=== PATIENT | male | born 1930 | race Caucasian/White ===

== ENCOUNTER 2016-06-03 22:00 | Inpatient (IN) | payer OTHER, MEDICARE ==
[~2016-06-03] VITALS: Ht 167.6 cm; Wt 69.9 kg
[~2016-06-03 22:00] MED LIST: ADVAIR 500-501 EACH INH; AMITIZA8 MCG PO; ASPIR 8181 MG PO; AUGMENTIN 500M500 MG PO; AUGMENTIN 875875 MG PO; AVELOX400 MG PO; AZITHROMYCIN D250 MG PO; AZITHROMYCIN250 MG PO; BILBERRY; CARBIDOPA AND L1 TA1 PO; CARDIZEM CD180 MG PO; CARDIZEM30 MG PO; COLACE100 M1 PO; COUMADIN 5 MG TA5 MG PO; COUMADIN 7.5 M7.5 MG PO; DEXILANT60 M1 PO; DIGOXIN0.125 MG PO; ESCITALOPRAM10 MG PO; FERROUS SULFAT325 M1 PO; FISH OIL1000 MG PO; FLOMAX(MONOGRA0.4 MG PO; FLOMAX0.4 M1 PO; LASIX40 MG PO; MIRALAX17 GM PO; MULTAQ 400MG400 MG PO; MULTIVITAMIN1 TA1 PO; OCUVITE1 TA1 PO; PREDNISONE 10MG10 MG PO; PREDNISONE 20MG20 MG PO; PREDNISONE10 MG PO; PREDNISONE5 MG PO; PRESERVISION1 SGL PO; PROPECIA 1MG1 MG PO; RHINOCORT0.032 MG/2 NASB; ROZEREM8 MG PO; SINGULAIR10 MG PO; SUCRALFATE1 GM PO; SYNTHROID50 MCG PO; VESICARE5 M1 PO; VITAMIN D1000 IU PO; VITAMIN D31000 IU PO; VYTORIN 10 MG-11 TAB PO; WARFARIN SODIUM5 MG PO; XOPENEX HFA45 MCG INH; ZYRTEC10 M1 PO
--- NOTE | 2016-06-03 22:07 | ED DYSPNEA/ASTHMA COMPLAINT ---
History of Present Illness General Chief Complaint: Chest Pain Stated Complaint: SOB, IN AFIB? Source: patient Exam Limitations: no limitations Vital Signs & Intake/Output Vital Signs & Intake/Output Vital Signs Date Time Temp Pulse Resp B/P Pulse O2 O2 Flow FiO2 Ox Delivery Rate 06/03 2350 100.0 06/03 2331 96 Part 60% ReBreather 06/03 2305 90 150/66 06/03 230 101.9 20 96 Venti Mask 45% 06/03 2250 102.4 06/035 24 98 Part 60% ReBreather 06/03 2221 102.4 98 28 160/78 78 Room Air 06/03 2210 99 Non 100% ReBreather ED Intake and Output 06/04 0000 06/03 1200 Intake Total 500 Output Total Balance 500 Intake, IV 500 Patient 154 lb Weight Allergies Coded Allergies: pollen extracts (UNKNOWN 09/08/15) atorvastatin (Severe, MUSCLE WEAKNESS 09/08/15) Uncoded Allergies: DUST (UNKNOWN 12/26/14) Reconcile Medications Carbidopa/Levodopa (Carbidopa and Levodopa) 25 MG/100 MG TAB 1 TAB PO BID PARKINSON'S (Reported) Cholecalciferol (Vitamin D3) 1,000 IU TAB 1 TAB PO DAILY SUPPLEMENT (Reported ) Dexlansoprazole (Dexilant) 60 MG CAP.BP 1 CAP PO DAILY GERD (Reported) Digoxin 0.125 MG TAB 1 TAB PO DAILY HEART RATE DILTIAZEM HCL (Cardizem Cd) 180 MG C24 1 CAP PO BID heart rate (Reported) Docusate Sodium (Colace) 100 MG CAPSULE 2 CAP PO BID CONSTIPATION (Reported) Ezetimibe/Simvastatin (Vytorin 10-10 MG Tablet) 10 MG-10 MG TABLET 1 TAB PO DAILY CHOLESTEROL (Reported) Ferrous Sulfate 325 MG TAB 325 MG PO DAILY anemia Finasteride (Propecia) 1 MG TABLET 5 mg PO DAILY BPH (Reported) HOLD FOR SBP <110 Fluticasone-Salmeterol (Advair 500-50 Diskus) 500 MCG-50 MCG/DOSE BLST.W.DEV 1 PUF INH BID ASTHMA (Reported) Furosemide (Lasix) 40 MG TAB 1 TAB PO Saturday CONGESTIVE HEART FAILURE Levothyroxine (Synthroid) 0.025 MG TAB 2 TAB PO DAILY HYPOTHYROIDISM ( Reported) Lubiprostone (Amitiza) 8 MCG CAPSULE 1 CAP PO BID CONSTIPATION (Reported) Metformin HCl 500 MG TABLET 1 TAB PO BID DIABETES (Reported) Montelukast Sodium (Singulair) 10 MG TABLET 1 TAB PO DAILY COPD (Reported) Moxifloxacin Hydrochloride (Avelox) 400 MG TAB 400 MG PO DAILY LUNG INFECTION Prednisone 20 MG TAB 20 MG PO DAILY BREATHING PROBLEMS Solifenacin Succinate (Vesicare) 5 MG TAB 1 TAB PO DAILY BLADDER (Reported) Tamsulosin Hydrochloride (Flomax) 0.4 MG CAP.ER.24H 1 CAP PO AT BEDTIME BPH ( Reported) Triage Nurses Notes Reviewed? yes Onset: Gradual Duration: day(s):, getting worse Timing: recent history Severity: moderate Activities at Onset: none Prior Episodes/Possible Cause: occasional episodes Modifying Factors: Improves With: rest. Associated Symptoms: cough, wheezing HPI: 86-year-old gentleman history of CHF and COPD and A. fib, presents with wheezing and shortness of breath for the past 1-2 days. He notes that this evening he started feeling worse. He became breathless. He notes phlegm in his chest. He has no chest pain lower extremity swelling or dizziness. Upon arrival to the emergency department his O2 sat was in the low 80s. He was brought immediately to an exam room and placed on 100% nonrebreather. His O2 sat with oxygen is 90- 95%. Past History Travel History Traveled to [place] past 21 day No Medical History Any Pertinent Medical History? see below for history Neurological: Parkinson's disease, [place] VISION LOSS EENT: blindness, hearing loss, macular degeneration Cardiovascular: AFIB, CHF, hypertension, hyperlipidemia Respiratory: bronchitis, COPD, emphysema, pneumonia, Lung ca s/p lobectomy Gastrointestinal: lower GI bleed, AVM Hepatic: NONE Renal: NONE Musculoskeletal: NONE Psychiatric: NONE Endocrine: NONE Blood Disorders: anemia Cancer(s): lung cancer, RLL LOBECTOMY RN SHIFT MGR/Reproductive: NONE Other Medical Hx: IGG DEFICIENCY History of MRSA: No History of VRE: No History of CDIFF: No Pneumonia Vaccine: 02/03/10 Influenza Vaccine: 03/10/15 Surgical History Surgical History: N partial lobectomy Psychosocial History Who do you live with Spouse Services at Home None What is your primary language [place] Citizen Family History Family History, If Any: SISTER (some platelet problem). Hx Contributory? No Review of Systems Review of Systems Constitutional: Reports: no symptoms. EENTM: Reports: no symptoms. Respiratory: Reports: no symptoms. Cardiovascular: Reports: no symptoms. GI: Reports: no symptoms. Genitourinary: Reports: no symptoms. Musculoskeletal: Reports: no symptoms. Skin: Reports: no symptoms. Neurological/Psychological: Reports: no symptoms. Hematologic/Endocrine: Reports: no symptoms. Immunologic/Allergic: Reports: no symptoms. All Other Systems: Reviewed and Negative Physical Exam Physical Exam General Appearance: well developed/nourished, moderate distress Head: atraumatic, normal appearance Eyes: Bilateral: normal appearance. Ears, Nose, Throat: normal pharynx, normal ENT inspection Neck: normal inspection, supple Respiratory: crackles, rhonchi, respiratory distress Cardiovascular: TACHYCARDIC Gastrointestinal: normal bowel sounds Extremities: normal inspection Neurologic/Psych: no motor/sensory deficits, awake, alert, oriented x 3 Skin: intact, normal color Core Measures ACS in differential dx? No Severe Sepsis Present: No Septic Shock Present: No Progress Differential Diagnosis: asthma, AMI, CHF, COPD, pneumonia Plan of Care: Orders Procedure Date/time Status Nothing by Mouth 06/04 B Active Add-on Test (ER Only) 06/04 0015 Active Patient Data 06/04 0013 Active Saline Lock 06/03 2233 Active Misc Message 06/03 2233 Active ED Holding Orders 06/03 2233 Active Code Status 06/03 2233 Active Admit to inpatient 06/03 2232 Active Saline Lock 06/03 2230 Active Misc Message 06/03 2230 Active ED Holding Orders 06/03 2230 Active Admit to inpatient 06/03 2230 Active Vital Signs 06/03 2230 Active Code Status 06/03 2230 Complete DIGOXIN 06/03 2229 Active B-TYPE NATRIURETIC PEP (BNP) 06/03 2229 Active BLOOD CULTURE 06/03 2209 Active ARTERIAL BLOOD GAS (GEN) 06/03 2208 Complete BLOOD CULTURE 06/03 2206 Active TROPONIN LEVEL 06/03 2205 Active PARTIAL THROMBOPLASTIN TIME 06/03 2205 Complete PROTHROMBIN TIME 06/03 2205 Complete LIPASE 06/03 2205 Active HEPATIC FUNCTION PANEL 06/03 2205 Active CBC WITHOUT DIFFERENTIAL 06/03 2205 Complete BASIC METABOLIC PANEL 06/03 2205 Active AMYLASE 06/03 2205 Active EKG 06/03 2201 Active Laboratory Tests 06/03/16 2230: Anion Gap 12, Estimated GFR > 60, BUN/Creatinine Ratio 26.3 H, Glucose 129 H, Calcium 9.3, Total Bilirubin 0.6, Direct Bilirubin 0.4, AST 22, ALT 22, Alkaline Phosphatase 93, Troponin I < 0.01, [id number] Pept 536 H, Total Protein 7.2, Albumin 4.3, Amylase 58, Lipase 73, PT 12.6 H, INR 1.20 H, APTT 32, CBC w Diff MAN DIFF ORDERED, RBC 4.40 L, MCV 81.0, MCH 26.1 L, RDW 16.9 H, MPV 8.9, Gran % 88.5 H, Lymphocytes % 5.6 L, Monocytes % 4.0, Eosinophils % 1.6, Basophils % 0.3, Absolute Granulocytes 13.8 H, Segmented Neutrophils 84 H, Band Neutrophils 3, Absolute Lymphocytes 0.9 L, Lymphocytes 6 L, Monocytes 5, Absolute Monocytes 0.6, Eosinophils 2, Absolute Eosinophils 0.2, Absolute Basophils 0, Platelet Estimate ADEQUATE, Hypochromic-Microcytic 2+, Anisocytosis 1+, PUBS MCHC 32.2 L, Digoxin Pending 06/03/16 2210: pH 7.37, pCO2 41, pO2 84, HCO3 23, ABG O2 Sat (Measured) 93.0 L, P-50 (Temp Corrected) Y, Carboxyhemoglobin 0.9 L, O2 Concentration % 7L, Temperature 102.4 H, O2 Delivery Method NEB RX, Phlebotomy Draw Site RIGHT BRACHIAL 06/03/16 2209: Hia-Z-Zgjithxqcdh Pept Cancelled Microbiology 06/03 2246 BLOOD: Blood Culture - RECD 06/03 2229 BLOOD: Blood Culture - RECD Diagnostic Imaging: Viewed by Me: Radiology Read. Discussed w/RAD: Radiology Read. Initial ED EKG: a. FIB WITH VENTRICULAR RATE IN THE 90S Departure Departure Disposition: STILL A PATIENT Condition: Stable Clinical Impression Primary Impression: Shortness of breath Secondary Impressions: Atrial fibrillation, Pneumonia, Sepsis Referrals: ANABELLE VALDEZ MD (PCP/Family) Departure Forms: Customer Survey General Discharge Information Comments 06/04/2016, 010 7 AM: Patient feeling better after IV steroids nebs antibiotics and oxygen support. Patient stable for [facility] Admission Note Spoke With: ADENIKE SORIANO MD Documentation of Exam: Documentation of any treatments & extenuating circumstances including Concerns Regarding Discharge (functional status, medication knowledge or non-compliance, living conditions, etc.) that warrant an admission rather than observation: Patient with pneumonia hypoxia sepsis merits O2 support and IV antibiotics Critical Care Note Critical Care Note Critical Care Time: non-applicable
--- NOTE | 2016-06-03 22:18 | NUR ---
RECEIVED 86 YO MALE BOUGHT DIRECTLY TO ROOM # 7 FOR DIFFICULTY BREATHING X 4 DAYS, GETTING PROGRESSIVELY WORSE. PT'S O2 SATS 78% ON ROOM AIR UPON ARRIVAL. PT WITH HX OF AFIB. PT PLACED ON 100 % NRB AND EVALUATED BY DR UNDERWOOD.
--- NOTE | 2016-06-03 22:26 | NUR ---
STAT EKG DONE. PT CONNECTED TO CM RESP THERAPIST TO EVALUATE PT, ADMINISTER COMBI MED NEB TX AND PERFORM ABG.
--- NOTE | 2016-06-03 22:30 | NUR ---
RT AT BEDSIDE WITH NEB TX AND ABG DRAWN, SATS 98 ON NEB, TRASITIONED TO PARTIAL REBREATHER AFTER NEB AND THEN QUICKLY TO 45% VENTI WITH RESTING SATS 94-97.
[2016-06-03 22:47] LABS: ABSOLUTE BASOPHIL COUNT 0 /CUMM (0.0-0.2); ABSOLUTE EOSINOPHIL COUNT 0.2 /CUMM (0.0-0.7); ABSOLUTE GRANULOCYTE CT 13.8 /CUMM (1.4-6.5); ABSOLUTE LYMPH COUNT 0.9 /CUMM (1.2-3.4); ABSOLUTE MONOCYTE COUNT 0.6 /CUMM (0.10-0.60); BASOPHIL % 0.3 % (0.0-2.0); EOSINOPHIL % 1.6 % (0-5); GRANULOCYTE % 88.5 % (42.2-75.2); HEMATOCRIT 35.6 % (42-52); MEAN CORPUSCULAR HGB 26.1 PG (27.0-31.0); MEAN CORPUSCULAR HGB CONC 32.2 G/DL (33.0-37.0); MEAN PLATELET VOLUME 8.9 FL (7.4-10.4); PLATELET COUNT 211 /CUMM (130-400); RBC DISTRIBUTION WIDTH 16.9 % (11.5-14.5); WHITE BLOOD CELL COUNT 15.6 /CUMM (4.8-10.8)
--- NOTE | 2016-06-03 22:50 | NUR ---
2 SETS BLOOD CX, SST/LAV/BLUE/PINK/DELCID TUBES SENT.
--- NOTE | 2016-06-03 22:55 | RADIOLOGY REPORT ---
EXAMINATION: XR PORTABLE CHEST CLINICAL INFORMATION: Hypoxia. COMPARISON: Multiple priors, most recent chest radiograph dated 04/26/[address] dated 05/23/2016. TECHNIQUE: Portable AP semiupright view of the chest was obtained. FINDINGS: There are bilateral increased interstitial markings. There are new bilateral lower lobe patchy airspace opacities which could represent atelectasis versus infiltrates. There is no pleural effusion or pneumothorax. The cardiomediastinal silhouette is mildly prominent. IMPRESSION: 1. New bilateral lower lobe patchy airspace opacities which could represent atelectasis versus infiltrates. 2. Chronic bilateral increased interstitial markings.
[2016-06-03 23:08] LABS: PT 12.6 SEC (9.4-12.5); PTT 32 SEC (25-37)
--- NOTE | 2016-06-03 23:10 | NUR ---
MEDICATED PER EMAR, PT APPEARS MUCH BETTER, STATING HE FEELS MORE COMFORTABLE. NO LONGER SHIVERING, SATS IMPROVED AND WOB MUCH IMPROVED, MAINTING SATS ON 45% VM. AWAITING ADMISSION.
--- NOTE | 2016-06-03 23:31 | NUR ---
PT AWARE HE IS NPO EXCEPT SIPS/CHIPS, ICE CHIPS GIVEN, PT HAS NO COMPLAINTS AT THIS TIME.
[2016-06-03] MEDS ORDERED: METFORMIN HCL500 M3 PO (23:45)
--- NOTE | 2016-06-03 23:54 | NUR ---
RECIEVED REPORT FROM TAMMI FERGUSON. PT TEMP REASSESSED AT 100.0. PT STATES HE FEELS "MUCH BETTER." SATTING 96% ON 45% VENTI MASK.
--- NOTE | 2016-06-04 00:18 | NUR ---
HOUSE STAFF AT BEDSIDE FOR EVAL
--- NOTE | 2016-06-04 00:28 | NUR ---
PT GIVEN SIPS OF WATER PER OKAY BY FOLLOWING PT.
--- NOTE | 2016-06-04 01:13 | History & Physical ---
KAREN RIVAS,JAD 06/04/16 0113: General Information and HPI MD Statement: I have seen and personally examined KENIA SHEARER and documented this H&P. The patient is a 86 year old M who presented with a patient stated chief complaint of [shortness of breath]. Source of Information: patient, EMS Exam Limitations: no limitations History of Present Illness: Patient is a 26-year-old male with past medical history significant for COPD, CHF, A. fib (on Eliquis), Parkinson's disease, vision loss (macular degeneration , legal blindness), hearing loss, lung carcinoma status post lobectomy, to which she appeared, type 2 diabetes came to the ER with progressively shortness of breath wheezing for the past 2 days. His symptoms started last with SOB , Marlys colored phlegm wtih chills. Symptoms got better with prednisone in terms of breathing with prednisone. However his SOB got worse even with resting and exertion, 2pillow orthopnea came to the ER for further evaluation. Last saturday he had an episode of vomiting with nausea, abdominal pain. Last BM on saturday and had dark stools for the past 1.5 week. No sick contacts, traveling in the past. No chest pain. 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 Mc Allergies/Medications Allergies: Coded Allergies: pollen extracts (UNKNOWN 09/08/15) atorvastatin (Severe, MUSCLE WEAKNESS 09/08/15) Uncoded Allergies: DUST (UNKNOWN 12/26/14) Home Med list Albuterol Sulfate (Proair Hfa) 90 MCG HFA.AER.AD 2 PUF INH Q4-6 PRN PRN COPD (Reported) Apixaban (Eliquis) 2.5 MG TABLET 1 TAB PO BID AFIB (Reported) Carbidopa/Levodopa (Sinemet 25-100 MG Tablet) 25 MG-100 MG TABLET 1 TAB PO TID PARKINSON (Reported) Cholecalciferol (Vitamin D3) 1,000 IU TAB 1 TAB PO DAILY SUPPLEMENT (Reported ) Dexlansoprazole (Dexilant) 60 MG KILLIAN.BP 1 CAP PO DAILY GERD (Reported) Digoxin 0.125 MG TAB 1 TAB PO DAILY HEART RATE Diltiazem HCl (Diltiazem ER) 180 MG CAPSULE.ER 1 TAB PO BID AFIB (Reported) Docusate Sodium (Colace) 100 MG CAPSULE 2 CAP PO BID CONSTIPATION (Reported) Ezetimibe/Simvastatin (Vytorin 10-10 MG Tablet) 10 MG-10 MG TABLET 1 TAB PO AT BEDTIME CHOLESTEROL (Reported) Ferrous Sulfate 325 MG (65 MG IRON) TABLET 1 TAB PO DAILY IRON DEF ANEMIA ( Reported) Finasteride 5 MG TABLET 1 TAB PO AT BEDTIME BPH (Reported) Fluticasone-Salmeterol (Advair 500-50 Diskus) 500 MCG-50 MCG/DOSE BLST.W.DEV 1 PUF INH BID ASTHMA (Reported) Furosemide (Lasix) 20 MG TABLET 1 TAB PO EOD CHF (Reported) Ipratropium/Albuterol Sulfate (Combivent Respimat Inhal Lorane) 20 MCG-100 MCG/ ACTUATION MIST.INHAL 2 SPRAY NS DAILY COPD (Reported) Levothyroxine (Synthroid) 0.025 MG TAB 2 TAB PO DAILY HYPOTHYROIDISM ( Reported) Lubiprostone (Amitiza) 8 MCG CAPSULE 1 CAP PO BID CONSTIPATION (Reported) Metformin HCl 500 MG TABLET 1 TAB PO AT BEDTIME DM (Reported) Montelukast Sodium 10 MG TABLET 1 TAB PO AT BEDTIME COPD (Reported) Polyethylene Glycol 3350 (Miralax) 17 GRAM POWD.PACK 1 PAC PO DAILY CONSTIPATION (Reported) dissolve in water Solifenacin Succinate (Vesicare) 5 MG TAB 1 TAB PO DAILY BLADDER (Reported) Tamsulosin Hydrochloride (Flomax) 0.4 MG CAP.ER.24H 1 CAP PO AT BEDTIME BPH ( Reported) Compliance With Home Meds: GOOD Past History Travel History Traveled to [place] past 21 day No Medical History Neurological: Parkinson's disease, NIKOLAI VISION LOSS EENT: blindness, hearing loss, macular degeneration Cardiovascular: AFIB, CHF, hypertension, hyperlipidemia Respiratory: bronchitis, COPD, emphysema, pneumonia, Lung ca s/p lobectomy Gastrointestinal: lower GI bleed, AVM Hepatic: NONE Renal: NONE Musculoskeletal: NONE Psychiatric: NONE Endocrine: NONE Blood Disorders: anemia Cancer(s): lung cancer, RLL 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 Psychosocial History Services at Home: None Functional Ability ADLs Independent: dressing, eating, toileting, bathing. Ambulation: independent IADLs Needs Assist: shopping, housework, finances, food prep, telephone, transportation, medication admin. Employment History Employment Retired Review of Systems Review of Systems Constitutional: Reports: see HPI, fever, malaise, weakness. EENTM: Reports: see HPI, visual changes, hearing changes. Cardiovascular: Reports: see HPI. Respiratory: Reports: see HPI, cough, short of breath, sputum production, wheezing. GI: Reports: see HPI, abdominal pain, nausea, vomiting. Genitourinary: Reports: no symptoms, see HPI. Musculoskeletal: Reports: no symptoms, see HPI. Skin: Reports: no symptoms, see HPI. Neurological/Psychological: Reports: no symptoms, see HPI. Hematologic/Endocrine: Reports: no symptoms, see HPI. Comments ROS negative except the above Exam & Diagnostic Data Last 24 Hrs of Vital Signs/I&O Vital Signs Date Time Temp Pulse Resp B/P Pulse O2 O2 Flow FiO2 Ox Delivery Rate 06/04 0307 95 Venti Mask 45% 06/04 0253 98.5 91 22 141/59 95 Venti Mask 45% 06/04 0136 99.6 80 22 154/67 97 Venti Mask 45% 06/03 2350 100.0 06/03 2331 96 Part 60% ReBreather 06/03 2305 90 150/66 06/03 2305 101.9 20 96 Venti Mask 45% 06/03 2250 102.4 06/03 2225 24 98 Part 60% ReBreather 06/03 2222 102.4 98 28 160/78 78 Room Air 06/03 2210 99 Non 100% ReBreather Intake & Output 06/04 0800 06/04 0000 06/03 1600 Intake Total 500 Output Total Balance 500 Intake, IV 500 Patient 69.853 kg Weight Physical Exam General Appearance Alert, Oriented X3, Cooperative, Mild Distress Skin No Rashes, No Breakdown HEENT Atraumatic, PERRLA, EOMI Neck Supple Cardiovascular Regular Rate, Normal S2, systolic murmur present, irregualarly irregular rhythm Lungs decrased breath sounds present on both the lung bases along with rhonchi Abdomen Normal Bowel Sounds, Soft, No Tenderness Neurological Normal Speech, Normal Tone, Sensation Intact Extremities No Clubbing, No Cyanosis, No Edema Assessment/Plan Assessment: Patient is a 26-year-old male with past medical history significant for COPD, CHF, A. fib (on Eliquis), Parkinson's disease, vision loss (macular degeneration , legal blindness), hearing loss, lung carcinoma status post lobectomy, to which she appeared, type 2 diabetes came to the ER with progressively shortness of breath wheezing for the past 2 days. ER Vital signs T max 102.4, HR 98, RR 28, BP 160/78, O2 sat 78% on room air improved to 96% on 60% Ventimask Significant labs include leukocytosis of 15,600 with left shift, H&H 11.5/35.6 (baseline 11.9/36.7), normal electrolytes, BUN 21, creatinine 0.8, glucose 129, normal LFT, troponin negative, INR 1.2, Pro BNP 536. Digoxin level 0.6 EKG revealed A. fib with no acute ST-T changes, QTC 506 Last Echo done in March 2015 revealed EF of 60-65% with pulmonary hypertension with RVSP of 40. Chest x-ray revealed new bilateral lower lobe patchy airspace opacity and also chronic bilateral increase interstitial markings Plan Acute hypoxic respiratory failure secondary to pneumonia * Started on Ceftriaxone and azithromycin IV * solumedrol 40mg Q8 * continue his home medications advair, singulair * F/U cultures * TRC/Nebs * Pulm consult in am A.Fib on eliquis * Continue Eliquis - 2.5mg BID still in A.Fib * Rate control with Digoxin and diltiazem 180mg BID Dark stools with lower abdominal pain in the setting of Iron intake * Most probably due to iron intake * Constipation with lower abdominal pain - ?? Diverticulosis * Tried to do guiac - no evident stool in the rectal vault * Guiac stool to make sure no ongoing GI bleed * monitor H&H History of parkinsons disease * Continue his home medication sinamet History of Diabetes mellitius Accuchecks and insulin sliding scale On metfromin at home History of hyperlipidemia * On ezetimibe 10mg at bedtime History of BPH * Continue his home medications Finasteride, Tamsulosin History of hypothyroidism * Continue his home medication levothyroxine 5mcg daily. Legally blind with hearing loss DVT prophylaxis * On eliquis Code status * full Code (patient had a grandson awaiting graduation so he changed his wishes and want to be full code) As Ranked By This Provider Problem List: 1. ATRIAL FIBRILATION 2. BPH 3. Dyslipidemia 4. Full code status 5. Hypertension 6. COPD (chronic obstructive pulmonary disease) 7. Lung cancer, lower lobe 8. Pneumonia 9. Parkinson disease 10. Acute and chronic respiratory failure with hypoxia Core Measures/Miscellaneous Acute Coronary Syndrome ACS Diagnosis: No Cerebrovascular Accident CVA/TIA Diagnosis: No Congestive Heart Failure CHF Diagnosis: No Venous Thromboembolism VTE Risk Factors: Cancer/chemo/oth therapy VTE Prophylaxis Ordered Inpt: Pharm- Heparin No Mech VTE prophylaxis d/t: No contraindications No VTE Pharm Prophylaxis d/t: No contraindications VTE Diagnosis: No VTE Type: NONE VTE Confirmed by (Test): NONE Severe Sepsis Severe Sepsis Present: No Septic Shock Septic Shock Present: No Miscellaneous Documentation Attending Case Discussed With: ADENIKE SORIANO MD Primary Care Physician: ANABELLE VALDEZ MD Patient sees these Specialists , Dr. Murphy, Dr. mc Level of Patient Care: General Medicine TOM GOMEZ MD 06/04/16 0202: Resident Review Statement Resident Statement: examined this patient, discussed with qa internship, agreed with qa internship, reviewed EMR data (avail), reviewed images, amended to note Other Findings: This is 86-year-old gentleman with past medical history of CHF, COPD, A. fib, hypertension, hyperlipidemia, lung cancer status post lobectomy, lower GI bleed, Parkinson disease and bilateral hearing loss presented from home with chief complaint of progressively worsening shortness of breath associated with productive number colored sputum production and fever/chills since last . Patient was evaluated by his forex trader Dr. Crane morning and that time patient was fine. afternoon patient developed episode of chills with with increased shortness of breath. Saturday he got very nauseous due to persistent shortness of breath and had one episode of nonbloody vomiting. For past couple days his shortness of breath got really worse at the point he was short of breath at rest. In ER he had fever of 102.4 and noted hypoxic with O2 sat of 78% on room air. He also reports left lower quadrant abdominal pain mostly associated with bowel movement and also reports being constipated. Last bowel movement on Saturday. His vitals on admission were T max 102.4, HR 98, RR 28, BP 160/78, O2 sat 78% on room air improved to 96% on 60% Ventimask On physical exam patient is alert oriented 3 in moderate respiratory distress, HEENT PERRLA EOMI, neck supple, heart S1-S2 without murmur, lungs noted left lower lobe ronchi, abdomen soft nontender nondistended with preserved fall sounds, no peripheral edema, no gross focal neuro deficit. Labs revealed leukocytosis of 15,600 with left shift, H&H 11.5/35.6 (baseline 11.9/36.7), normal electrolytes, BUN 21, creatinine 0.8, glucose 129, normal LFT , troponin negative, INR 1.2, Pro BNP 536. Digoxin level 0.6 EKG revealed A. fib with no acute ST-T changes, QTC 506 Last Echo done in March 2015 revealed EF of 60-65% with pulmonary hypertension with RVSP of 40. Chest x-ray revealed new bilateral lower lobe patchy airspace opacity and also chronic bilateral increase interstitial markings Assessment: This is 86-year-old male with past medical history of COPD not on home O2, A. fib, CHF, hypertension, lung cancer status post right lower lobe lobectomy, Rayshawn repeat, Parkinson disease, diabetes presented from home with chief complaint of progressively worsening shortness of breath associated with productive sputum and fevers chills found to have high-grade fever with leukocytosis of 15,600 with left shift and x-ray suggestive bilateral lower lobe opacity suspicious for pneumonia. 1. Acute hypoxic respiratory failure secondary to community-acquired pneumonia with COPD exacerbation - Admit to general medicine floor - Follow-up blood culture - SEND urine strep and Legionella antigen - Obtain sputum for culture - Continue IV ceftriaxone and azithromycin empirically for pneumonia - Continue Solu-Medrol 40 every 8 hrly - TRC - Continue Advair and Singulair - Pulmonary consult in a.m. 2. A. fib - Continue anticoagulation with Eliquis - Continue rate control with diltiazem and digoxin 3. Anemia - Check stool guaiac - H&H stable - Monitor for active bleeding - Continue iron supplement 4. Hyperlipidemia - Continue Vytorin 5. BPH -Continue Flomax and finasteride 6. Hypothyroidism Continue Synthroid 7. Type 2 diabetes - Accu-Cheks -Hold oral hypoglycemic agent - Start NovoLog sliding scale 8. DVT prophylaxis On Eliquis 9. Full code BO RIVAS, [facility] 06/04/16 0518: Attending MD Review Statement Attending Statement Attending MD Statement: examined this patient, discuss w/resident/PA/GARMENT SEWING MACHINE OPERATOR, agreed w/resident/PA/GARMENT SEWING MACHINE OPERATOR Attending Assessment/Plan: [id number] yo M with h/o COPD, Afib on eliquis, HTN, T2DM, Parkinson's disease, adenocarcinoma of lung s/p RLL lobectomy, GI bleed, CAD, CHF, is here with progressively worsening dyspnea and productive cough. He was last treated for bronchitis/COPD about 2 weeks back with steroid taper. He then followed up with Dr. Crane and Dr. Liu on May 24. Soon after he developed the above symptoms and fever/chills. He has profound constipation, reports LLQ pain, nausea and vomiting. Of note, he has dark stools for past 2 weeks. Vitals: Tmax 102.4, HR 98, BP 141/59, sats 78% on RA on ER arrival --> 95% on 45 % VM. Exam: AAO, moderate resp distress, difficulty with completing sentences, Chest b/l rhonchi at bases, Heart S1S2 regular. Labs: WBC 15.6, bands 3, H/H 11.5/35.6, Na 146, BUN 21, trop neg, ABG 7.37/41/84/23. Digoxin level 0.6, CXR: new b/l lower lobe patchy airspace opacities, chronic b/l increased interstitial markings. EKG: Afib. Echo (2015): EF 60-65% with pulmonary hypertension, aortic stenosis. 1. Acute hypoxic respiratory failure, with sepsis 2/2 community acquired pneumonia and COPD exacerbation. TRC nebs, sputum culture, urine legionella and strep pneumo Ag, IV ceftriaxone and azithro, IV steroids, Pulm consult (Dr. Crane). Check lactic acid. Serial EKG and troponin to rule out ACS. Consider Cardio consult (Dr. Guadarrama). Check TSH, free T4. 2. Chronic JENNIFER. Guaiac all stools. Continue iron supplements. 3. Afib. Ct. Eliquis, digoxin and cardizem. DVT ppx eliquis. Full code.
--- NOTE | 2016-06-04 01:20 | NUR ---
PT ASSIGNED TO ROOM 214-1
--- NOTE | 2016-06-04 01:28 | NUR ---
REPORT GIVEN TO 2NB, AWAITING TRANSPORT.
[2016-06-04] MEDS ORDERED: SINEMET 25-1001 EACH PO (02:50)
[2016-06-04 02:53] VITALS: BP 141/59
[2016-06-04] MEDS ORDERED: DILTIAZEM ER240 MG PO (02:53)
[2016-06-04] MEDS ORDERED: FERROUS SULFAT325 M3 PO (02:55)
[2016-06-04] MEDS ORDERED: FINASTERIDE5 M1 PO (02:57)
[2016-06-04] MEDS ORDERED: LASIX20 M1 PO (02:58)
[2016-06-04] MEDS ORDERED: MONTELUKAST SOD10 M1 PO (03:00)
[2016-06-04] MEDS ORDERED: ELIQUIS2.5 M1 PO (03:01)
[2016-06-04] MEDS ORDERED: MIRALAX17 G1 PO (03:04)
[2016-06-04] MEDS ORDERED: PROAIR HFA8.5 GM INH (03:05)
[2016-06-04] MEDS ORDERED: COMBIVENT RESPIM4 GM NS (03:07)
[2016-06-04] MEDS ORDERED: VYTORIN 10-101 EACH PO (03:11)
--- NOTE | 2016-06-04 05:23 | Admission Certification ---
Admission Certification Certification Statement - As attending physician, I certify that at the time of - admission, based on clinical presentation, severity of - symptoms, need for further diagnostic testing and - therapeutic interventions, and risk of adverse outcomes - without in-hospital treatment, in my clinical assessment, - this patient requires an acute hospital stay for a minimum - of two nights or longer. I have also considered psychsocial - factors such as support system, advanced age, financial - issues, cognitive issues, and failed out-patient treatments, - past re-admission history, safety of patient, and lack of - compliance as applicable. Specific rationale supporting this admission is: Acute hypoxic respiratory failure, community acquired pneumonia with COPD exacerbation.
[2016-06-04 08:49] VITALS: BP 130/66
[2016-06-04 09:18] LABS: ABSOLUTE BASOPHIL COUNT 0 /CUMM (0.0-0.2); ABSOLUTE EOSINOPHIL COUNT 0 /CUMM (0.0-0.7); ABSOLUTE GRANULOCYTE CT 14.5 /CUMM (1.4-6.5); ABSOLUTE LYMPH COUNT 0.5 /CUMM (1.2-3.4); ABSOLUTE MONOCYTE COUNT 0.3 /CUMM (0.10-0.60); BASOPHIL % 0 % (0.0-2.0); EOSINOPHIL % 0 % (0-5); GRANULOCYTE % 94.9 % (42.2-75.2); HEMATOCRIT 31.5 % (42-52); MEAN CORPUSCULAR HGB 26.3 PG (27.0-31.0); MEAN CORPUSCULAR HGB CONC 32.9 G/DL (33.0-37.0); MEAN PLATELET VOLUME 9.5 FL (7.4-10.4); PLATELET COUNT 163 /CUMM (130-400); RBC DISTRIBUTION WIDTH 16.3 % (11.5-14.5); RED BLOOD CELL CT 3.94 /CUMM (4.70-6.10); WHITE BLOOD CELL COUNT 15.2 /CUMM (4.8-10.8)
--- NOTE | 2016-06-04 09:30 | Cons- Pulmonary ---
ANNABEL SIN 06/04/16 0927: General Information and HPI Consulting Request Date of Consult: 06/04/16 History of Present Illness: 85-year-old man with was admitted progressive shortness of breath. Of note, his PMH is significant for mild h/o COPD not on home oxygen, Afib on eliquis, HTN, T2DM, adenocarcinoma of lung s/p RLL lobectomy, GI bleed, CAD, CHF Parkinson's disease and bilateral hearing loss. Patient states he was in his usual state of health up untuil weeks ago when he was treated for bronchitis/COPD exacerbation with steroid taper. Afterward patient follow with Dr. Rivas/Dr. Liu in May 24. Afterward, patient developed symptoms of severe, worsening shortness of breath most prominently on exertion and also at rest. His shortness of breath was associated with productive cough and greenish yellow sputum production with no blood and episodes of fever/chills. He complains of left lower abdominal pain and constipation randomly felt nauseous and vomited. Upon arrival at the emergency room, Vitals: Tmax 102.4, HR 98, BP 141/59, sats 78% on RA on ER arrival --> 95% on 45% VM. Exam: AAO, moderate resp distress, difficulty with completing sentences. Allergies/Medications Allergies: Coded Allergies: pollen extracts (UNKNOWN 09/08/15) atorvastatin (Severe, MUSCLE WEAKNESS 09/08/15) Uncoded Allergies: DUST (UNKNOWN 12/26/14) Home Med List: Albuterol Sulfate (Proair Hfa) 90 MCG HFA.AER.AD 2 PUF INH Q4-6 PRN PRN COPD (Reported) Apixaban (Eliquis) 2.5 MG TABLET 1 TAB PO BID AFIB (Reported) Carbidopa/Levodopa (Sinemet 25-100 MG Tablet) 25 MG-100 MG TABLET 1 TAB PO TID [place] (Reported) Cholecalciferol (Vitamin D3) 1,000 IU TAB 1 TAB PO DAILY SUPPLEMENT (Reported ) Dexlansoprazole (Dexilant) 60 MG KILLIAN.BP 1 CAP PO DAILY GERD (Reported) Digoxin 0.125 MG TAB 1 TAB PO DAILY HEART RATE Diltiazem HCl (Diltiazem ER) 180 MG CAPSULE.ER 1 TAB PO BID AFIB (Reported) Docusate Sodium (Colace) 100 MG CAPSULE 2 CAP PO BID CONSTIPATION (Reported) Ezetimibe/Simvastatin (Vytorin 10-10 MG Tablet) 10 MG-10 MG TABLET 1 TAB PO AT BEDTIME CHOLESTEROL (Reported) Ferrous Sulfate 325 MG (65 MG IRON) TABLET 1 TAB PO DAILY IRON DEF ANEMIA ( Reported) Finasteride 5 MG TABLET 1 TAB PO AT BEDTIME BPH (Reported) Fluticasone-Salmeterol (Advair 500-50 Diskus) 500 MCG-50 MCG/DOSE BLST.W.DEV 1 PUF INH BID ASTHMA (Reported) Furosemide (Lasix) 20 MG TABLET 1 TAB PO EOD CHF (Reported) Ipratropium/Albuterol Sulfate (Combivent Respimat Inhal [place]) 20 MCG-100 MCG/ ACTUATION MIST.INHAL 2 SPRAY NS DAILY COPD (Reported) Levothyroxine (Synthroid) 0.025 MG TAB 2 TAB PO DAILY HYPOTHYROIDISM ( Reported) Lubiprostone (Amitiza) 8 MCG CAPSULE 1 CAP PO BID CONSTIPATION (Reported) Metformin HCl 500 MG TABLET 1 TAB PO AT BEDTIME DM (Reported) Montelukast Sodium 10 MG TABLET 1 TAB PO AT BEDTIME COPD (Reported) Polyethylene Glycol 3350 (Miralax) 17 GRAM POWD.PACK 1 PAC PO DAILY CONSTIPATION (Reported) dissolve in water Solifenacin Succinate (Vesicare) 5 MG TAB 1 TAB PO DAILY BLADDER (Reported) Tamsulosin Hydrochloride (Flomax) 0.4 MG CAP.ER.24H 1 CAP PO AT BEDTIME BPH ( Reported) Review of Systems Review of Systems Constitutional: Reports: see HPI, chills, fever, malaise. Denies: diaphoresis, weakness, unexplained weight loss. EENTM: Reports: see HPI. Cardiovascular: Reports: no symptoms. Respiratory: Reports: see HPI, cough, sputum production. GI: Reports: see HPI. Genitourinary: Reports: see HPI. Musculoskeletal: Reports: see HPI. Neurological/Psychological: Reports: see HPI. All Other Systems: Reviewed and Negative Past History Travel History Traveled to [place] past 21 day No Medical History Neurological: Parkinson's disease, HUSLIA VISION LOSS EENT: blindness, hearing loss, macular degeneration Cardiovascular: AFIB, CHF, hypertension, hyperlipidemia Respiratory: bronchitis, COPD, emphysema, pneumonia, Lung ca s/p lobectomy Gastrointestinal: lower GI bleed, AVM Hepatic: NONE Renal: NONE Musculoskeletal: NONE Psychiatric: NONE Endocrine: diabetes Blood Disorders: anemia Cancer(s): lung cancer, RLL LOBECTOMY PICKING TECH/Reproductive: NONE Other Medical Hx: IGG DEFICIENCY Surgical History Surgical History: Lobectomy Family History Relations & Conditions If Any: SISTER (some platelet problem). Psychosocial History Where Do You Live? Home Services at Home: None Smoking Status: Former Smoker Functional Ability ADLs Independent: dressing, eating, toileting, bathing. Ambulation: independent IADLs Needs Assist: shopping, housework, finances, food prep, telephone, transportation, medication admin. Employment History Employment: Retired Exam & Diagnostic Data Last 24 Hrs of Vital Signs/I&O Vital Signs Date Time Temp Pulse Resp B/P Pulse O2 O2 Flow FiO2 Ox Delivery Rate 06/04 0908 Nasal 3.0L Cannula 06/04 0849 98.1 72 18 130/66 97 06/04 0800 Venti Mask 45% 06/04 0307 95 Venti Mask 45% 06/04 0253 98.5 91 22 141/59 95 Venti Mask 45% 06/04 0136 99.6 80 22 154/67 97 Venti Mask 45% 06/03 2350 100.0 06/03 2331 96 Part 60% ReBreather 06/03 2305 90 150/66 06/03 2305 101.9 20 96 Venti Mask 45% 06/03 2250 102.4 06/03 2225 24 98 Part 60% ReBreather 06/03 2222 102.4 98 28 160/78 78 Room Air 06/03 2210 99 Non 100% ReBreather Intake & Output 06/04 1600 06/04 0800 06/04 0000 Intake Total 500 Output Total Balance 500 Intake, IV 500 Patient 154 lb Weight Physical Exam General Appearance: no apparent distress, alert, awake, thin Head: atraumatic Eyes: Bilateral: normal appearance, PERRL, EOMI. Ears, Nose, Throat: Bilateral hearing aid use Neck: supple, right sided thyroid cyst Respiratory: rhonchi, decreased air movement Cardiovascular: regular rate/rhythm Gastrointestinal: normal bowel sounds, soft, non-tender Back: normal inspection Extremities: no edema Neurologic/Psych: awake, alert, oriented x 3 Last 48 Hrs of Labs/Les: Laboratory Tests 06/04/16 0720: Anion Gap 10, Estimated GFR > 60, BUN/Creatinine Ratio 27.1 H, TSH 1.500, Free T4 0.87, CBC w Diff Pending, WBC Pending, RBC Pending, Hgb Pending, Hct Pending, MCV Pending, MCH Pending, RDW Pending, Plt Count Pending, MPV Pending, Gran % Pending, Lymphocytes % Pending, Monocytes % Pending, Eosinophils % Pending, Basophils % Pending, Absolute Granulocytes Pending, Absolute Lymphocytes Pending , Absolute Monocytes Pending, Absolute Eosinophils Pending, Absolute Basophils Pending, PUBS MCHC Pending 06/03/160: Anion Gap 12, Estimated GFR > 60, BUN/Creatinine Ratio 26.3 H, Glucose 129 H, Calcium 9.3, Total Bilirubin 0.6, Direct Bilirubin 0.4, AST 22, ALT 22, Alkaline Phosphatase 93, Troponin I < 0.01, Jmr-V-Vwnvvvmjfve Pept 536 H, Total Protein 7.2, Albumin 4.3, Amylase 58, Lipase 73, PT 12.6 H, INR 1.20 H, APTT 32, CBC w Diff MAN DIFF ORDERED, RBC 4.40 L, MCV 81.0, MCH 26.1 L, RDW 16.9 H, MPV 8.9, Gran % 88.5 H, Lymphocytes % 5.6 L, Monocytes % 4.0, Eosinophils % 1.6, Basophils % 0.3, Absolute Granulocytes 13.8 H, Segmented Neutrophils 84 H, Band Neutrophils 3, Absolute Lymphocytes 0.9 L, Lymphocytes 6 L, Monocytes 5, Absolute Monocytes 0.6, Eosinophils 2, Absolute Eosinophils 0.2, Absolute Basophils 0, Platelet Estimate ADEQUATE, Hypochromic-Microcytic 2+, Anisocytosis 1+, PUBS MCHC 32.2 L, Digoxin 0.6 L 06/03/162209: pH 7.37, pCO2 41, pO2 84, HCO3 23, ABG O2 Sat (Measured) 93.0 L, P-50 (Temp Corrected) Y, Carboxyhemoglobin 0.9 L, O2 Concentration % 7L, Temperature 102.4 H, O2 Delivery Method NEB RX, Phlebotomy Draw Site RIGHT BRACHIAL 06/03/162208: [id number]-Q-Bdtqhmxhcyt Pept Cancelled Assessment/Plan Impression/Plan: Pertinent data Labs: WBC 15.6, bands 3, H/H 11.5/35.6, Na 146, BUN 21, trop neg, ABG 7.37/41/84 /23. Digoxin level 0.6 CXR: new b/l lower lobe patchy airspace opacities, chronic b/l increased interstitial markings. EKG: Afib. Echo (2015): EF 60-65% with pulmonary hypertension, aortic stenosis. Pulmonary function tests from 2014 Normal TLC, RV and FVC. Increased FRC. FEV1, FEF 2575 and FEV1/FVC ratio are reduced. No improvement after bronchodilator. DLCO is decreased. There is desaturation with ambulation. Impression: Mild obstructive lung disease. consult for 86-year-old gentleman with past medical history of lung cancer status post lobectomy on my COPD was admitted for hypoxic respiratory failure due to pneumonia. List of problems and recommendations 1. Acute hypoxic respiratory failure: CHF vs Pneumonia Vs COPD exacerbation. There is no imaging or clinical evidence of overt CHF decompensation or COPD execarbation. In the setting of high grade fevere and leukocytosis and radiologic change and new onset respiratory symptom, the diagnosis is mostly CAP. Recommendation * Continue TRC * Atrovent 2.5 mL 3 times a day as needed * Singulair 10 mg by mouth at bedtime * DC Uyrm-[id number]-jmgqj to be confirmed with supervisor accounting clerks Dr. Rivas * Continue current antibiotic treatments * Albuterol inhaler as needed * Symbicort 2 puffs twice a day * Follow microbiology results * Possible discharge tomorrow from pulmonology, remained stable/prove 2. History of lung cancer status post lobectomy * Scheduled follow-up CT scan follow with Dr. Rivas as an outpatient 3. Afib * continue digoxin, Cardizem, and eliquis * Please inform Dr. Guadarrama per patient's request 4. CHF * Continue Lasix 40 mg by mouth every 48 hours * Healthy diet 5.Chronic JENNIFER. * per medical team 6. Hypothyroidism and vitamin D deficiency * Managed her medical team Problem List: 1. Atrial fibrillation 2. Hypoxemia 3. Acute and chronic respiratory failure with hypoxia Consult Acknowledgment - Thank you for your consult request. FELIBERTO RIVAS MD 06/04/16 4460: General Information and HPI Consulting Request Requested By: Dr. Liu Assessment/Plan Other Findings/Comments: Feliberto Holloway M.D. have examined this patient, reviewed available EMR data, personally reviewed images, discussed with resident/PA/COLD MILL INSPECTOR, discussed management plan with housestaff and nursing staff, discussed managment plan all of healthcare providers, discussed management plan with patient and/or family, agreed with resident/PA/COLD MILL INSPECTOR. The past history and parts of the chart have been autopopulated. Impression 86-year-old man with COPD/asthma overlap and history of lung cancer here with what seems to be a community-acquired pneumonia. History of A. fib. Plan -Reduce Solu-Medrol to 40 mg IV every 12 -Continue antibiotics -Feeling better overall, TRC nebs -On eloquent/DVT prophylaxis at all times Consult Acknowledgment - Thank you for your consult request.
[2016-06-04 14:36] VITALS: BP 106/54
--- NOTE | 2016-06-04 16:06 | PN- Att Addend ---
Attending Addendum Attending Brief Note 86 yr old male with past medical history significant for COPD, CHF, A. fib (on Eliquis), Parkinson's disease, vision loss (macular degeneration, legal blindness), hearing loss, lung carcinoma status post lobectomy, type 2 diabetes admitted with progressively shortness of breath wheezing since past . Patient was evaluated by his pediatric oncologist Dr. Crane and that time patient was doing fine. afternoon patient developed episode of chills with with increased shortness of breath. For past couple days his shortness of breath got really worse at the point he was short of breath even at rest. In ER he had fever of 102.4 and noted hypoxic with O2 sat of 78% on room air. Pt is not on home oxygen . A/P- Pneumonia- will be treated as CAP for now, responding to treatment so far. Pt was on venti mask initially and is currently on NC at 3 L. pulmonary consult pending- will f/u on their recommendations. d/w pt the care plan.
[2016-06-05 00:20] VITALS: BP 110/60
--- NOTE | 2016-06-05 07:26 | PN- Housestaff ---
See Addendum Subjective Follow-up For: Acute exacerbation of COPD secondary to community-acquired pneumonia Complaints: no complaints Subjective: I followed up and examined the patient today. He is sitting comfortably in a chair, having his breakfast, and was not in any acute distress. He did not have any complaints. On questioning, he still had some cough, and brownish sputum, which was decreasing since his admission. Vitals are stable, oxygen saturation 100% at 2 L/m oxygen being delivered via nasal cannula, no overnight issues. Review of Systems Constitutional: Reports: no symptoms. EENTM: Reports: no symptoms. Cardiovascular: Reports: no symptoms. Respiratory: Reports: cough, sputum production. Gastrointestinal: Reports: no symptoms. Objective Last 24 Hrs of Vital Signs/I&O Vital Signs Date Time Temp Pulse Resp B/P Pulse O2 O2 Flow FiO2 Ox Delivery Rate 06/05 0930 94 Room Air Room Air 06/05 0905 20 95 Room Air 06/05 0834 70 110/60 06/05 0833 70 110/60 06/05 0830 20 95 Room Air 06/05 0805 20 96 Nasal 2.0L Cannula 06/05 0800 96 Nasal 2.0L Cannula 06/05 0800 98.1 77 18 136/51 95 Room Air 06/05 0020 98.7 70 18 110/60 100 Nasal 2.0L Cannula 06/05 0000 Room Air 06/04 2144 68 114/60 06/04 2141 68 114/60 06/04 1857 95 Nasal 2.0L Cannula 06/04 1436 98.3 70 18 106/54 99 Intake & Output 06/05 1600 06/05 0800 06/05 0000 Intake Total 490 660 Output Total 200 500 Balance 290 160 Intake, IV 250 300 Intake, Oral 240 360 Output, Urine 200 500 Physical Exam General Appearance: Alert, Oriented X3, Cooperative, No Acute Distress Other Physical Findings: Physical examnination: General: well nourished patient not in distress, O2 via NC at 2L/min Head: Normocephalic, atraumatic Eyes: Pupils normal in size, regular, reacting to light and accommodation, EOM normal Ears: B/l normal on inspection Nose: Normal on inspection Throat/mouth: Moist mucosa Neck: Supple, full range of motion, no thyromegaly Heart: Regular rate, regular rhythm Lung: Normal breath sound bilaterally Added sound not heard Abd: Soft, non-tender, no distention appreciated Back: Normal range of motion Extremities: Normal knee exam bilaterally, no pedal edema, Distal neurovascular intact Neurologic: Alert, oriented x3, Cranial exam grossly intact, Speech is clear and coherent Skin: Warm and dry Psychiatric: Calm, cooperative, coherant Current Medications: Current Medications Sig/Chuck Start time Last Medication Dose Route Stop Time Status Admin Albuterol Sulfate 3 ML TID 06/04 1000 AC 06/05 INH 0927 Apixaban 2.5 MG BID 06/04 1000 AC 06/05 PO 0834 Azithromycin 500 MG 2300 06/04 2300 DC 06/04 Sodium Chloride 250 ML IV 2143 Budesonide/ 2 PUF BID 06/04 1000 AC 06/05 Formoterol Fumarate INH 0836 Carbidopa/Levodopa 1 TAB TID 06/04 1000 AC 06/05 PO 0835 Ceftriaxone Sodium 1,000 MG 2300 06/04 2300 DC 06/04 IV 2143 Cholecalciferol 1,000 IU DAILY 06/04 1000 AC 06/05 PO 0836 Digoxin 0.125 MG DAILY 06/04 1000 AC 06/05 PO 0834 Diltiazem HCl 180 MG BID 06/04 1000 AC 06/05 PO 0833 Docusate Sodium 200 MG BID 06/04 1000 AC 06/05 PO 0833 Ezetimibe 10 MG AT BEDTIME 06/04 2200 AC 06/04 PO 2142 Ferrous Sulfate 325 MG DAILY 06/04 1000 AC PO Finasteride 5 MG AT BEDTIME 06/04 2200 AC 06/04 PO 2145 Furosemide 20 MG Q48 06/04 1000 AC 06/04 PO 1008 Insulin Aspart 0 TIDAC 06/04 0800 AC 06/05 SC 1222 Ipratropium [place] 2.5 ML TID 06/04 1000 AC 06/05 INH 0927 Levothyroxine Sodium 0.05 MG DAILY AC 06/04 0700 AC 06/05 PO 0613 Melatonin 5 MG AT BEDTIME 06/04 2200 AC 06/04 PO 2144 Methylprednisolone 40 MG Q12 06/04 2200 DC 06/05 IV 0835 Methylprednisolone 40 MG Q8 06/04 0600 DC 06/04 IV 1417 Montelukast Sodium 10 MG AT BEDTIME 06/04 2200 AC 06/04 PO 2145 Oxybutynin Chloride 5 MG DAILY 06/04 1000 AC 06/05 PO 0832 Patient Medication 1 ED .STK-MED ONE 06/04 1355 [facility] ED 06/04 1356 Polyethylene Glycol 17 GM DAILY 06/04 1000 AC 06/05 PO 0835 Psyllium Hydrophilic 1 PAC DAILY 06/04 1000 AC 06/05 Mucilloid PO 0835 Tamsulosin HCl 0.4 MG AT BEDTIME 06/04 2200 AC 06/04 PO 2144 Last 24 Hrs of Lab/Les Results Last 24 Hrs of Labs/Mics: Laboratory Tests 06/05/16 0617: CBC w Diff NO MAN DIFF REQ, RBC 3.59 L, MCV 80.2, MCH 26.5 L, RDW 17.2 H, MPV 9.6, Gran % 89.9 H, Lymphocytes % 5.9 L, Monocytes % 4.1, Eosinophils % 0.1, Basophils % 0 L, Absolute Granulocytes 9.1 H, Absolute Lymphocytes 0.6 L, Absolute Monocytes 0.4, Absolute Eosinophils 0, Absolute Basophils 0, PUBS MCHC 33.0 Assessment/Plan Assessment: 86-year-old with past medical history of COPD not on home oxygen, CHF, atrial fibrillation on Eliquis, Parkinson's disease, macular degeneration, hearing difficulty, lung carcinoma status post lobectomy, diabetes mellitus type 2, is being treated in the general medical floor for the following issues: #Acute exacerbation of COPD, secondary to sepsis due to community acquired pneumonia He met the criteria for sepsis during admission with tachycardia, high blood pressure, hypoxia, tachypnea. Today is his D2 of IV antibiotics, and he seems to be improving significantly compared to yesterday. -Plan to continue antibiotics, switching to oral form according to pulmonary consult -Start IV steroid and converted to oral prednisone -Continue Symbicort, TRC nebs -Following Dr. Crane for pulmonology consult, according to her home, patient is ready for discharge given that his oxygen saturation is well maintained above 88 % without additional oxygen, even on ambulation #Hypothyroidism -Continue levothyroxin 50 g daily #Diabetes mellitus -On consistent carbohydrate diet -Continue insulin NovoLog sliding scale #Parkinson's disease -Continue home medication of Sinemet #Congestive heart failure Patient currently does not have an acute congestive heart failure, so continue home medication of digoxin 125 g, and Lasix 20mg PO daily #Hypertension -Continue home dose of Cardizem sustained release 180 milligrams daily #Anemia, iron deficiency -Continue home dose of ferrous sulfate 325 g #BPH -Continue home dose of finasteride 5 milligrams daily, tamsulosin 0.4 mg daily, and oxybutynin 5 mg daily #DVT prophylaxis: Eliquis #Diet: Diabetic diet #CODE STATUS: Full code Problem List: 1. Acute and chronic respiratory failure with hypoxia Pain Ratin Pain Location: - Pain Goal: Remain pain free Pain Plan: prn Tomorrow's Labs & Rationales: none, DC today
[2016-06-05 08:00] VITALS: BP 136/51
[2016-06-05 08:18] LABS: ABSOLUTE BASOPHIL COUNT 0 /CUMM (0.0-0.2); ABSOLUTE EOSINOPHIL COUNT 0 /CUMM (0.0-0.7); ABSOLUTE GRANULOCYTE CT 9.1 /CUMM (1.4-6.5); ABSOLUTE LYMPH COUNT 0.6 /CUMM (1.2-3.4); ABSOLUTE MONOCYTE COUNT 0.4 /CUMM (0.10-0.60); BASOPHIL % 0 % (0.0-2.0); EOSINOPHIL % 0.1 % (0-5); HEMATOCRIT 28.8 % (42-52); MEAN CORPUSCULAR HGB 26.5 PG (27.0-31.0); MEAN CORPUSCULAR VOLUME 80.2 FL (80.0-94.0); MEAN PLATELET VOLUME 9.6 FL (7.4-10.4); PLATELET COUNT 158 /CUMM (130-400); RBC DISTRIBUTION WIDTH 17.2 % (11.5-14.5); RED BLOOD CELL CT 3.59 /CUMM (4.70-6.10); WHITE BLOOD CELL COUNT 10.1 /CUMM (4.8-10.8)
--- NOTE | 2016-06-05 08:30 | PN- Pulmonary ---
ANNABEL SIN 06/05/16 0829: Subjective HPI/Critical Care Issues: Patient was visted and interviewed this morning. He does not offer any complaints. Vs satbel. >92% O2 sat in RA. Patient feels safe and happy to be d/c home. Objective Current Medications: Current Medications Sig/Chuck Start time Last Medication Dose Route Stop Time Status Admin Albuterol Sulfate 3 ML TID 06/04 1000 AC 06/04 INH 1856 Apixaban 2.5 MG BID 06/04 1000 AC 06/05 PO 0834 Azithromycin 500 MG 23006/04 2300 AC 06/04 Sodium Chloride 250 ML IV 2143 Budesonide/ 2 PUF BID 06/04 1000 AC 06/05 Formoterol Fumarate INH 0836 Carbidopa/Levodopa 1 TAB TID 06/04 1000 AC 06/05 PO 0835 Ceftriaxone Sodium 1,000 MG 23006/04 2300 AC 06/04 IV 2143 Cholecalciferol 1,000 IU DAILY 06/04 1000 AC 06/05 PO 0836 Digoxin 0.125 MG DAILY 06/04 1000 AC 06/05 PO 0834 Diltiazem HCl 180 MG BID 06/04 1000 AC 06/05 PO 0833 Docusate Sodium 200 MG BID 06/04 1000 AC 06/05 PO 0833 Ezetimibe 10 MG AT BEDTIME 06/04 2200 AC 06/04 PO 2142 Ferrous Sulfate 325 MG DAILY 06/04 1000 AC PO Finasteride 5 MG AT BEDTIME 06/04 2200 AC 06/04 PO 2145 Furosemide 20 MG Q48 06/04 1000 AC 06/04 PO 1008 Insulin Aspart 0 TIDAC 06/04 0800 AC 06/05 SC 0831 Ipratropium [place] 2.5 ML TID 06/04 1000 AC 06/04 INH 1856 Levothyroxine Sodium 0.05 MG DAILY AC 06/04 0700 AC 06/05 PO 0613 Melatonin 5 MG AT BEDTIME 06/04 2200 AC 06/04 PO 2144 Methylprednisolone 40 MG Q12 06/040 AC 06/05 IV 0835 Methylprednisolone 40 MG Q8 06/04 0600 DC 06/04 IV 1417 Montelukast Sodium 10 MG AT BEDTIME 06/04 2200 AC 06/04 PO 2145 Oxybutynin Chloride 5 MG DAILY 06/04 1000 AC 06/05 PO 0832 Patient Medication 1 ED .STK-MED ONE 06/04 1355 [place] [facility] 06/04 1356 Polyethylene Glycol 17 GM DAILY 06/04 1000 AC 06/05 PO 0835 Psyllium Hydrophilic 1 PAC DAILY 06/04 1000 AC 06/05 Mucilloid PO 0835 Tamsulosin HCl 0.4 MG AT BEDTIME 06/04 2200 AC 06/04 PO 2144 Vital Signs & I&O Last 24 Hrs of Vitals and I&O: Vital Signs Date Time Temp Pulse Resp B/P Pulse O2 O2 Flow FiO2 Ox Delivery Rate 06/05 0834 70 110/60 06/05 0833 70 110/60 06/05 0800 96 Nasal 2.0L Cannula 06/05 0800 98.1 77 18 136/51 95 Room Air 06/05 0020 98.7 70 18 110/60 100 Nasal 2.0L Cannula 06/05 0000 Room Air 06/04 2144 68 114/60 06/04 2141 68 114/60 06/04 1857 95 Nasal 2.0L Cannula 06/04 1436 98.3 70 18 106/54 99 Intake & Output 06/05 1600 06/05 0800 06/05 0000 Intake Total 490 660 Output Total 200 500 Balance 290 160 Intake, IV 250 300 Intake, Oral 240 360 Output, Urine 200 500 Exam General Appearance: well developed/nourished, no apparent distress, alert, awake , comfortable Head: atraumatic, normal appearance Ears, Nose, Throat: normal pharynx Neck: normal inspection Respiratory: normal breath sounds, chest non-tender, no respiratory distress, lungs clear Cardiovascular: regular rate/rhythm Abdomen: normal bowel sounds, soft Back: normal inspection Extremities: no edema Neurologic/Psychiatric: awake, alert, oriented x 3 Results Last 24 Hrs of Lab Results: Laboratory Tests 06/05/16 0617: CBC w Diff NO MAN DIFF REQ, RBC 3.59 L, MCV 80.2, MCH 26.5 L, RDW 17.2 H, MPV 9.6, Gran % 89.9 H, Lymphocytes % 5.9 L, Monocytes % 4.1, Eosinophils % 0.1, Basophils % 0 L, Absolute Granulocytes 9.1 H, Absolute Lymphocytes 0.6 L, Absolute Monocytes 0.4, Absolute Eosinophils 0, Absolute Basophils 0, PUBS MCHC 33.0 06/04/16 1030: Urine Color YEL, Urine Clarity CLEAR, Urine pH 6.0, Ur Specific [place] >= 1.030 , Urine Protein TRACE H, Urine Ketones NEG, Urine Nitrite NEG, Urine Bilirubin NEG, Urine Urobilinogen 0.2, Ur Leukocyte Esterase NEG, Ur Microscopic SEDIMENT EXAMINED, Urine RBC RARE, Urine WBC RARE, Ur Epithelial Cells FEW, Urine Hemoglobin NEG, Urine Glucose NEG Impression/Plan Impression/Plan Impression/Plan: consult for 86-year-old gentleman with past medical history of lung cancer status post lobectomy on my COPD was admitted for hypoxic respiratory failure due to pneumonia. List of problems and recommendations 1. Acute hypoxic respiratory failure- resolved Recommendation * From pulmonary active patient is a stable to be discharged * Continue his Singulair continue his home inhalers * Rapid steroid taper by mouth prednisone 40 mg for 2 days; 30 mg for 2 days; 20 mg for 2 days and 10 mg for 2 days and then stop * By mouth Augmentin 875 twice a day for total of 7 days 2. History of lung cancer status post lobectomy * Scheduled follow-up CT scan follow with Dr. Rivas as an outpatient 3. Afib * continue digoxin, Cardizem, and eliquis * Please inform Dr. Guadarrama per patient's request 4. CHF * Continue Lasix 40 mg by mouth every 48 hours * Healthy diet 5.Chronic JENNIFER. * per medical team 6. Hypothyroidism and vitamin D deficiency * Managed her medical team FELIBERTO RIVAS MD 06/05/16 0910: Impression/Plan Impression/Plan Recommendations: Feliberto Holloway M.D. have examined this patient, reviewed available EMR data, personally reviewed images, discussed with resident/PA/RANGE MASTER, discussed management plan with housestaff and nursing staff, discussed managment plan all of healthcare providers, discussed management plan with patient and/or family, agreed with resident/PA/RANGE MASTER. The past history and parts of the chart have been autopopulated. Impression 86M copd exacerbation secondary to likely comm. acq pna Plan -d/c iv abx -augmentin to complete 7 days total of abx -dc solumedrol -prednisone taper 40mgx2 days, 30mgx2 days, 20mgx2 days, 10mgx2 days -recommend to discharge home from pulmonary perspective -dvt prophylaxis at all times
[2016-06-05 08:34] VITALS: BP 110/60
[2016-06-05 08:57] LABS: GRANULOCYTE % 89.9 % (42.2-75.2)
[2016-06-05] MEDS ORDERED: PREDNISONE10 M2 PO ×2 (10:32→14:25)
[2016-06-05] MEDS ORDERED: AUGMENTIN 875-1 EACH PO ×2 (10:34→14:25)
--- NOTE | 2016-06-05 10:37 | Patient Discharge Instructions ---
Discharge Instructions General Discharge Information You were seen/treated for: Acute exacerbation of COPD Community-acquired pneumonia Special Instructions: Please visit your geospatial scientist within 7 days of discharge. Please visit your primary care physician within 7-10 days of discharge. Please return to emergency if symptoms worsen. Diet Continue normal diet: Yes Recommended Diet: Heart Healthy Activity Full Activity/No Limits: No Activity Self Limited: Yes Acute Coronary Syndrome Inclusion Criteria At DC or during hospital stay patient has or had the following: ACS DIAGNOSIS No Discharge Core Measures Meds if any: Prescribed or Continued at Discharge Meds if any: NOT Prescribed or Continued at Discharge Congestive Heart Failure Inclusion Criteria At DC or during hospital stay patient has or had the following: CHF DIAGNOSIS No Discharge Core Measures Meds if any: Prescribed or Continued at Discharge Meds if any: NOT Prescribed or Continued at Discharge Cerebrovascular accident Inclusion Criteria At DC or during hospital stay patient has or had the following: CVA/TIA Diagnosis No Discharge Core Measures Meds if any: Prescribed or Continued at Discharge Meds if any: NOT Prescribed or Continued at Discharge Venous thromboembolism Inclusion Criteria VTE Diagnosis No VTE Type NONE VTE Confirmed by (Test) NONE Discharge Core Measures - Per Current guidelines, there needs to be overlap - treatment for the first 5 days of Warfarin therapy. - If discharged on Warfarin prior to 5 days of - overlap therapy, the patient will need to be - assessed for post discharge needs including - *Post discharge parental anticoagulation - *Warfarin and/or parental anticoagulation education - *Follow up date to check INR post discharge At least 5 days overlap therapy as Inpatient No Meds if any: Prescribed or Continued at Discharge Note: Overlap Therapy is Warfarin and Anticoagulant Meds if any: NOT Prescribed or Continued at Discharge
--- NOTE | 2016-06-05 11:38 | NUR ---
PT MAINTAINS 95% O2 AFTER AMBULATING ROOM AIR TO BATHROOM. NO SOB NOTED.
--- NOTE | 2016-06-08 20:20 | Discharge Summary ---
Visit Information Visit Dates Admission Date: 06/03/16 Discharge Date: 06/05/16 Hospital Course Course Attending Physician: CORRINE WILSON MD Primary Care Physician: COURTNEY RIVAS,ANABELLE Hospital Course: 86-year-old gentleman with a past medical history of CHF, COPD, A. fib, hypertension, hyperlipidemia, lung cancer status post lobectomy, lower GI bleed, Parkinson disease and bilateral hearing loss presented from home with chief complaint of progressively worsening shortness of breath associated with productive cough and fever/chills for 3-4 days, most likely secondary to COPD exacerbation. The following problems were managed and addressed on general medicine service: 1. Acute hypoxic respiratory failure 2/2 CAP and COPD exacerbation Patient's saturation was 78% on RA on ER arrival, with an improvement to 95% on 45% VM. This was attributed to community-acquired pneumonia with a component of COPD exacerbation. Patient received IV ceftriaxone and azithromycin. He was started on IV Solumedrol, transitioned to prednisone upon improvement in his symptoms. Patient received TRC breathing treatment with improvement. He was kept on Advair and Singulair. Oil Pipeline Operator Dr. Crane was consulted and provided recommendations. By his last day of hospitalization, patient was satting above 92% on room air. Patient was discharged on Augmentin to complete total antibiotic course of 7 days and prednisone taper (40mgx2 days, 30mgx2 days, 20mgx2 days, 10mgx2 days). 2. A. fib Patient was kept on home meds Eliquis, diltiazem and digoxin. 3. CHF Patient was kept on home meds Lasix 40 mg by mouth every [address] aide [address] Guadarrama was informed about the admisison as a courtesy. 4.. BPH Patient was kept on home meds Flomax and finasteride. 5. Hypothyroidism Paitnet was kept on home med Synthroid. 6. Type 2 diabetes Paitnet was kept on NovoLog sliding scale with accuchecks. Allergies: Coded Allergies: pollen extracts (UNKNOWN 09/08/15) atorvastatin (Severe, MUSCLE WEAKNESS 09/08/15) Uncoded Allergies: DUST (UNKNOWN 12/26/14) Disposition Summary Disposition Principal Diagnosis: Communicty acquired pneumonia Additional Diagnosis: COPD exacerbation Discharge Disposition: home or self care Discharge Instructions General Discharge Information Code Status: Full Code Patient's Diet: Heart healthy/Diabeitic Patient's Activity: As tolerated Follow-Up Instructions/Appts: Please visit your feeder associate within 7 days of discharge. Please visit your primary care physician within 7-10 days of discharge. Please return to emergency if symptoms worsen. Medications at Discharge Discharge Medications: Continue taking these medications: Fluticasone-Salmeterol (Advair 500-50 Diskus) 500 MCG-50 MCG/DOSE BLST.W.DEV 1 Puff Inhale through mouth TWICE DAILY Comments: SYMBICORT GIVEN 04/27/15 1000AM Levothyroxine (Synthroid) 0.025 MG TAB 2 Tablet ORAL DAILY Qty = 30 Comments: Last Taken: 04/27/15 Time: 0545AM Docusate Sodium (Colace) 100 MG CAPSULE Comments: LAST GIVEN 06/05/16 @ 0930 Lubiprostone (Amitiza) 8 MCG CAPSULE 1 Capsule ORAL TWICE DAILY Comments: NOT GIVEN IN HOSPITAL Dexlansoprazole (Dexilant) 60 MG CAP.DR.BP 1 Capsule ORAL DAILY Comments: NOT GIVEN INPATIENT Tamsulosin Hydrochloride (Flomax) 0.4 MG CAP.ER.24H 1 Capsule ORAL AT BEDTIME Comments: NOT GIVEN IN HOSPITAL Cholecalciferol (Vitamin D3) 1,000 IU TAB 1 Tablet ORAL DAILY Comments: Last Taken: 04/27/15 Time: 1000am Solifenacin Succinate (Vesicare) 5 MG TAB 1 Tablet ORAL DAILY Comments: OXYBUTIN GIVEN 04/27/15 1000AM Digoxin (Digoxin) 0.125 MG TAB 1 Tablet ORAL DAILY Days = 14 Comments: Last Taken: 04/27/15 Time: 1000AM Metformin HCl (Metformin HCl) 500 MG TABLET 1 Tablet ORAL AT BEDTIME Qty = 180 Carbidopa/Levodopa (Sinemet 25-100 MG Tablet) 25 MG-100 MG TABLET 1 Tablet ORAL THREE TIMES DAILY Comments: LAST GIVEN 06/05/16 @ 0930 Diltiazem HCl (Diltiazem ER) 180 MG CAPSULE.ER 1 Tablet ORAL TWICE DAILY Comments: LAST GIVEN 06/05/16 @ 0930 Ferrous Sulfate (Ferrous Sulfate) 325 MG (65 MG IRON) TABLET 1 Tablet ORAL DAILY Comments: NOT GIVEN Finasteride (Finasteride) 5 MG TABLET 1 Tablet ORAL AT BEDTIME Comments: LAST GIVEN 06/05/16 @ 0930 Furosemide (Lasix) 20 MG TABLET 1 Tablet ORAL Every other day Comments: LAST GIVEN 1/31/17 @ 0930 Montelukast Sodium (Montelukast Sodium) 10 MG TABLET 1 Tablet ORAL AT BEDTIME Apixaban (Eliquis) 2.5 MG TABLET 1 Tablet ORAL TWICE DAILY Comments: LAST GIVEN 06/05/16 @ 0930 Polyethylene Glycol 3350 (Miralax) 17 GRAM POWD.PACK 1 Packet ORAL DAILY Instructions: dissolve in water Comments: LAST GIVEN 06/05/16 @ 0930 Albuterol Sulfate (Proair Hfa) 90 MCG HFA.AER.AD 2 Puff Inhale through mouth EVERY 4-6 HOURS NEEDED as needed for COPD Ipratropium/Albuterol Sulfate (Combivent Respimat Inhal Ashley) 20 MCG-100 MCG/ ACTUATION MIST.INHAL 2 Ashley NASAL DAILY Comments: LAST GIVEN 06/05/16 @0930 Ezetimibe/Simvastatin (Vytorin 10-10 MG Tablet) 10 MG-10 MG TABLET 1 Tablet ORAL AT BEDTIME Comments: LAST GIVEN 06/04/16 @ 1700 Start taking the following new medications: Amoxicillin/Potassium Clav (Augmentin 875-125 Tablet) 875 MG-125 MG TABLET 1 Tablet ORAL TWICE DAILY Qty = 10 No Refills Comments: NOT GIVEN IN HOSPITAL Prednisone (Prednisone) 10 MG TABLET 1 Tablet ORAL See Instructions Qty = 20 No Refills Instructions: TAKE 4 TABS FOR 1 DAYS (2/1), THEN TAKE 3 TABS FOR TWO DAYS (2/2-2/3), THEN TAKE 2 TABS FOR TWO DAYS (2/4-2/5), THEN TAKE ONE TAB FOR TWO DAYS (2/6-2), THEN STOP. Comments: NOT GIVEN IN HOSPITAL Copies To: JONNY RIVAS,Everett ESPINOZA; COURTNEY RIVAS,ANABELLE; EVELYN RIVAS,KAYLYNN Attending MD Review Statement Documenting Attending: STEVE RIVAS,CORRINE Santillan Other Findings: Admitted for CAP and COPD exacerbation. Pt being dced home on oral abx and prednisone taper. Agree with above dc plan.
== END 2016-06-05 15:30 | DRG 871 ==
LOC: ENRESERVDT → ENRESERVTM → ERH 22:00 → ERHI 22:33 → 2NB 22:33
PROVIDERS: Internal Medicine; Pediatrics; ADMIT Student in an Organized Health Care Education/Training Program
DX: A41.9 Sepsis, unspecified organism (principal); J18.9 Pneumonia, unspecified organism; J96.01 Acute respiratory failure with hypoxia; J44.1 Chronic obstructive pulmonary disease with (acute) exacerbation; G20 Parkinson's disease; I48.91 Unspecified atrial fibrillation; E11.9 Type 2 diabetes mellitus without complications; Z85.118 Personal history of other malignant neoplasm of bronchus and lung; Z79.01 Long term (current) use of anticoagulants; I10 Essential (primary) hypertension; Z79.84 Long term (current) use of oral hypoglycemic drugs
CPT/HCPCS: 2NBP; 87184; ERO; 81001; 82436; 87040; 87070; 87071; 87086; 87147; 87449; 87450; 93005; 93010; J0131; J0456; J0696; J2920; J2930; J3490; J7040; J7060

== ENCOUNTER 2016-07-01 11:02 | Inpatient (IN) | payer OTHER, MEDICARE ==
[~2016-07-01] VITALS: Ht 167.6 cm; Wt 76.3 kg
[~2016-07-01 11:02] MED LIST changes: +AUGMENTIN 875-1 EACH PO; +COMBIVENT RESPIM4 GM NS; +DILTIAZEM ER240 MG PO; +ELIQUIS2.5 M1 PO; +FERROUS SULFAT325 M3 PO; +FINASTERIDE5 M1 PO; +LASIX20 M1 PO; +METFORMIN HCL500 M3 PO; +MIRALAX17 G1 PO; +MONTELUKAST SOD10 M1 PO; +PREDNISONE10 M2 PO; +PROAIR HFA8.5 GM INH; +SINEMET 25-1001 EACH PO; +VYTORIN 10-101 EACH PO
--- NOTE | 2016-07-01 11:06 | ED DYSPNEA/ASTHMA COMPLAINT ---
History of Present Illness General Chief Complaint: Dyspnea (COPD, CHF, Other) Stated Complaint: SOB Source: patient, family, old records Exam Limitations: clinical condition Vital Signs & Intake/Output Vital Signs & Intake/Output Vital Signs Date Time Temp Pulse Resp B/P Pulse O2 O2 Flow FiO2 Ox Delivery Rate 07/01 1409 99.9 80 22 109/55 94 Nasal 4.0L Cannula 07/01 1351 99.0 83 20 107/53 95 Nasal 2.0L Cannula 07/01 1240 103.7 07/01 1240 103.7 07/01 1237 103.7 91 20 103/57 95 Nasal 4.0L Cannula 07/01 1145 102.0 07/01 1126 96 Nasal 6.0L Cannula 07/01 1112 102.0 107 20 130/65 95 Nasal 6.0L Cannula 07/01 1110 94 Nasal 5.0L Cannula Triage Nurses Notes Reviewed? yes HPI: Patient is an 86 year old male presents complaining of severe dyspnea. Cough with sputum production, fevers, weakness onset last night. Patient felt too weak to use his nebulizer treatment, took his advair with no improvement. Patient admitted less than 30 days ago for pneumonia. Patient reports symptoms are currently severe, worsens with talking and exertion. No history of intubation per son, but frequent admissions for COPD and pneumonia. Quit smoking 30 years ago, was 3 packs per day for 30 years prior to that. Denies chest pain or sick contacts at home. (AILEEN SHEFFIELD) Allergies Coded Allergies: pollen extracts (UNKNOWN 07/01/16) atorvastatin (Severe, MUSCLE WEAKNESS 07/01/16) Uncoded Allergies: DUST (UNKNOWN 12/26/14) Reconcile Medications Albuterol Sulfate (Proair Hfa) 90 MCG HFA.AER.AD 2 PUF INH Q4-6 PRN PRN COPD (Reported) Apixaban (Eliquis) 2.5 MG TABLET 1 TAB PO BID AFIB (Reported) Carbidopa/Levodopa (Sinemet 25-100 MG Tablet) 25 MG-100 MG TABLET 1 TAB PO TID PARKINSON (Reported) Cholecalciferol (Vitamin D3) 1,000 IU TAB 1 TAB PO DAILY SUPPLEMENT (Reported ) Dexlansoprazole (Dexilant) 60 MG CAP.DR.BP 1 CAP PO DAILY GERD (Reported) Digoxin 0.125 MG TAB 1 TAB PO DAILY HEART RATE Diltiazem HCl (Diltiazem ER) 240 MG CAP.ER.DEG 1 TAB PO DAILY HEART (Reported ) Docusate Sodium (Colace) 100 MG CAPSULE STOOL SOFTENER (Reported) Ezetimibe/Simvastatin (Vytorin 10-10 MG Tablet) 10 MG-10 MG TABLET 1 TAB PO AT BEDTIME CHOLESTEROL (Reported) Ferrous Sulfate 325 MG (65 MG IRON) TABLET 1 TAB PO DAILY IRON DEF ANEMIA ( Reported) Finasteride 5 MG TABLET 1 TAB PO AT BEDTIME BPH (Reported) Fluticasone-Salmeterol (Advair 500-50 Diskus) 500 MCG-50 MCG/DOSE BLST.W.DEV 1 PUF INH BID ASTHMA (Reported) Furosemide (Lasix) 20 MG TABLET 1 TAB PO EOD CHF (Reported) Ipratropium/Albuterol Sulfate (Combivent Respimat Inhal [place]) 20 MCG-100 MCG/ ACTUATION MIST.INHAL 2 SPRAY NS DAILY COPD (Reported) Levothyroxine Sodium (Synthroid) 50 MCG TABLET 1 TAB PO DAILY hypothyroidism (Reported) Lubiprostone (Amitiza) 8 MCG CAPSULE 1 CAP PO BID CONSTIPATION (Reported) Metformin HCl 500 MG TABLET 1 TAB PO AT BEDTIME DM (Reported) Montelukast Sodium 10 MG TABLET 1 TAB PO AT BEDTIME COPD (Reported) Polyethylene Glycol 3350 (Miralax) 17 GRAM POWD.PACK 1 PAC PO DAILY CONSTIPATION (Reported) dissolve in water Solifenacin Succinate (Vesicare) 5 MG TAB 1 TAB PO DAILY BLADDER (Reported) Tamsulosin Hydrochloride (Flomax) 0.4 MG CAP.ER.24H 1 CAP PO AT BEDTIME BPH ( Reported) (CHELSIE RIVAS,JOSE Reyes) Past History Medical History Any Pertinent Medical History? see below for history Neurological: Parkinson's disease, [place] EENT: blindness, hearing loss, macular degeneration Cardiovascular: AFIB, CHF, hypertension, hyperlipidemia Respiratory: bronchitis, COPD, emphysema, pneumonia, Lung ca s/p lobectomy Gastrointestinal: lower GI bleed, AVM Hepatic: NONE Renal: NONE Musculoskeletal: NONE Psychiatric: NONE Endocrine: diabetes Blood Disorders: anemia Cancer(s): lung cancer, RLL LOBECTOMY LOG SCALER/Reproductive: NONE Other Medical Hx: IGG DEFICIENCY History of MRSA: No History of VRE: No History of CDIFF: No Influenza Vaccine: 03/10/16 Surgical History Surgical History: Lobectomy Psychosocial History Who do you live with Spouse Services at Home None What is your primary language Serbian Family History Family History, If Any: SISTER (some platelet problem). Hx Contributory? No (AILEEN SHEFFIELD) Review of Systems Review of Systems Constitutional: Reports: chills, fever, malaise, weakness. EENTM: Reports: no symptoms. Respiratory: Reports: see HPI. Cardiovascular: Denies: chest pain, peripheral edema, syncope. GI: Denies: abdominal pain, nausea, vomiting. Genitourinary: Denies: dysuria (+ urinary incontinence today). Musculoskeletal: Reports: no symptoms. Skin: Reports: no symptoms. Neurological/Psychological: Reports: headache, weakness. Denies: numbness, unable to move lower ext, unable to move upper ext. Hematologic/Endocrine: Denies: bleeding. Immunologic/Allergic: Denies: splenectomy. (AILEEN SHEFFIELD) Physical Exam Physical Exam General Appearance: alert, awake Head: atraumatic, normal appearance Eyes: Bilateral: normal appearance, PERRL, EOMI. Ears, Nose, Throat: normal pharynx, normal ENT inspection, hard of hearing, hearing aids present in bilateral ears Neck: normal inspection, supple, full range of motion Respiratory: respiratory distress, increased respiratory effort. Able to speak in full sentences with but difficulty. Diffuse inspiratory and expiratory wheezing Cardiovascular: tachycardia, systolic murmur, irregularly irregular Peripheral Pulses: 2+ radial (R) Gastrointestinal: soft, non-tender Extremities: normal inspection, normal capillary refill, normal range of motion, no edema Neurologic/Psych: no motor/sensory deficits, awake, alert, oriented x 3, normal mood/affect Skin: intact, normal color, hot Lymphatic: no anterior cervical ana Core Measures ACS in differential dx? Yes ASA ordered for poss ACS? No-ACS ruled out Severe Sepsis Present: No Septic Shock Present: No (AILEEN SHEFFIELD) Progress Differential Diagnosis: asthma, AMI, bronchitis, CHF, COPD, pulmonary embolism, pneumonia, unstable angina, sepsis, respiratory failure, ICH Plan of Care: Orders Procedure Date/time Status XRY-PORTABLE CHEST XRAY 07/02 599 Active CBC WITHOUT DIFFERENTIAL 07/02 599 Active BASIC ELECTROLYTES PLUS BUN&CR 07/02 599 Active Consistent Carbohydrate 2 07/01 D Active Vital Signs 07/01 1443 Active Teach/Educate 07/01 1443 Active Nutritional Intake, Monitor 07/01 1443 Active Isolation 07/01 1443 Active Intake & Output 07/01 1443 Active Patient Care Conference 07/01 1443 Active Activity/Ambulation 07/01 1443 Active LACTIC ACID 07/01 1421 Active LOWER RESPIRATORY CULTURE 07/01 1409 Active Pathway - chart 07/01 1407 Active House Staff 07/01 1407 Active Patient Data 07/01 1407 Active Code Status 07/01 1407 Active Patient Data 07/01 1253 Active OXYGEN SETUP (GEN) 07/01 1249 Active Saline Lock 07/01 1249 Active Misc Message 07/01 1249 Active ED Holding Orders 07/01 1249 Active Vital Signs 07/01 1249 Active Activity/Ambulation 07/01 1249 Active Code Status 07/01 1249 Complete Add-on Test (ER Only) 07/01 1237 Active Admit to inpatient 07/01 1226 Active Weight 07/01 1205 Active Intake & Output 07/01 1200 Active Add-on Test (ER Only) 07/01 1146 Active URINALYSIS 07/01 1141 Active Telemetry/Foreign Correspondent 07/01 1126 Complete LACTIC ACID 07/01 1124 Complete DIGOXIN 07/01 1124 Complete ARTERIAL BLOOD GAS (GEN) 07/01 1115 Complete RAPID VIRAL INFLUENZA A 07/01 1115 Complete BLOOD CULTURE 07/01 1115 Active TROPONIN LEVEL 07/01 1115 Complete PARTIAL THROMBOPLASTIN TIME 07/01 1115 Complete PROTHROMBIN TIME 07/01 1115 Complete COMPREHENSIVE METABOLIC PANEL 07/01 1115 Complete CBC WITHOUT DIFFERENTIAL 07/01 1115 Complete EKG 07/01 1105 Active TRC EVALUATION (GEN) 07/01 UNK Active VTE Mechanical Prophylaxis 07/01 UNK Active Current Medications Sig/Chuck Start time Last Medication Dose Stop Time Status Admin Azithromycin 500 MG DAILY@1200 07/02 1200 AC (Zithromax) Dextrose/Water 250 ML (D5W) Ceftriaxone Sodium 1,000 MG DAILY 07/02 1000 CAN (Rocephin) Docusate Sodium 100 MG DAILY 07/02 1000 AC (Colace) Polyethylene Glycol 17 GM DAILY 07/02 1000 AC (Miralax) Vancomycin HCl 1,000 MG DAILY 07/02 1000 AC Dextrose/Water 250 ML (D5W) Ceftazidime 1,000 MG Q12 07/01 2200 AC (Fortaz) Finasteride 5 MG AT BEDTIME 07/01 2200 AC (Proscar) Montelukast Sodium 10 MG AT BEDTIME 07/01 2200 AC (Singulair) Tamsulosin HCl 0.4 MG AT BEDTIME 07/01 2200 AC (Flomax) Digoxin 0.125 MG 1700 07/01 1700 AC (Lanoxin) Carbidopa/Levodopa 1 TAB TID 07/01 1600 AC (Sinemet 25/100MG) Furosemide 20 MG Q48H 07/01 1500 AC (Lasix) Sodium Chloride 1,000 ML Q10H 07/01 1445 AC (Normal Saline 0.9%) Oxybutynin Chloride 5 MG DAILY 07/01 1435 UNVr (Ditropan) Ezetimibe 10 MG DAILY 07/01 1431 AC (Zetia) Diltiazem HCl 24 MG DAILY 07/01 1430 AC (Cardizem CD) Non-Formulary 0 SEE ADMIN CRITERIA 07/01 1430 UNVr Medication (NON FORMULARY) Apixaban 2.5 MG BID 07/01 1428 UNVr (Eliquis) Cholecalciferol 1,000 IU DAILY 07/01 1428 AC (Vitamin D) Laboratory Tests 07/01/16 1421: Lactic Acid Pending 07/01/16 1125: pH 7.46 H, pCO2 31 L, pO2 114 H, HCO3 21, ABG O2 Sat (Measured) 98.0, P-50 ( Temp Corrected) YES, Carboxyhemoglobin 1.0 L, O2 Concentration % 6L, Temperature 102.0 H, O2 Delivery Method NEB TX, Phlebotomy Draw Site LEFT RADIAL 07/01/16 1124: Anion Gap 12, Estimated GFR > 60, BUN/Creatinine Ratio 20.0, Glucose 121 H, Lactic Acid 1.4, Calcium 9.4, Total Bilirubin 1.0, AST 20, ALT 26, Alkaline Phosphatase 89, Troponin I 0.05, Total Protein 6.6, Albumin 3.7, Globulin 2.9, Albumin/Globulin Ratio 1.3, PT 19.9 H, INR 1.91 H, APTT 37, CBC w Diff NO MAN DIFF REQ, RBC 4.02 L, MCV 79.2 L, MCH 25.5 L, RDW 18.5 H, MPV 8.5, Gran % 82.4 H, Lymphocytes % 7.3 L, Monocytes % 10.1 H, Eosinophils % 0.2, Basophils % 0 L, Absolute Granulocytes 9.8 H, Absolute Lymphocytes 0.9 L, Absolute Monocytes 1.2 H, Absolute Eosinophils 0, Absolute Basophils 0, PUBS MCHC 32.2 L, Digoxin 0.6 L 07/01/16 1121: Lactic Acid Cancelled Microbiology 07/01 1409 LOWER RESP: Respiratory Culture - ORD 07/01 1409 LOWER RESP: Gram Stain - ORD 07/01 1126 BLOOD: Blood Culture - RECD 07/01 1124 BLOOD: Blood Culture - RECD 07/01 1115 NASOPHARYN: Influenza Virus A & B Rapid Smear - COMP Patient's oxygen saturation mid to high 70's on room air on my initial evaluation. Immediately placed on 6 L/min by NC with improvement to low 90's Respiratory paged, ABG, nebs, antibiotics, solumedrol ordered. 1115: Discussed with and seen by Dr. Etienne. 1120: Discussed with Dr. Crane. 1140: Patient reports improvement after nebulizer treatment. 95-96% on 6L NC oxygen. Decreawsed to 5L/min by NC. Wheezing moderately improved. 1220: Results discussed with patient. Patient feeling improved from initial presentation, breathing more comfortably after nebulizer treatment and on supplemental oxygen. Dr. Camacho paged to discuss disposition 1225: Discussed with Dr. Camacho: will admit patient. (MANSI MONTALVO,AILEEN) Diagnostic Imaging: Viewed by Me: Radiology Read, CT Scan. Discussed w/RAD: Radiology Read, CT Scan. Radiology Impression: PATIENT: KENIA SHEARER PRESENT AGE: 86 PATIENT ACCOUNT NO: [id number] : 31 LOCATION: [facility] ORDERING PHYSICIAN: AILEEN MONTALVO SERVICE DATE: 07/01/16 EXAM TYPE: CAT - CT HEAD WO IV CONTRAST EXAMINATION: CT HEAD WITHOUT CONTRAST CLINICAL INFORMATION: Severe headache on anticoagulants. Evaluate for bleed. COMPARISON: MRI scan of the head dated 02/03/2015. TECHNIQUE: Contiguous axial imaging was performed from the skull base to vertex without intravenous administration of contrast. DLP: 886.89 mGy-cm FINDINGS: Evaluation is limited due to extensive patient motion, which persists despite repeating several slices. There are several peripheral cortical hyperdensities seen throughout the brain, most consistent with motion and beam hardening artifact rather than petechial hemorrhage. There is no definite evidence of acute intracranial hemorrhage or territorial infarction. No abnormal mass effect or midline shift is seen. [place] to white matter differentiation is well preserved. No extra-axial fluid collections are identified. The ventricles and sulci are mildly enlarged. Prominent calcifications in the basal ganglia are seen. Mild periventricular deep white matter low-attenuation is noted, consistent with ischemic small vessel disease. The osseous structures and soft tissues are normal. The mastoid air cells and visualized portions of the paranasal sinuses are well aerated. IMPRESSION: 1. Limited exam due to motion. 2. No definite acute intracranial pathology. 3. Changes of mild periventricular deep white matter ischemic small vessel disease. DICTATED BY: SIMON BROWN MD DATE/TIME DICTATED:07/01/161441 MANUFACTURING STOREPERSON:CHAI DATE/TIME TRANSCRIBED:07/01/161441 CONFIDENTIAL, DO NOT COPY WITHOUT APPROPRIATE AUTHORIZATION. <Electronically signed in Other Vendor System> SIGNED BY: SIMON BROWN MD 07/01/16 1453 CXR Impression: PATIENT: KENIA SHEARER PRESENT AGE: 86 PATIENT ACCOUNT NO: [id number] : 31 LOCATION: [facility] ORDERING PHYSICIAN: AILEEN MONTALVO SERVICE DATE: 07/01/16 EXAM TYPE: RAD - XRY- PORTABLE CHEST XRAY EXAMINATION: XR PORTABLE CHEST CLINICAL INFORMATION: Cough and dyspnea. Fever. COMPARISON: 06/03/2016 chest. TECHNIQUE: Portable AP view of the chest was obtained. FINDINGS: Both lungs are well-expanded. There is a large right middle lobe lateral segment consolidation suspected. Otherwise rest of lungs are expanded and clear. The heart size is enlarged. Vascularity is normal. No gross bony abnormality seen. IMPRESSION: New large right midlung consolidation most likely in the lateral segment of middle lobe. Cardiomegaly. DICTATED BY: ANGÉLICA MURRY MD DATE/TIME DICTATED:07/01/161211 MANUFACTURING STOREPERSON :CHAI DATE/TIME TRANSCRIBED:07/01/161211 CONFIDENTIAL, DO NOT COPY WITHOUT APPROPRIATE AUTHORIZATION. <Electronically signed in Other Vendor System> SIGNED BY: ANGÉLICA MURRY MD 07/01/16 1216 Initial ED EKG: atrial fibrillation with mild rapid ventricular rate. ST depression in the lateral leads. T wave flattening diffusely. some changes from previous ekg. Prior EKG: changed Rhythm Strip: atrial fibrillation (AILEEN SHEFFIELD) Departure Departure Time of Disposition: 1227 Disposition: STILL A PATIENT Condition: Fair Clinical Impression Primary Impression: Healthcare associated bacterial pneumonia Secondary Impressions: Acute hypoxemic respiratory failure Referrals: ANABELLE VALDEZ MD (PCP/Family) Departure Forms: Customer Survey General Discharge Information Admission Note Spoke With: ADAM CAMACHO M.D Documentation of Exam: Documentation of any treatments & extenuating circumstances including Concerns Regarding Discharge (functional status, medication knowledge or non-compliance, living conditions, etc.) that warrant an admission rather than observation: IV antibiotics, total respiratory care, IV steroids, pulmonary consultation. Patient received 30cc/kg for possibility of severe sepsis. Given patient's age and history monitor for any signs of fluid overload. Given patient's significant hypoxia/hypoxemia, his clinical presentation and co-morbid conditions, patient at high risk for deterioration if discharged. (AILEEN SHEFFIELD) PA/LENS SILVERER Co-Sign Statement Statement: ED Attending supervision documentation- []X I saw and evaluated the patient. I have also reviewed all the pertinent lab results and diagnostic results. I agree with the findings and the plan of care as documented in the PA's/LENS SILVERER's documentation. [X] I have reviewed the ED Record and agree with the PA's/LENS SILVERER's documentation. [] Additions or exceptions (if any) to the PAs/LENS SILVERER's note and plan are summarized below: [Patient recently just discharged from here after treatment for pneumonia. Patient having worsening symptoms with a nonproductive cough, fevers and chills and shortness of breath. On exam he has very rhonchorous in the right base. Patient is afebrile. Patient given broad-spectrum antibiotics and will be admitted to the hospital.] (CHELSIE RIVAS,JOSE Reyes) Critical Care Note Critical Care Note Critical Care Time: 30-74 min (AILEEN SHEFFIELD)
--- NOTE | 2016-07-01 11:09 | NUR ---
RT PAGED FOR MAXIMINO SOLORZANO AND YASIR
--- NOTE | 2016-07-01 11:24 | NUR ---
FLU SWAB SENT
--- NOTE | 2016-07-01 11:28 | NUR ---
PT TO [facility] RM 2 FROM TRIAGE EVALUATED BY SELVIN NAZARIO EKG DONE BY PABLO HILL IV ACCESS ESTABLISHED, #20 L[facility] LABS WITH 1ST SET B/C DRAWN/SENT BY THIS RN 2ND SET CULTURES DRAWN BY PABLO WICK RESPIRATORY THERAPIST AT BEDSIDE FOR NEB TREATMENT AND ABG PORTABLE XRAY BEING DONE AT PRESENT
[2016-07-01 11:50] LABS: ABSOLUTE BASOPHIL COUNT 0 /CUMM (0.0-0.2); ABSOLUTE EOSINOPHIL COUNT 0 /CUMM (0.0-0.7); ABSOLUTE GRANULOCYTE CT 9.8 /CUMM (1.4-6.5); ABSOLUTE LYMPH COUNT 0.9 /CUMM (1.2-3.4); ABSOLUTE MONOCYTE COUNT 1.2 /CUMM (0.10-0.60); BASOPHIL % 0 % (0.0-2.0); EOSINOPHIL % 0.2 % (0-5); GRANULOCYTE % 82.4 % (42.2-75.2); HEMATOCRIT 31.8 % (42-52); MEAN CORPUSCULAR HGB 25.5 PG (27.0-31.0); MEAN CORPUSCULAR HGB CONC 32.2 G/DL (33.0-37.0); MEAN CORPUSCULAR VOLUME 79.2 FL (80.0-94.0); MEAN PLATELET VOLUME 8.5 FL (7.4-10.4); PLATELET COUNT 234 /CUMM (130-400); RBC DISTRIBUTION WIDTH 18.5 % (11.5-14.5); RED BLOOD CELL CT 4.02 /CUMM (4.70-6.10); WHITE BLOOD CELL COUNT 11.9 /CUMM (4.8-10.8)
--- NOTE | 2016-07-01 11:57 | NUR ---
PT MEDICATED WITH SOLUMEDROL, TYLENOL, FORTAZ AND ZITHROMAX PER ORDERS. IVF N/S INFUSION INITIATED WELL.
[2016-07-01 12:00] LABS: PT 19.9 SEC (9.4-12.5); PTT 37 SEC (25-37)
--- NOTE | 2016-07-01 12:16 | RADIOLOGY REPORT ---
EXAMINATION: XR PORTABLE CHEST CLINICAL INFORMATION: Cough and dyspnea. Fever. COMPARISON: 06/03/2016 chest. TECHNIQUE: Portable AP view of the chest was obtained. FINDINGS: Both lungs are well-expanded. There is a large right middle lobe lateral segment consolidation suspected. Otherwise rest of lungs are expanded and clear. The heart size is enlarged. Vascularity is normal. No gross bony abnormality seen. IMPRESSION: New large right midlung consolidation most likely in the lateral segment of middle lobe. Cardiomegaly.
--- NOTE | 2016-07-01 12:40 | NUR ---
MEDICATED WITH MOTRIN FOR ELEVATED TEMP AND HEAD PAIN
--- NOTE | 2016-07-01 12:57 | History & Physical ---
ANNABEL SIN 07/01/16 1257: General Information and HPI MD Statement: I have seen and personally examined KENIA SHEARER and documented this H&P. The patient is a 86 year old M who presented with a patient stated chief complaint of [worsening shortness of breath]. Source of Information: patient, family, old records Exam Limitations: no limitations History of Present Illness: 86 yo M with h/o COPD, Afib on eliquis, HTN, T2DM, Parkinson's disease, adenocarcinoma of lung s/p RLL lobectomy, GI bleed, CAD, HFpEF, is here for progressively worsening dyspnea and productive cough. He was last treated for bronchitis/COPD, and recent discharge from (06-03-06/04/2016) for acute Hypoxic respiratory failure 2/2 to COPD exacerbation/pneumonia. Cording to patient's he started feeling not well with a past few days. He mentions on and off body ache, nasal and chest congestion and infrequent cough and progressive worsening sputum production for the past few days(no blood). Yesterday evening patient's O2 saturation started declining from baseline of 90% to 88% and patient became more symptomatic and is started complaining of primarily exertional shortness of breath. Patient's son also reports that his father has had fever and episode of shaking chills by that time. Patient did not complain of chest pain, palpitation and he was not confused or altered at any time. He went to bed yesterday earlier than usual due to profound weakness and not feeling very well however due to his cough and shortness of breath he was not able to sleep the whole night. This morning his a status turns for worse and his O2 saturation continued declining to concerning level of 70% and he was brought into emergency room by his son. Patient has not had any sick contacts or recent travel. Please follow-up visit with his dock pumper Dr. Crane and post lobectomy CT scan was a stable. He is on Advair and pro-air and has been compliant with his medication except for yesterday that he was not able to take his medication due to his general condition. On the side, patient hasn't noticed some slight increase in his daily weights however he has not had any worsening peripheral edema. On Saturday last week patient was a slightly lightheaded and unsteady and he had a pulse rate of low 50s which lasted for a day or 2. Allergies/Medications Allergies: Coded Allergies: pollen extracts (UNKNOWN 07/01/16) atorvastatin (Severe, MUSCLE WEAKNESS 07/01/16) Uncoded Allergies: DUST (UNKNOWN 12/26/14) Home Med list Albuterol Sulfate (Proair Hfa) 90 MCG HFA.AER.AD 2 PUF INH Q4-6 PRN PRN COPD (Reported) Apixaban (Eliquis) 2.5 MG TABLET 1 TAB PO BID AFIB (Reported) Carbidopa/Levodopa (Sinemet 25-100 MG Tablet) 25 MG-100 MG TABLET 1 TAB PO TID PARKINSON (Reported) Cholecalciferol (Vitamin D3) 1,000 IU TAB 1 TAB PO DAILY SUPPLEMENT (Reported ) Dexlansoprazole (Dexilant) 60 MG CAP.DR.BP 1 CAP PO DAILY GERD (Reported) Digoxin 0.125 MG TAB 1 TAB PO DAILY HEART RATE Diltiazem HCl (Diltiazem ER) 240 MG CAP.ER.DEG 1 TAB PO DAILY HEART (Reported ) Docusate Sodium (Colace) 100 MG CAPSULE STOOL SOFTENER (Reported) Ezetimibe/Simvastatin (Vytorin 10-10 MG Tablet) 10 MG-10 MG TABLET 1 TAB PO AT BEDTIME CHOLESTEROL (Reported) Ferrous Sulfate 325 MG (65 MG IRON) TABLET 1 TAB PO DAILY IRON DEF ANEMIA ( Reported) Finasteride 5 MG TABLET 1 TAB PO AT BEDTIME BPH (Reported) Fluticasone-Salmeterol (Advair 500-50 Diskus) 500 MCG-50 MCG/DOSE BLST.W.DEV 1 PUF INH BID ASTHMA (Reported) Furosemide (Lasix) 20 MG TABLET 1 TAB PO EOD CHF (Reported) Ipratropium/Albuterol Sulfate (Combivent Respimat Inhal Tiffin) 20 MCG-100 MCG/ ACTUATION MIST.INHAL 2 SPRAY NS DAILY COPD (Reported) Levothyroxine Sodium (Synthroid) 50 MCG TABLET 1 TAB PO DAILY hypothyroidism (Reported) Lubiprostone (Amitiza) 8 MCG CAPSULE 1 CAP PO BID CONSTIPATION (Reported) Metformin HCl 500 MG TABLET 1 TAB PO AT BEDTIME DM (Reported) Montelukast Sodium 10 MG TABLET 1 TAB PO AT BEDTIME COPD (Reported) Polyethylene Glycol 3350 (Miralax) 17 GRAM POWD.PACK 1 PAC PO DAILY CONSTIPATION (Reported) dissolve in water Solifenacin Succinate (Vesicare) 5 MG TAB 1 TAB PO DAILY BLADDER (Reported) Tamsulosin Hydrochloride (Flomax) 0.4 MG CAP.ER.24H 1 CAP PO AT BEDTIME BPH ( Reported) Compliance With Home Meds: GOOD Past History Travel History Traveled to [place] past 21 day No Medical History Neurological: Parkinson's disease EENT: blindness, hearing loss, macular degeneration Cardiovascular: AFIB, CHF, hypertension, hyperlipidemia Respiratory: bronchitis, COPD, emphysema, pneumonia, Lung ca s/p lobectomy Gastrointestinal: lower GI bleed, AVM Hepatic: NONE Renal: NONE Musculoskeletal: NONE Psychiatric: NONE Endocrine: diabetes Blood Disorders: anemia Cancer(s): lung cancer, 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 Psychosocial History Services at Home: None ETOH Use: occasional use Illicit Drug Use: denies illicit drug use Functional Ability ADLs Independent: dressing, eating, toileting, bathing. Ambulation: independent IADLs Needs Assist: shopping, housework, finances, food prep, telephone, transportation, medication admin. Review of Systems Review of Systems Constitutional: Reports: see HPI, chills, fever, weakness. Denies: diaphoresis, malaise, unexplained weight loss. EENTM: Reports: see HPI, nasal congestion. Cardiovascular: Reports: see HPI. Respiratory: Reports: see HPI, short of breath, sputum production. Denies: cough, stridor, wheezing. GI: Reports: see HPI, constipation. Genitourinary: Reports: no symptoms. Musculoskeletal: Reports: see HPI. Skin: Reports: see HPI. All Other Systems: Reviewed and Negative Exam & Diagnostic Data Last 24 Hrs of Vital Signs/I&O Vital Signs Date Time Temp Pulse Resp B/P Pulse O2 O2 Flow FiO2 Ox Delivery Rate 07/01 1409 99.9 80 22 109/55 94 Nasal 4.0L Cannula 07/01 1351 99.0 83 20 107/53 95 Nasal 2.0L Cannula 07/01 1240 103.7 07/01 1240 103.7 07/01 1237 103.7 91 20 103/57 95 Nasal 4.0L Cannula 07/01 1145 102.0 07/01 1126 96 Nasal 6.0L Cannula 07/01 1112 102.0 107 20 130/65 95 Nasal 6.0L Cannula 07/01 1110 94 Nasal 5.0L Cannula Intake & Output 07/01 1600 07/01 0800 07/01 0000 Intake Total 2350 Output Total Balance 2350 Intake, IV 2350 Patient 157 lb Weight Physical Exam General Appearance Alert, Oriented X3, Cooperative, Mild Distress Skin No Rashes, No Breakdown, No Significant Lesion HEENT mucous membranes are dry, no JVD Neck Supple, No JVD, No thryomegaly, +2 Carotid Pulse wo Bruit, No LAD Lymphatic Axillary nl, Cervical nl Cardiovascular Normal S1, Normal S2, irregularly irregular, no murmur Lungs diminished air movements at the base of the right long, no wheezing;++ prolonged expiratory phase., dullness to percussion increased on the right lung compared to left, chest expansion normal no tenderness Abdomen Soft Neurological Normal Speech Extremities No Cyanosis, No Edema Last 24 Hrs of Labs/Les: Laboratory Tests 07/01/16 1421: Lactic Acid 1.0 07/01/16 1125: pH 7.46 H, pCO2 31 L, pO2 114 H, HCO3 21, ABG O2 Sat (Measured) 98.0, P-50 ( Temp Corrected) YES, Carboxyhemoglobin 1.0 L, O2 Concentration % 6L, Temperature 102.0 H, O2 Delivery Method NEB TX, Phlebotomy Draw Site LEFT RADIAL 07/01/16 1124: Anion Gap 12, Estimated GFR > 60, BUN/Creatinine Ratio 20.0, Glucose 121 H, Lactic Acid 1.4, Calcium 9.4, Total Bilirubin 1.0, AST 20, ALT 26, Alkaline Phosphatase 89, Troponin I 0.05, Total Protein 6.6, Albumin 3.7, Globulin 2.9, Albumin/Globulin Ratio 1.3, PT 19.9 H, INR 1.91 H, APTT 37, CBC w Diff NO MAN DIFF REQ, RBC 4.02 L, MCV 79.2 L, MCH 25.5 L, RDW 18.5 H, MPV 8.5, Gran % 82.4 H, Lymphocytes % 7.3 L, Monocytes % 10.1 H, Eosinophils % 0.2, Basophils % 0 L, Absolute Granulocytes 9.8 H, Absolute Lymphocytes 0.9 L, Absolute Monocytes 1.2 H, Absolute Eosinophils 0, Absolute Basophils 0, PUBS MCHC 32.2 L, Digoxin 0.6 L 07/01/16 1121: Lactic Acid Cancelled Microbiology 07/01 1458 URINE ROUT: Legionella Antigen - ORD 07/01 1458 URINE ROUT: Streptococcus pneumoniae Antigen (M - ORD 07/01 1409 LOWER RESP: Respiratory Culture - ORD 07/01 1409 LOWER RESP: Gram Stain - ORD 07/01 1126 BLOOD: Blood Culture - RECD 07/01 112 BLOOD: Blood Culture - RECD 07/01 1115 NASOPHARYN: Influenza Virus A & B Rapid Smear - COMP Diagnostic Data EKG Results Atrial fibrillation Rate 90s No axis deviation Irregularly irregular no acute ST-T segment change CXR Results New large right midlung consolidation most likely in the lateral segment of middle lobe. Cardiomegaly. Assessment/Plan Assessment: Pertinent Data Vital signs: Initial temperature 102>> 103.7>> latest 99.9/low 80s/22/130/65>>> 109/55, 94% on 6 L Pertinent data: AB.46/PCO2 31/PaO2 114/HCO3 21/on 6 L of oxygen PT 19.9 INR 1.91, sodium 141, potassium 3.6, initial troponin 0.05, lactic acid 1.4, LFTs normal total bilirubin normal, underlying gap 12 Pneumonia severity index category 3 associated with 27% mortality Digoxin level 0.6 WBC 11.9 w/ left shift but no bandemia, platelet count 234, hemoglobin 10.2 hematocrit 31.8 MCV 79.2 Chest x-ray July 01: New large right midlung consolidation most likely in the lateral segment of middle lobe. Last echo from 2014: Normal size left ventricle. No obvious regional wall motion abnormalities. Left ventricular wall thickness mildly increased. Normal left ventricular ejection fraction estimated at 60-65%. Mild-to- moderate tricuspid regurgitation. Right ventricular systolic pressure estimated at 40 mmHg. Assessments 86-year-old gentleman with extensive past medical history was admitted for severe healthcare associated pneumonia. List of active problems #1 severe healthcare associated pneumonia: Patient was discharged from the hospital within 90 days that increases the risk of healthcare associated pneumonia. His pneumonia severity index is associated with high mortality rate. He presented with symptoms of increasing sputum production and radiology findings of consolidation in the right middle lobe. Patient needs to be treated with broad-spectrum antibiotics for HCAP till Cx come back and azithromycin for atypical causes of pneumonia. #2 history of COPD-not actively in COPD exacerbation despite having prolonged expiration phase #3 chronic atrial fibrillation #4 history of coronary artery disease #5 history of congestive heart failure-stable #6 BPH: Patient was kept on home meds Flomax and finasteride. #7 Hypothyroidism. #8 Type 2 diabetes Plan #1 Healthcare associated pneumonia and history of COPD -Admit to general medical floor -Follow microbiology results for sputum culture Legionella and strep urine Ag and blood cultures, a nasal flu swab -Start vancomycin 1000 mg daily -Ceftaz again 1000 mg every 12 -Azithromycin 500 mg IV daily -Continue gentle hydration normal saline 100 mL per hour -Repeat chest x-ray in the a.m. -[facility] [id number] as needed for shortness of breath-recent exclusively needs to be off -ipratropium and other most current agents due to his bladder issues. -Oxygen nasal cannula targets O2 saturation of about 92% -Not in active COPD exacerbation, we do not start IV Solu-Medrol ordered a steroid therapy for now #2 chronic atrial fibrillation: Continue rate control with diltiazem extended release 240 mg daily and continue anticoagulation with Eliquis 2.5 mg by mouth twice a day #3 history of coronary artery disease: Stable. Continue ezetimibe and atorvastatin. #4 history of congestive heart failure-stable: Daily weights, restrict I/Os,low- salt diet, continue Lasix 20 mg every other day, continue digoxin 0.125mg daily #5 BPH: Patient was kept on home meds Flomax and finasteride. #6 Hypothyroidism; continue home dose of Synthroid #7 Type 2 diabetes: Hold metformin Insulin aspart sliding scale premeal and at bedtime #8 severe constipation- bowel regimen Eliquis for A/C Pain mild pathway Full code As Ranked By This Provider Problem List: 1. Dyslipidemia 2. ATRIAL FIBRILATION 3. Benign essent. htn complicating &/or reason for care during preg. 4. Full code status 5. Hypertension 6. COPD (chronic obstructive pulmonary disease) 7. Hypothyroidism 8. Constipation 9. Lung cancer, lower lobe 10. Pneumonia 11. Healthcare-associated pneumonia Core Measures/Miscellaneous Acute Coronary Syndrome ACS Diagnosis: No Cerebrovascular Accident CVA/TIA Diagnosis: No Congestive Heart Failure CHF Diagnosis: Yes Last Known EF %: 65 GRISELDA/ARB for EF <40%: No Venous Thromboembolism VTE Risk Factors: Acute medical illness, Age > 40, Cancer/chemo/oth therapy, CHF or Resp failure VTE Prophylaxis Ordered Inpt: Pharm- Eliquis No Mech VTE prophylaxis d/t: No contraindications No VTE Pharm Prophylaxis d/t: No contraindications VTE Diagnosis: No VTE Type: NONE VTE Confirmed by (Test): NONE Severe Sepsis Severe Sepsis Present: No Septic Shock Septic Shock Present: No Miscellaneous Documentation Attending Case Discussed With: ADAM GOMEZ M.D Primary Care Physician: ANABELLE VALDEZ MD 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 Level of Patient Care: General Medicine Resident Review Statement Resident Statement: examined this patient, discussed with network intern, agreed with network intern, discussed with family, reviewed EMR data (avail), discussed with nursing , discussed with case mgmt, reviewed images, amended to note ADAM GOMEZ MD 07/01/16 1701: Attending MD Review Statement Attending Statement Attending MD Statement: examined this patient, discuss w/resident/PA/BORING MACHINE SET UP OPERATOR JIG, agreed w/resident/PA/BORING MACHINE SET UP OPERATOR JIG, discussed with family, reviewed EMR data (avail), discussed with nursing, amended to note Attending Assessment/Plan: Patient is an 85-year-old male with history significant for non-oxygen dependent COPD, lung cancer status post lobectomy, Parkinson's disease. Was recently admitted to [facility]. Prior to that admission surveillance chest CT showed severe emphysema and stable pulmonary nodules with mildly enlarged mediastinal lymph nodes and no new lesions. Chest x-ray on admission on 2016 showed new bilateral lower lobe patchy air space opacities which could represent atelectasis versus infiltrates. He received antibiotic therapy for community-acquired pneumonia and was discharged in stable condition. Patient reports doing well until earlier on in the week when he complained of feeling dizzy. He reports that his heart rate was in the 50s. It is noted that patient is on Cardizem therapy for atrial fibrillation. As the week progresses he became more lethargic and yesterday he noticed hypoxemia which further worsened today with saturation of 70%. He admits to body aches fever and chills. In the emergency room he was noted to be hypoxic with saturations in the 70s on room air. Imaging reveals new large right midlung consolidation most likely in the lateral segment of the middle. When I questioned patient regarding aspiration, he denies any choking episodes but however states that he coughs up phlegm regularly after eating meals. He denies any difficulty swallowing but admits to increased cough after his meals. In the ER patient was found to be febrile with a MAXIMUM TEMPERATURE of 103.7. Hemodynamically stable saturating 94-96% on 4 L of oxygen. He was started on IV antibiotic therapy and admitted to the general medical service for further evaluation and management. Labs showed leukocytosis with left shift. Blood gas shows adequate oxygenation mild respiratory alkalosis. EKG shows atrial fibrillation with controlled ventricular response. No ischemic changes noted. On examination she is resting comfortably. Not in acute distress. He has diminished breath sounds in the right lung base. He has no jugular venous distention. He has no peripheral edema. Problems: 1. Acute hypoxic respiratory failure 2. Pneumonia with concern for gram-negative pathogen; in light of his recent hospitalization and antibiotic exposure. 3. Atrial fibrillation 4. COPD Plan: -Antibiotic therapy with IV ceftazidime to cover gram-negative pathogens. Patient has a history of MRSA. We will hold off for the administration of vancomycin pending results of blood and sputum cultures. -Continue O2 supplementation and wean down as tolerated to maintain saturation greater than 90%. -Obtain modified barium swallow in the morning to rule out aspiration. -Continue Cardizem for rate control. Continue anticoagulation with Eliquis -Patient reports no further episodes of dizziness since earlier in the week. He reports the dizziness came on with changes of head position. Check orthostatic blood pressure. - Continue diuresis with Lasix every other day. - Continue diuresis with Lasix every other day.
--- NOTE | 2016-07-01 13:10 | NUR ---
BED ASSIGNMENT 230-02
--- NOTE | 2016-07-01 13:14 | NUR ---
PT MEDICATED WITH MORPHINE 2 MG FOR HEAD PAIN 02/12 PER ORDERS SELVIN NAZARIO. 2ND LITER N/S INFUSION INITIATED AND PT MEDICATED WITH IV VANCOMYCIN PER ORDERS.
--- NOTE | 2016-07-01 13:52 | NUR ---
TO CT ON STRETCHER
--- NOTE | 2016-07-01 14:12 | NUR ---
PT RETURNS FROM CT SCAN 500 ML N/S INFUSION INITIATED PER ORDERS
--- NOTE | 2016-07-01 14:20 | NUR ---
REPORT TO TAMMI SHAFFER ON 2NA
--- NOTE | 2016-07-01 14:53 | CT SCAN REPORT ---
EXAMINATION: CT HEAD WITHOUT CONTRAST CLINICAL INFORMATION: Severe headache on anticoagulants. Evaluate for bleed. COMPARISON: MRI scan of the head dated 02/03/2015. TECHNIQUE: Contiguous axial imaging was performed from the skull base to vertex without intravenous administration of contrast. DLP: 886.89 mGy-cm FINDINGS: Evaluation is limited due to extensive patient motion, which persists despite repeating several slices. There are several peripheral cortical hyperdensities seen throughout the brain, most consistent with motion and beam hardening artifact rather than petechial hemorrhage. There is no definite evidence of acute intracranial hemorrhage or territorial infarction. No abnormal mass effect or midline shift is seen. [place]ofana to white matter differentiation is well preserved. No extra-axial fluid collections are identified. The ventricles and sulci are mildly enlarged. Prominent calcifications in the basal ganglia are seen. Mild periventricular deep white matter low-attenuation is noted, consistent with ischemic small vessel disease. The osseous structures and soft tissues are normal. The mastoid air cells and visualized portions of the paranasal sinuses are well aerated. IMPRESSION: 1. Limited exam due to motion. 2. No definite acute intracranial pathology. 3. Changes of mild periventricular deep white matter ischemic small vessel disease.
--- NOTE | 2016-07-01 14:57 | Cons- Pulmonary ---
General Information and HPI Consulting Request Date of Consult: 07/01/16 Requested By: Dr. Camacho Reason for Consult: Pneumonia Source of Information: patient Exam Limitations: no limitations History of Present Illness: Consultation for right mid lung pneumonia. 86 year old man with a history of RLL lobectomy for adenocarcinoma, A.fib on Eliquis (follows with Dr. Guadarrama), CAD, CHF, Parkinson's, allergies/chronic sinusitis and hearing loss (follows with Dr. Fuentes), HTN, DM, COPD, thyroid nodules. For COPD on Advair 250/50 BID with rinsing of the mouth. Not using anti- cholinergics secondary to prostate issues and eye problems. Dr. Fuentes wanted to consider allergy shots given IgE 763 (normal <114). CT chest surveillance post lobectomy was stable, follows with myself and Dr. Liu. Overnight patient had body aches, fatigue and fever/chills. No sick contacts. Hospitalized for bibasilar pneumonia within 30 days. In ED Tmax 103.7, wbc 11.9. Per ER records patient has had high 70's oximetery on room air. Received antibiotics and flu swab was negative. CXR reviewed with evidence of a dense right midlung consolidation. Significant fatigue, no diarrhea. Allergies/Medications Allergies: Coded Allergies: pollen extracts (UNKNOWN 07/01/16) atorvastatin (Severe, MUSCLE WEAKNESS 07/01/16) Uncoded Allergies: DUST (UNKNOWN 12/26/14) Home Med List: Albuterol Sulfate (Proair Hfa) 90 MCG HFA.AER.AD 2 PUF INH Q4-6 PRN PRN COPD (Reported) Apixaban (Eliquis) 2.5 MG TABLET 1 TAB PO BID AFIB (Reported) Carbidopa/Levodopa (Sinemet 25-100 MG Tablet) 25 MG-100 MG TABLET 1 TAB PO TID [place] (Reported) Cholecalciferol (Vitamin D3) 1,000 IU TAB 1 TAB PO DAILY SUPPLEMENT (Reported ) Dexlansoprazole (Dexilant) 60 MG CAP.DR.BP 1 CAP PO DAILY GERD (Reported) Digoxin 0.125 MG TAB 1 TAB PO DAILY HEART RATE Diltiazem HCl (Diltiazem ER) 240 MG CAP.ER.DEG 1 TAB PO DAILY HEART (Reported ) Docusate Sodium (Colace) 100 MG CAPSULE STOOL SOFTENER (Reported) Ezetimibe/Simvastatin (Vytorin 10-10 MG Tablet) 10 MG-10 MG TABLET 1 TAB PO AT BEDTIME CHOLESTEROL (Reported) Ferrous Sulfate 325 MG (65 MG IRON) TABLET 1 TAB PO DAILY IRON DEF ANEMIA ( Reported) Finasteride 5 MG TABLET 1 TAB PO AT BEDTIME BPH (Reported) Fluticasone-Salmeterol (Advair 500-50 Diskus) 500 MCG-50 MCG/DOSE BLST.W.DEV 1 PUF INH BID ASTHMA (Reported) Furosemide (Lasix) 20 MG TABLET 1 TAB PO EOD CHF (Reported) Ipratropium/Albuterol Sulfate (Combivent Respimat Inhal [place]) 20 MCG-100 MCG/ ACTUATION MIST.INHAL 2 SPRAY NS DAILY COPD (Reported) Levothyroxine Sodium (Synthroid) 50 MCG TABLET 1 TAB PO DAILY hypothyroidism (Reported) Lubiprostone (Amitiza) 8 MCG CAPSULE 1 CAP PO BID CONSTIPATION (Reported) Metformin HCl 500 MG TABLET 1 TAB PO AT BEDTIME DM (Reported) Montelukast Sodium 10 MG TABLET 1 TAB PO AT BEDTIME COPD (Reported) Polyethylene Glycol 3350 (Miralax) 17 GRAM POWD.PACK 1 PAC PO DAILY CONSTIPATION (Reported) dissolve in water Solifenacin Succinate (Vesicare) 5 MG TAB 1 TAB PO DAILY BLADDER (Reported) Tamsulosin Hydrochloride (Flomax) 0.4 MG CAP.ER.24H 1 CAP PO AT BEDTIME BPH ( Reported) Current Medications: Current Medications Sig/Chuck Start time Last Medication Dose Route Stop Time Status Admin Acetaminophen 0 .STK-MED ONE 07/01 1138 DC PO Acetaminophen 650 MG ONCE ONE 07/01 1130 DC 07/01 PO 07/01 1131 1145 Albuterol Sulfate 3 ML ONCE ONE 07/01 1130 DC 07/01 INH 07/01 1131 1128 Apixaban 2.5 MG BID 07/01 1428 UNVr PO Azithromycin 500 MG DAILY 07/02 1000 UNVr Dextrose/Water 250 ML IV Azithromycin 500 MG ONCE ONE 07/01 1115 DC 07/01 Dextrose/Water 250 ML IV 07/01 1214 1151 Budesonide/ 2 PUF BID 07/01 1432 DC Formoterol Fumarate INH Carbidopa/Levodopa 1 TAB TID 07/01 1600 UNVr PO Ceftazidime 1,000 MG Q12 07/01 2200 UNVr IV Ceftazidime 0 .STK-MED ONE 07/01 1139 DC .ROUTE Ceftazidime 1,000 MG ONCE ONE 07/01 1115 DC 07/01 IV 07/01 1116 1145 Ceftriaxone Sodium 1,000 MG DAILY 07/02 1000 CAN IV Cholecalciferol 1,000 IU DAILY 07/01 1428 AC PO Digoxin 0.125 MG 1700 07/01 1700 AC PO Diltiazem HCl 24 MG DAILY 07/01 1430 UNVr PO Docusate Sodium 100 MG DAILY 07/02 1000 AC PO Ezetimibe 10 MG DAILY 07/01 1431 AC PO Finasteride 5 MG AT BEDTIME 07/01 2200 AC PO Furosemide 20 MG Q48H 07/01 1500 AC PO Ibuprofen 400 MG ONCE ONE 07/01 1245 DC 07/01 PO 07/01 1246 1240 Ibuprofen 0 .STK-MED ONE 07/01 1241 DC PO Ipratropium [place] 2.5 ML ONCE ONE 07/01 1130 DC 07/01 INH 07/01 1131 1128 Methylprednisolone 0 .STK-MED ONE 07/01 1138 DC .ROUTE Methylprednisolone 125 MG ONCE ONE 07/01 1115 DC 07/01 IV 07/01 1116 1144 Montelukast Sodium 10 MG AT BEDTIME 07/01 2200 AC PO Morphine Sulfate 0 .STK-MED ONE 07/01 1307 DC .ROUTE Morphine Sulfate 2 MG ONCE ONE 07/01 1300 DC 07/01 IV 07/01 1301 1312 Non-Formulary 0 SEE ADMIN CRITERIA 07/01 1430 UNVr Medication ANY Oxybutynin Chloride 5 MG DAILY 07/01 1435 UNVr PO Polyethylene Glycol 17 GM DAILY 07/02 1000 AC PO Sodium Chloride 1,000 ML Q10H 07/01 1445 AC IV Sodium Chloride 1,000 ML BOLUS ONE 07/01 1300 DC 07/01 IV 07/01 1359 1312 Sodium Chloride 500 ML BOLUS ONE 07/01 1300 DC 07/01 IV 07/01 1359 1409 Sodium Chloride 1,000 ML BOLUS ONE 07/01 1130 DC 07/01 IV 07/01 1229 1151 Tamsulosin HCl 0.4 MG AT BEDTIME 07/01 2200 AC PO Vancomycin HCl 1,000 MG DAILY 07/02 1000 AC Dextrose/Water 250 ML IV Vancomycin HCl 0 .STK-MED ONE 07/01 1149 DC .ROUTE Vancomycin HCl 1,000 MG ONCE ONE 07/01 1115 DC 07/01 Dextrose/Water 250 ML IV 07/01 1214 1312 Review of Systems Comments 18 point Review of Systems performed. Positive and negative pertinent findings are deliniated in the HPI. Otherwise the ROS is negative. Past History Travel History Traveled to [place] past 21 day No Medical History Neurological: Parkinson's disease EENT: blindness, hearing loss, macular degeneration Cardiovascular: AFIB, CHF, hypertension, hyperlipidemia Respiratory: bronchitis, COPD, emphysema, pneumonia, Lung ca s/p lobectomy Gastrointestinal: lower GI bleed, AVM Hepatic: NONE Renal: NONE Musculoskeletal: NONE Psychiatric: NONE Endocrine: diabetes Blood Disorders: anemia Cancer(s): lung cancer, RLL LOBECTOMY [employer]/Reproductive: NONE Other Medical Hx: IGG DEFICIENCY Surgical History Surgical History: Lobectomy Family History Relations & Conditions If Any: SISTER (some platelet problem). Psychosocial History Services at Home: None ETOH Use: occasional use Illicit Drug Use: denies illicit drug use Functional Ability ADLs Independent: dressing, eating, toileting, bathing. Ambulation: independent IADLs Needs Assist: shopping, housework, finances, food prep, telephone, transportation, medication admin. Exam & Diagnostic Data Last 24 Hrs of Vital Signs/I&O Vital Signs Date Time Temp Pulse Resp B/P Pulse O2 O2 Flow FiO2 Ox Delivery Rate 07/01 1409 99.9 80 22 109/55 94 Nasal 4.0L Cannula 07/01 1351 99.0 83 20 107/53 95 Nasal 2.0L Cannula 07/01 1240 103.7 07/01 1240 103.7 07/01 1237 103.7 91 20 103/57 95 Nasal 4.0L Cannula 07/01 1145 102.0 07/01 1126 96 Nasal 6.0L Cannula 07/01 1112 102.0 107 20 130/65 95 Nasal 6.0L Cannula 07/01 1110 94 Nasal 5.0L Cannula Intake & Output 07/01 1600 07/01 0800 07/01 0000 Intake Total 2350 Output Total Balance 2350 Intake, IV 2350 Patient 157 lb Weight Physical Exam Other Physical Findings: General - Alert, awake and oriented HEENT - normocephalic, atraumatic Cardiovascular - S1, S2, +systolic murmur Lungs - rhonchi and egophony right mid lung Abdomen - soft, bowel sounds positive, no tenderness Extremities - without edema or cyanosis Last 48 Hrs of Labs/Les: Laboratory Tests 07/01/16 1421: Lactic Acid Pending 07/01/16 1125: pH 7.46 H, pCO2 31 L, pO2 114 H, HCO3 21, ABG O2 Sat (Measured) 98.0, P-50 ( Temp Corrected) YES, Carboxyhemoglobin 1.0 L, O2 Concentration % 6L, Temperature 102.0 H, O2 Delivery Method NEB TX, Phlebotomy Draw Site LEFT RADIAL 07/01/16 1124: Anion Gap 12, Estimated GFR > 60, BUN/Creatinine Ratio 20.0, Glucose 121 H, Lactic Acid 1.4, Calcium 9.4, Total Bilirubin 1.0, AST 20, ALT 26, Alkaline Phosphatase 89, Troponin I 0.05, Total Protein 6.6, Albumin 3.7, Globulin 2.9, Albumin/Globulin Ratio 1.3, PT 19.9 H, INR 1.91 H, APTT 37, CBC w Diff NO MAN DIFF REQ, RBC 4.02 L, MCV 79.2 L, MCH 25.5 L, RDW 18.5 H, MPV 8.5, Gran % 82.4 H, Lymphocytes % 7.3 L, Monocytes % 10.1 H, Eosinophils % 0.2, Basophils % 0 L, Absolute Granulocytes 9.8 H, Absolute Lymphocytes 0.9 L, Absolute Monocytes 1.2 H, Absolute Eosinophils 0, Absolute Basophils 0, PUBS MCHC 32.2 L, Digoxin 0.6 L 07/01/16 1121: Lactic Acid Cancelled Microbiology 07/01 1115 NASOPHARYN: Influenza Virus A & B Rapid Smear - COMP Assessment/Plan Impression/Plan: Consultation for right mid lung pneumonia. 86 year old man with a history of RLL lobectomy for adenocarcinoma, A.fib on Eliquis (follows with Dr. Guadarrama), CAD, CHF, Parkinson's, allergies/chronic sinusitis and hearing loss (follows with Dr. Fuentes), HTN, DM, COPD, thyroid nodules. For COPD on Advair 250/50 BID with rinsing of the mouth. Not using anti- cholinergics secondary to prostate issues and eye problems. Dr. Fuentes wanted to consider allergy shots given IgE 763 (normal <114). CT chest surveillance post lobectomy was stable, follows with myself and Dr. Liu. Overnight patient had body aches, fatigue and fever/chills. No sick contacts. Hospitalized for bibasilar pneumonia within 30 days. In ED Tmax 103.7, wbc 11.9. Per ER records patient has had high 70's oximetery on room air. Received antibiotics and flu swab was negative. CXR reviewed with evidence of a dense right midlung consolidation. Significant fatigue, no diarrhea. Impression 86 year old man - acute hypoxemic respiratory failure - o2 in ED high 70's responsive to o2 supplementation, this is the result of an acute right mid-lung pneumonia which maybe secondary to a healthcare associated pathogen given recent admission or an atypical infection - history of lung ca - s/p RLL lobectomy Plan - agree with broad spectrum antibiotics - sputum culture to tailor antibiotics, legionella and strep ag, f/u all cultures - o2 supplementation - goal o2 >92% - TRC/Nebs - do not use anticholingergics (i.e. ipratropium/duonebs) secondary to prostate and eye issues - d/c symbicort, patient on Advair at home, he will bring own meds - would not use steroids at this time, can consider if has evidence of bronchospasm - DVT prophylaxis at all times (on Eliquis) Consult Acknowledgment - Thank you for your consult request.
[2016-07-01 15:41] VITALS: BP 110/60
--- NOTE | 2016-07-01 17:00 | Admission Certification ---
Admission Certification Certification Statement - As attending physician, I certify that at the time of - admission, based on clinical presentation, severity of - symptoms, need for further diagnostic testing and - therapeutic interventions, and risk of adverse outcomes - without in-hospital treatment, in my clinical assessment, - this patient requires an acute hospital stay for a minimum - of two nights or longer. I have also considered psychsocial - factors such as support system, advanced age, financial - issues, cognitive issues, and failed out-patient treatments, - past re-admission history, safety of patient, and lack of - compliance as applicable. Specific rationale supporting this admission is: Patient requires IV antibiotic therapy for his pneumonia.
[2016-07-02 07:04] VITALS: BP 118/60; BP 134/80
[2016-07-02 07:58] LABS: ABSOLUTE BASOPHIL COUNT 0 /CUMM (0.0-0.2); ABSOLUTE EOSINOPHIL COUNT 0 /CUMM (0.0-0.7); ABSOLUTE LYMPH COUNT 0.5 /CUMM (1.2-3.4); ABSOLUTE MONOCYTE COUNT 0.9 /CUMM (0.10-0.60); BASOPHIL % 0.1 % (0.0-2.0); EOSINOPHIL % 0 % (0-5); GRANULOCYTE % 82.9 % (42.2-75.2); MEAN CORPUSCULAR HGB 25.8 PG (27.0-31.0); MEAN CORPUSCULAR HGB CONC 32.4 G/DL (33.0-37.0); MEAN CORPUSCULAR VOLUME 79.5 FL (80.0-94.0); MEAN PLATELET VOLUME 9.2 FL (7.4-10.4); PLATELET COUNT 163 /CUMM (130-400); RBC DISTRIBUTION WIDTH 18.7 % (11.5-14.5); RED BLOOD CELL CT 3.32 /CUMM (4.70-6.10); WHITE BLOOD CELL COUNT 8.5 /CUMM (4.8-10.8)
[2016-07-02 09:03] LABS: HEMATOCRIT 26.4 % (42-52)
--- NOTE | 2016-07-02 10:35 | PN- Housestaff ---
Subjective Follow-up For: Pneumonia Subjective: Patient comfortable this morning. Did not have an complaints. Oxygen saturation above 92% on 3 L oxygen. Remain afebrile overnight. Vitals stable. Review of Systems Constitutional: Reports: see HPI. Objective Last 24 Hrs of Vital Signs/I&O Vital Signs Date Time Temp Pulse Resp B/P Pulse O2 O2 Flow FiO2 Ox Delivery Rate 07/02 161 98.2 73 20 120/60 99 07/02 1616 60 07/02 1600 Nasal 3.0L Cannula 07/02 0920 98 Nasal 3.0L Cannula 07/02 0800 Nasal 3.5L Cannula 07/02 0704 98.2 56 18 118/60 96 Nasal 3.5L Cannula 07/02 0007 Nasal 3.0L Cannula 07/01 2354 100 Nasal 3.5L Cannula 07/01 2342 97.6 63 20 100 Nasal 3.5L Cannula 07/01 2214 107/60 Intake & Output 07/02 1600 07/02 0800 07/02 0000 Intake Total 1250 460 750 Output Total Balance 1250 460 750 Intake, IV 650 400 300 Intake, Oral 600 60 450 Number 1 Bowel Movements Patient 164 lb Weight Physical Exam General Appearance: No Acute Distress Other Physical Findings: General Exam: AAOx3, No acute distress, Skin: No rashes, no breakdown HEENT: PERRLA, EOMI Neck: Supple, No JVD No cervical lymphadenopathy CVS: Reg Rate, Normal S1,S2, No MGR Resp: Decreased air entry bilaterally right more than left, bilateral wheezes. Abdomen: Soft, No tenderness, Normal Bowel Sounds Neuro: Normal Speech, Strength 5/5 b/l x 4 extremities, Sensation intact, CN III -XII NL, Reflexes 2+ Extremities: No cyanosis, pedal edema Current Medications: Current Medications Sig/Chuck Start time Last Medication Dose Route Stop Time Status Admin Acetaminophen 500 MG Q6P PRN 07/01 1730 AC PO Acetaminophen 1,000 MG Q6P PRN 07/01 1730 AC N/A 1 UNIT IV Albuterol Sulfate 3 ML TID 07/02 1000 AC 07/02 INH 1407 Apixaban 2.5 MG BID 07/01 1428 AC 07/02 PO 1200 Azithromycin 500 MG DAILY@1200 07/02 1200 CAN Dextrose/Water 250 ML IV Carbidopa/Levodopa 1 TAB TID 07/01 1600 AC 07/02 PO 1616 Ceftazidime 1,000 MG Q12 07/01 2200 AC 07/02 IV 0942 Cholecalciferol 1,000 IU DAILY 07/01 1428 AC 07/02 PO 1200 Digoxin 0.125 MG 1700 07/01 1700 AC 07/02 PO 1616 Diltiazem HCl 240 MG DAILY 07/01 1430 AC 07/02 PO 1200 Docusate Sodium 100 MG DAILY 07/02 1000 AC 07/02 PO 1200 Ezetimibe 10 MG DAILY 07/01 1431 AC 07/02 PO 1200 Finasteride 5 MG AT BEDTIME 07/01 2200 AC 07/01 PO 2213 Furosemide 20 MG Q48H 07/01 1500 AC 07/01 PO 1719 Insulin Aspart 0 TIDAC 07/01 1700 AC 07/02 SC 1649 Montelukast Sodium 10 MG AT BEDTIME 07/01 2200 AC 07/01 PO 2214 Omeprazole 40 MG DAILY 07/01 1430 AC 07/02 PO 1200 Oxybutynin Chloride 5 MG BID 07/01 2200 AC 07/02 PO 1159 Polyethylene Glycol 17 GM DAILY 07/02 1000 AC PO Potassium Chloride 40 MEQ ONCE ONE 07/01 2130 DC 07/01 PO 07/01 2131 2214 Sodium Chloride 2 SPRAY Q4P PRN 07/01 2300 AC MAGDALENO Sodium Chloride 1,000 ML .Q20H 07/01 1730 DC 07/01 IV 07/02 1329 1746 Sodium Chloride 1,000 ML Q10H 07/01 1445 DC IV Tamsulosin HCl 0.4 MG AT BEDTIME 07/01 2200 AC 07/01 PO 2214 Vancomycin HCl 1,000 MG ONCE ONE 07/02 1300 DC 07/02 Dextrose/Water 250 ML IV 07/02 1359 1308 Vancomycin HCl 1,000 MG DAILY 07/02 1000 CAN Dextrose/Water 250 ML IV Last 24 Hrs of Lab/Les Results Last 24 Hrs of Labs/Mics: Laboratory Tests 07/02/16 0650: Anion Gap 10, Estimated GFR > 60, BUN/Creatinine Ratio 25.0, CBC w Diff NO MAN DIFF REQ, RBC 3.32 L, MCV 79.5 L, MCH 25.8 L, RDW 18.7 H, MPV 9.2, Gran % 82.9 H, Lymphocytes % 6.2 L, Monocytes % 10.8 H, Eosinophils % 0, Basophils % 0.1, Absolute Granulocytes 7.0 H, Absolute Lymphocytes 0.5 L, Absolute Monocytes 0.9 H, Absolute Eosinophils 0, Absolute Basophils 0, PUBS MCHC 32.4 L 07/01/161729: Urinalysis MANY H, Urine Color YEL, Urine Clarity HAZY H, Urine pH 6.0, Ur Specific [place] >= 1.030, Urine Protein 30 H, Urine Ketones 15 H, Urine Nitrite NEG, Urine Bilirubin NEG, Urine Urobilinogen 0.2, Ur Leukocyte Esterase NEG, Ur Microscopic SEDIMENT EXAMINED, Urine RBC RARE, Ur Epithelial Cells FEW, Urine Hemoglobin NEG, Urine Glucose NEG Microbiology 07/01 1729 URINE ROUT: Legionella Antigen - COMP 07/01 1729 URINE ROUT: Streptococcus pneumoniae Antigen (M - COMP Assessment/Plan Assessment: He is an older man with a past history of COPD (not on any home oxygen), atrial fibrillation (NOAC), hypertension, Parkinson's disease, adenocarcinoma of the right lung status post lobectomy, with recent admission to [facility] for acute exacerbation of COPD is being evaluated for worsening shortness of breath (exertional) cough, hypoxemia (70s) 1 week. At the time of admission, temperature 102, pulse rate 107, blood pressure 1:30/ 65, pulse ox 94% (4-6 L), lab findings indicated WBC 11.9, hemoglobin 10.2, platelets 234, normal electrolytes sodium 141, potassium 3.6, bicarbonate 24, normal renal function-BUN 16, serum creatinine 0.8. Lower respiratory cultures- show growth of gram-negative rods and gram-positive rods. Radiological findings-chest x-ray revealed consolidation of right mid lung consistent with pneumonia, is slightly improved. LRC-mixed ratna-07/02/2016. Blood cultures negative so far. Differential diagnosis: #1 pneumonia (consider healthcare associated pneumonia) #2 acute exacerbation of COPD [place] problem list and plan: #1 acute hypoxic respiratory failure-secondary to pneumonia (likely healthcare associated pneumonia). URN-[id number] rods and gram-positive cocci. Continue vancomycin and ceftazidime pending final culture results. #2 Atrial fibrillation-currently NOAC- Eliquis. Has a history of GI bleed in the past. Guaiac positive stool-noticed this morning. Contacted gastroenterology for advised. History of polyps and angiodysplasia on previous colonoscopy. Requested Dr. Guadarrama to see the patient to evaluate risks versus benefits for continuation of Eliquis. Digoxin level-0.6. Currently rate controlled. Continue Cardizem 240, digoxin 125 g . #3 lightheadedness-currently asymptomatic. Check orthostatic hypotension. #4 anemia-likely acute blood loss anemia. H&H 10.2--> 8.6. Continue to monitor closely. Transfuse to keep INR about 8.0 #5 DVT prophylaxis-pharmacological. Problem List: 1. Healthcare-associated pneumonia 2. Healthcare associated bacterial pneumonia 3. Acute hypoxemic respiratory failure Pain Ratin Pain Location: Back Pain Goal: Pain 4 or less Pain Plan: Tylenol Tomorrow's Labs & Rationales: No labs necessary-patient stable
--- NOTE | 2016-07-02 10:36 | PN- Pulmonary ---
Subjective HPI/Critical Care Issues: pt seen and examined doing much better down to 2LNC afebrile Objective Current Medications: Current Medications Sig/Chuck Start time Last Medication Dose Route Stop Time Status Admin Acetaminophen 500 MG Q6P PRN 07/01 1730 AC PO Acetaminophen 1,000 MG Q6P PRN 07/01 1730 AC N/A 1 UNIT IV Acetaminophen 0 .STK-MED ONE 07/01 1138 DC PO Acetaminophen 650 MG ONCE ONE 07/01 1130 DC 07/01 PO 07/01 1131 1145 Albuterol Sulfate 3 ML TID 07/02 1000 AC 07/02 INH 0920 Albuterol Sulfate 3 ML ONCE ONE 07/01 1130 DC 07/01 INH 07/01 1131 1128 Apixaban 2.5 MG BID 07/01 1428 AC 07/01 PO 1718 Azithromycin 500 MG DAILY@1200 07/02 1200 CAN Dextrose/Water 250 ML IV Azithromycin 500 MG ONCE ONE 07/01 1115 DC 07/01 Dextrose/Water 250 ML IV 07/01 1214 1151 Budesonide/ 2 PUF BID 07/01 1432 DC Formoterol Fumarate INH Carbidopa/Levodopa 1 TAB TID 07/01 1600 AC 07/01 PO 2214 Ceftazidime 1,000 MG Q12 07/01 2200 AC 07/02 IV 0942 Ceftazidime 0 .STK-MED ONE 07/01 1139 DC .ROUTE Ceftazidime 1,000 MG ONCE ONE 07/01 1115 DC 07/01 IV 07/01 1116 1145 Ceftriaxone Sodium 1,000 MG DAILY 07/02 1000 CAN IV Cholecalciferol 1,000 IU DAILY 07/01 1428 AC 07/01 PO 1719 Digoxin 0.125 MG 1700 07/01 1700 AC 07/01 PO 1719 Diltiazem HCl 24 MG DAILY 07/01 1430 DC PO Diltiazem HCl 240 MG DAILY 07/01 1430 AC 07/01 PO 1719 Docusate Sodium 100 MG DAILY 07/02 1000 AC PO Ezetimibe 10 MG DAILY 07/01 1431 AC 07/01 PO 1721 Finasteride 5 MG AT BEDTIME 07/01 2200 AC 07/01 PO 2213 Furosemide 20 MG Q48H 07/01 1500 AC 07/01 PO 1719 Ibuprofen 400 MG ONCE ONE 07/01 1245 DC 07/01 PO 07/01 1246 1240 Ibuprofen 0 .STK-MED ONE 07/01 1241 DC PO Insulin Aspart 0 TIDAC 07/01 1700 AC 07/01 SC 1745 Ipratropium [place] 2.5 ML ONCE ONE 07/01 1130 DC 07/01 INH 07/01 1131 1128 Methylprednisolone 0 .STK-MED ONE 07/01 1138 DC .ROUTE Methylprednisolone 125 MG ONCE ONE 07/01 1115 DC 07/01 IV 07/01 1116 1144 Montelukast Sodium 10 MG AT BEDTIME 07/01 2200 AC 07/01 PO 2214 Morphine Sulfate 0 .STK-MED ONE 07/01 1307 DC .ROUTE Morphine Sulfate 2 MG ONCE ONE 07/01 1300 DC 07/01 IV 07/01 1301 1312 Omeprazole 40 MG DAILY 07/01 1430 AC 07/01 PO 1719 Oxybutynin Chloride 5 MG BID 07/01 2200 AC 07/01 PO 2214 Polyethylene Glycol 17 GM DAILY 07/02 1000 AC PO Potassium Chloride 40 MEQ ONCE ONE 07/01 2130 DC 07/01 PO 07/01 2131 2214 Sodium Chloride 2 SPRAY Q4P PRN 07/01 2300 AC MAGDALENO Sodium Chloride 1,000 ML .Q20H 07/01 1730 AC 07/01 IV 07/02 1329 1746 Sodium Chloride 1,000 ML Q10H 07/01 1445 DC IV Sodium Chloride 1,000 ML BOLUS ONE 07/01 1300 DC 07/01 IV 07/01 1359 1312 Sodium Chloride 500 ML BOLUS ONE 07/01 1300 DC 07/01 IV 07/01 1359 1409 Sodium Chloride 1,000 ML BOLUS ONE 07/01 1130 DC 07/01 IV 07/01 1229 1151 Tamsulosin HCl 0.4 MG AT BEDTIME 07/01 2200 AC 07/01 PO 2214 Vancomycin HCl 1,000 MG ONCE ONE 07/02 1300 AC Dextrose/Water 250 ML IV 07/02 1359 Vancomycin HCl 1,000 MG DAILY 07/02 1000 CAN Dextrose/Water 250 ML IV Vancomycin HCl 0 .STK-MED ONE 07/01 1149 DC .ROUTE Vancomycin HCl 1,000 MG ONCE ONE 07/01 1115 DC 07/01 Dextrose/Water 250 ML IV 07/01 1214 1312 Vital Signs & I&O Last 24 Hrs of Vitals and I&O: Vital Signs Date Time Temp Pulse Resp B/P Pulse O2 O2 Flow FiO2 Ox Delivery Rate 07/02 0920 98 Nasal 3.0L Cannula 07/02 0800 Nasal 3.5L Cannula 07/02 0704 98.2 56 18 118/60 96 Nasal 3.5L Cannula 07/02 0007 Nasal 3.0L Cannula 07/01 2354 100 Nasal 3.5L Cannula 07/01 2342 97.6 63 20 100 Nasal 3.5L Cannula 07/01 2214 107/60 07/01 1719 65 110/60 07/01 1600 Nasal 3.5L Cannula 07/01 1541 98.0 75 20 110/60 96 07/01 1450 94 Nasal 4.0L Cannula 07/01 1409 99.9 80 22 109/55 94 Nasal 4.0L Cannula 07/01 1351 99.0 83 20 107/53 95 Nasal 2.0L Cannula 07/01 1240 103.7 07/01 1240 103.7 07/01 1237 103.7 91 20 103/57 95 Nasal 4.0L Cannula 07/01 1145 102.0 07/01 1126 96 Nasal 6.0L Cannula 07/01 1112 102.0 107 20 130/65 95 Nasal 6.0L Cannula 07/01 1110 94 Nasal 5.0L Cannula Intake & Output 07/02 1600 07/02 0800 07/02 0000 Intake Total 460 750 Output Total Balance 460 750 Intake, IV 400 300 Intake, Oral 60 450 Patient 164 lb Weight Exam Other Physical Findings: General - Alert, awake and oriented HEENT - normocephalic, atraumatic Cardiovascular - S1, S2, +systolic murmur Lungs - rhonchi and egophony right mid lung Abdomen - soft, bowel sounds positive, no tenderness Extremities - without edema or cyanosis Results Last 24 Hrs of Lab Results: Laboratory Tests 07/02/16 0650: Anion Gap 10, Estimated GFR > 60, BUN/Creatinine Ratio 25.0, CBC w Diff NO MAN DIFF REQ, RBC 3.32 L, MCV 79.5 L, MCH 25.8 L, RDW 18.7 H, MPV 9.2, Gran % 82.9 H, Lymphocytes % 6.2 L, Monocytes % 10.8 H, Eosinophils % 0, Basophils % 0.1, Absolute Granulocytes 7.0 H, Absolute Lymphocytes 0.5 L, Absolute Monocytes 0.9 H, Absolute Eosinophils 0, Absolute Basophils 0, PUBS MCHC 32.4 L 07/01/16 1421: Lactic Acid 1.0 07/01/16 1125: pH 7.46 H, pCO2 31 L, pO2 114 H, HCO3 21, ABG O2 Sat (Measured) 98.0, P-50 ( Temp Corrected) YES, Carboxyhemoglobin 1.0 L, O2 Concentration % 6L, Temperature 102.0 H, O2 Delivery Method NEB TX, Phlebotomy Draw Site LEFT RADIAL 07/01/16 1124: Anion Gap 12, Estimated GFR > 60, BUN/Creatinine Ratio 20.0, Glucose 121 H, Lactic Acid 1.4, Calcium 9.4, Total Bilirubin 1.0, AST 20, ALT 26, Alkaline Phosphatase 89, Troponin I 0.05, Total Protein 6.6, Albumin 3.7, Globulin 2.9, Albumin/Globulin Ratio 1.3, PT 19.9 H, INR 1.91 H, APTT 37, CBC w Diff NO MAN DIFF REQ, RBC 4.02 L, MCV 79.2 L, MCH 25.5 L, RDW 18.5 H, MPV 8.5, Gran % 82.4 H, Lymphocytes % 7.3 L, Monocytes % 10.1 H, Eosinophils % 0.2, Basophils % 0 L, Absolute Granulocytes 9.8 H, Absolute Lymphocytes 0.9 L, Absolute Monocytes 1.2 H, Absolute Eosinophils 0, Absolute Basophils 0, PUBS MCHC 32.2 L, Digoxin 0.6 L 07/01/16 1121: Lactic Acid Cancelled 07/01/16 1115: Virus Culture Pending Impression/Plan Impression/Plan Impression/Plan: Impression 86 year old man - improved acute hypoxemic respiratory failure - o2 in ED high 70's responsive to o2 supplementation, this is the result of an acute right mid-lung pneumonia which maybe secondary to a healthcare associated pathogen given recent admission or an atypical infection - history of lung ca - s/p RLL lobectomy Plan - tailor abx based on sputum cx - o2 supplementation - goal o2 >92% - TRC/Nebs - do not use anticholingergics (i.e. ipratropium/duonebs) secondary to prostate and eye issues - patient on Advair at home, he will bring own meds - would not use steroids at this time, can consider if has evidence of bronchospasm - DVT prophylaxis at all times (on Eliquis)
--- NOTE | 2016-07-02 11:36 | PN- Att Addend ---
Attending Addendum Attending Brief Note Patient seen and examined, overall feeling better. Breathing has improved and oxygen requirement has improved also. Vital Signs Date Time Temp Pulse Resp B/P Pulse O2 O2 Flow FiO2 Ox Delivery Rate 07/02 0920 98 Nasal 3.0L Cannula 07/02 0800 Nasal 3.5L Cannula 07/02 0704 98.2 56 18 118/60 96 Nasal 3.5L Cannula 07/02 0007 Nasal 3.0L Cannula 07/01 2354 100 Nasal 3.5L Cannula 07/01 2342 97.6 63 20 100 Nasal 3.5L Cannula 07/01 2214 107/60 07/01 1719 65 110/60 07/01 1600 Nasal 3.5L Cannula 07/01 1541 98.0 75 20 110/60 96 07/01 1450 94 Nasal 4.0L Cannula 07/01 1409 99.9 80 22 109/55 94 Nasal 4.0L Cannula 07/01 1351 99.0 83 20 107/53 95 Nasal 2.0L Cannula 07/01 1240 103.7 07/01 1240 103.7 07/01 1237 103.7 91 20 103/57 95 Nasal 4.0L Cannula 07/01 1145 102.0 on exam; aox3, nad. cv; s1,s2, rrr. resp; decreased bs at right base upto mid lung zone. abd; soft, nt, bs+ ext; no edema. Laboratory Tests 07/02 07/01 0650 1421 Chemistry Sodium (137 - 145 mmol/L) 141 Potassium (3.5 - 5.1 mmol/L) 4.3 Chloride (98 - 107 mmol/L) 109 H Carbon Dioxide (22 - 30 mmol/L) 23 Anion Gap (5 - 16) 10 BUN (9 - 20 mg/dL) 20 Creatinine (0.7 - 1.2 mg/dL) 0.8 Estimated GFR (>60 ml/min) > 60 BUN/Creatinine Ratio (7 - 25 %) 25.0 Lactic Acid (0.7 - 2.1 mmol/L) 1.0 Hematology CBC w Diff NO MAN DIFF REQ WBC (4.8 - 10.8 /CUMM) 8.5 RBC (4.70 - 6.10 /CUMM) 3.32 L Hgb (14.0 - 18.0 G/DL) 8.6 L Hct (42 - 52 %) 26.4 L MCV (80.0 - 94.0 FL) 79.5 L MCH (27.0 - 31.0 PG) 25.8 L RDW (11.5 - 14.5 %) 18.7 H Plt Count (130 - 400 /CUMM) 163 MPV (7.4 - 10.4 FL) 9.2 Gran % (42.2 - 75.2 %) 82.9 H Lymphocytes % (20.5 - 51.1 %) 6.2 L Monocytes % (1.7 - 9.3 %) 10.8 H Eosinophils % (0 - 5 %) 0 Basophils % (0.0 - 2.0 %) 0.1 Absolute Granulocytes (1.4 - 6.5 /CUMM) 7.0 H Absolute Lymphocytes (1.2 - 3.4 /CUMM) 0.5 L Absolute Monocytes (0.10 - 0.60 /CUMM) 0.9 H Absolute Eosinophils (0.0 - 0.7 /CUMM) 0 Absolute Basophils (0.0 - 0.2 /CUMM) 0 PUBS MCHC (33.0 - 37.0 G/DL) 32.4 L A/P; 86 y/o M with pmh sig for COPD, Afib on eliquis, HTN, T2DM, Parkinson's disease, adenocarcinoma of lung s/p RLL lobectomy, GI bleed, CAD, HFpEF, admitted with acute hypoxic respiratory failure which is now improving. Patient also has healthcare associated pneumonia likely secondary to gram negatives/MRSA but sputum cultures are pending. At this point patient overall improving. He has been started on vancomycin and ceftaz. We will follow-up on the sputum cultures. Patient to get a swallow evaluation. Continue TRC nebs. Avoid anticholinergics secondary to his prostate and eye issues as per pulmonology. Noted a drop in his H&H and he has guaiac positive stool as well as patient does mention seeing blood in the stools. He had seen Dr. Murphy in the past. Please consult GI. Patient is on Eliquis with his hx of Afib. Continue other current meds. Patient has subtherapeutic digoxin levels but his heart rate has been running low normal. At this point continue the current dose of digoxin unless surveillance officer advises otherwise. DVT prophylaxis: Eliquis. Encourage ambulation.
--- NOTE | 2016-07-02 11:50 | PN- Student ---
Subjective Subjective: [CC]: Progressively worsening dyspnea and productive cough [HPI]: Pt has a history of COPD and arrived to the ED w/ his son due to acute hypoxemic respiratory failure that was down to 70s O2 sat on RA in the ED yesterday. He has a history of COPD, Afib, HFpEF (60-65% EF based on April 2015 Echo). He was recently admitted to for bronchitis/COPD and discharged on June 04 w/ the diagnosis of COPD exacerbation and PNA. Pt states that his productive sputum is brown in color and he was too weak to administer nebulizer treatment the day before, hence why he came to the ED. [PMHx]: * COPD on albuterol, adavir, combivent, montelukast * Afib on chronic eliquis following Dr. Guadarrama * HTN on Diltiazam 240mg. * T2DM on metformin and vytorin * Parkinson's disease on Sinemet 25-100mg. * GI Bleed on Dexilant 60mg, Ferrous Sulfate 325mg * CAD * HFpEF on Furosemide and Digoxin * Hypothyroidism on Levothyroxine 50mcg. * BPH on Finasteride 5mg and Flomax 0.4mg * Macular Degeneration * Bilateral hearing loss w/ hearing aids on (pt follows Dr. Fuentes). [PSHx]: * Adenocarcinoma of the Lung s/p RLL lobectomy [SHx]: Tobacco: History of use tobacco use. The pt started smoking at age 28 and quit in 1984. EtOH: occasional use Illicit Drugs: denies use Occupation: /[employer] - Retired Activities of Daily Living: independent and ambulates moderatly based on limited exposure of pts ambulation. REVIEW OF SYSTEMS: [General]: Sweating (); Fever or chills (X) (resolved); Fatigue (X) [Eyes]: Visual Changes (X - macular degeneration); Pain (); Redness () [ENT]: Headaches (); hoarseness (); sore throat (); epistaxis (); sinus symptoms (); hearing loss (); tinnitus () [CVS]: Chest Pain (); Edema (X - right lower extremity); PND (); Orthopnea (); Palpitations (); Claudication () [Respiratory]: Cough (); SOB (X - improving); Wheezing (); Hypersomnolence () [GI]: Abdominal Pain (); Stool changes (X - darker stool likely occult blood and /or iron supplementation); Nausea/Vomiting (); Diarrhea (); Heartburn (); Blood in Stool (X-hx of GI bleed and guiac positive this morning) []: Dysuria (); Frequency (); Hematuria (); Discharge (); [MSK]: Arthralgias (); Arthritis (); Joint Swelling (); Myalgias (); Back Pain ( ) [Heme/Lymph]: Bleeding (); Bruising (); Clotting (); Transfusions (); Lymph Node Swelling (); [Endo]: Polyuria (); Polydipsia (); Polyphagia (); Heat/Cold Intolerance (); [Derm]: Rash (); Pruritus () [Neuro]: Weakness (X - improved from yesterday); Seizures (); Paresthesias (); Tremor (); Syncope (); [Psych]: Anxiety (); Depression (); Hallucinations (); Claustrophobia () [All/Imm]: MEDICATIONS: Current Medications Sig/Chuck Start time Last Medication Dose Route Stop Time Status Admin Acetaminophen 500 MG Q6P PRN 07/01 1730 AC PO Acetaminophen 1,000 MG Q6P PRN 07/01 1730 AC N/A 1 UNIT IV Acetaminophen 0 .STK-MED ONE 07/01 1138 DC PO Albuterol Sulfate 3 ML TID 07/02 1000 AC 07/02 INH 0920 Apixaban 2.5 MG BID 07/01 1428 AC 07/01 PO 1718 Azithromycin 500 MG DAILY@1200 07/02 1200 CAN Dextrose/Water 250 ML IV Azithromycin 500 MG ONCE ONE 07/01 1115 DC 07/01 Dextrose/Water 250 ML IV 07/01 1214 1151 Budesonide/ 2 PUF BID 07/01 1432 DC Formoterol Fumarate INH Carbidopa/Levodopa 1 TAB TID 07/01 1600 AC 07/01 PO 2214 Ceftazidime 1,000 MG Q12 07/01 2200 AC 07/02 IV 0942 Ceftazidime 0 .STK-MED ONE 07/01 1139 DC .ROUTE Ceftriaxone Sodium 1,000 MG DAILY 07/02 1000 CAN IV Cholecalciferol 1,000 IU DAILY 07/01 1428 AC 07/01 PO 1719 Digoxin 0.125 MG 1700 07/01 1700 AC 07/01 PO 1719 Diltiazem HCl 24 MG DAILY 07/01 1430 DC PO Diltiazem HCl 240 MG DAILY 07/01 1430 AC 07/01 PO 1719 Docusate Sodium 100 MG DAILY 07/02 1000 AC PO Ezetimibe 10 MG DAILY 07/01 1431 AC 07/01 PO 1721 Finasteride 5 MG AT BEDTIME 07/01 2200 AC 07/01 PO 2213 Furosemide 20 MG Q48H 07/01 1500 AC 07/01 PO 1719 Ibuprofen 400 MG ONCE ONE 07/01 1245 DC 07/01 PO 07/01 1246 1240 Ibuprofen 0 .STK-MED ONE 07/01 1241 DC PO Insulin Aspart 0 TIDAC 07/01 1700 AC 07/02 SC 1136 Methylprednisolone 0 .STK-MED ONE 07/01 1138 DC .ROUTE Montelukast Sodium 10 MG AT BEDTIME 07/01 2200 AC 07/01 PO 2214 Morphine Sulfate 0 .STK-MED ONE 07/01 1307 DC .ROUTE Morphine Sulfate 2 MG ONCE ONE 07/01 1300 DC 07/01 IV 07/01 1301 1312 Omeprazole 40 MG DAILY 07/01 1430 AC 07/01 PO 1719 Oxybutynin Chloride 5 MG BID 07/01 2200 AC 07/01 PO 2214 Polyethylene Glycol 17 GM DAILY 07/02 1000 AC PO Potassium Chloride 40 MEQ ONCE ONE 07/01 2130 DC 07/01 PO 07/01 2131 2214 Sodium Chloride 2 SPRAY Q4P PRN 07/01 2300 AC MAGDALENO Sodium Chloride 1,000 ML .Q20H 07/01 1730 AC 07/01 IV 07/02 1329 1746 Sodium Chloride 1,000 ML Q10H 07/01 1445 DC IV Sodium Chloride 1,000 ML BOLUS ONE 07/01 1300 DC 07/01 IV 07/01 1359 1312 Sodium Chloride 500 ML BOLUS ONE 07/01 1300 DC 07/01 IV 07/01 1359 1409 Sodium Chloride 1,000 ML BOLUS ONE 07/01 1130 DC 07/01 IV 07/01 1229 1151 Tamsulosin HCl 0.4 MG AT BEDTIME 07/01 2200 AC 07/01 PO 2214 Vancomycin HCl 1,000 MG ONCE ONE 07/02 1300 AC Dextrose/Water 250 ML IV 07/02 1359 Vancomycin HCl 1,000 MG DAILY 07/02 1000 CAN Dextrose/Water 250 ML IV Vancomycin HCl 0 .STK-MED ONE 07/01 1149 DC .ROUTE Vancomycin HCl 1,000 MG ONCE ONE 07/01 1115 DC 07/01 Dextrose/Water 250 ML IV 07/01 1214 1312 Objective Objective: VITALS: Vital Signs Date Time Temp Pulse Resp B/P Pulse O2 O2 Flow FiO2 Ox Delivery Rate 07/02 0920 98 Nasal 3.0L Cannula 07/02 0800 Nasal 3.5L Cannula 07/02 0704 98.2 56 18 118/60 96 Nasal 3.5L Cannula 07/02 0007 Nasal 3.0L Cannula 07/01 2354 100 Nasal 3.5L Cannula 07/01 2342 97.6 63 20 100 Nasal 3.5L Cannula 07/01 2214 107/60 07/01 1719 65 110/60 07/01 1600 Nasal 3.5L Cannula 07/01 1541 98.0 75 20 110/60 96 07/01 1450 94 Nasal 4.0L Cannula 07/01 1409 99.9 80 22 109/55 94 Nasal 4.0L Cannula 07/01 1351 99.0 83 20 107/53 95 Nasal 2.0L Cannula 07/01 1240 103.7 07/01 1240 103.7 07/01 1237 103.7 91 20 103/57 95 Nasal 4.0L Cannula 07/01 1145 102.0 Intake & Output 07/02 1600 07/02 0800 07/02 0000 Intake Total 460 750 Output Total Balance 460 750 Intake, IV 400 300 Intake, Oral 60 450 Patient 164 lb Weight PHYSICAL EXAM: [General Appearance]: Dress: (X) nl hygiene Affect: (X) nl affect, not flat, blunted, or expansive MSE: Oriented in Time, Person, Place [Eyes] General: (X) nl conjunctiva & lids Pupils: (X) equal, round, and reactive Fundus: () nl discs & vessels (not performed) Vision: () acuity & gross alegre intact Abnormals: Macular degeneration w/ legally blind dx. Pt uses glasses. [ENT]: External: (X) no scars, lesions, masses. Otoscopic: () nl canals, tympanic membranes (not performed) Hearing: () nl to finger rub Oropharynx: (X) nl teeth, tongue, palate, pharynx. Abnormals: hearing loss w/ bilateral hearing aids [Neck]: External: (X) no tracheal deviation Palpation: (X) no masses or crepitus Thyroid: (X) no 'megaly or tenderness. Abnormals: [GI]: Palpation: (X) no masses or tenderness (X) no hep/splenomegaly Auscultation: (X) nl bowel sounds Percussion: () no shifting dullness (not performed) Anus/rectum : () no abnormalities or masses () heme negative stool Abnormals: Guiac positive (+) [Respiratory]: Effort: (X) nl without retractions Percussion: () no dullness or hyperresonance (not performed) Palpation: (X) no fremitus Auscultation: () CTAP w/o W, R, or R Abnormals: Decreased breath sounds on (R) lung alegre, but improving. [CVS]: Palpation: () PMI nondisplaced Auscultation: () no murmur, gallop, or rub Carotids: (X) nl intensity w/o bruit JVD: (X) no jugular distension Pulses: (X) 2+/= femoral & pedal pulses Edema: () no pedal edema Abnormals: (R) leg slightly more edematous. Systolic murmur. Cardiomegaly -> PMI slightly displaced. [Neuro]: Orientation: (X) A&O to person, place, time CN: (X) CN II-XII intact. Sensory: (X) nl sensation throughout Reflexes: (X) 2++ and symmetrical throughout. Abnormals: [Skin]: (X) no rashes, lesions, ulcers (X) nl turgor Abnormals: [Chest/Breast]: (X) nl inspection & palpation [Lymph Nodes]: (X) no axillary, inguinal, cervical, or submandibular LAD. []: () nl penis & scrotal contents [if applicable] (not performed) () nl prostate size & texture [if applicable] (not performed) Abnormals: [Psych]: (X) nl cognition () MMSE (not performed) (X) nl mood and affect Abnormals: [MSK]: Inspection ROM Strength Tone (X if normal) Abnormals Upper Extremity X X X X Lower Extremity X X X X [Gait]: (X) nl gait and station (based on limited ambulation exposure to patient ) Results Results: Laboratory Tests 07/02/16 0650: Anion Gap 10, Estimated GFR > 60, BUN/Creatinine Ratio 25.0, CBC w Diff NO MAN DIFF REQ, RBC 3.32 L, MCV 79.5 L, MCH 25.8 L, RDW 18.7 H, MPV 9.2, Gran % 82.9 H, Lymphocytes % 6.2 L, Monocytes % 10.8 H, Eosinophils % 0, Basophils % 0.1, Absolute Granulocytes 7.0 H, Absolute Lymphocytes 0.5 L, Absolute Monocytes 0.9 H, Absolute Eosinophils 0, Absolute Basophils 0, PUBS MCHC 32.4 L 07/01/16 1421: Lactic Acid 1.0 07/01/16 1125: pH 7.46 H, pCO2 31 L, pO2 114 H, HCO3 21, ABG O2 Sat (Measured) 98.0, P-50 ( Temp Corrected) YES, Carboxyhemoglobin 1.0 L, O2 Concentration % 6L, Temperature 102.0 H, O2 Delivery Method NEB TX, Phlebotomy Draw Site LEFT RADIAL 07/01/16 1124: Anion Gap 12, Estimated GFR > 60, BUN/Creatinine Ratio 20.0, Glucose 121 H, Lactic Acid 1.4, Calcium 9.4, Total Bilirubin 1.0, AST 20, ALT 26, Alkaline Phosphatase 89, Troponin I 0.05, Total Protein 6.6, Albumin 3.7, Globulin 2.9, Albumin/Globulin Ratio 1.3, PT 19.9 H, INR 1.91 H, APTT 37, CBC w Diff NO MAN DIFF REQ, RBC 4.02 L, MCV 79.2 L, MCH 25.5 L, RDW 18.5 H, MPV 8.5, Gran % 82.4 H, Lymphocytes % 7.3 L, Monocytes % 10.1 H, Eosinophils % 0.2, Basophils % 0 L, Absolute Granulocytes 9.8 H, Absolute Lymphocytes 0.9 L, Absolute Monocytes 1.2 H, Absolute Eosinophils 0, Absolute Basophils 0, PUBS MCHC 32.2 L, Digoxin 0.6 L 07/01/16 1121: Lactic Acid Cancelled 07/01/16 1115: Virus Culture Pending Microbiology 07/01 1730 URINE ROUT: Legionella Antigen - COMP 07/01 1730 URINE ROUT: Streptococcus pneumoniae Antigen (M - COMP 07/01 1455 LOWER RESP: Respiratory Culture - RES 07/01 1455 LOWER RESP: Gram Stain - RES 07/01 1126 BLOOD: Blood Culture - RES 07/01 1124 BLOOD: Blood Culture - RES 07/01 1115 NASOPHARYN: Influenza Virus A & B Rapid Smear - COMP Assessment/Plan Assessment: dEison Daley is an 86 y/o (M) that arrived to the ED brought in by his son due to acute onset of dyspnea, weakness, productive cough (brown sputum). He was recently discharged from on June 04 after an acute exacerbation of COPD and PNA. He had a RLL lobectomy and based on the son's history, the pt has been experiencing episodes of PNA post lobectomy. He presented to the ED w/ ~70% O2 Sat on RA and subsequently improved w/ O2 supplementation. The pt is currently on 2L O2 and saturating well. This morning he was on 3L which has subsequently been decreased based on improvements of symptoms. He has been afebrile for the past day now and started on Vancomycin + Ceftazadine for RML consolidation in the lateral segment of the middle lobe found on CXR. The pt has a diagnosis of COPD exacerbation secondary to PNA (based on signs and sx, and imaging indicating RML consolidation) vs. PE (r/o unlikely based on chronic anticoagulation due to afib which prevents clot formation and the history of the pts previous COPD exacerbation + PNA admission a few weeks ago). Plan: Problem #1: SOB/Dyspnea/Productive Cough * COPD exacerbation likely due to PNA based on imaging (CXR). * Continue O2 supplementation w/ slow tapering, monitoring O2 sat. * Pt is usally on RA at his baseline, so try to get him down to RA comfortably. * Treat PNA w/ Ceftazadine + Vanco until cultures help narrow the pathogen down. * Modified barium swallow showed no indication of aspiration. * Recent CXR shows pulmonary emphysema + consolidation in the RML w/ improvements based on previous CXR (07/01) Problem #2: GI Bleed * Guiac positive stool likely due to pts angiodysplasia of the stomach, colon. * Monitor hematocrit (since the bleed is slow) consider transfusion based on GI recommendations if the HCT drops below 8. * Consult about continued anticoagulation w/ Dr. Guadarrama (pt's afib) - currently on eliquid. Do not hold the eliquis now until Dr. Guadarrama gets on board. * Continue MiraLax and Metylcellulose considering chronic constipation. Problem #3: Afib * Pt is on chronic anticoagulation w/ eliquis. * Consult w/ Dr. Guadarrama to identify if the anticoagulation is even necessary considering the pts decrease in H/H and slow bleed. Problem #4: Hypothyroidism * Continue home dose of levothyroxine. * Monitor TFTs w/ PCP.
--- NOTE | 2016-07-02 13:15 | RADIOLOGY REPORT ---
EXAMINATION: XR PORTABLE CHEST CLINICAL INFORMATION: Shortness of breath. Pneumonia. COMPARISON: CXR from 06/03/2016 and 07/01/2016. TECHNIQUE: Portable AP view of the chest was obtained. FINDINGS: The upper lung zones are relatively lucent from centrilobular emphysema. The consolidation within the lateral aspect of the right midlung appears slightly improved compared to 07/01/2016. There are no new pulmonary opacities. No interstitial pulmonary edema, pleural effusion or pneumothorax. Cardiac silhouette is mildly enlarged. Thoracic aorta is calcified. 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 IMPRESSION: 1. Pulmonary emphysema. 2. Consolidation in the right midlung, consistent with pneumonia, is slightly improved compared to 07/01/2016. 3. Cardiomegaly without acute pulmonary edema.
--- NOTE | 2016-07-02 13:20 | RADIOLOGY REPORT ---
EXAMINATION: XR MODIFIED BARIUM SWALLOW CLINICAL INFORMATION: Acute respiratory failure. Possible aspiration. COMPARISON: Modified barium swallow from 02/04/2015. Neck CT from 08/16/2014. TECHNIQUE: Fluoroscopic assistance was provided during a modified barium swallow performed in coordination with the speech pathology service. FLUOROSCOPY TIME: 1 minute, 16 seconds FINDINGS: The modified barium swallow examination was performed in cooperation with the speech pathologist using dynamic fluoroscopic imaging in a lateral projection. The patient's swallowing function was observed during administration of apple sauce puree, honey, nectar, thin barium contrast, and barium coated cracker. A prominent cricopharyngeus impression was observed at the fused C5-C6 level. There is mild retention of barium coated contrast material within vallecula. No episodes of tracheal aspiration or penetration were identified. Please refer to the speech pathology report regarding their assessment and treatment recommendations. There is degenerative disc space narrowing and traction osteophyte formation of C3-C4 and C4-C5. The chronic facet arthropathy at C4-C5 is associated with minimal anterolisthesis of C4 on C5. IMPRESSION: 1. No evidence of tracheal aspiration. 2. Prominent cricopharyngeus impression is observed at C5-C6 level.
--- NOTE | 2016-07-02 14:18 | Cons- Gastroenterology ---
General Information and HPI Consulting Request Date of Consult: 07/02/16 Requested By: BRITNEY BLOOM MD Reason for Consult: Anemia, Hemoccult-positive stool Source of Information: patient, old records History of Present Illness: 86-year-old male with history of COPD, adenocarcinoma of the lung status post right lower lobe lobectomy, abdominal aortic aneurysm, constipation/incomplete evacuation, and recurrent GI bleeding/anemia. He has been on Linzess and MiraLAX. He most recently had a colonoscopy on 01/11/2016 which demonstrated left-sided diverticular disease without stricture, polyps and mildly enlarged internal and external hemorrhoids. 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 He recently had some self- limited melena and drop in hematocrit. He is on a Eliquis for atrial fibrillation. The patient is now admitted with dyspnea, hypoxemia, fever and evidence of right middle lobe pneumonia. He has been found to have guaiac positive stool and progressive anemia. He has some mild dysphagia, but denies heartburn, dyspepsia , abdominal pain, melena, bright red blood per rectum. There is no known liver disease. Allergies/Medications Allergies: Coded Allergies: pollen extracts (UNKNOWN 07/01/16) atorvastatin (Severe, MUSCLE WEAKNESS 07/01/16) Uncoded Allergies: DUST (UNKNOWN 12/26/14) Home Med List: Albuterol Sulfate (Proair Hfa) 90 MCG HFA.AER.AD 2 PUF INH Q4-6 PRN PRN COPD (Reported) Apixaban (Eliquis) 2.5 MG TABLET 1 TAB PO BID AFIB (Reported) Please discuss with your insurance underwriter before resuming the medication Ascorbic Acid 500 MG TABLET 1 TAB PO DAILY VITAMIN SUPPORT (Reported) Azithromycin (Zithromax) 500 MG TABLET 1 TAB PO DAILY copd Carbidopa/Levodopa (Sinemet 25-100 MG Tablet) 25 MG-100 MG TABLET 1 TAB PO TID [place] (Reported) Cetirizine HCl 10 MG TAB.CHEW 1 TAB PO QPM ALLERGIES (Reported) Dexlansoprazole (Dexilant) 60 MG CAP.DR.BP 1 CAP PO DAILY ACID REFLUX ( Reported) Digoxin 125 MCG TABLET 1 TAB PO DAILY HEART (Reported) Diltiazem HCl (Diltiazem ER) 240 MG CAP.ER.DEG 1 TAB PO DAILY HEART (Reported ) Docusate Sodium (Colace) 100 MG CAPSULE 1 PO DAILY Constipation (Reported) Ezetimibe/Simvastatin (Vytorin 10-10 MG Tablet) 10 MG-10 MG TABLET 1 TAB PO AT BEDTIME CHOLESTEROL (Reported) Ferrous Sulfate 325 MG (65 MG IRON) TABLET 1 TAB PO DAILY IRON DEF ANEMIA ( Reported) Finasteride 5 MG TABLET 1 TAB PO AT BEDTIME BPH (Reported) Fluticasone/Salmeterol (Advair 500-50 Diskus) 500 MCG-50 MCG/DOSE BLST.W.DEV 1 PUF INH BID ASTHMA (Reported) Furosemide (Lasix) 20 MG TABLET 1 TAB PO EOD CHF (Reported) Ipratropium [place] (Unknown Strength) SPRAY (Unknown Dose) NA QPM ALLERGIES (Reported) Levothyroxine Sodium (Synthroid) 50 MCG TABLET 1 TAB PO DAILY hypothyroidism (Reported) Metformin HCl 500 MG TABLET 1 TAB PO BID DM (Reported) Montelukast Sodium 10 MG TABLET 1 TAB PO AT BEDTIME COPD (Reported) Prednisone 20 MG TABLET 1 TAB PO SI copd take 2piils each day for 4more days Solifenacin Succinate (Vesicare) 5 MG TABLET 1 TAB PO DAILY BLADDER (Reported ) Tamsulosin HCl (Flomax) 0.4 MG CAP.ER.24H 1 CAP PO DAILY BPH (Reported) Current Medications: Current Medications Sig/Chuck Start time Last Medication Dose Route Stop Time Status Admin Acetaminophen 500 MG Q6P PRN 07/01 1730 AC PO Acetaminophen 1,000 MG Q6P PRN 07/01 1730 AC N/A 1 UNIT IV Albuterol Sulfate 3 ML TID 07/02 1000 AC 07/02 INH 0920 Apixaban 2.5 MG BID 07/01 1428 AC 07/02 PO 1200 Azithromycin 500 MG DAILY@1200 07/02 1200 CAN Dextrose/Water 250 ML IV Budesonide/ 2 PUF BID 07/01 1432 DC Formoterol Fumarate INH Carbidopa/Levodopa 1 TAB TID 07/01 1600 AC 07/02 PO 1200 Ceftazidime 1,000 MG Q12 07/01 2200 AC 07/02 IV 0942 Ceftriaxone Sodium 1,000 MG DAILY 07/02 1000 CAN IV Cholecalciferol 1,000 IU DAILY 07/01 1428 AC 07/02 PO 1200 Digoxin 0.125 MG 1700 07/01 1700 AC 07/01 PO 1719 Diltiazem HCl 24 MG DAILY 07/01 1430 DC PO Diltiazem HCl 240 MG DAILY 07/01 1430 AC 07/02 PO 1200 Docusate Sodium 100 MG DAILY 07/02 1000 AC 07/02 PO 1200 Ezetimibe 10 MG DAILY 07/01 1431 AC 07/02 PO 1200 Finasteride 5 MG AT BEDTIME 07/01 2200 AC 07/01 PO 2213 Furosemide 20 MG Q48H 07/01 1500 AC 07/01 PO 1719 Insulin Aspart 0 TIDAC 07/01 1700 AC 07/02 SC 1136 Montelukast Sodium 10 MG AT BEDTIME 07/01 2200 AC 07/01 PO 2214 Omeprazole 40 MG DAILY 07/01 1430 AC 07/02 PO 1200 Oxybutynin Chloride 5 MG BID 07/01 2200 AC 07/02 PO 1159 Polyethylene Glycol 17 GM DAILY 07/02 1000 AC PO Potassium Chloride 40 MEQ ONCE ONE 07/01 2130 DC 07/01 PO 07/01 2131 2214 Sodium Chloride 2 SPRAY Q4P PRN 07/01 2300 AC MAGDALENO Sodium Chloride 1,000 ML .Q20H 07/01 1730 DC 07/01 IV 07/02 1329 1746 Sodium Chloride 1,000 ML Q10H 07/01 1445 DC IV Tamsulosin HCl 0.4 MG AT BEDTIME 07/01 2200 AC 07/01 PO 2214 Vancomycin HCl 1,000 MG ONCE ONE 07/02 1300 DC 07/02 Dextrose/Water 250 ML IV 07/02 1359 1308 Vancomycin HCl 1,000 MG DAILY 07/02 1000 CAN Dextrose/Water 250 ML IV Past History Travel History Traveled to [place] past 21 day No Medical History Neurological: Parkinson's disease EENT: blindness, hearing loss, macular degeneration Cardiovascular: AFIB, CHF, hypertension, hyperlipidemia Respiratory: bronchitis, COPD, emphysema, pneumonia, Lung ca s/p lobectomy Gastrointestinal: lower GI bleed, AVM Hepatic: NONE Renal: NONE Musculoskeletal: NONE Psychiatric: NONE Endocrine: diabetes Blood Disorders: anemia Cancer(s): lung cancer, RLL LOBECTOMY CINNAMON GRINDER/Reproductive: NONE Other Medical Hx: IGG DEFICIENCY Surgical History Surgical History: Lobectomy Family History Relations & Conditions If Any: SISTER (some platelet problem). Psychosocial History Services at Home: None Smoking Status: Former Smoker ETOH Use: occasional use Illicit Drug Use: denies illicit drug use Functional Ability ADLs Independent: dressing, eating, toileting, bathing. Ambulation: independent IADLs Needs Assist: shopping, housework, finances, food prep, telephone, transportation, medication admin. Review of Systems Review of Systems Constitutional: Reports: fever, weakness. EENTM: Denies: icterus, epistaxis. Cardiovascular: Denies: chest pain, edema. Respiratory: Reports: cough, short of breath. GI: Reports: see HPI. Genitourinary: Denies: dysuria, hematuria. Musculoskeletal: Denies: muscle stiffness, neck pain. Skin: Denies: jaundice, lesions. Neurological/Psychological: Denies: cognitive dysfunction, emotional problems. Hematologic/Endocrine: Reports: bleeding. Denies: bruising. Exam & Diagnostic Data Vital Signs and I&O Vital Signs Date Time Temp Pulse Resp B/P Pulse O2 O2 Flow FiO2 Ox Delivery Rate 07/02 0920 98 Nasal 3.0L Cannula 07/02 0800 Nasal 3.5L Cannula 07/02 0704 98.2 56 18 118/60 96 Nasal 3.5L Cannula 07/02 0007 Nasal 3.0L Cannula 07/01 2354 100 Nasal 3.5L Cannula 07/01 2342 97.6 63 20 100 Nasal 3.5L Cannula 07/01 2214 107/60 07/01 1719 65 110/60 07/01 1600 Nasal 3.5L Cannula 07/01 1541 98.0 75 20 110/60 96 07/01 1450 94 Nasal 4.0L Cannula 07/01 1409 99.9 80 22 109/55 94 Nasal 4.0L Cannula Intake & Output 07/02 1600 07/02 0400 07/01 1600 07/01 0400 06/30 1600 06/30 040 Intake Total 536 401 5874 Output Total Balance 257 899 3425 Intake, IV 765 099 4415 Intake, Oral 60 450 100 Patient 164 lb 145 lb Weight Physical Exam: Elderly well-nourished white male, slightly tachypneic. Alert and oriented with normal cognition. Skin normal without lesion, rash or jaundice. No adenopathy. Sclera anicteric. Oropharynx normal. Heart regular rhythm with PACs; 2/6 systolic murmur. Lungs with rales at right base, and decreased breath sounds right mid lung.. Abdomen soft and nondistended with normal bowel sounds, no tenderness, mass or organomegaly. Extremities with trace pretibial edema, and 1 + pulses bilaterally. Results Pertinent Lab Results: Laboratory Tests 07/02 07/01 07/01 0650 1421 1125 Blood Gas pH (7.35 - 7.45 PH) 7.46 H pCO2 (35 - 45 TORR) 31 L pO2 (80 - 100 TORR) 114 H HCO3 (21 - 28 MEQ/L) 21 ABG O2 Sat (Measured) (>96.0 %) 98.0 P-50 (Temp Corrected) YES Carboxyhemoglobin (1.5 - 5.0 %) 1.0 L O2 Concentration % 6L Temperature (97.0 - 100.0 FARH) 102.0 H O2 Delivery Method NEB TX Chemistry Sodium (137 - 145 mmol/L) 141 Potassium (3.5 - 5.1 mmol/L) 4.3 Chloride (98 - 107 mmol/L) 109 H Carbon Dioxide (22 - 30 mmol/L) 23 Anion Gap (5 - 16) 10 BUN (9 - 20 mg/dL) 20 Creatinine (0.7 - 1.2 mg/dL) 0.8 Estimated GFR (>60 ml/min) > 60 BUN/Creatinine Ratio (7 - 25 %) 25.0 Lactic Acid (0.7 - 2.1 mmol/L) 1.0 Hematology CBC w Diff NO MAN DIFF REQ WBC (4.8 - 10.8 /CUMM) 8.5 RBC (4.70 - 6.10 /CUMM) 3.32 L Hgb (14.0 - 18.0 G/DL) 8.6 L Hct (42 - 52 %) 26.4 L MCV (80.0 - 94.0 FL) 79.5 L MCH (27.0 - 31.0 PG) 25.8 L RDW (11.5 - 14.5 %) 18.7 H Plt Count (130 - 400 /CUMM) 163 MPV (7.4 - 10.4 FL) 9.2 Gran % (42.2 - 75.2 %) 82.9 H Lymphocytes % (20.5 - 51.1 %) 6.2 L Monocytes % (1.7 - 9.3 %) 10.8 H Eosinophils % (0 - 5 %) 0 Basophils % (0.0 - 2.0 %) 0.1 Absolute Granulocytes (1.4 - 6.5 /CUMM) 7.0 H Absolute Lymphocytes (1.2 - 3.4 /CUMM) 0.5 L Absolute Monocytes (0.10 - 0.60 /CUMM) 0.9 H Absolute Eosinophils (0.0 - 0.7 /CUMM) 0 Absolute Basophils (0.0 - 0.2 /CUMM) 0 PUBS MCHC (33.0 - 37.0 G/DL) 32.4 L Miscellaneous Phlebotomy Draw Site LEFT RADIAL 07/01 07/01 07/01 1124 1121 1115 Chemistry Sodium (137 - 145 mmol/L) 141 Potassium (3.5 - 5.1 mmol/L) 3.6 Chloride (98 - 107 mmol/L) 105 Carbon Dioxide (22 - 30 mmol/L) 24 Anion Gap (5 - 16) 12 BUN (9 - 20 mg/dL) 16 Creatinine (0.7 - 1.2 mg/dL) 0.8 Estimated GFR (>60 ml/min) > 60 BUN/Creatinine Ratio (7 - 25 %) 20.0 Glucose (65 - 99 mg/dL) 121 H Lactic Acid (0.7 - 2.1 mmol/L) 1.4 Cancelled Calcium (8.4 - 10.2 mg/dL) 9.4 Total Bilirubin (0.2 - 1.3 mg/dL) 1.0 AST (17 - 59 U/L) 20 ALT (21 - 72 U/L) 26 Alkaline Phosphatase (< 127 U/L) 89 Troponin I (<0.11 ng/ml) 0.05 Total Protein (6.3 - 8.2 g/dL) 6.6 Albumin (3.5 - 5.0 g/dL) 3.7 Globulin (1.9 - 4.2 gm/dL) 2.9 Albumin/Globulin Ratio (1.1 - 2.2 %) 1.3 Coagulation PT (9.4 - 12.5 SEC) 19.9 H INR (0.90 - 1.17) 1.91 H APTT (25 - 37 SEC) 37 Hematology CBC w Diff NO MAN DIFF REQ WBC (4.8 - 10.8 /CUMM) 11.9 H RBC (4.70 - 6.10 /CUMM) 4.02 L Hgb (14.0 - 18.0 G/DL) 10.2 L Hct (42 - 52 %) 31.8 L MCV (80.0 - 94.0 FL) 79.2 L MCH (27.0 - 31.0 PG) 25.5 L RDW (11.5 - 14.5 %) 18.5 H Plt Count (130 - 400 /CUMM) 234 MPV (7.4 - 10.4 FL) 8.5 Gran % (42.2 - 75.2 %) 82.4 H Lymphocytes % (20.5 - 51.1 %) 7.3 L Monocytes % (1.7 - 9.3 %) 10.1 H Eosinophils % (0 - 5 %) 0.2 Basophils % (0.0 - 2.0 %) 0 L Absolute Granulocytes (1.4 - 6.5 /CUMM) 9.8 H Absolute Lymphocytes (1.2 - 3.4 /CUMM) 0.9 L Absolute Monocytes (0.10 - 0.60 /CUMM) 1.2 H Absolute Eosinophils (0.0 - 0.7 /CUMM) 0 Absolute Basophils (0.0 - 0.2 /CUMM) 0 PUBS MCHC (33.0 - 37.0 G/DL) 32.2 L Serology Virus Culture Pending Toxicology Digoxin (0.8 - 2.0 ng/mL) 0.6 L Imaging/Other Studies: Modified swallow without evidence of aspiration. Assessment/Plan Assessment/Recommendations: Patient with known GI tract angiodysplasias (stomach, colon), who had to have a cessation in anticoagulation previously because of anemia. He has had numerous EGDs and colonoscopies over the last several years. He now is anticoagulated, and has been found to have Hemoccult-positive stool, and a slowly dropping hematocrit over the last 2 months. He has not yet been transfused. His hemoglobin is similar to pre-hospitalization. There is no overt bleeding such as melena or hematochezia. The patient has chronic constipation which is under relatively good control for now with a combination of fiber supplementation and MiraLAX. Given his respiratory status, he is not currently a good candidate for endoscopy/sedation. Recommendations * Continue to monitor hematocrit * Consideration for transfusion if hemoglobin drops below 8 * Discuss with cardiology (Chang Guadarrama MD) candidacy for continued anticoagulation * Continue MiraLAX, methylcellulose. * Continue iron supplementation. May benefit from iron infusions as outpatient. Consult Acknowledgment - Thank you for your consult request.
[2016-07-02 16:18] VITALS: BP 120/60
[2016-07-02 22:36] VITALS: BP 122/64
[2016-07-02] MEDS ORDERED: CIPRO500 M1 PO (22:55)
--- NOTE | 2016-07-02 22:58 | Patient Discharge Instructions ---
Discharge Instructions General Discharge Information You were seen/treated for: - Pneumonia Watch for these problems: - chest pain, shortness of breath - fever. Special Instructions: - Please see your PCP within one week of discharge. Speak to your PCP about iron infusions as outpatient. On 07/11/2016, please have a CBC done. We have given you a script. CC these results to your PCP. - Please see your product delivery specialist within one week of discharge. You MAY need a repeat chest X-Ray. - Please see your facing baster jumpbasting, and GI doctor within one week of discharge. Acute Coronary Syndrome Inclusion Criteria At DC or during hospital stay patient has or had the following: ACS DIAGNOSIS No Discharge Core Measures Meds if any: Prescribed or Continued at Discharge Meds if any: NOT Prescribed or Continued at Discharge Congestive Heart Failure Inclusion Criteria At DC or during hospital stay patient has or had the following: CHF DIAGNOSIS No Discharge Core Measures Meds if any: Prescribed or Continued at Discharge Meds if any: NOT Prescribed or Continued at Discharge Cerebrovascular accident Inclusion Criteria At DC or during hospital stay patient has or had the following: CVA/TIA Diagnosis No Discharge Core Measures Meds if any: Prescribed or Continued at Discharge Meds if any: NOT Prescribed or Continued at Discharge Venous thromboembolism Inclusion Criteria VTE Diagnosis No VTE Type NONE VTE Confirmed by (Test) NONE Discharge Core Measures - Per Current guidelines, there needs to be overlap - treatment for the first 5 days of Warfarin therapy. - If discharged on Warfarin prior to 5 days of - overlap therapy, the patient will need to be - assessed for post discharge needs including - *Post discharge parental anticoagulation - *Warfarin and/or parental anticoagulation education - *Follow up date to check INR post discharge At least 5 days overlap therapy as Inpatient No Meds if any: Prescribed or Continued at Discharge Note: Overlap Therapy is Warfarin and Anticoagulant Meds if any: NOT Prescribed or Continued at Discharge
--- NOTE | 2016-07-03 06:11 | PN- Housestaff ---
SUPRIYA RIVAS,[facility] 07/03/16 0610: Subjective Follow-up For: HCAP GI Bleed Subjective: Mr. Ramírez was seen and examined this morning. He is resting comfortably in bed. He reports no acute issues overnight although states that he had a hard time falling asleep despite melatonin administration. Patient states that his breathing has remarkably improved is currently on 2 L of oxygen via nasal cannula. States he has responded well to antibiotics. Patient states that he would like to taper down to 1 L and subsequently to room air. Patient denies any bowel movements overnight. Patient is currently waiting for consult from cardiology regarding long-term anticoagulation for his A Fib. Patient denies any fever, chills, nausea, vomiting. Review of Systems Constitutional: Reports: see HPI. Objective Last 24 Hrs of Vital Signs/I&O Vital Signs Date Time Temp Pulse Resp B/P Pulse O2 O2 Flow FiO2 Ox Delivery Rate 07/03 0841 96 Nasal 1.0L Cannula 07/03 0800 98 Nasal 2.0L Cannula 07/03 0733 98.1 64 20 124/72 96 Nasal 2.0L Cannula 07/03 0000 Nasal 2.0L Cannula 07/02 2236 98.1 70 18 122/64 96 Nasal 2.0L Cannula 07/02 1618 98.2 73 20 120/60 99 07/02 1616 60 07/02 1600 Nasal 3.0L Cannula Intake & Output 07/03 1600 07/03 0800 07/03 0000 Intake Total 240 700 Output Total Balance 240 700 Intake, IV 0 Intake, Oral 240 700 Number 0 Bowel Movements Patient 71.668 kg 71.668 kg Weight Physical Exam General Appearance: Alert, Oriented X3, Cooperative, No Acute Distress Cardiovascular: Normal S1, Normal S2, Irregular Rate and rhythm Lungs: Clear to Auscultation Abdomen: Normal Bowel Sounds, Soft, No Tenderness Neurological: Normal Gait, Normal Speech Extremities: No Cyanosis, No Edema Current Medications: Current Medications Sig/Chuck Start time Last Medication Dose Route Stop Time Status Admin Acetaminophen 500 MG Q6P PRN 07/01 1730 AC PO Acetaminophen 1,000 MG Q6P PRN 07/01 1730 AC N/A 1 UNIT IV Albuterol Sulfate 3 ML TID 07/02 1000 AC 07/03 INH 0837 Apixaban 2.5 MG BID 07/01 1428 AC 07/03 PO 0855 Carbidopa/Levodopa 1 TAB TID 07/01 1600 AC 07/03 PO 0855 Ceftazidime 1,000 MG Q12 07/01 2200 DC 07/03 IV 0856 Cholecalciferol 1,000 IU DAILY 07/01 1428 AC 07/03 PO 0856 Digoxin 0.125 MG 1700 07/01 1700 AC 07/02 PO 1616 Diltiazem HCl 240 MG DAILY 07/01 1430 AC 07/03 PO 0855 Docusate Sodium 100 MG DAILY 07/02 1000 AC 07/03 PO 0855 Ezetimibe 10 MG DAILY 07/01 1431 AC 07/03 PO 0856 Finasteride 5 MG AT BEDTIME 07/01 2200 AC 07/02 PO 2101 Furosemide 20 MG Q48H 07/01 1500 AC 07/01 PO 1719 Insulin Aspart 0 TIDAC 07/01 1700 AC 07/02 SC 1649 Levothyroxine Sodium 0.05 MG 0700 07/03 1000 AC PO Melatonin 5 MG AT BEDTIME 07/02 2300 AC 07/02 PO 2304 Montelukast Sodium 10 MG AT BEDTIME 07/01 2200 AC 07/02 PO 2101 Moxifloxacin HCl 400 MG DAILY 07/03 1000 AC PO Omeprazole 40 MG DAILY 07/01 1430 AC 07/03 PO 0855 Oxybutynin Chloride 5 MG BID 07/01 2200 AC 07/03 PO 0855 Polyethylene Glycol 17 GM DAILY 07/02 1000 AC 07/03 PO 0852 Sodium Chloride 2 SPRAY Q4P PRN 07/01 2300 AC 07/02 MAGDALENO 2102 Sodium Chloride 1,000 ML .Q20H 07/01 1730 DC 07/01 IV 07/02 1329 1746 Tamsulosin HCl 0.4 MG AT BEDTIME 07/01 2200 AC 07/02 PO 2102 Vancomycin HCl 1,000 MG ONCE ONE 07/02 1300 DC 07/02 Dextrose/Water 250 ML IV 07/02 1359 1308 Assessment/Plan Assessment: Mr Daley is an 86 year old gentleman with a past history of COPD (not on any home oxygen), atrial fibrillation (NOAC), hypertension, Parkinson's disease, adenocarcinoma of the right lung status post lobectomy, with recent admission to [facility] for acute exacerbation of COPD is being evaluated for worsening shortness of breath (exertional) cough, hypoxemia (70s) 1 week. At the time of admission, temperature 102, pulse rate 107, blood pressure 1:30/ 65, pulse ox 94% (4-6 L), lab findings indicated WBC 11.9, hemoglobin 10.2, platelets 234, normal electrolytes sodium 141, potassium 3.6, bicarbonate 24, normal renal function-BUN 16, serum creatinine 0.8. Lower respiratory cultures- show growth of gram-negative rods and gram-positive rods. Radiological findings-chest x-ray revealed consolidation of right mid lung consistent with pneumonia, is slightly improved. #Acute hypoxic respiratory failure Secondary to pneumonia (likely healthcare associated pneumonia). [id number] rods and gram-positive cocci. Continue vancomycin and ceftazidime pending final culture results. --> Moxifloxacin 400 mg. Daily PO. #Atrial fibrillation Currently on Eliquis 2.5mg. Has a history of GI bleed in the past. Guaiac positive stool-noticed. Contacted gastroenterology for advised. History of polyps and angiodysplasia on previous colonoscopy. Requested Dr. Guadarrama to see the patient to evaluate risks versus benefits for continuation of Eliquis. Digoxin level-0.6. Currently Rate controlled. Continue Cardizem. 240, Digoxin 125 g . #History of Hypothyroidism Home medication Levothyroxine 50 mcg started today. #Lightheadedness Currently asymptomatic. Check orthostatic hypotension. #Anemia Likely acute blood loss anemia. H&H 10.2--> 8.6--> 8.3 Continue to monitor closely. Transfuse to keep INR about 8.0 #DVT prophylaxis Eliquis #Code: Full Code Problem List: 1. Atrial fib/flutter, transient 2. Acute and chronic respiratory failure with hypoxia 3. Shortness of breath 4. Atrial fibrillation Pain Ratin Pain Location: None Pain Goal: Remain pain free Pain Plan: Tylenol PRN Tomorrow's Labs & Rationales: CBC: Patient does have a history of GI Bleed Monitor H/H. BEP: Lasix Administration. Ensure no electrolytes derangements occur BRITNEY BLOOM MD 07/03/16 1153: Attending Review Statement Attending Statement Attending MD Statement: examined this patient, discuss w/resident/PA/INSERT MOLDING OPERATOR, agreed w/resident/PA/INSERT MOLDING OPERATOR, reviewed EMR data (avail), discussed with nursing, discussed with case mgmt, reviewed images, amended to note Attending Assessment/Plan: Patient seen and examined, feeling overall much better. His oxygen requirement has improved as well as his breathing. All of his cultures remained negative. Vital Signs Date Time Temp Pulse Resp B/P Pulse O2 O2 Flow FiO2 Ox Delivery Rate 07/03 0841 96 Nasal 1.0L Cannula 07/03 0800 98 Nasal 2.0L Cannula 07/03 0733 98.1 64 20 124/72 96 Nasal 2.0L Cannula 07/03 0000 Nasal 2.0L Cannula 07/02 2236 98.1 70 18 122/64 96 Nasal 2.0L Cannula 07/02 1618 98.2 73 20 120/60 99 07/02 1616 60 07/02 1600 Nasal 3.0L Cannula on exam; aox3, nad. cv; s1,s2, irregular resp; decresaed bs at right base. abd; soft, nt, bs+ ext; no edema. Laboratory Tests 07/03 06 Hematology CBC w Diff NO MAN DIFF REQ WBC (4.8 - 10.8 /CUMM) 7.5 RBC (4.70 - 6.10 /CUMM) 3.23 L Hgb (14.0 - 18.0 G/DL) 8.3 L Hct (42 - 52 %) 25.8 L MCV (80.0 - 94.0 FL) 79.6 L MCH (27.0 - 31.0 PG) 25.5 L RDW (11.5 - 14.5 %) 18.6 H Plt Count (130 - 400 /CUMM) 199 MPV (7.4 - 10.4 FL) 9.3 Gran % (42.2 - 75.2 %) 75.2 Lymphocytes % (20.5 - 51.1 %) 12.8 L Monocytes % (1.7 - 9.3 %) 11.8 H Eosinophils % (0 - 5 %) 0.2 Basophils % (0.0 - 2.0 %) 0 L Absolute Granulocytes (1.4 - 6.5 /CUMM) 5.6 Absolute Lymphocytes (1.2 - 3.4 /CUMM) 1.0 L Absolute Monocytes (0.10 - 0.60 /CUMM) 0.9 H Absolute Eosinophils (0.0 - 0.7 /CUMM) 0 Absolute Basophils (0.0 - 0.2 /CUMM) 0 PUBS MCHC (33.0 - 37.0 G/DL) 32.1 L A/P; 86 y/o M with pmh sig for COPD, Afib on eliquis, HTN, T2DM, Parkinson's disease, adenocarcinoma of lung s/p RLL lobectomy, GI bleed, CAD, HFpEF, admitted with acute hypoxic respiratory failure which is now improving. Patient was initially treated for possible MRSA versus gram-negative pneumonia but all of his cultures remained negative therefore as per pulmonology we will switch him to oral antibiotics. Please check EKG to make sure QTC spine and if that is the case then patient can be started on Avelox. H&H relatively stable. Continue all current medications. Cardiology evaluation pending. If patient continues to improve then likely can be discharged home tomorrow. We will try to taper his oxygen and patient was encouraged to ambulate. DVT prophylaxis: Eliquis.
[2016-07-03 07:33] VITALS: BP 124/72
[2016-07-03 08:46] LABS: ABSOLUTE BASOPHIL COUNT 0 /CUMM (0.0-0.2); ABSOLUTE EOSINOPHIL COUNT 0 /CUMM (0.0-0.7); ABSOLUTE GRANULOCYTE CT 5.6 /CUMM (1.4-6.5); ABSOLUTE MONOCYTE COUNT 0.9 /CUMM (0.10-0.60); BASOPHIL % 0 % (0.0-2.0); EOSINOPHIL % 0.2 % (0-5); GRANULOCYTE % 75.2 % (42.2-75.2); HEMATOCRIT 25.8 % (42-52); MEAN CORPUSCULAR HGB 25.5 PG (27.0-31.0); MEAN CORPUSCULAR HGB CONC 32.1 G/DL (33.0-37.0); MEAN CORPUSCULAR VOLUME 79.6 FL (80.0-94.0); MEAN PLATELET VOLUME 9.3 FL (7.4-10.4); RBC DISTRIBUTION WIDTH 18.6 % (11.5-14.5); RED BLOOD CELL CT 3.23 /CUMM (4.70-6.10); WHITE BLOOD CELL COUNT 7.5 /CUMM (4.8-10.8)
[2016-07-03 09:27] LABS: PLATELET COUNT 199 /CUMM (130-400)
--- NOTE | 2016-07-03 11:28 | PN- Pulmonary ---
Subjective HPI/Critical Care Issues: pt seen and examined defervesced, no wbc doing much better xray improved still on o2 Objective Current Medications: Current Medications Sig/Chuck Start time Last Medication Dose Route Stop Time Status Admin Acetaminophen 500 MG Q6P PRN 07/01 1730 AC PO Acetaminophen 1,000 MG Q6P PRN 07/01 1730 AC N/A 1 UNIT IV Albuterol Sulfate 3 ML TID 07/02 1000 AC 07/03 INH 0837 Apixaban 2.5 MG BID 07/01 1428 AC 07/03 PO 0855 Carbidopa/Levodopa 1 TAB TID 07/01 1600 AC 07/03 PO 0855 Ceftazidime 1,000 MG Q12 07/01 2200 DC 07/03 IV 0856 Cholecalciferol 1,000 IU DAILY 07/01 1428 AC 07/03 PO 0856 Digoxin 0.125 MG 1700 07/01 1700 AC 07/02 PO 1616 Diltiazem HCl 240 MG DAILY 07/01 1430 AC 07/03 PO 0855 Docusate Sodium 100 MG DAILY 07/02 1000 AC 07/03 PO 0855 Ezetimibe 10 MG DAILY 07/01 1431 AC 07/03 PO 0856 Finasteride 5 MG AT BEDTIME 07/01 2200 AC 07/02 PO 2101 Furosemide 20 MG Q48H 07/01 1500 AC 07/01 PO 1719 Insulin Aspart 0 TIDAC 07/01 1700 AC 07/02 SC 1649 Levothyroxine Sodium 0.05 MG 0700 07/03 1000 AC PO Melatonin 5 MG AT BEDTIME 07/02 2300 AC 07/02 PO 2304 Montelukast Sodium 10 MG AT BEDTIME 07/01 2200 AC 07/02 PO 2101 Moxifloxacin HCl 400 MG DAILY 07/03 1000 AC PO Omeprazole 40 MG DAILY 07/01 1430 AC 07/03 PO 0855 Oxybutynin Chloride 5 MG BID 07/01 2200 AC 07/03 PO 0855 Polyethylene Glycol 17 GM DAILY 07/02 1000 AC 07/03 PO 0852 Sodium Chloride 2 SPRAY Q4P PRN 07/01 2300 AC 07/02 MAGDALENO 2102 Sodium Chloride 1,000 ML .Q20H 07/01 1730 DC 07/01 IV 07/02 1329 1746 Tamsulosin HCl 0.4 MG AT BEDTIME 07/01 2200 AC 07/02 PO 2102 Vancomycin HCl 1,000 MG ONCE ONE 07/02 1300 DC 07/02 Dextrose/Water 250 ML IV 07/02 1359 1308 Vital Signs & I&O Last 24 Hrs of Vitals and I&O: Vital Signs Date Time Temp Pulse Resp B/P Pulse O2 O2 Flow FiO2 Ox Delivery Rate 07/03 0841 96 Nasal 1.0L Cannula 07/03 0800 98 Nasal 2.0L Cannula 07/03 0733 98.1 64 20 124/72 96 Nasal 2.0L Cannula 07/03 0000 Nasal 2.0L Cannula 07/02 2236 98.1 70 18 122/64 96 Nasal 2.0L Cannula 07/02 1618 98.2 73 20 120/60 99 07/02 1616 60 07/02 1600 Nasal 3.0L Cannula Intake & Output 07/03 1600 07/03 0800 07/03 0000 Intake Total 240 700 Output Total Balance 240 700 Intake, IV 0 Intake, Oral 240 700 Number 0 Bowel Movements Patient 158 lb 158 lb Weight Exam Other Physical Findings: General - Alert, awake and oriented HEENT - normocephalic, atraumatic Cardiovascular - S1, S2, +systolic murmur Lungs - rhonchi and egophony right mid lung Abdomen - soft, bowel sounds positive, no tenderness Extremities - without edema or cyanosis Results Last 24 Hrs of Lab Results: Laboratory Tests 07/03/16 0625: CBC w Diff NO MAN DIFF REQ, RBC 3.23 L, MCV 79.6 L, MCH 25.5 L, RDW 18.6 H, MPV 9.3, Gran % 75.2, Lymphocytes % 12.8 L, Monocytes % 11.8 H, Eosinophils % 0.2, Basophils % 0 L, Absolute Granulocytes 5.6, Absolute Lymphocytes 1.0 L, Absolute Monocytes 0.9 H, Absolute Eosinophils 0, Absolute Basophils 0, PUBS MCHC 32.1 L Impression/Plan Impression/Plan Impression/Plan: Impression 86 year old man - improved acute hypoxemic respiratory failure - o2 in ED high 70's responsive to o2 supplementation, this is the result of an acute right mid-lung pneumonia which maybe secondary to a healthcare associated pathogen given recent admission or an atypical infection - history of lung ca - s/p RLL lobectomy Plan - dc iv abx - course of Avelox 7 days should be sufficient, would need xray repeated upon dc - assess o2 requierements on room air and exertion - o2 supplementation - goal o2 >92% - TRC/Nebs - do not use anticholingergics (i.e. ipratropium/duonebs) secondary to prostate and eye issues - patient on Advair at home, he will bring own meds - would not use steroids at this time, can consider if has evidence of bronchospasm - DVT prophylaxis at all times (on Eliquis)
--- NOTE | 2016-07-03 11:39 | Cons- Cardiology ---
General Information and HPI Consulting Request Date of Consult: 07/03/16 Requested By: BRITNEY BLOOM MD Reason for Consult: Atrial fibrillation, anemia History of Present Illness: The patient is an 86-year-old male with history of chronic atrial fibrillation, COPD, Parkinson's disease, and GI bleed who was admitted for pneumonia. He presented on July 01 productive cough and body aches. He was noted to have decreased oxygen saturation and shortness of breath which was worse with exertion. He is reported by family members to have fevers and shaking chills at home. In the hospital he was noted to be febrile with temperature of 103.7, and chest x-ray revealed evidence of pneumonia with large infiltrate in the right mid lung. He reports feeling somewhat better with antibiotic therapy. He is anticoagulated on 2.5 mg of Eliquis twice a day as an outpatient for his atrial fibrillation. He has had a history of multiple GI bleeds in the past. He notes recent hemoptysis. He did not note any bhavani blood in his stool. He is noted to be guaiac positive, and hemoglobin and hematocrit were observed to decrease during hospital stay. No syncope. No lightheadedness or dizziness. No nausea or vomiting. He notes occasional palpitations. He has remained in atrial fibrillation. Ventricular rate is mildly elevated at times. Allergies/Medications Allergies: Coded Allergies: pollen extracts (UNKNOWN 07/01/16) atorvastatin (Severe, MUSCLE WEAKNESS 07/01/16) Uncoded Allergies: DUST (UNKNOWN 12/26/14) Home Med List: Albuterol Sulfate (Proair Hfa) 90 MCG HFA.AER.AD 2 PUF INH Q4-6 PRN PRN COPD (Reported) Apixaban (Eliquis) 2.5 MG TABLET 1 TAB PO BID AFIB (Reported) Please discuss with your cost reduction engineer before resuming the medication Carbidopa/Levodopa (Sinemet 25-100 MG Tablet) 25 MG-100 MG TABLET 1 TAB PO TID PARKINSON (Reported) Cholecalciferol (Vitamin D3) 1,000 IU TAB 1 TAB PO DAILY SUPPLEMENT (Reported ) Dexlansoprazole (Dexilant) 60 MG CAP.DR.BP 1 CAP PO DAILY GERD (Reported) Digoxin 0.125 MG TAB 1 TAB PO DAILY HEART RATE Diltiazem HCl (Diltiazem ER) 240 MG CAP.ER.DEG 1 TAB PO DAILY HEART (Reported ) Docusate Sodium (Colace) 100 MG CAPSULE 1 PO DAILY Constipation (Reported) Ezetimibe/Simvastatin (Vytorin 10-10 MG Tablet) 10 MG-10 MG TABLET 1 TAB PO AT BEDTIME CHOLESTEROL (Reported) Ferrous Sulfate 325 MG (65 MG IRON) TABLET 1 TAB PO DAILY IRON DEF ANEMIA ( Reported) Finasteride 5 MG TABLET 1 TAB PO AT BEDTIME BPH (Reported) Fluticasone-Salmeterol (Advair 500-50 Diskus) 500 MCG-50 MCG/DOSE BLST.W.DEV 1 PUF INH BID ASTHMA (Reported) Furosemide (Lasix) 20 MG TABLET 1 TAB PO EOD CHF (Reported) Ipratropium/Albuterol Sulfate (Combivent Respimat Inhal [place]) 20 MCG-100 MCG/ ACTUATION MIST.INHAL 2 SPRAY NS DAILY COPD (Reported) Levothyroxine Sodium (Synthroid) 50 MCG TABLET 1 TAB PO DAILY hypothyroidism (Reported) Lubiprostone (Amitiza) 8 MCG CAPSULE 1 CAP PO BID CONSTIPATION (Reported) Metformin HCl 500 MG TABLET 1 TAB PO AT BEDTIME DM (Reported) Montelukast Sodium 10 MG TABLET 1 TAB PO AT BEDTIME COPD (Reported) Moxifloxacin HCl 400 MG TABLET 400 MG PO DAILY Pneumonia Polyethylene Glycol 3350 (Miralax) 17 GRAM POWD.PACK 1 PAC PO DAILY CONSTIPATION (Reported) dissolve in water Solifenacin Succinate (Vesicare) 5 MG TAB 1 TAB PO DAILY BLADDER (Reported) Tamsulosin Hydrochloride (Flomax) 0.4 MG CAP.ER.24H 1 CAP PO AT BEDTIME BPH ( Reported) Current Medications: Current Medications Sig/Chuck Start time Last Medication Dose Route Stop Time Status Admin Acetaminophen 500 MG Q6P PRN 07/01 1730 AC PO Acetaminophen 1,000 MG Q6P PRN 07/01 1730 AC N/A 1 UNIT IV Albuterol Sulfate 3 ML TID 07/02 1000 AC 07/03 INH 0837 Apixaban 2.5 MG BID 07/01 1428 AC 07/03 PO 0855 Carbidopa/Levodopa 1 TAB TID 07/01 1600 AC 07/03 PO 0855 Ceftazidime 1,000 MG Q12 07/01 2200 DC 07/03 IV 0856 Cholecalciferol 1,000 IU DAILY 07/01 1428 AC 07/03 PO 0856 Digoxin 0.125 MG 1700 07/01 1700 AC 07/02 PO 1616 Diltiazem HCl 240 MG DAILY 07/01 1430 AC 07/03 PO 0855 Docusate Sodium 100 MG DAILY 07/02 1000 AC 07/03 PO 0855 Ezetimibe 10 MG DAILY 07/01 1431 AC 07/03 PO 0856 Finasteride 5 MG AT BEDTIME 07/01 2200 AC 07/02 PO 2101 Furosemide 20 MG Q48H 07/01 1500 AC 07/01 PO 1719 Insulin Aspart 0 TIDAC 07/01 1700 AC 07/02 SC 1649 Levothyroxine Sodium 0.05 MG 0700 07/03 1000 AC PO Melatonin 5 MG AT BEDTIME 07/02 2300 AC 07/02 PO 2304 Montelukast Sodium 10 MG AT BEDTIME 07/01 2200 AC 07/02 PO 2101 Moxifloxacin HCl 400 MG DAILY 07/03 1000 AC PO Omeprazole 40 MG DAILY 07/01 1430 AC 07/03 PO 0855 Oxybutynin Chloride 5 MG BID 07/01 2200 AC 07/03 PO 0855 Polyethylene Glycol 17 GM DAILY 07/02 1000 AC 07/03 PO 0852 Sodium Chloride 2 SPRAY Q4P PRN 07/01 2300 AC 07/02 MAGDALENO 2102 Sodium Chloride 1,000 ML .Q20H 07/01 1730 DC 07/01 IV 07/02 1329 1746 Tamsulosin HCl 0.4 MG AT BEDTIME 07/01 2200 AC 07/02 PO 2102 Vancomycin HCl 1,000 MG ONCE ONE 07/02 1300 DC 07/02 Dextrose/Water 250 ML IV 07/02 1359 1308 Review of Systems Review of Systems: No rash. No tremor. No orthopnea. All other systems were reviewed, and are noted to be negative. 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 Psychosocial History Services at Home: None Smoking Status: Former Smoker ETOH Use: occasional use Illicit Drug Use: denies illicit drug use Functional Ability ADLs Independent: dressing, eating, toileting, bathing. Ambulation: independent IADLs Needs Assist: shopping, housework, finances, food prep, telephone, transportation, medication admin. ECHO Results (as available) Report: 1. This was a technically difficult examination due to the patient's body habitus and underlying pulmonary disease. 2. 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 The ascending aorta is upper normal in size. 3. Mild to moderate thickening of the mitral leaflets is present with moderate anular calcification and fibrosis of the chordal structures. Mild to moderate mitral insufficiency is present with moderate left atrial dilatation. 4. There is no significant pericardial fluid present. 5. The left ventricular chamber size is normal with mild to moderate concentric hypertrophy and hyperdynamic systolic function. The ejection fraction is greater than 65-70% with no obvious resting wall motion abnormalities. 6. Mild dilatation of the right heart chambers is present with moderate tricuspid insufficiency, mild to moderate pulmonic insufficiency and pulmonary hypertension with an estimated RV systolic pressure of 54 mmHg. 7. There is no recent study available for comparison. Exam & Diagnostic Data Vital Signs and I&O Vital Signs Date Time Temp Pulse Resp B/P Pulse O2 O2 Flow FiO2 Ox Delivery Rate 07/03 0841 96 Nasal 1.0L Cannula 07/03 0800 98 Nasal 2.0L Cannula 07/03 0733 98.1 64 20 124/72 96 Nasal 2.0L Cannula 07/03 0000 Nasal 2.0L Cannula 07/02 2236 98.1 70 18 122/64 96 Nasal 2.0L Cannula 07/02 1618 98.2 73 20 120/60 99 07/02 1616 60 07/02 1600 Nasal 3.0L Cannula Intake & Output 07/03 1600 07/03 0800 07/03 0000 07/02 1600 07/02 0807/02 0000 Intake Total 949 398 6934 460 750 Output Total Balance 768 200 1158 460 750 Intake, IV 0 650 400 300 Intake, Oral 240 700 600 60 450 Number 0 1 Bowel Movements Patient 158 lb 158 lb 164 lb Weight Physical Exam: Gen: The patient is in no acute distress HEENT: Normal nose, ears, and oropharynx. Pupils equal bilaterally. Conjunctiva normal. Neck: Supple with no JVD, no masses, and no thyromegaly Lungs: Bilateral rhonchi with normal respiratory effort Heart: RRR, S1, S2, 2/6 systolic murmur. No peripheral edema, 2+ pulses in the lower extremities bilaterally Abdomen: Soft, nontender, no masses. No hepatomegaly. No splenomegaly Extremities: No clubbing or cyanosis. Normal muscle strength in the upper and lower extremities Skin: Normal skin turgor with no skin ulcers or lesions noted. Neuro: Cranial nerves intact. Sensation intact Psych: Alert and oriented 3 with appropriate affect Labs/Les Results: Laboratory Tests 07/03 07/02 0625 0650 Chemistry Sodium (137 - 145 mmol/L) 141 Potassium (3.5 - 5.1 mmol/L) 4.3 Chloride (98 - 107 mmol/L) 109 H Carbon Dioxide (22 - 30 mmol/L) 23 Anion Gap (5 - 16) 10 BUN (9 - 20 mg/dL) 20 Creatinine (0.7 - 1.2 mg/dL) 0.8 Estimated GFR (>60 ml/min) > 60 BUN/Creatinine Ratio (7 - 25 %) 25.0 Hematology CBC w Diff NO MAN DIFF REQ NO MAN DIFF REQ WBC (4.8 - 10.8 /CUMM) 7.5 8.5 RBC (4.70 - 6.10 /CUMM) 3.23 L 3.32 L Hgb (14.0 - 18.0 G/DL) 8.3 L 8.6 L Hct (42 - 52 %) 25.8 L 26.4 L MCV (80.0 - 94.0 FL) 79.6 L 79.5 L MCH (27.0 - 31.0 PG) 25.5 L 25.8 L RDW (11.5 - 14.5 %) 18.6 H 18.7 H Plt Count (130 - 400 /CUMM) 199 163 MPV (7.4 - 10.4 FL) 9.3 9.2 Gran % (42.2 - 75.2 %) 75.2 82.9 H Lymphocytes % (20.5 - 51.1 %) 12.8 L 6.2 L Monocytes % (1.7 - 9.3 %) 11.8 H 10.8 H Eosinophils % (0 - 5 %) 0.2 0 Basophils % (0.0 - 2.0 %) 0 L 0.1 Absolute Granulocytes (1.4 - 6.5 /CUMM) 5.6 7.0 H Absolute Lymphocytes (1.2 - 3.4 /CUMM) 1.0 L 0.5 L Absolute Monocytes (0.10 - 0.60 /CUMM) 0.9 H 0.9 H Absolute Eosinophils (0.0 - 0.7 /CUMM) 0 0 Absolute Basophils (0.0 - 0.2 /CUMM) 0 0 PUBS MCHC (33.0 - 37.0 G/DL) 32.1 L 32.4 L 07/01 07/01 1730 1421 Chemistry Lactic Acid (0.7 - 2.1 mmol/L) 1.0 Urines Urinalysis MANY H Urine Color (YEL,AMB,STR) YEL Urine Clarity (CLEAR) HAZY H Urine pH (5.0 - 8.0) 6.0 Ur Specific [place] (1.001 - 1.035) >= 1.030 Urine Protein (NEG,<30 MG/DL) 30 H Urine Ketones (NEG) 15 H Urine Nitrite (NEG) NEG Urine Bilirubin (NEG) NEG Urine Urobilinogen (0.1 - 1.0 EU/dl) 0.2 Ur Leukocyte Esterase (NEG) NEG Ur Microscopic SEDIMENT EXAMINED Urine RBC (0 - 5 /HPF) RARE Ur Epithelial Cells (NONE,FEW) FEW Urine Hemoglobin (NEG) NEG Urine Glucose (N MG/DL) NEG Diagnostic Data EKG Results EKG tracing is independently reviewed, and reveals atrial fibrillation with ventricular response of 108, nonspecific ST-T abnormality CXR Results Chest x-ray: 1. Pulmonary emphysema. 2. Consolidation in the right midlung, consistent with pneumonia, is slightly improved compared to 07/01/2016. 3. Cardiomegaly without acute pulmonary edema. Other Results Echocardiogram 05/17/14: 1. Fibrocalcific degeneration is present in a trileaflet aortic valve with evidence of mild valvular stenosis (PG 30 mmHg; MG 14 mmHG; ELAN 2.1 cm2). 2. Thickening and calcification of the mitral leaflets is present with mild to moderate anular calcification and moderate, eccentric posterolaterally directed mitral insufficiency with moderate left atrial dilatation. 3. There is no significant pericardial fluid present. 4. The left ventricular chamber size is normal with mild concentric hypertrophy and a normal ejection fraction with no visible resting wall motion abnormalities. 5. Mild enlargement of the right heart chambers is present with mild to moderate tricuspid insufficiency, moderate pulmonic insufficiency and an estimated RV systolic pressure of 40 mmHg. Assessment/Plan Assessment/Plan The patient is an 86-year-old male with history of chronic atrial fibrillation, anticoagulated on low-dose Eliquis, hypertension, COPD who is admitted with right middle lobe pneumonia. Low-dose Eliquis has been continued, and hemoglobin was observed to decreased from 10.2 on presentation to 8.3 today. Stool is guaiac positive, however no bhavani bleeding is noted. Recommendations: * I discussed the risks and benefits of anticoagulation with the patient. He expressed a strong preference to continue anticoagulation if possible to avoid stroke secondary to atrial fibrillation. Even if he requires occasional transfusions for a slow GI bleed, he prefers to continue anticoagulation rather than discontinue the anticoagulation and place himself at increased risk of stroke. * Considering the patient's preferences, I recommend continuing low-dose Eliquis for now. Although the full anticoagulant dose for this patient would be 5 mg twice a day, I agree with continuing 2.5 mg twice a day given the presence of anemia. I recommend further GI workup if indicated to try to find and correct any sources of bleeding. * Continue digoxin and diltiazem for rate control. * Continue oral asix for chronic HFpEF. Consult Acknowledgment - Thank you for your consult request.
[2016-07-03 14:46] VITALS: BP 120/62
[2016-07-03 22:57] VITALS: BP 120/60
[2016-07-04] MEDS ORDERED: MOXIFLOXACIN H400 M2 PO (05:51)
--- NOTE | 2016-07-04 05:53 | PN- Housestaff ---
SUPRIYA RIVAS,[facility] 07/04/16 0552: Subjective Follow-up For: Pneumonia Subjective: Mr. Daley was seen and examined this morning. The patient endorses feeling lousy. He states that he did not sleep well overnight. Patient reports that he had a subjective fever up to 100.9. Patient also states that he had multiple interruptions and was given Lasix last evening and had to void multiple times in the evening. Patient does report continued cough. Cough is productive in nature. Patient states sputum may have hemoptysis. Patient is currently on oxygen supplemental. 1 L. Patient also reports right upper quadrant pain. Pain is rated at a 6 out of 10 in severity. Patient states that he has had similar pain in the past which subsequently resolves and would like to hold off any additional imaging. Patient denies any chills, nausea, vomiting. Review of Systems Constitutional: Reports: see HPI. Objective Last 24 Hrs of Vital Signs/I&O Vital Signs Date Time Temp Pulse Resp B/P Pulse O2 O2 Flow FiO2 Ox Delivery Rate 07/04 0000 Room Air 07/03 2257 99.0 64 20 120/60 90 Room Air 07/03 2022 93 Room Air 07/03 1713 62 07/03 1600 Room Air 07/03 1446 97.9 78 20 120/62 97 Room Air 07/03 0841 96 Nasal 1.0L Cannula 07/03 0800 98 Nasal 2.0L Cannula 07/03 0733 98.1 64 20 124/72 96 Nasal 2.0L Cannula Intake & Output 07/04 0800 07/04 0000 07/03 1600 Intake Total 800 600 Output Total Balance 800 600 Intake, Oral 800 600 Patient 71.668 kg Weight Physical Exam General Appearance: Alert, Oriented X3, Cooperative Cardiovascular: Normal S1, Normal S2, Irregular rate Lungs: Increased Breath Sounds on the left. Right lung bases + Crackles Abdomen: Normal Bowel Sounds, Soft, No Tenderness, No Guarding, No Rebound tenderness, Neurological: Normal Speech Extremities: No Cyanosis, No Edema, Normal Pulses Current Medications: Current Medications Sig/Chuck Start time Last Medication Dose Route Stop Time Status Admin Acetaminophen 500 MG Q6P PRN 07/01 1730 AC 07/04 PO 0935 Acetaminophen 1,000 MG Q6P PRN 07/01 1730 AC N/A 1 UNIT IV Albuterol Sulfate 3 ML TID 07/02 1000 AC 07/04 INH 1330 Apixaban 2.5 MG BID 07/01 1428 AC 07/04 PO 0934 Carbidopa/Levodopa 1 TAB TID 07/01 1600 AC 07/04 PO 0934 Cholecalciferol 1,000 IU DAILY 07/01 1428 AC 07/04 PO 0934 Digoxin 0.125 MG 1700 07/01 1700 AC 07/03 PO 1713 Diltiazem HCl 240 MG DAILY 07/01 1430 AC 07/04 PO 0934 Docusate Sodium 100 MG DAILY 07/02 1000 AC 07/04 PO 0934 Ezetimibe 10 MG DAILY 07/01 1431 AC 07/04 PO 0934 Finasteride 5 MG AT BEDTIME 07/01 2200 AC 07/03 PO 2119 Furosemide 20 MG Q48 07/05 1000 AC PO Furosemide 20 MG ONCE ONE 07/04 0930 DC 07/04 PO 07/04 0931 0933 Furosemide 20 MG Q48H 07/01 1500 DC 07/03 PO 1505 Insulin Aspart 0 TIDAC 07/01 1700 AC 07/03 SC 1712 Levothyroxine Sodium 0.05 MG 0707/03 1000 AC 07/04 PO 0438 Melatonin 5 MG AT BEDTIME 07/02 2300 AC 07/03 PO 2234 Montelukast Sodium 10 MG AT BEDTIME 07/01 2200 AC 07/03 PO 2119 Moxifloxacin HCl 400 MG DAILY 07/03 1000 AC 07/04 PO 0935 Omeprazole 40 MG DAILY 07/01 1430 AC 07/04 PO 0934 Oxybutynin Chloride 5 MG BID 07/01 2200 AC 07/04 PO 0934 Patient Medication 1 ED .STK-MED ONE 07/04 1403 NE Teaching ED 07/04 1404 Patient Medication 1 ED .STK-MED ONE 07/03 1424 NE Teaching ED 07/03 1425 Polyethylene Glycol 17 GM DAILY 07/02 1000 AC 07/04 PO 0933 Sodium Chloride 2 SPRAY Q4P PRN 07/01 2300 AC 07/02 MAGDALENO 2102 Tamsulosin HCl 0.4 MG AT BEDTIME 07/01 2200 AC 07/03 PO 211 Last 24 Hrs of Lab/Les Results Last 24 Hrs of Labs/Mics: Laboratory Tests 07/04/16 0625: Anion Gap 8, Estimated GFR > 60, BUN/Creatinine Ratio 25.7 H, Total Bilirubin 0.5, Direct Bilirubin 0.4, AST 43, ALT 30, Alkaline Phosphatase 76, Total Protein 5.4 L, Albumin 3.0 L, CBC w Diff NO MAN DIFF REQ, RBC 3.26 L, MCV 79.1 L, MCH 25.8 L, RDW 18.5 H, MPV 9.2, Gran % 74.2, Lymphocytes % 10.2 L, Monocytes % 14.0 H, Eosinophils % 1.3, Basophils % 0.3, Absolute Granulocytes 5.2, Absolute Lymphocytes 0.7 L, Absolute Monocytes 1.0 H, Absolute Eosinophils 0.1, Absolute Basophils 0, PUBS MCHC 32.6 L Assessment/Plan Assessment: Mr Daley is an 86 year old gentleman with a past history of COPD (not on any home oxygen), atrial fibrillation (NOAC), hypertension, Parkinson's disease, 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 At the time of admission, temperature 102, pulse rate 107, blood pressure 1:30/ 65, pulse ox 94% (4-6 L), lab findings indicated WBC 11.9, hemoglobin 10.2, platelets 234, normal electrolytes sodium 141, potassium 3.6, bicarbonate 24, normal renal function-BUN 16, serum creatinine 0.8. Lower respiratory cultures- show growth of gram-negative rods and gram-positive rods. Radiological findings-chest x-ray revealed consolidation of right mid lung consistent with pneumonia, is slightly improved. #Acute hypoxic respiratory failure Secondary to pneumonia (likely healthcare associated pneumonia). [id number] rods and gram-positive cocci. Continue vancomycin and ceftazidime pending final culture results. --> Moxifloxacin 400 mg. Daily PO. Follow-up [facility] cultures and sensitivities. Lower respiratory culture shows mixed ratna after 2 days. Repeat chest x-ray on 07/04/2016 to evaluate for worsening consolidation. #Atrial fibrillation Currently on Eliquis 2.5mg. Has a history of GI bleed in the past. Guaiac positive stool-noticed. Contacted gastroenterology for advised. History of polyps and angiodysplasia on previous colonoscopy. Requested Dr. Guadarrama to see the patient to evaluate risks versus benefits for continuation of Eliquis. Digoxin level-0.6. Currently Rate controlled. Continue Cardizem. 240, Digoxin 125 g . #Abdominal pain LFTs within normal limits AST 43 and ALT 13. Serial abdominal exams Patient continues to complain of abdominal pain consider abdominal x-ray to rule out any bowel obstruction. #History of Hypothyroidism Continue Home medication Levothyroxine 50 mcg #Lightheadedness Currently asymptomatic. Check orthostatic hypotension. #Anemia Likely acute blood loss anemia. H&H 10.2--> 8.6--> 8.3-->8.4 Continue to monitor closely. Transfuse to keep INR about 8.0 #DVT prophylaxis Eliquis #Code: Full Code Problem List: 1. Atrial fibrillation 2. Acute hypoxemic respiratory failure 3. Healthcare-associated pneumonia Pain Ratin Pain Location: None Pain Goal: Remain pain free Pain Plan: Tylenol Prn Tomorrow's Labs & Rationales: CBC: Monitor H&H in the setting of acute blood loss anemia due to use of Eliquis. WOLF RIVAS,[facility] 07/04/16 1235: Attending MD Review Statement Attending Statement Attending MD Statement: examined this patient, discuss w/resident/PA/SORT OPERATIONS SUPERVISOR, agreed w/resident/PA/SORT OPERATIONS SUPERVISOR, reviewed EMR data (avail), discussed with nursing, discussed with case mgmt, reviewed images, amended to note Attending Assessment/Plan: Patient seen and examined, was upset because he has been having difficulty sleeping at night. He had a low-grade temp this morning and he still requiring oxygen. Vital Signs Date Time Temp Pulse Resp B/P Pulse O2 O2 Flow FiO2 Ox Delivery Rate 07/04 0920 92 Nasal 1.0L Cannula 07/04 0800 94 Nasal 1.0L Cannula 07/04 0642 100.1 72 22 124/60 90 Room Air 07/04 0623 92 Nasal 1.0L Cannula 07/04 0000 Room Air 07/03 2257 99.0 64 20 120/60 90 Room Air 07/03 2022 93 Room Air 07/03 1713 62 07/03 1600 Room Air 07/03 1446 97.9 78 20 120/62 97 Room Air on exam; aox3, nad. cv; s1,s2, irregular, + systolic murmur resp; + crackles at right base. abd; soft, nt, bs+ ext: no edema. Laboratory Tests 07/04 0625 Chemistry Sodium (137 - 145 mmol/L) 140 Potassium (3.5 - 5.1 mmol/L) 4.4 Chloride (98 - 107 mmol/L) 108 H Carbon Dioxide (22 - 30 mmol/L) 24 Anion Gap (5 - 16) 8 BUN (9 - 20 mg/dL) 18 Creatinine (0.7 - 1.2 mg/dL) 0.7 Estimated GFR (>60 ml/min) > 60 BUN/Creatinine Ratio (7 - 25 %) 25.7 H Total Bilirubin (0.2 - 1.3 mg/dL) 0.5 Direct Bilirubin (< 0.4 mg/dL) 0.4 AST (17 - 59 U/L) 43 ALT (21 - 72 U/L) 30 Alkaline Phosphatase (< 127 U/L) 76 Total Protein (6.3 - 8.2 g/dL) 5.4 L Albumin (3.5 - 5.0 g/dL) 3.0 L Hematology CBC w Diff NO MAN DIFF REQ WBC (4.8 - 10.8 /CUMM) 7.1 RBC (4.70 - 6.10 /CUMM) 3.26 L Hgb (14.0 - 18.0 G/DL) 8.4 L Hct (42 - 52 %) 25.8 L MCV (80.0 - 94.0 FL) 79.1 L MCH (27.0 - 31.0 PG) 25.8 L RDW (11.5 - 14.5 %) 18.5 H Plt Count (130 - 400 /CUMM) 234 MPV (7.4 - 10.4 FL) 9.2 Gran % (42.2 - 75.2 %) 74.2 Lymphocytes % (20.5 - 51.1 %) 10.2 L Monocytes % (1.7 - 9.3 %) 14.0 H Eosinophils % (0 - 5 %) 1.3 Basophils % (0.0 - 2.0 %) 0.3 Absolute Granulocytes (1.4 - 6.5 /CUMM) 5.2 Absolute Lymphocytes (1.2 - 3.4 /CUMM) 0.7 L Absolute Monocytes (0.10 - 0.60 /CUMM) 1.0 H Absolute Eosinophils (0.0 - 0.7 /CUMM) 0.1 Absolute Basophils (0.0 - 0.2 /CUMM) 0 PUBS MCHC (33.0 - 37.0 G/DL) 32.6 L A/P; 86 y/o M with pmh sig for COPD, Afib on eliquis, HTN, T2DM, Parkinson's disease, adenocarcinoma of lung s/p RLL lobectomy, GI bleed, CAD, HFpEF, admitted with acute hypoxic respiratory failure which is now improving. Patient was initially treated for possible MRSA versus gram-negative pneumonia but all of his cultures remained negative therefore as per pulmonology we have switched him to oral Avelox. Will follow-up on the repeat chest x-ray today. We will follow-up on the final sputum cultures. Continue Avelox. We'll try to taper his O2 as he can tolerate. H&H remained pretty stable. Patient has been continued on low dose eliquis. He is also on Lasix. Continue TRC nebs. The new all other current management. DVT prophylaxis: Eliquis.
[2016-07-04 06:42] VITALS: BP 124/60
[2016-07-04 08:32] LABS: ABSOLUTE BASOPHIL COUNT 0 /CUMM (0.0-0.2); ABSOLUTE EOSINOPHIL COUNT 0.1 /CUMM (0.0-0.7); ABSOLUTE GRANULOCYTE CT 5.2 /CUMM (1.4-6.5); ABSOLUTE LYMPH COUNT 0.7 /CUMM (1.2-3.4); BASOPHIL % 0.3 % (0.0-2.0); EOSINOPHIL % 1.3 % (0-5); GRANULOCYTE % 74.2 % (42.2-75.2); HEMATOCRIT 25.8 % (42-52); MEAN CORPUSCULAR HGB 25.8 PG (27.0-31.0); MEAN CORPUSCULAR HGB CONC 32.6 G/DL (33.0-37.0); MEAN CORPUSCULAR VOLUME 79.1 FL (80.0-94.0); MEAN PLATELET VOLUME 9.2 FL (7.4-10.4); PLATELET COUNT 234 /CUMM (130-400); RBC DISTRIBUTION WIDTH 18.5 % (11.5-14.5); RED BLOOD CELL CT 3.26 /CUMM (4.70-6.10); WHITE BLOOD CELL COUNT 7.1 /CUMM (4.8-10.8)
--- NOTE | 2016-07-04 11:41 | PN- Pulmonary ---
Subjective HPI/Critical Care Issues: pt seen and examined dyspnea overnight and desaturation difficulty sleeping no n/v/d/c Objective Current Medications: Current Medications Sig/Chuck Start time Last Medication Dose Route Stop Time Status Admin Acetaminophen 500 MG Q6P PRN 07/01 1730 AC 07/04 PO 0935 Acetaminophen 1,000 MG Q6P PRN 07/01 1730 AC N/A 1 UNIT IV Albuterol Sulfate 3 ML TID 07/02 1000 AC 07/04 INH 0917 Apixaban 2.5 MG BID 07/01 1428 AC 07/04 PO 0934 Carbidopa/Levodopa 1 TAB TID 07/01 1600 AC 07/04 PO 0934 Cholecalciferol 1,000 IU DAILY 07/01 1428 AC 07/04 PO 0934 Digoxin 0.125 MG 1700 07/01 1700 AC 07/03 PO 1713 Diltiazem HCl 240 MG DAILY 07/01 1430 AC 07/04 PO 0934 Docusate Sodium 100 MG DAILY 07/02 1000 AC 07/04 PO 0934 Ezetimibe 10 MG DAILY 07/01 1431 AC 07/04 PO 0934 Finasteride 5 MG AT BEDTIME 07/01 2200 AC 07/03 PO 2119 Furosemide 20 MG Q48 07/05 1000 AC PO Furosemide 20 MG ONCE ONE 07/04 0930 DC 07/04 PO 07/04 0931 0933 Furosemide 20 MG Q48H 07/01 1500 DC 07/03 PO 1505 Insulin Aspart 0 TIDAC 07/01 1700 AC 07/03 SC 1712 Levothyroxine Sodium 0.05 MG 0700 07/03 1000 AC 07/04 PO 0438 Melatonin 5 MG AT BEDTIME 07/02 2300 AC 07/03 PO 2234 Montelukast Sodium 10 MG AT BEDTIME 07/01 2200 AC 07/03 PO 2119 Moxifloxacin HCl 400 MG DAILY 07/03 1000 AC 07/04 PO 0935 Omeprazole 40 MG DAILY 07/01 1430 AC 07/04 PO 0934 Oxybutynin Chloride 5 MG BID 07/01 2200 AC 07/04 PO 0934 Patient Medication 1 ED .STK-MED ONE 07/03 1424 DC Teaching ED 07/03 1425 Polyethylene Glycol 17 GM DAILY 07/02 1000 AC 07/04 PO 0933 Sodium Chloride 2 SPRAY Q4P PRN 07/01 2300 AC 07/02 MAGDALENO 2102 Tamsulosin HCl 0.4 MG AT BEDTIME 07/01 2199 AC 07/03 PO 2118 Vital Signs & I&O Last 24 Hrs of Vitals and I&O: Vital Signs Date Time Temp Pulse Resp B/P Pulse O2 O2 Flow FiO2 Ox Delivery Rate 07/04 09 92 Nasal 1.0L Cannula 07/04 0800 94 Nasal 1.0L Cannula 07/04 0642 100.1 72 22 124/60 90 Room Air 07/04 0623 92 Nasal 1.0L Cannula 07/04 0000 Room Air 07/03 2257 99.0 64 20 120/60 90 Room Air 07/03 2021 93 Room Air 07/03 1713 62 07/03 1600 Room Air 07/03 1446 97.9 78 20 120/ 97 Room Air Intake & Output 07/04 1600 07/04 0800 07/04 0000 Intake Total 360 800 Output Total Balance 360 800 Intake, Oral 360 800 Patient 160 lb Weight Exam Other Physical Findings: General - Alert, awake and oriented HEENT - normocephalic, atraumatic Cardiovascular - S1, S2, +systolic murmur Lungs - rhonchi and egophony right mid lung Abdomen - soft, bowel sounds positive, no tenderness Extremities - without edema or cyanosis Results Last 24 Hrs of Lab Results: Laboratory Tests 07/04/16 0625: Anion Gap 8, Estimated GFR > 60, BUN/Creatinine Ratio 25.7 H, Total Bilirubin 0.5, Direct Bilirubin 0.4, AST 43, ALT 30, Alkaline Phosphatase 76, Total Protein 5.4 L, Albumin 3.0 L, CBC w Diff NO MAN DIFF REQ, RBC 3.26 L, MCV 79.1 L, MCH 25.8 L, RDW 18.5 H, MPV 9.2, Gran % 74.2, Lymphocytes % 10.2 L, Monocytes % 14.0 H, Eosinophils % 1.3, Basophils % 0.3, Absolute Granulocytes 5.2, Absolute Lymphocytes 0.7 L, Absolute Monocytes 1.0 H, Absolute Eosinophils 0.1, Absolute Basophils 0, PUBS MCHC 32.6 L Impression/Plan Impression/Plan Impression/Plan: Impression 86 year old man - improved acute hypoxemic respiratory failure - o2 in ED high 70's responsive to o2 supplementation, this is the result of an acute right mid-lung pneumonia which maybe secondary to a healthcare associated pathogen given recent admission or an atypical infection - history of lung ca - s/p RLL lobectomy Plan - course of Avelox 7 days should be sufficient - had cxr today, will follow - assess o2 requierements on room air and exertion - o2 supplementation - goal o2 >92% - TRC/Nebs - do not use anticholingergics (i.e. ipratropium/duonebs) secondary to prostate and eye issues - patient on Advair at home, he will bring own meds - would not use steroids at this time, can consider if has evidence of bronchospasm - DVT prophylaxis at all times (on Eliquis)
--- NOTE | 2016-07-04 12:15 | PN- Cardiology ---
Subjective Subjective: The patient continues to short of breath and complains of persistent cough. Some blood-tinged sputum noted today. Sleeping poorly. No new cardiovascular issues. Objective Vital Signs and I&Os Vital Signs Date Time Temp Pulse Resp B/P Pulse O2 O2 Flow FiO2 Ox Delivery Rate 07/05 919 92 Nasal 1.0L Cannula 07/04 08 94 Nasal 1.0L Cannula 07/04 0642 100.1 72 22 124/60 90 Room Air 07/04 622 92 Nasal 1.0L Cannula 07/04 0000 Room Air 07/03 2257 99.0 64 20 120/60 90 Room Air 07/03 2021 93 Room Air 07/03 1713 62 07/03 1600 Room Air 07/03 1446 97.9 78 20 120/62 97 Room Air Intake & Output 07/04 1600 07/04 0807/04 0000 07/03 1600 07/03 0800 07/03 0000 Intake Total 360 800 600 240 700 Output Total Balance 360 800 600 240 700 Intake, IV 0 Intake, Oral 360 800 600 240 700 Number 0 Bowel Movements Patient 160 lb 158 lb 158 lb Weight Current Medications: Current Medications Sig/Chuck Start time Last Medication Dose Route Stop Time Status Admin Acetaminophen 500 MG Q6P PRN 07/01 1730 AC 07/04 PO 0935 Acetaminophen 1,000 MG Q6P PRN 07/01 1730 AC N/A 1 UNIT IV Albuterol Sulfate 3 ML TID 07/02 1000 AC 07/04 INH 0917 Apixaban 2.5 MG BID 07/01 1428 AC 07/04 PO 0934 Carbidopa/Levodopa 1 TAB TID 07/01 1600 AC 07/04 PO 0934 Cholecalciferol 1,000 IU DAILY 07/01 1428 AC 07/04 PO 0934 Digoxin 0.125 MG 1700 07/01 1700 AC 07/03 PO 1713 Diltiazem HCl 240 MG DAILY 07/01 1430 AC 07/04 PO 0934 Docusate Sodium 100 MG DAILY 07/02 1000 AC 07/04 PO 0934 Ezetimibe 10 MG DAILY 07/01 1431 AC 07/04 PO 0934 Finasteride 5 MG AT BEDTIME 07/01 2200 AC 07/03 PO 2119 Furosemide 20 MG Q48 07/05 1000 AC PO Furosemide 20 MG ONCE ONE 07/04 929 DC 07/04 PO 03/01 0931 0933 Furosemide 20 MG Q48H 07/01 1500 DC 07/03 PO 1505 Insulin Aspart 0 TIDAC 07/01 1700 AC 07/03 SC 1712 Levothyroxine Sodium 0.05 MG 0700 07/03 1000 AC 07/04 PO 0438 Melatonin 5 MG AT BEDTIME 07/02 2300 AC 07/03 PO 2234 Montelukast Sodium 10 MG AT BEDTIME 07/01 2200 AC 07/03 PO 2119 Moxifloxacin HCl 400 MG DAILY 07/03 1000 AC 07/04 PO 0935 Omeprazole 40 MG DAILY 07/01 1430 AC 07/04 PO 0934 Oxybutynin Chloride 5 MG BID 07/01 220 AC 07/04 PO 0934 Patient Medication 1 ED .STK-MED ONE 07/03 1424 OR Teaching ED 07/03 1425 Polyethylene Glycol 17 GM DAILY 07/02 1000 AC 07/04 PO 0933 Sodium Chloride 2 SPRAY Q4P PRN 07/01 2300 AC 07/02 MAGDALENO 210 Tamsulosin HCl 0.4 MG AT BEDTIME 07/01 2199 AC 07/03 PO 2118 Results Last 48 Hrs of Labs/Mics: Laboratory Tests 07/04/16624: Anion Gap 8, Estimated GFR > 60, BUN/Creatinine Ratio 25.7 H, Total Bilirubin 0.5, Direct Bilirubin 0.4, AST 43, ALT 30, Alkaline Phosphatase 76, Total Protein 5.4 L, Albumin 3.0 L, CBC w Diff NO MAN DIFF REQ, RBC 3.26 L, MCV 79.1 L, MCH 25.8 L, RDW 18.5 H, MPV 9.2, Gran % 74.2, Lymphocytes % 10.2 L, Monocytes % 14.0 H, Eosinophils % 1.3, Basophils % 0.3, Absolute Granulocytes 5.2, Absolute Lymphocytes 0.7 L, Absolute Monocytes 1.0 H, Absolute Eosinophils 0.1, Absolute Basophils 0, PUBS MCHC 32.6 L 07/03/16 0625: CBC w Diff NO MAN DIFF REQ, RBC 3.23 L, MCV 79.6 L, MCH 25.5 L, RDW 18.6 H, MPV 9.3, Gran % 75.2, Lymphocytes % 12.8 L, Monocytes % 11.8 H, Eosinophils % 0.2, Basophils % 0 L, Absolute Granulocytes 5.6, Absolute Lymphocytes 1.0 L, Absolute Monocytes 0.9 H, Absolute Eosinophils 0, Absolute Basophils 0, PUBS MCHC 32.1 L Assessment/Plan Assessment/Plan Assessment: 1. Respiratory failure with right middle lobe pneumonia 2. Chronic atrial fibrillation 3. Hypertension 4. History of coronary artery disease 5. Chronic obstructive pulmonary disease 6. Anemia Recreations: -For now, I would continue the patient's current medical regimen -Continue oral anticoagulation at current dose with close monitoring of hemoglobin and hematocrit -Otherwise continue as per the medical/pulmonary team. Continue telemetry? No
[2016-07-04 14:10] VITALS: BP 110/58
--- NOTE | 2016-07-04 15:56 | NUR ---
PT HAHING EPISODES OF BLOODY SPUTUM, AND NOTIFIED, CONTINUE TO MONITOR
--- NOTE | 2016-07-04 16:03 | RADIOLOGY REPORT ---
EXAMINATION: XR CHEST CLINICAL INFORMATION: Cough. Fever. On antibiotics for community-acquired pneumonia. Hypoxia with hemoptysis today. COMPARISON: Several prior chest x-rays, most recent of which is dated 07/02/2016. TECHNIQUE: 2 views of the chest were obtained. FINDINGS: There has been no significant interval change in the patchy parenchymal opacity in the right midlung, compared to the prior exam. There may be slight increase in reticular opacity in the left perihilar and lower lobe region versus accentuation due to vascular congestion. There is chronic elevation of the right hemidiaphragm with volume loss in the right lung base. Small right pleural effusion is suspected with thickening in the minor fissure region seen. No pneumothorax is present. IMPRESSION: 1. No interval change in right midlung consolidation. 2. Increasing opacity in the left hilum and perihilar region extending into the lower lobe, possibly related to vascular congestion and subsegmental atelectasis. Continued follow-up is recommended.
[2016-07-04 22:35] VITALS: BP 110/60
--- NOTE | 2016-07-05 01:44 | NUR ---
PT C/O SOB AT 0130. SPO2 87% ON 1L O2 VIA NC. LUNGS DIMINISHED AT BASES. O2 INCREASED TO 2L. SPO2 93%. RT CALLED TO ADMINISTER A NEB TX REQUESTED BY THE PT. PT REPORTED FEELING BETTER. TYLENOL 500MG GIVEN FOR C/O HEADACHE. WILL CONTINUE TO MONITOR.
--- NOTE | 2016-07-05 05:57 | PN- Housestaff ---
See Addendum Subjective Follow-up For: Pneumonia SOB A FIb Subjective: Mr Daley was seen and examined this morning. Reports episode of shortness of breath overnight at approximately 1 AM when he had to request a breathing treatment and subsequently put on supplemental oxygen. The patient states that he was asleep when he woke up feeling short of breath as well as experiencing a headaches. Headache rated at a 8 out of 10 in severity. Requested for Tylenol and received symptomatic relief. This morning Mr Daley continues to be on supplemental oxygen 2 L via nasal cannula. Patient states he feels about the same compared to yesterday and states he feels "groggy". He denies any cough or sputum production. Patient also complains of bilateral cold sores which are tender on palpation and described as painful with movement. Patient denies any fever, chills, nausea, vomiting. Review of Systems Constitutional: Reports: see HPI. Objective Last 24 Hrs of Vital Signs/I&O Vital Signs Date Time Temp Pulse Resp B/P Pulse O2 O2 Flow FiO2 Ox Delivery Rate 07/05 0142 94 Nasal 2.0L Cannula 07/05 0000 Nasal 1.0L Cannula 07/04 2235 98.9 70 20 110/60 90 Nasal Cannula 07/04 1930 94 Nasal 1.0L Cannula 07/04 1600 Nasal 1.0L Cannula 07/04 1410 98.9 64 20 110/58 93 07/04 0920 92 Nasal 1.0L Cannula 07/04 0800 94 Nasal 1.0L Cannula 07/04 0642 100.1 72 22 124/60 90 Room Air 07/04 0623 92 Nasal 1.0L Cannula Intake & Output 07/05 0800 07/05 0000 07/04 1600 Intake Total 800 600 Output Total 125 Balance -125 800 600 Intake, Oral 800 600 Output, Urine 125 Physical Exam General Appearance: Alert, Oriented X3, Cooperative Cardiovascular: Normal S1, Normal S2, Irregular Rate and Rhythm Lungs: Increased Breath Sounds Left Lower Lobe. Right Lobe. CTA Abdomen: Normal Bowel Sounds, Soft, No Tenderness Neurological: Normal Speech, Strength at 5/5 X4 Ext Extremities: Edema 2+ Current Medications: Current Medications Sig/Chuck Start time Last Medication Dose Route Stop Time Status Admin Acetaminophen 500 MG Q6P PRN 07/01 1730 AC 07/05 PO 0136 Acetaminophen 1,000 MG Q6P PRN 07/01 1730 AC N/A 1 UNIT IV Acyclovir 1 RUCHI Q4 PRN 07/05 0745 UNVr TOP Albuterol Sulfate 3 ML TID 07/02 1000 AC 07/05 INH 0141 Apixaban 2.5 MG BID 07/01 1428 AC 07/04 PO 2127 Carbidopa/Levodopa 1 TAB TID 07/01 1600 AC 07/04 PO 2127 Cholecalciferol 1,000 IU DAILY 07/01 1428 AC 07/04 PO 0934 Digoxin 0.125 MG 1700 07/01 1700 AC 07/04 PO 1641 Diltiazem HCl 240 MG DAILY 07/01 1430 AC 07/04 PO 0934 Docusate Sodium 100 MG DAILY 07/02 1000 AC 07/04 PO 0934 Ezetimibe 10 MG DAILY 07/01 1431 AC 07/04 PO 0934 Finasteride 5 MG AT BEDTIME 07/01 2200 AC 07/04 PO 2127 Furosemide 20 MG Q48 07/05 1000 AC PO Furosemide 20 MG ONCE ONE 07/04 0930 DC 07/04 PO 07/04 0931 0933 Furosemide 20 MG Q48H 07/01 1500 DC 07/03 PO 1505 Insulin Aspart 0 TIDAC 07/01 1700 AC 07/03 SC 1712 Levothyroxine Sodium 0.05 MG 0700 07/03 1000 AC 07/05 PO 0551 Melatonin 5 MG AT BEDTIME 07/02 2300 AC 07/03 PO 2234 Montelukast Sodium 10 MG AT BEDTIME 07/01 2200 AC 07/04 PO 2127 Moxifloxacin HCl 400 MG DAILY 07/03 1000 AC 07/04 PO 0935 Omeprazole 40 MG DAILY 07/01 1430 AC 07/05 PO 0551 Oxybutynin Chloride 5 MG BID 07/01 2200 AC 07/04 PO 2127 Patient Medication 1 ED .STK-MED ONE 07/04 1403 DC Teaching ED 07/04 1404 Polyethylene Glycol 17 GM DAILY 07/02 1000 AC 07/04 PO 0933 Ramelteon 8 MG ONCE ONE 07/04 2145 DC 07/04 PO 07/04 2146 2233 Sodium Chloride 2 SPRAY Q4P PRN 07/01 2300 AC 07/02 MAGDALENO 2102 Tamsulosin HCl 0.4 MG AT BEDTIME 07/01 2200 AC 07/04 PO 2127 Last 24 Hrs of Lab/Les Results Last 24 Hrs of Labs/Mics: Laboratory Tests 07/05/16 0650: CBC w Diff Pending, WBC Pending, RBC Pending, Hgb Pending, Hct Pending, MCV Pending, MCH Pending, RDW Pending, Plt Count Pending, MPV Pending, PUBS MCHC Pending Microbiology 07/04 2022 LOWER RESP: Respiratory Culture - RES 07/04 2022 LOWER RESP: Gram Stain - RES Assessment/Plan Assessment: Mr Daley is an 86 year old gentleman with a past history of COPD (not on any home oxygen), atrial fibrillation (NOAC), hypertension, Parkinson's disease, 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 At the time of admission, temperature 102, pulse rate 107, blood pressure 1:30/ 65, pulse ox 94% (4-6 L), lab findings indicated WBC 11.9, hemoglobin 10.2, platelets 234, normal electrolytes sodium 141, potassium 3.6, bicarbonate 24, normal renal function-BUN 16, serum creatinine 0.8. Lower respiratory cultures- show growth of gram-negative rods and gram-positive rods. Radiological findings-chest x-ray revealed consolidation of right mid lung consistent with pneumonia, is slightly improved. #Acute hypoxic respiratory failure Secondary to pneumonia (likely healthcare associated pneumonia). [id number] rods and gram-positive cocci. Continue vancomycin and ceftazidime pending final culture results. --> Moxifloxacin 400 mg. Daily PO, today is day 3. Follow-up [facility] cultures and sensitivities. Lower respiratory culture shows mixed ratna after 2 days. Repeat chest x-ray on 07/04/2016 to evaluate for worsening consolidation. Since patient continues to have increased oxygen requirements as well and bilateral 2+ edema, we will give him a one time dose of IV 40 mg Lasix. Measure I's and O's and daily weights. #Atrial fibrillation Currently on Eliquis 2.5mg. Has a history of GI bleed in the past. Guaiac positive stool-noticed. Contacted gastroenterology for advised. History of polyps and angiodysplasia on previous colonoscopy. Requested Dr. Guadarrama to see the patient to evaluate risks versus benefits for continuation of Eliquis. Digoxin level-0.6. Currently Rate controlled. Continue Cardizem. 240, Digoxin 125 g . #Cold Sores Ayclovir ointment 15 g one every 4 for symptomatic relief. #Abdominal pain LFTs within normal limits AST 43 and ALT 13. Serial abdominal exams Patient continues to complain of abdominal pain consider abdominal x-ray to rule out any bowel obstruction. #History of Hypothyroidism Continue Home medication Levothyroxine 50 mcg #Lightheadedness Currently asymptomatic. Check orthostatic hypotension. #Anemia Likely acute blood loss anemia. H&H 10.2--> 8.6--> 8.3-->8.4-->7.8 We will transfuse 1 unit PRBC. Repeat CBC in AM. Continue to monitor closely. Transfuse to keep INR about 8.0 #DVT prophylaxis Eliquis #Code: Full Code Problem List: 1. ATRIAL FIBRILATION 2. Healthcare-associated pneumonia 3. Healthcare associated bacterial pneumonia 4. Shortness of breath 5. Cold sore Pain Ratin Pain Location: No Pain Pain Goal: Remain pain free Pain Plan: Tylenol PRN Tomorrow's Labs & Rationales: CBC Monitor H/H due to ABLA BEP: Monitor Electrolytes in the settinf of Lasix administration.
[2016-07-05 06:55] VITALS: BP 110/56
[2016-07-05] MEDS ORDERED: MOXIFLOXACIN H400 M2 PO ×2 (07:05→13:42)
[2016-07-05 07:58] LABS: ABSOLUTE BASOPHIL COUNT 0 /CUMM (0.0-0.2); ABSOLUTE EOSINOPHIL COUNT 0.1 /CUMM (0.0-0.7); ABSOLUTE GRANULOCYTE CT 4.1 /CUMM (1.4-6.5); ABSOLUTE LYMPH COUNT 0.9 /CUMM (1.2-3.4); ABSOLUTE MONOCYTE COUNT 1.1 /CUMM (0.10-0.60); BASOPHIL % 0.4 % (0.0-2.0); EOSINOPHIL % 2.1 % (0-5); GRANULOCYTE % 65.5 % (42.2-75.2); HEMATOCRIT 24.2 % (42-52); MEAN CORPUSCULAR HGB 25.4 PG (27.0-31.0); MEAN CORPUSCULAR VOLUME 79.3 FL (80.0-94.0); MEAN PLATELET VOLUME 9.1 FL (7.4-10.4); PLATELET COUNT 222 /CUMM (130-400); RBC DISTRIBUTION WIDTH 18.3 % (11.5-14.5); RED BLOOD CELL CT 3.06 /CUMM (4.70-6.10); WHITE BLOOD CELL COUNT 6.2 /CUMM (4.8-10.8)
--- NOTE | 2016-07-05 10:56 | PN- Pulmonary ---
Subjective HPI/Critical Care Issues: pt seen and examined feeling better today slept at night some congestion, but improved Objective Current Medications: Current Medications Sig/Chuck Start time Last Medication Dose Route Stop Time Status Admin Acetaminophen 500 MG Q6P PRN 07/01 1730 AC 07/05 PO 0136 Acetaminophen 1,000 MG Q6P PRN 07/01 1730 AC N/A 1 UNIT IV Acyclovir 1 RUCHI Q4 PRN 07/05 0745 AC TOP Albuterol Sulfate 3 ML TID 07/02 1000 AC 07/05 INH 0805 Apixaban 2.5 MG BID 07/01 1428 AC 07/05 PO 0832 Carbidopa/Levodopa 1 TAB TID 07/01 1600 AC 07/05 PO 0832 Cholecalciferol 1,000 IU DAILY 07/01 1428 AC 07/05 PO 0832 Digoxin 0.125 MG 1700 07/01 1700 AC 07/04 PO 1641 Diltiazem HCl 240 MG DAILY 07/01 1430 AC 07/05 PO 0832 Docusate Sodium 100 MG DAILY 07/02 1000 AC 07/05 PO 0832 Ezetimibe 10 MG DAILY 07/01 1431 AC 07/05 PO 0832 Finasteride 5 MG AT BEDTIME 07/01 2200 AC 07/04 PO 2127 Furosemide 40 MG ONCE ONE 07/05 1015 DC IV 07/05 1016 Furosemide 20 MG Q48 07/05 1000 AC PO Insulin Aspart 0 TIDAC 07/01 1700 AC 07/03 SC 1712 Levothyroxine Sodium 0.05 MG 0700 07/03 1000 AC 07/05 PO 0551 Melatonin 5 MG AT BEDTIME 07/02 2300 AC 07/03 PO 2234 Montelukast Sodium 10 MG AT BEDTIME 07/01 2200 AC 07/04 PO 2127 Moxifloxacin HCl 400 MG DAILY 07/03 1000 AC 07/05 PO 0832 Omeprazole 40 MG DAILY 07/01 1430 AC 07/05 PO 0551 Oxybutynin Chloride 5 MG BID 07/01 2200 AC 07/05 PO 0832 Patient Medication 1 ED .STK-MED ONE 07/04 1403 DC Teaching ED 07/04 1404 Polyethylene Glycol 17 GM DAILY 07/02 1000 AC 07/05 PO 0832 Ramelteon 8 MG ONCE ONE 07/04 2145 DC 07/04 PO 07/04 2146 2233 Sodium Chloride 2 SPRAY Q4P PRN 07/01 2299 AC 07/02 MAGDALENO 210 Tamsulosin HCl 0.4 MG AT BEDTIME 07/01 2199 AC 07/04 PO 2127 Vital Signs & I&O Last 24 Hrs of Vitals and I&O: Vital Signs Date Time Temp Pulse Resp B/P Pulse O2 O2 Flow FiO2 Ox Delivery Rate 07/05 0808 96 Nasal 1.0L Cannula 07/05 0800 94 Nasal 1.0L Cannula 07/05 0655 99.2 66 20 110/56 90 Nasal 3.0L Cannula 07/05 0142 94 Nasal 2.0L Cannula 07/05 0000 Nasal 1.0L Cannula 07/04 2235 98.9 70 20 110/60 90 Nasal Cannula 07/04 1930 94 Nasal 1.0L Cannula 07/04 1600 Nasal 1.0L Cannula 07/04 1410 98.9 64 20 110/58 93 Intake & Output 07/05 1600 07/05 0800 07/05 0000 Intake Total 100 800 Output Total 125 Balance -25 800 Intake, Oral 100 800 Output, Urine 125 Exam Other Physical Findings: General - Alert, awake and oriented HEENT - normocephalic, atraumatic Cardiovascular - S1, S2, +systolic murmur Lungs - rhonchi and egophony right mid lung Abdomen - soft, bowel sounds positive, no tenderness Extremities - without edema or cyanosis Results Last 24 Hrs of Lab Results: Laboratory Tests 07/05/16 0650: CBC w Diff NO MAN DIFF REQ, RBC 3.06 L, MCV 79.3 L, MCH 25.4 L, RDW 18.3 H, MPV 9.1, Gran % 65.5, Lymphocytes % 14.8 L, Monocytes % 17.2 H, Eosinophils % 2.1, Basophils % 0.4, Absolute Granulocytes 4.1, Absolute Lymphocytes 0.9 L, Absolute Monocytes 1.1 H, Absolute Eosinophils 0.1, Absolute Basophils 0, PUBS MCHC 32.0 L Impression/Plan Impression/Plan Impression/Plan: Impression 86 year old man - improved acute hypoxemic respiratory failure - o2 in ED high 70's responsive to o2 supplementation, this is the result of an acute right mid-lung pneumonia which maybe secondary to a healthcare associated pathogen given recent admission or an atypical infection - history of lung ca - s/p RLL lobectomy Plan - course of Avelox 7 days should be sufficient - consider diuresis - assess o2 requierements on room air and exertion - o2 supplementation - goal o2 >92% - TRC/Nebs - do not use anticholingergics (i.e. ipratropium/duonebs) secondary to prostate and eye issues - patient on Advair at home, he will bring own meds - would not use steroids at this time, can consider if has evidence of bronchospasm - DVT prophylaxis at all times (on Eliquis)
[2016-07-05 15:04] VITALS: BP 100/60
[2016-07-05 23:13] VITALS: BP 110/60
--- NOTE | 2016-07-06 05:58 | PN- Housestaff ---
SUPRIYA RIVAS,[facility] 07/06/16 0557: Subjective Follow-up For: HCAP GI Bleed Cold Sore Subjective: Mr. Daley was seen and examined this morning. He is resting comfortably in bed he denies any issues overnight. Patient states he was able to sleep well he denies any headache or any acute episodes of shortness of breath overnight. Patient states that he has been off supplementatl oxygen and after his blood transfusion he feels good. He denies any fever, chills, nausea, vomiting. Review of Systems Constitutional: Reports: see HPI. Objective Last 24 Hrs of Vital Signs/I&O Vital Signs Date Time Temp Pulse Resp B/P Pulse O2 O2 Flow FiO2 Ox Delivery Rate 07/06 1747 104/70 07/06 1435 98.4 69 20 120/60 92 07/06 1100 64 90 Nasal 0.5L Cannula 07/06 0902 92 Room Air 07/06 0733 99.7 60 22 138/64 95 Nasal Cannula 07/06 0000 Nasal 1.0L Cannula 07/05 2313 98.4 69 22 110/60 93 Nasal Cannula 07/05 2240 130/60 07/05 1845 91 Nasal 1.0L Cannula 07/05 1819 99.5 Intake & Output 07/06 1600 07/06 0800 07/06 0000 Intake Total 2200 200 450 Output Total 750 340 Balance 1450 200 110 Intake, Oral 2200 200 450 Output, Urine 750 340 Physical Exam General Appearance: Alert, Oriented X3, Cooperative Cardiovascular: Normal S1, Normal S2, Irregular Rhythm Lungs: Clear to Auscultation Abdomen: Normal Bowel Sounds, Soft, No Tenderness Neurological: Normal Gait, Normal Speech, Strength at 5/5 X4 Ext Current Medications: Current Medications Sig/Chuck Start time Last Medication Dose Route Stop Time Status Admin Acetaminophen 500 MG Q6P PRN 07/01 1730 AC 07/05 PO 1712 Acetaminophen 1,000 MG Q6P PRN 07/01 1730 AC N/A 1 UNIT IV Acyclovir 1 RUCHI Q4 PRN 07/05 0745 AC TOP Albuterol Sulfate 3 ML TID 07/02 1000 AC 07/06 INH 1255 Apixaban 2.5 MG BID 07/01 1428 AC 07/06 PO 0824 Carbidopa/Levodopa 1 TAB TID 07/01 1600 AC 07/06 PO 1747 Cholecalciferol 1,000 IU DAILY 07/01 1428 AC 07/06 PO 0824 Digoxin 0.125 MG 1700 07/01 1700 AC 07/06 PO 1747 Diltiazem HCl 240 MG DAILY 07/01 1430 AC 07/06 PO 0825 Docusate Sodium 100 MG DAILY 07/02 1000 AC 07/06 PO 0824 Ezetimibe 10 MG DAILY 07/01 1431 AC 07/06 PO 0824 Finasteride 5 MG AT BEDTIME 07/01 2200 AC 07/05 PO 2240 Furosemide 20 MG Q48 07/05 1000 AC PO Insulin Aspart 0 TIDAC 07/01 1700 AC 07/06 SC 1252 Levothyroxine Sodium 0.05 MG 0700 07/03 1000 AC 07/06 PO 0552 Melatonin 5 MG AT BEDTIME 07/02 2300 AC 07/03 PO 2234 Montelukast Sodium 10 MG AT BEDTIME 07/01 2200 AC 07/05 PO 2240 Moxifloxacin HCl 400 MG DAILY 07/03 1000 AC 07/06 PO 0827 Omeprazole 40 MG DAILY 07/01 1430 AC 07/06 PO 0824 Oxybutynin Chloride 5 MG BID 07/01 2200 AC 07/06 PO 0824 Patient Medication 1 ED .STK-MED ONE 07/06 1350 MA Teaching ED 07/06 1351 Polyethylene Glycol 17 GM DAILY 07/02 1000 AC 07/06 PO 0825 Ramelteon 8 MG ONCE ONE 07/06 0015 DC 07/06 PO 07/06 0016 0038 Sodium Chloride 2 SPRAY Q4P PRN 07/01 2300 AC 07/02 MAGDALENO 2102 Tamsulosin HCl 0.4 MG AT BEDTIME 07/01 2200 AC 07/05 PO 2240 Last 24 Hrs of Lab/Les Results Last 24 Hrs of Labs/Mics: Laboratory Tests 07/06/16 0736: Anion Gap 7, Estimated GFR > 60, BUN/Creatinine Ratio 20.0, CBC w Diff NO MAN DIFF REQ, RBC 3.65 L, MCV 79.4 L, MCH 26.0 L, RDW 18.0 H, MPV 9.0, Gran % 70.1, Lymphocytes % 12.9 L, Monocytes % 13.7 H, Eosinophils % 2.9, Basophils % 0.4, Absolute Granulocytes 5.7, Absolute Lymphocytes 1.1 L, Absolute Monocytes 1.1 H, Absolute Eosinophils 0.2, Absolute Basophils 0, PUBS MCHC 32.8 L Assessment/Plan Assessment: Mr Daley is an 86 year old gentleman with a past history of COPD (not on any home oxygen), atrial fibrillation (NOAC), hypertension, Parkinson's disease, 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 At the time of admission, temperature 102, pulse rate 107, blood pressure 1:30/ 65, pulse ox 94% (4-6 L), lab findings indicated WBC 11.9, hemoglobin 10.2, platelets 234, normal electrolytes sodium 141, potassium 3.6, bicarbonate 24, normal renal function-BUN 16, serum creatinine 0.8. Lower respiratory cultures- show growth of gram-negative rods and gram-positive rods. Radiological findings-chest x-ray revealed consolidation of right mid lung consistent with pneumonia, is slightly improved. #Acute hypoxic respiratory failure Secondary to pneumonia (likely healthcare associated pneumonia). [id number] rods and gram-positive cocci. Continue vancomycin and ceftazidime pending final culture results. --> Moxifloxacin 400 mg. Daily PO, today is day 4. Follow-up [facility] cultures and sensitivities. Lower respiratory culture shows mixed ratna after 2 days.Light Growth of Yeast, likely a contaminant. Repeat chest x-ray on 07/04/2016 to evaluate for worsening consolidation. Since patient continues to have increased oxygen requirements as well and bilateral 2+ edema, we will give him a one time dose of IV 40 mg Lasix. Patient responded well to Lasix if continues to short of breath may consider increasing Lasix frequency from 20 mg every 48-20 mg daily. Will observe the patient for another 24 hours given the fact that he required oxygen on ambulation. Measure I's and O's and daily weights. #Atrial fibrillation Currently on Eliquis 2.5mg. Has a history of GI bleed in the past. Guaiac positive stool-noticed. Contacted gastroenterology for advised. History of polyps and angiodysplasia on previous colonoscopy. Requested Dr. Guadarrama to see the patient to evaluate risks versus benefits for continuation of Eliquis. Digoxin level-0.6. Currently Rate controlled. Continue Cardizem. 240, Digoxin 125 g . #Cold Sores Ayclovir ointment 15 g one every 4Hours for symptomatic relief. #Abdominal pain LFTs within normal limits AST 43 and ALT 13. Serial abdominal exams Patient continues to complain of abdominal pain consider abdominal x-ray to rule out any bowel obstruction. #History of Hypothyroidism Continue Home medication Levothyroxine 50 mcg #Lightheadedness Currently asymptomatic. Check orthostatic hypotension. #Anemia Likely acute blood loss anemia. H&H 10.2--> 8.6--> 8.3-->8.4-->7.8-->9.5 Patient was transfused 1 unit PRBC. Recommended that patient should have routine lab work as an outpatient to ensure H&H remained above 8 he may benefit from outpatient transfusions should levels fall below 8. #DVT prophylaxis Eliquis #Code: Full Code Problem List: 1. Cold sore 2. Healthcare-associated pneumonia 3. Healthcare associated bacterial pneumonia 4. Acute hypoxemic respiratory failure 5. Atrial fibrillation Pain Ratin Pain Location: No Pain Pain Goal: Remain pain free Pain Plan: Tylenol PRN Tomorrow's Labs & Rationales: No Labs needed WOLF RIVAS,BRITNEY 07/06/16 1227: Attending MD Review Statement Attending Statement Attending MD Statement: examined this patient, discuss w/resident/PA/HEAD OF SALES, agreed w/resident/PA/HEAD OF SALES, reviewed EMR data (avail), discussed with nursing, discussed with case mgmt, amended to note Attending Assessment/Plan: Patient seen and examined, was doing okay at rest without oxygen but as well as he got up he felt dizzy and he dropped his oxygen saturations to 80%. Vital Signs Date Time Temp Pulse Resp B/P Pulse O2 O2 Flow FiO2 Ox Delivery Rate 07/06 1100 64 90 Nasal 0.5L Cannula 07/06 0902 92 Room Air 07/06 0733 99.7 60 22 138/64 95 Nasal Cannula 07/06 0000 Nasal 1.0L Cannula 07/05 2313 98.4 69 22 110/60 93 Nasal Cannula 07/05 2240 130/60 07/05 1845 91 Nasal 1.0L Cannula 07/05 1819 99.5 07/05 1712 99.4 07/05 1645 63 108/58 07/05 1504 97.1 64 22 100/60 93 on exam; aox3, nad cv; s1,s2, irregular. resp; decresaed bs at right base. abd; soft, nt, bs+ ext; no edema. Laboratory Tests 07/06 0736 Chemistry Sodium (137 - 145 mmol/L) 141 Potassium (3.5 - 5.1 mmol/L) 4.1 Chloride (98 - 107 mmol/L) 103 Carbon Dioxide (22 - 30 mmol/L) 31 H Anion Gap (5 - 16) 7 BUN (9 - 20 mg/dL) 14 Creatinine (0.7 - 1.2 mg/dL) 0.7 Estimated GFR (>60 ml/min) > 60 BUN/Creatinine Ratio (7 - 25 %) 20.0 Hematology CBC w Diff NO MAN DIFF REQ WBC (4.8 - 10.8 /CUMM) 8.2 RBC (4.70 - 6.10 /CUMM) 3.65 L Hgb (14.0 - 18.0 G/DL) 9.5 L Hct (42 - 52 %) 29.0 L MCV (80.0 - 94.0 FL) 79.4 L MCH (27.0 - 31.0 PG) 26.0 L RDW (11.5 - 14.5 %) 18.0 H Plt Count (130 - 400 /CUMM) 279 MPV (7.4 - 10.4 FL) 9.0 Gran % (42.2 - 75.2 %) 70.1 Lymphocytes % (20.5 - 51.1 %) 12.9 L Monocytes % (1.7 - 9.3 %) 13.7 H Eosinophils % (0 - 5 %) 2.9 Basophils % (0.0 - 2.0 %) 0.4 Absolute Granulocytes (1.4 - 6.5 /CUMM) 5.7 Absolute Lymphocytes (1.2 - 3.4 /CUMM) 1.1 L Absolute Monocytes (0.10 - 0.60 /CUMM) 1.1 H Absolute Eosinophils (0.0 - 0.7 /CUMM) 0.2 Absolute Basophils (0.0 - 0.2 /CUMM) 0 PUBS MCHC (33.0 - 37.0 G/DL) 32.8 L A/P: 86 y/o M with pmh sig for COPD, Afib on eliquis, HTN, T2DM, Parkinson's disease, adenocarcinoma of lung s/p RLL lobectomy, GI bleed, CAD, HFpEF, admitted with acute hypoxic respiratory failure secondary to pneumonia. We're trying to taper it is 02. At rest he was okay but as soon as he got up he felt dizzy and dropped his oxygen saturations to 80%. At this point we have him on a very low oxygen and will try to taper but it seems like the patient might need to go home with oxygen. He will stay for another 24 hours because of the fact that he dropped O2 sat significantly and he felt dizzy. H&H improved after transfusion. Patient has been continued on Avelox. Continue TRC nebs. DVT prophylaxis. Eliquis. We will discharge him home tomorrow if improved.
[2016-07-06 07:33] VITALS: BP 138/64
[2016-07-06 08:13] LABS: ABSOLUTE BASOPHIL COUNT 0 /CUMM (0.0-0.2); ABSOLUTE EOSINOPHIL COUNT 0.2 /CUMM (0.0-0.7); ABSOLUTE GRANULOCYTE CT 5.7 /CUMM (1.4-6.5); ABSOLUTE LYMPH COUNT 1.1 /CUMM (1.2-3.4); ABSOLUTE MONOCYTE COUNT 1.1 /CUMM (0.10-0.60); BASOPHIL % 0.4 % (0.0-2.0); EOSINOPHIL % 2.9 % (0-5); GRANULOCYTE % 70.1 % (42.2-75.2); MEAN CORPUSCULAR HGB CONC 32.8 G/DL (33.0-37.0); MEAN CORPUSCULAR VOLUME 79.4 FL (80.0-94.0); PLATELET COUNT 279 /CUMM (130-400); RED BLOOD CELL CT 3.65 /CUMM (4.70-6.10); WHITE BLOOD CELL COUNT 8.2 /CUMM (4.8-10.8)
--- NOTE | 2016-07-06 09:27 | PN- Pulmonary ---
Subjective HPI/Critical Care Issues: pt seen and examined doing better spo2 92% on ra Objective Current Medications: Current Medications Sig/Chuck Start time Last Medication Dose Route Stop Time Status Admin Acetaminophen 500 MG .STK-MED ONE 07/05 1700 DC PO 07/05 1701 Acetaminophen 500 MG Q6P PRN 07/01 1730 AC 07/05 PO 1712 Acetaminophen 1,000 MG Q6P PRN 07/01 1730 AC N/A 1 UNIT IV Acyclovir 1 RUCHI Q4 PRN 07/05 0745 AC TOP Albuterol Sulfate 3 ML TID 07/02 1000 AC 07/06 INH 0900 Apixaban 2.5 MG BID 07/01 1428 AC 07/06 PO 0824 Carbidopa/Levodopa 1 TAB TID 07/01 1600 AC 07/06 PO 0826 Cholecalciferol 1,000 IU DAILY 07/01 1428 AC 07/06 PO 0824 Digoxin 0.125 MG 1700 07/01 1700 AC 07/05 PO 1645 Diltiazem HCl 240 MG DAILY 07/01 1430 AC 07/06 PO 0825 Docusate Sodium 100 MG DAILY 07/02 1000 AC 07/06 PO 0824 Ezetimibe 10 MG DAILY 07/01 1431 AC 07/06 PO 0824 Finasteride 5 MG AT BEDTIME 07/01 2200 AC 07/05 PO 2240 Furosemide 40 MG ONCE ONE 07/05 1015 DC 07/05 IV 07/05 1016 1131 Furosemide 20 MG Q48 07/05 1000 AC PO Insulin Aspart 0 TIDAC 07/01 1700 AC 07/05 SC 1815 Levothyroxine Sodium 0.05 MG 0700 07/03 1000 AC 07/06 PO 0552 Melatonin 5 MG AT BEDTIME 07/02 2300 AC 07/03 PO 2234 Montelukast Sodium 10 MG AT BEDTIME 07/01 2200 AC 07/05 PO 2240 Moxifloxacin HCl 400 MG DAILY 07/03 1000 AC 07/06 PO 0827 Omeprazole 40 MG DAILY 07/01 1430 AC 07/06 PO 0824 Oxybutynin Chloride 5 MG BID 07/01 2200 AC 07/06 PO 0824 Patient Medication 1 ED .STK-MED ONE 07/05 1401 DC Teaching ED 07/05 1402 Polyethylene Glycol 17 GM DAILY 07/02 1000 AC 07/06 PO 0825 Ramelteon 8 MG ONCE ONE 07/06 0015 DC 07/06 PO 07/06 0016 0038 Sodium Chloride 2 SPRAY Q4P PRN 07/01 2300 AC 07/02 MAGDALENO 2102 Tamsulosin HCl 0.4 MG AT BEDTIME 07/01 220 AC 07/05 PO 2240 Vital Signs & I&O Last 24 Hrs of Vitals and I&O: Vital Signs Date Time Temp Pulse Resp B/P Pulse O2 O2 Flow FiO2 Ox Delivery Rate 07/06 0902 92 Room Air 07/06 0733 99.7 60 22 138/64 95 Nasal Cannula 07/06 0000 Nasal 1.0L Cannula 07/05 2313 98.4 69 22 110/60 93 Nasal Cannula 07/05 2240 130/60 07/05 1845 91 Nasal 1.0L Cannula 07/05 1819 99.5 07/05 1712 99.4 07/05 1645 63 108/58 07/05 1504 97.1 64 22 100/60 93 Intake & Output 07/06 1600 07/06 0800 07/06 0000 Intake Total 200 450 Output Total 340 Balance 200 110 Intake, Oral 200 450 Output, Urine 340 Exam Other Physical Findings: General - Alert, awake and oriented HEENT - normocephalic, atraumatic Cardiovascular - S1, S2, +systolic murmur Lungs - rhonchi improved Abdomen - soft, bowel sounds positive, no tenderness Extremities - without edema or cyanosis Results Last 24 Hrs of Lab Results: Laboratory Tests 07/06/16 0736: Anion Gap 7, Estimated GFR > 60, BUN/Creatinine Ratio 20.0, CBC w Diff NO MAN DIFF REQ, RBC 3.65 L, MCV 79.4 L, MCH 26.0 L, RDW 18.0 H, MPV 9.0, Gran % 70.1, Lymphocytes % 12.9 L, Monocytes % 13.7 H, Eosinophils % 2.9, Basophils % 0.4, Absolute Granulocytes 5.7, Absolute Lymphocytes 1.1 L, Absolute Monocytes 1.1 H, Absolute Eosinophils 0.2, Absolute Basophils 0, PUBS MCHC 32.8 L Impression/Plan Impression/Plan Impression/Plan: Impression 86 year old man - improved acute hypoxemic respiratory failure - o2 in ED high 70's responsive to o2 supplementation, this is the result of an acute right mid-lung pneumonia which maybe secondary to a healthcare associated pathogen given recent admission or an atypical infection - history of lung ca - s/p RLL lobectomy Plan - course of Avelox 7 total - ins/outs, keep even to negative fluid balance - assess o2 requierements on room air and exertion - o2 supplementation - goal o2 >92% - TRC/Nebs - do not use anticholingergics (i.e. ipratropium/duonebs) secondary to prostate and eye issues - patient on Advair at home, he will bring own meds - would not use steroids at this time, can consider if has evidence of bronchospasm - DVT prophylaxis at all times (on Eliquis) will see within 1 wk of dc
--- NOTE | 2016-07-06 10:56 | NUR ---
THIS RN AMBULATED PT WITHOUT O2. PATIENT'S O2 RESTING 90%, DESATURATED LOW AT 82% WITH AMBULATION WITHOUT O2. PATIENT ALSO C/O OF "LIGHTHEADEDNESS" WITH THE HYPOXIC EPISODES.
--- NOTE | 2016-07-06 10:58 | NUR ---
PT'S O2 RECHECKED AT THIS TIME PT AMBULATED ROUGHLY 5 MINUTES AGO AND DESTURATED. PT AT 89%. PER DR. SHETTY TO PLACE 0.5L OF 02 AT THIS TIME. WILL MONITOR PATIENT. OFFERS NO SYMPTOMS AT THIS TIME. HR 64 WITHOUT C/O OF LIGHTHEADEDNESS OR DIZZINESS.
[2016-07-06] MEDS ORDERED: MOXIFLOXACIN H400 M2 PO (13:45)
[2016-07-06 14:35] VITALS: BP 120/60
--- NOTE | 2016-07-06 18:11 | Discharge Summary ---
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 He was admitted to the General medical service and below is a summary of the care he received. At the time of presentation, the patient had a temperature 102.0, Pulse rate 107 , RR 16, blood pressure 130/65, pulse ox 94% (4-6 L). Lab findings indicated WBC 11.9, hemoglobin 10.2, platelets 234, normal electrolytes sodium 141, Potassium 3.6, Bicarbonate 24. #Acute hypoxic respiratory failure At the time of admission the patient was started on Vancomycin and Ceftazidime. He was continued on this medication until day three of admission. The patient was then started on Moxifloxacin 400 mg daily.The patient was prescribed this medication for a total of 7 days. Over the course of the admission the patient had to be placed on supplemental oxygen via nasal cannula to maintain saturations above 92%. This was used as needed. Two days prior to discharge the patient saturations were assessed on room air with exertion. Patient did continue to desaturate with exertion. As a result of this,the patient had to be sent home on low flow oxygen. It was recomended that the patient follow-up with patient services representative as an outpatient. A rapid viral influenza A/B was negative. Mr Daley's LRC did show light growth of yeast. #Atrial fibrillation The patient who has had a history of atrial fibrillation and who is currently on Eliquis 2.5 mg was continued on this medication after cardiology consultation recommended this. Although the patient did have a history of polyps and angiodysplasia found on previous colonoscopy the risks of discontinuing Eliquis were discussed with the patient. The patient had a strong preference to continue anticoagulation in order to avoid stroke secondary to atrial fibrillation. For rate control the patient was continued on diltiazem and digoxin. #Acute blood loss anemia At the time of presentation the patient had an H&H of 10.2/31.8. On day 2 of admission the patient did have a gastroenterology who recommended that the patient would benefit from maintaining a hemoglobin/Hematocrit level of above 8/ 24 respectively. Over the course of his admission the patient did have a drop in his H/H. Patient did receive 1 unit of PRBC. It was also recommended the patient may benefit from outpatient iron transfusions. #Abdominal pain On day 3 of admission the patient complained of subjective abdominal pain. Serial abdominal exams were within normal limits. LFTs during this time were within normal limits. #History of Hypothyroidism The patient did have a history of hypothyroidism. We continued his home medication of levothyroxine 50 g. #Cold Sores Patient did complain of bilateral cold sores during the time of his admission. He was prescribed Acyclovir ointment 15 g to use it every 4 hours for symptomatic relief. #DVT prophylaxis The patient was maintained on Eliquis for DVT prophylaxis Allergies: Coded Allergies: pollen extracts (UNKNOWN 07/01/16) atorvastatin (Severe, MUSCLE WEAKNESS 07/01/16) Uncoded Allergies: DUST (UNKNOWN 12/26/14) Significant Procedures: SERVICE DATE: 07/02/16- EXAM TYPE: RAD - XRY-MODIFIED BARIUM SWALLOW IMPRESSION: 1. No evidence of tracheal aspiration. 2. Prominent cricopharyngeus impression is observed at C5-C6 level. DICTATED BY: LALA JAIN MD Pertinent Lab Results: SERVICE DATE: 07/01/16-1115 EXAM TYPE: RAD - XRY-PORTABLE CHEST XRAY IMPRESSION: New large right midlung consolidation most likely in the lateral segment of middle lobe. Cardiomegaly. DICTATED BY: LOVELY RIVAS,ANGÉLICA SERVICE DATE: 07/01/16-1324 EXAM TYPE: CAT - CT HEAD WO IV CONTRAST IMPRESSION: 1. Limited exam due to motion. 2. No definite acute intracranial pathology. 3. Changes of mild periventricular deep white matter ischemic small vessel disease. DICTATED BY: KEVIN RIVAS,SIMON Dunham. SERVICE DATE: 07/02/16-06 EXAM TYPE: RAD - XRY-PORTABLE CHEST XRAY IMPRESSION: 1. Pulmonary emphysema. 2. Consolidation in the right midlung, consistent with pneumonia, is slightly improved compared to 07/01/2016. 3. Cardiomegaly without acute pulmonary edema. DICTATED BY: LALA JAIN MD SERVICE DATE: 07/04/16 EXAM TYPE: RAD - XRY-CHEST XRAY, PA AND LATERAL IMPRESSION: 1. No interval change in right midlung consolidation. 2. Increasing opacity in the left hilum and perihilar region extending into the lower lobe, possibly related to vascular congestion and subsegmental atelectasis. Continued follow-up is recommended. DICTATED BY: SIMON BROWN MD Disposition Summary Disposition Principal Diagnosis: Acute hypoxic respiratory failure Additional Diagnosis: Atrial Fibrillation Acute blood loss anemia History of hypothyroidism Abdominal pain Cold sores Discharge Disposition: home or self care Discharge Instructions General Discharge Information Code Status: Full Code Patient's Diet: Heart Healthy Patient's Activity: As Tolerated Follow-Up Instructions/Appts: - Please see your PCP within one week of discharge. Speak to your PCP about iron infusions as outpatient. On 07/11/2016, please have a CBC done. We have given you a script. CC these results to your PCP. - Please see your patient services representative within one week of discharge. You MAY need a repeat chest X-Ray. - Please see your web content developer, and GI doctor within one week of discharge. Medications at Discharge Discharge Medications: Stop taking the following medications: Ipratropium/Albuterol Sulfate (Combivent Respimat Inhal [place]) 20 MCG-100 MCG/ ACTUATION MIST.INHAL NASAL DAILY Continue taking these medications: Fluticasone-Salmeterol (Advair 500-50 Diskus) 500 MCG-50 MCG/DOSE BLST.W.DEV 1 Puff Inhale through mouth TWICE DAILY Comments: SYMBICORT GIVEN 04/27/15 1000AM Levothyroxine Sodium (Synthroid) 50 MCG TABLET 1 Tablet ORAL DAILY Qty = 30 Comments: Last Taken:07/08/16 Time:0700 Docusate Sodium (Colace) 100 MG CAPSULE 1 ORAL DAILY Comments: Last Taken:07/08/16 Time:1000 Lubiprostone (Amitiza) 8 MCG CAPSULE 1 Capsule ORAL TWICE DAILY Comments: NOT GIVEN IN HOSPITAL Dexlansoprazole (Dexilant) 60 MG CAP.DR.BP 1 Capsule ORAL DAILY Comments: NOT GIVEN INPATIENT Tamsulosin Hydrochloride (Flomax) 0.4 MG CAP.ER.24H 1 Capsule ORAL AT BEDTIME Comments: NOT GIVEN IN HOSPITAL Cholecalciferol (Vitamin D3) 1,000 IU TAB 1 Tablet ORAL DAILY Comments: Last Taken: 04/27/15 Time: 1000am Solifenacin Succinate (Vesicare) 5 MG TAB 1 Tablet ORAL DAILY Comments: OXYBUTIN GIVEN 04/27/15 1000AM Digoxin (Digoxin) 0.125 MG TAB 1 Tablet ORAL DAILY Days = 14 Comments: Last Taken: 04/27/15 Time: 1000AM Metformin HCl (Metformin HCl) 500 MG TABLET 1 Tablet ORAL AT BEDTIME Qty = 180 Comments: Last Taken:NOT GIVEN IN HOSPITAL Time: Carbidopa/Levodopa (Sinemet 25-100 MG Tablet) 25 MG-100 MG TABLET 1 Tablet ORAL THREE TIMES DAILY Comments: Last Taken:07/08/16 Time:1000 Diltiazem HCl (Diltiazem ER) 240 MG CAP.ER.DEG 1 Tablet ORAL DAILY Ferrous Sulfate (Ferrous Sulfate) 325 MG (65 MG IRON) TABLET 1 Tablet ORAL DAILY Comments: NOT GIVEN Finasteride (Finasteride) 5 MG TABLET 1 Tablet ORAL AT BEDTIME Comments: Last Taken:07/07/16 Time:9 PM Furosemide (Lasix) 20 MG TABLET 1 Tablet ORAL Every other day Comments: Last Taken:07/07/16 Time:1000 Montelukast Sodium (Montelukast Sodium) 10 MG TABLET 1 Tablet ORAL AT BEDTIME Comments: Last Taken:07/07/16 Time: 10 PM Apixaban (Eliquis) 2.5 MG TABLET 1 Tablet ORAL TWICE DAILY Instructions: Please discuss with your web content developer before resuming the medication Comments: Last Taken:07/08/16 Time:1000 Polyethylene Glycol 3350 (Miralax) 17 GRAM POWD.PACK 1 Packet ORAL DAILY Instructions: dissolve in water Comments: Last Taken:07/08/16 Time:1000 Albuterol Sulfate (Proair Hfa) 90 MCG HFA.AER.AD 2 Puff Inhale through mouth EVERY 4-6 HOURS NEEDED as needed for COPD Comments: Last Taken:NOT GIVEN IN HOSPITAL Time: Ezetimibe/Simvastatin (Vytorin 10-10 MG Tablet) 10 MG-10 MG TABLET 1 Tablet ORAL AT BEDTIME Comments: Last Taken:07/08/16 Time:1000 Start taking the following new medications: Acyclovir (Zovirax) 5 % OINT...G. 1 Application On the skin Every 4 hours as needed for COLD SORES Days = 7 No Refills Comments: Last Taken:07/08/16 Time:1000 Copies To: JONNY RIVAS,Everett ESPINOZA; ANABELLE VALDEZ MD; ALONSO RIVAS,PETER Haney; EVELYN RIVAS,KAYLYNN
--- NOTE | 2016-07-06 20:05 | NUR ---
O2 87% ON 0.5L NC. PT ASYMPTOMATIC. O2 INC TO 1L, EVALUATED BY RESPIRATORY AND RECEIVED TXYasmine LYLE FROM RESPIRATORY TO F/U AND ENTER NEW O2 SAT. DR LOPEZ AND RECEIVING NURSE MADE AWARE.
[2016-07-06 22:53] VITALS: BP 138/72
[2016-07-07 08:00] VITALS: BP 114/58
--- NOTE | 2016-07-07 08:03 | PN- Housestaff ---
KAREN RIVAS,JAD 07/07/16 0803: Subjective Follow-up For: Healthcare associated pneumonia COPD exacerbation Congestive heart failure Subjective: I saw examined the patient today morning. He feels much better, reports off the oxygen and able to breath well at rest. Reports still having cough with isaias colored phlegm. Denies any fevers, chills , chest pain, abdominal pain. He had a bowel movement last night. Denies any nausea, vomiting. Review of Systems Constitutional: Reports: see HPI. Comments: ROS negative except above Objective Last 24 Hrs of Vital Signs/I&O Vital Signs Date Time Temp Pulse Resp B/P Pulse O2 O2 Flow FiO2 Ox Delivery Rate 07/07 0801 96 Nasal 1.0L Cannula 07/07 0705 58 20 93 Nasal 0.5L Cannula 07/07 0000 92 Nasal 1.0L Cannula 07/06 2253 98.2 62 20 138/72 94 Nasal 1.5L Cannula 07/06 2113 138/72 07/06 1850 87 Nasal 0.5L Cannula 07/06 1747 104/70 07/06 1600 Nasal 0.5L Cannula 07/06 1435 98.4 69 20 120/60 92 07/06 1100 64 90 Nasal 0.5L Cannula 07/06 0902 92 Room Air Intake & Output 07/07 1600 07/07 0800 07/07 0000 Intake Total 120 Output Total 200 175 Balance -200 -55 Intake, Oral 120 Output, Urine 200 175 Physical Exam General Appearance: Alert, Oriented X3, Cooperative HEENT: Atraumatic, PERRLA, EOMI Neck: Supple, No JVD Cardiovascular: Normal S1, Normal S2 Lungs: Normal Air Movement, decreased breath sounds on the right base. Clear lungs on the left side Abdomen: Normal Bowel Sounds, Soft, No Tenderness Neurological: Normal Gait, Normal Speech, Normal Tone Extremities: No Clubbing, No Cyanosis, 2+ edema on both lower extremities, chronic Vascular: Normal Pulses, Pulses Symmetrical Current Medications: Current Medications Sig/Chuck Start time Last Medication Dose Route Stop Time Status Admin Acetaminophen 500 MG Q6P PRN 07/01 1730 AC 07/05 PO 1712 Acetaminophen 1,000 MG Q6P PRN 07/01 1730 AC N/A 1 UNIT IV Acyclovir 1 RUCHI Q4 PRN 07/05 0745 AC TOP Albuterol Sulfate 3 ML TID 07/02 1000 AC 07/07 INH 0754 Apixaban 2.5 MG BID 07/01 1428 AC 07/06 PO 211 Carbidopa/Levodopa 1 TAB TID 07/01 1600 AC 07/06 PO 211 Cholecalciferol 1,000 IU DAILY 07/01 1428 AC 07/06 PO 0824 Digoxin 0.125 MG 1700 07/01 1700 AC 07/06 PO 1747 Diltiazem HCl 240 MG DAILY 07/01 1430 AC 07/06 PO 0825 Docusate Sodium 100 MG DAILY 07/02 1000 AC 07/06 PO 0824 Ezetimibe 10 MG DAILY 07/01 1431 AC 07/06 PO 0824 Finasteride 5 MG AT BEDTIME 07/01 2200 AC 07/06 PO 2115 Furosemide 20 MG Q48 07/05 1000 AC PO Insulin Aspart 2 UNITS ONCE ONE 07/06 2215 DC 07/06 SC 07/06 2216 2234 Insulin Aspart 0 TIDAC 07/01 1700 AC 07/06 SC 1252 Levothyroxine Sodium 0.05 MG 0700 07/03 1000 AC 07/07 PO 0715 Melatonin 5 MG AT BEDTIME 07/02 2300 AC 07/06 PO 211 Montelukast Sodium 10 MG AT BEDTIME 07/01 2200 AC 07/06 PO 211 Moxifloxacin HCl 400 MG DAILY 07/03 1000 AC 07/06 PO 0827 Omeprazole 40 MG DAILY 07/01 1430 AC 07/06 PO 0824 Oxybutynin Chloride 5 MG BID 07/01 2200 AC 07/06 PO 211 Patient Medication 1 ED .STK-MED ONE 07/06 1350 MN Teaching ED 07/06 1351 Polyethylene Glycol 17 GM DAILY 07/02 1000 AC 07/06 PO 0825 Sodium Chloride 2 SPRAY Q4P PRN 07/01 2300 AC 07/02 MAGDALENO 2102 Tamsulosin HCl 0.4 MG AT BEDTIME 07/01 2200 AC 07/06 PO 211 Assessment/Plan Assessment: Mr Daley is an 86 year old gentleman with a past history of COPD (not on any home oxygen), atrial fibrillation (NOAC), hypertension, Parkinson's disease, 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 At the time of admission, temperature 102, pulse rate 107, blood pressure 1:30/ 65, pulse ox 94% (4-6 L), lab findings indicated WBC 11.9, hemoglobin 10.2, platelets 234, normal electrolytes sodium 141, potassium 3.6, bicarbonate 24, normal renal function-BUN 16, serum creatinine 0.8. Lower respiratory cultures- show growth of gram-negative rods and gram-positive rods. Radiological findings-chest x-ray revealed consolidation of right mid lung consistent with pneumonia, is slightly improved. #Acute hypoxic respiratory failure Secondary to pneumonia (likely healthcare associated pneumonia). [id number] rods and gram-positive cocci. Continue vancomycin and ceftazidime pending final culture results. --> Moxifloxacin 400 mg. Daily PO, today is day 5. Follow-up LRC cultures and sensitivities. Lower respiratory culture shows mixed ratna after 2 days.Light Growth of Yeast, likely a contaminant. Repeat chest x-ray on 07/04/2016 to evaluate for worsening consolidation. Since patient continues to have increased oxygen requirements as well and bilateral 2+ edema, we will give him a one time dose of IV 40 mg Lasix. Patient responded well to Lasix if continues to short of breath may consider increasing Lasix frequency from 20 mg every 48-20 mg daily. Saturating 90% at rest and 86% on ambulation - current requirement is 1L. We will arrange for oxygen and send him tomorrow. Measure I's and O's and daily weights. #Atrial fibrillation Currently on Eliquis 2.5mg. Has a history of GI bleed in the past. Guaiac positive stool-noticed. Contacted gastroenterology for advised. History of polyps and angiodysplasia on previous colonoscopy. Requested Dr. Guadarrama to see the patient to evaluate risks versus benefits for continuation of Eliquis. Digoxin level-0.6. Currently Rate controlled. Continue Cardizem. 240, Digoxin 125 g . #Cold Sores Ayclovir ointment 15 g one every 4Hours for symptomatic relief. #Abdominal pain LFTs within normal limits AST 43 and ALT 13. Serial abdominal exams #History of Hypothyroidism Continue Home medication Levothyroxine 50 mcg #Lightheadedness Currently asymptomatic. Check orthostatic hypotension. #Anemia Likely acute blood loss anemia. H&H 10.2--> 8.6--> 8.3-->8.4-->7.8-->9.5 Patient was transfused 1 unit PRBC. Recommended that patient should have routine lab work as an outpatient to ensure H&H remained above 8 he may benefit from outpatient transfusions should levels fall below 8. #DVT prophylaxis Eliquis #Code: Full Code Problem List: 1. Healthcare-associated pneumonia 2. Acute hypoxemic respiratory failure 3. Pneumonia 4. Shortness of breath Pain Ratin Pain Location: n/a Pain Goal: Pain 4 or less Pain Plan: tylenol PRN Tomorrow's Labs & Rationales: NONE BRITNEY BLOOM MD 07/07/16 1243: Attending MD Review Statement Attending Statement Attending MD Statement: examined this patient, discuss w/resident/PA/SHOT PACKER, agreed w/resident/PA/SHOT PACKER, reviewed EMR data (avail), discussed with nursing, discussed with case mgmt, reviewed images, amended to note Attending Assessment/Plan: Patient seen and examined, overall doing better today. At rest he is on room air. We'll check his ambulatory O2 sat to determine if he needs to go home with oxygen or not. He will be completing the course of his Avelox. He will continue his neb treatments. If he needs home oxygen, we will obtain stat. Otherwise we'll continue him on the rest of his home medications. Patient will be discharged home today. Overall doing much better. He will follow per Dr. Crane in his office within a week. Told the patient about this and he agrees.
--- NOTE | 2016-07-07 10:21 | PN- Pulmonary ---
Subjective HPI/Critical Care Issues: Patient feels well without shortness of breath Objective Current Medications: Current Medications Sig/Chuck Start time Last Medication Dose Route Stop Time Status Admin Acetaminophen 500 MG Q6P PRN 07/01 1730 AC 07/05 PO 1712 Acetaminophen 1,000 MG Q6P PRN 07/01 1730 AC N/A 1 UNIT IV Acyclovir 1 RUCHI Q4 PRN 07/05 0745 AC TOP Albuterol Sulfate 3 ML BID 07/07 2200 AC INH Albuterol Sulfate 3 ML TID 07/02 1000 DC 07/07 INH 0754 Apixaban 2.5 MG BID 07/01 1428 AC 07/06 PO 211 Carbidopa/Levodopa 1 TAB TID 07/01 1600 AC 07/06 PO 211 Cholecalciferol 1,000 IU DAILY 07/01 1428 AC 07/06 PO 0824 Digoxin 0.125 MG 1700 07/01 1700 AC 07/06 PO 1747 Diltiazem HCl 240 MG DAILY 07/01 1430 AC 07/06 PO 0825 Docusate Sodium 100 MG DAILY 07/02 1000 AC 07/06 PO 0824 Ezetimibe 10 MG DAILY 07/01 1431 AC 07/06 PO 0824 Finasteride 5 MG AT BEDTIME 07/01 2200 AC 07/06 PO 2115 Furosemide 20 MG Q48 07/05 1000 AC PO Insulin Aspart 2 UNITS ONCE ONE 07/06 2215 DC 03 SC 07/06 2216 2234 Insulin Aspart 0 TIDAC 07/01 1700 AC 07/06 SC 1252 Levothyroxine Sodium 0.05 MG 0700 07/03 1000 AC 07/07 PO 0715 Melatonin 5 MG AT BEDTIME 07/02 2300 AC 07/06 PO 2113 Montelukast Sodium 10 MG AT BEDTIME 07/01 2200 AC 07/06 PO 2112 Moxifloxacin HCl 400 MG DAILY 07/03 1000 DC 07/06 PO 0827 Omeprazole 40 MG DAILY 07/01 1430 AC 07/06 PO 0824 Oxybutynin Chloride 5 MG BID 07/01 2200 AC 07/06 PO 2114 Patient Medication 1 ED .STK-MED ONE 07/06 1350 DC Teaching ED 07/06 1351 Polyethylene Glycol 17 GM DAILY 07/02 1000 AC 07/06 PO 0825 Sodium Chloride 2 SPRAY Q4P PRN 07/01 2300 AC 07/02 MAGDALENO 210 Tamsulosin HCl 0.4 MG AT BEDTIME 07/01 2199 AC 07/06 PO 2112 Vital Signs & I&O Last 24 Hrs of Vitals and I&O: Vital Signs Date Time Temp Pulse Resp B/P Pulse O2 O2 Flow FiO2 Ox Delivery Rate 07/07 0801 96 Nasal 1.0L Cannula 07/07 0705 58 20 93 Nasal 0.5L Cannula 07/07 0000 92 Nasal 1.0L Cannula 07/06 2253 98.2 62 20 138/72 94 Nasal 1.5L Cannula 07/06 2113 138/72 07/06 1850 87 Nasal 0.5L Cannula 07/06 1747 104/70 07/06 1600 Nasal 0.5L Cannula 07/06 1435 98.4 69 20 120/60 92 07/06 1100 64 90 Nasal 0.5L Cannula Intake & Output 07/07 1600 07/07 0800 07/07 0000 Intake Total 120 Output Total 200 175 Balance -200 -55 Intake, Oral 120 Output, Urine 200 175 Oxygen saturation 1 L 96% exam of his chest shows somewhat diminished breath sounds are no wheezes heard cardiac exam shows regular S1 and S2 without murmurs Impression/Plan Impression/Plan Impression/Plan: 86-year-old gentleman being treated for possible healthcare associated pneumonia has improved respiratory status Recommendations: Follow-up Dr. Crane's recommendation. Assess room air oxygen saturation at rest and with exertion.
[2016-07-07 14:53] VITALS: BP 120/70
--- NOTE | 2016-07-07 14:57 | NUR ---
O2 SAT 90 ON RA AT REST, O2 SAT 86 ON RA WITH AMBULATION, O2 REPLACED AT 1 LITER VIA N/C. NOTIFIED, STATES SHE WILL COME SEE PT
--- NOTE | 2016-07-07 16:21 | NUR ---
PER CASE MANAGEMENT, TEST PT'S O2 ON RA AND 1L AT REST AND AMBULATION. PLAN IS TO D/C TOMORROW. PT'S O2 AT REST ON RA 90%, DESAT TO 81% ON RA WITH AMBULATION-PT REPORTED LIGHTHEADEDNESS AND SOB. O2 ON 1L AT REST 96%, DESAT TO 88% WITH AMBULATION ON 1L-DENIED LIGHTHEADED OR SOB AT THIS TIME.
--- NOTE | 2016-07-07 19:39 | NUR ---
CALLED TO ROOM AT THIS TIME, PT REPORTS CHILLS, DENIES SORE THROAT, STATES HE "FEELS FINE EXCEPT JUST STARTED FEELING CHILLS", ORAL TEMP 97.6 WILL RECHECK, WILL CONTINUE TO MONITOR.
[2016-07-07 22:14] VITALS: BP 118/54
--- NOTE | 2016-07-07 23:11 | NUR ---
PT C/O HEADACHE, MEDICATED WITH PO TYLENOL AT THIS TIME, MST REPORTED ORAL TEMP 99.7, PO FLUIDS ENCOURAGED, REPORTED OFF TO ONCOMING NURSE.
[2016-07-08 07:13] VITALS: BP 112/48
--- NOTE | 2016-07-08 08:04 | PN- Housestaff ---
See Addendum Subjective Follow-up For: Healthcare associated pneumonia COPD exacerbation Congestive heart failure Subjective: Patient seen and examined at bedside. He is talking with family over the phone in chair. Feels well with no complaints. Denies any fevers, chills, chest pain, abdominal pain, n/v/c/d. Review of Systems Constitutional: Reports: see HPI. Objective Last 24 Hrs of Vital Signs/I&O Vital Signs Date Time Temp Pulse Resp B/P Pulse O2 O2 Flow FiO2 Ox Delivery Rate 07/08 712 97.6 75 20 112/48 95 Nasal 0.5L Cannula 07/08 0000 92 Nasal 1.0L Cannula 07/07 2214 99.7 81 20 118/54 92 Nasal Cannula 07/07 2034 95 Nasal 2.0L Cannula 07/07 1620 88 Nasal 1.0L Cannula 07/07 1620 96 Nasal 1.0L Cannula 07/07 1619 81 Nasal 1.0L Cannula 07/07 1619 90 Room Air 07/07 1600 Nasal 1.0L Cannula 07/07 1557 70 07/07 1453 98.2 70 20 120/70 98 Intake & Output 07/08 1600 05 0800 07/08 0000 Intake Total 900 Output Total Balance 900 Intake, Oral 900 Patient 76.26 kg Weight Physical Exam General Appearance: Alert, Oriented X3, Cooperative Other Physical Findings: HEENT: Atraumatic, PERRLA, EOMI Neck: Supple, No JVD Cardiovascular: Normal S1, Normal S2 Lungs: Normal Air Movement, decreased breath sounds on the right base. Clear lungs on the left side Abdomen: Normal Bowel Sounds, Soft, No Tenderness Neurological: Normal Gait, Normal Speech, Normal Tone Extremities: No Clubbing, No Cyanosis, 2+ edema on both lower extremities, chronic Vascular: Normal Pulses, Pulses Symmetrical Current Medications: Current Medications Sig/Chuck Start time Last Medication Dose Route Stop Time Status Admin Acetaminophen 500 MG Q6P PRN 07/01 1730 AC 07/07 PO 204 Acetaminophen 1,000 MG Q6P PRN 07/01 1730 AC N/A 1 UNIT IV Acyclovir 1 RUCHI Q4 PRN 07/05 0745 AC 07/07 TOP 2044 Albuterol Sulfate 3 ML BID 07/07 2200 AC 07/07 INH 1959 Albuterol Sulfate 3 ML TID 07/02 1000 DC 03/04 INH 0754 Apixaban 2.5 MG BID 07/01 1428 AC 07/07 PO 2043 Carbidopa/Levodopa 1 TAB TID 07/01 1600 AC 07/07 PO 204 Cholecalciferol 1,000 IU DAILY 07/01 1428 AC 07/07 PO 1105 Digoxin 0.125 MG 1700 07/01 1700 AC 07/07 PO 1557 Diltiazem HCl 240 MG DAILY 07/01 1430 AC 07/07 PO 1104 Docusate Sodium 100 MG DAILY 07/02 1000 AC 07/07 PO 1104 Ezetimibe 10 MG DAILY 07/01 1431 AC 07/07 PO 1105 Finasteride 5 MG AT BEDTIME 07/01 2200 AC 07/07 PO 2043 Furosemide 20 MG Q48 07/05 1000 AC 07/07 PO 1104 Insulin Aspart 0 TIDAC 07/01 1700 AC 07/07 SC 1734 Levothyroxine Sodium 0.05 MG 0700 07/03 1000 AC 07/08 PO 0702 Melatonin 5 MG AT BEDTIME 07/02 2300 AC 07/07 PO 2250 Montelukast Sodium 10 MG AT BEDTIME 07/01 2200 AC 07/07 PO 2213 Moxifloxacin HCl 400 MG DAILY 07/03 1000 DC 07/06 PO 0827 Omeprazole 40 MG DAILY 07/01 1430 AC 07/07 PO 1104 Oxybutynin Chloride 5 MG BID 07/01 2200 AC 07/07 PO 2043 Polyethylene Glycol 17 GM DAILY 07/02 1000 AC 07/07 PO 1101 Sodium Chloride 2 SPRAY Q4P PRN 07/01 2300 AC 07/07 MAGDALENO 2043 Tamsulosin HCl 0.4 MG AT BEDTIME 07/01 2200 AC 07/07 PO 204 Assessment/Plan Assessment: Mr Daley is an 86 year old gentleman with a past history of COPD (not on any home oxygen), atrial fibrillation (NOAC), hypertension, Parkinson's disease, 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 At the time of admission, temperature 102, pulse rate 107, blood pressure 1:30/ 65, pulse ox 94% (4-6 L), lab findings indicated WBC 11.9, hemoglobin 10.2, platelets 234, normal electrolytes sodium 141, potassium 3.6, bicarbonate 24, normal renal function-BUN 16, serum creatinine 0.8. Lower respiratory cultures- show growth of gram-negative rods and gram-positive rods. Radiological findings-chest x-ray revealed consolidation of right mid lung consistent with pneumonia, is slightly improved. #Acute hypoxic respiratory failure Secondary to pneumonia (likely healthcare associated pneumonia). [id number] rods and gram-positive cocci. Continue vancomycin and ceftazidime pending final culture results. --> Moxifloxacin 400 mg. Daily PO, today is day 6. Follow-up [facility] cultures and sensitivities. Lower respiratory culture shows mixed ratna after 2 days.Light Growth of Yeast, likely a contaminant. Repeat chest x-ray on 07/04/2016 to evaluate for worsening consolidation. Since patient continues to have increased oxygen requirements as well and bilateral 2+ edema, we will give him a one time dose of IV 40 mg Lasix. Patient responded well to Lasix if continues to short of breath may consider increasing Lasix frequency from 20 mg every 48-20 mg daily. Saturating 90% at rest and 86% on ambulation - current requirement is 1L. We will arrange for oxygen and send him tomorrow. Measure I's and O's and daily weights. #Atrial fibrillation Currently on Eliquis 2.5mg. Has a history of GI bleed in the past. Guaiac positive stool-noticed. Contacted gastroenterology for advised. History of polyps and angiodysplasia on previous colonoscopy. Requested Dr. Guadarrama to see the patient to evaluate risks versus benefits for continuation of Eliquis. Digoxin level-0.6. Currently Rate controlled. Continue Cardizem. 240, Digoxin 125 g . #Cold Sores Ayclovir ointment 15 g one every 4Hours for symptomatic relief. #Abdominal pain LFTs within normal limits AST 43 and ALT 13. Serial abdominal exams #History of Hypothyroidism Continue Home medication Levothyroxine 50 mcg #Lightheadedness Currently asymptomatic. Check orthostatic hypotension. #Anemia - Resolved Likely acute blood loss anemia. Recommended that patient should have routine lab work as an outpatient to ensure H&H remained above 8 he may benefit from outpatient transfusions should levels fall below 8. #DVT prophylaxis Eliquis #Code: Full Code Problem List: 1. AAA 2. ATRIAL FIBRILATION 3. BPH 4. Benign essent. htn complicating &/or reason for care during preg. 5. Dyslipidemia 6. cad 7. colon polyp 8. lower gi bleeding 9. sinus tachy 10. Non-specific colitis 11. Full code status 12. Hypertension 13. COPD (chronic obstructive pulmonary disease) 14. Hypothyroidism 15. Osteoarthritis 16. Constipation 17. GERD (gastroesophageal reflux disease) 18. Lung cancer, lower lobe 19. Pneumonia 20. Back pain 21. Right leg DVT 22. Gastrointestinal bleed 23. Parkinson disease 24. Parkinsonian features 25. Depression 26. Abdominal pain 27. COPD exacerbation 28. Asthma exacerbation in COPD 29. Chest pain 30. History of lung cancer 31. Atrial fib/flutter, transient 32. Melena 33. Community acquired pneumonia 34. Cough with hemoptysis 35. Pulmonary edema 36. Anemia 37. Hypoxia 38. Hypoxemia 39. Aspiration pneumonia 40. 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 Shortness of breath 43. Atrial fibrillation 44. Sepsis 45. Acute and chronic respiratory failure with hypoxia 46. Pneumonia 47. Acute hypoxemic respiratory failure 48. Healthcare associated bacterial pneumonia 49. Healthcare-associated pneumonia 50. Cold sore Pain Ratin Pain Location: n/a Pain Goal: Pain 4 or less Pain Plan: tylenol PRN Tomorrow's Labs & Rationales: NONE NONE Tomorrow's Labs & Rationales: NONE
--- NOTE | 2016-07-08 09:54 | PN- Pulmonary ---
Subjective HPI/Critical Care Issues: And feels comfortable is reassured by going home on low-flow oxygen Objective Current Medications: Current Medications Sig/Chuck Start time Last Medication Dose Route Stop Time Status Admin Acetaminophen 500 MG Q6P PRN 07/01 1730 AC 07/07 PO 2042 Acetaminophen 1,000 MG Q6P PRN 07/01 1730 N/A 1 UNIT IV Acyclovir 1 RUCHI Q4 PRN 07/05 0745 07/07 TOP 2044 Albuterol Sulfate 3 ML BID 07/07 2200 AC 07/07 INH 1959 Apixaban 2.5 MG BID 07/01 1428 AC 07/07 PO 2043 Carbidopa/Levodopa 1 TAB TID 07/01 1600 AC 07/07 PO 204 Cholecalciferol 1,000 IU DAILY 07/01 1428 AC 07/07 PO 1105 Digoxin 0.125 MG 1700 07/01 1700 AC 07/07 PO 1557 Diltiazem HCl 240 MG DAILY 07/01 1430 AC 07/07 PO 1104 Docusate Sodium 100 MG DAILY 07/02 1000 AC 07/07 PO 1104 Ezetimibe 10 MG DAILY 07/01 1431 AC 07/07 PO 1105 Finasteride 5 MG AT BEDTIME 07/01 2200 AC 07/07 PO 2043 Furosemide 20 MG Q48 07/05 1000 AC 07/07 PO 1104 Insulin Aspart 0 TIDAC 07/01 1700 AC 07/07 SC 1734 Levothyroxine Sodium 0.05 MG 0700 07/03 1000 AC 07/08 PO 0702 Melatonin 5 MG AT BEDTIME 07/02 2300 AC 07/07 PO 2250 Montelukast Sodium 10 MG AT BEDTIME 07/01 2200 AC 07/07 PO 2213 Moxifloxacin HCl 400 MG DAILY 07/03 1000 DC 07/06 PO 0827 Omeprazole 40 MG DAILY 07/01 1430 AC 07/07 PO 1104 Oxybutynin Chloride 5 MG BID 07/01 2200 AC 07/07 PO 2043 Polyethylene Glycol 17 GM DAILY 07/02 1000 AC 07/07 PO 1101 Sodium Chloride 2 SPRAY Q4P PRN 07/01 2300 AC 07/07 MAGDALENO 2043 Tamsulosin HCl 0.4 MG AT BEDTIME 07/01 2200 AC 07/07 PO 2043 Vital Signs & I&O Last 24 Hrs of Vitals and I&O: Vital Signs Date Time Temp Pulse Resp B/P Pulse O2 O2 Flow FiO2 Ox Delivery Rate 07/08 712 97.6 75 20 112/48 95 Nasal 0.5L Cannula 07/08 0000 92 Nasal 1.0L Cannula 07/07 2214 99.7 81 20 118/54 92 Nasal Cannula 07/07 2034 95 Nasal 2.0L Cannula 07/07 1620 88 Nasal 1.0L Cannula 07/07 1620 96 Nasal 1.0L Cannula 07/07 1619 81 Nasal 1.0L Cannula 07/07 1619 90 Room Air 07/07 1600 Nasal 1.0L Cannula 07/07 1557 70 03/ 1453 98.2 70 20 120/70 98 Intake & Output 07/08 1600 07/08 0800 07/08 0000 Intake Total 900 Output Total Balance 900 Intake, Oral 900 Patient 168 lb Weight Oxygen saturation 0.5 L 95% exam of his chest shows diminished breath sounds there are no wheezes cardiac exam shows regular S1 and S2 without murmurs Impression/Plan Impression/Plan Impression/Plan: 86-year-old gentleman being treated for possible healthcare associated pneumonia has improved respiratory status Recommendations: Follow-up Dr. Crane's recommendation. Patient to be discharged on low-flow oxygen. Follow-up with Dr. Crane in the office this week
[2016-07-08] MEDS ORDERED: ZOVIRAX30 GM TOP (10:19)
== END 2016-07-08 14:45 | DRG 177 ==
LOC: ENRESERVDT → ENRESERVTM → ERH 11:02 → ENPENDDIS 12:26 → ERHI 12:26 → 2NA 12:26
PROVIDERS: Internal Medicine Endocrinology, Diabetes & Metabolism; Physician Assistant; Student in an Organized Health Care Education/Training Program; ADMIT Internal Medicine
PROC: 30233N1 Transfusion of Nonautologous Red Blood Cells into Peripheral Vein, Percutaneous Approach (ICD-10-PCS; principal; 2016-07-05)
DX: J15.6 Pneumonia due to other Gram-negative bacteria (principal); J96.01 Acute respiratory failure with hypoxia; I50.30 Unspecified diastolic (congestive) heart failure; E87.3 Alkalosis; D62 Acute posthemorrhagic anemia; I11.0 Hypertensive heart disease with heart failure; I48.91 Unspecified atrial fibrillation; Z79.01 Long term (current) use of anticoagulants; Z85.118 Personal history of other malignant neoplasm of bronchus and lung; I25.10 Atherosclerotic heart disease of native coronary artery without angina pectoris; E11.9 Type 2 diabetes mellitus without complications; G20 Parkinson's disease; J44.9 Chronic obstructive pulmonary disease, unspecified; E03.9 Hypothyroidism, unspecified; H35.30 Unspecified macular degeneration; I48.2 Chronic atrial fibrillation
CPT/HCPCS: 2NASP; 36415; 74230; 81001; 82436; 86920; 87040; 87070; 87071; 87449; 87450; 87804; 87804-59; 93005; 93010; 96361; 96365; 96375; 99291; J0131; J0456; J0696; J0713; J1940; J2930; J3370; J3490; J7040; J7060; P9016

== ENCOUNTER 2016-09-17 11:36 | Inpatient (IN) | payer OTHER, MEDICARE ==
[~2016-09-17] VITALS: Ht 168.9 cm; Wt 69.4 kg
[~2016-09-17 11:36] MED LIST changes: +CIPRO500 M1 PO; +MOXIFLOXACIN H400 M2 PO; +ZOVIRAX30 GM TOP
--- NOTE | 2016-09-17 11:40 | NUR ---
O2 87% ON ROOM AIR
--- NOTE | 2016-09-17 11:45 | NUR ---
86 Y/O MALE C/O SOB X FEW DAYS; STATES "I THINK I HAVE A TOUCH OF PNEUMONIA". C/O SHORTNESS OF BREATH AND COUGH WITH "BROWN" PHLEGM. SAT 90-91% ON RA, STATES HE USES 02 AT NIGHT BUT DID NOT USE LAST NIGHT. REPORTS AVERAGE PO INTAKE. DENIES FEVERS TAKEN TO ROOM 2 FOR EKG AND EVAL
--- NOTE | 2016-09-17 11:52 | ED DYSPNEA/ASTHMA COMPLAINT ---
History of Present Illness General Chief Complaint: Dyspnea (COPD, CHF, Other) Stated Complaint: DIFFICULTY BREATHING, LOW O2 Source: patient Exam Limitations: no limitations Allergies Coded Allergies: pollen extracts (UNKNOWN 07/01/16) atorvastatin (Severe, MUSCLE WEAKNESS 07/01/16) Uncoded Allergies: DUST (UNKNOWN 12/26/14) Triage Note: 86 Y/O MALE C/O SOB X FEW DAYS; STATES "I THINK I HAVE A TOUCH OF PNEUMONIA". C/O SHORTNESS OF BREATH AND COUGH WITH "BROWN" PHLEGM. SAT 90-91% ON RA, STATES HE USES 02 AT NIGHT BUT DID NOT USE LAST NIGHT. REPORTS AVERAGE PO INTAKE. DENIES FEVERS TAKEN TO ROOM 2 FOR EKG AND EVAL Triage Nurses Notes Reviewed? yes Onset: Abrupt Duration: day(s):, constant, continues in ED Timing: recent history Activities at Onset: none HPI: 86-year-old male comes into emergency room with complaints of increasing shortness of breath and cough and subjective chills and been going on since yesterday getting progressively worse. Patient has a history of COPD and history of pneumonia and has been admitted many times for pneumonia in the past. He reports the symptoms feel similar. Patient also complaining of some mild left-sided chest pain intermittently. Denies any vomiting or sweating. Denies any other associated symptoms. (SALO PEREZ) Vital Signs & Intake/Output Vital Signs & Intake/Output Vital Signs Date Time Temp Pulse Resp B/P B/P Pulse O2 O2 Flow FiO2 Mean Ox Delivery Rate 09/17 1431 98.6 76 18 146/85 98 Nasal 2.0L Cannula 09/17 1205 98 Nasal 2.0L Cannula 09/17 1200 95 Nasal 2.0L Cannula 09/17 1140 97.3 84 18 168/95 91 Room Air Reconcile Medications Albuterol Sulfate (Proair Hfa) 90 MCG HFA.AER.AD 2 PUF INH Q4-6 PRN PRN COPD (Reported) Apixaban (Eliquis) 2.5 MG TABLET 1 TAB PO BID AFIB (Reported) Please discuss with your department of sociology chair before resuming the medication Ascorbic Acid 500 MG TABLET 1 TAB PO DAILY VITAMIN SUPPORT (Reported) Carbidopa/Levodopa (Sinemet 25-100 MG Tablet) 25 MG-100 MG TABLET 1 TAB PO TID PARKINSON (Reported) Cetirizine HCl 10 MG TAB.CHEW 1 TAB PO QPM ALLERGIES (Reported) Dexlansoprazole (Dexilant) 60 MG CAP.DR.BP 1 CAP PO DAILY ACID REFLUX ( Reported) Digoxin 125 MCG TABLET 1 TAB PO DAILY HEART (Reported) Diltiazem HCl (Diltiazem ER) 240 MG CAP.ER.DEG 1 TAB PO DAILY HEART (Reported ) Docusate Sodium (Colace) 100 MG CAPSULE 1 PO DAILY Constipation (Reported) Ezetimibe/Simvastatin (Vytorin 10-10 MG Tablet) 10 MG-10 MG TABLET 1 TAB PO AT BEDTIME CHOLESTEROL (Reported) Ferrous Sulfate 325 MG (65 MG IRON) TABLET 1 TAB PO DAILY IRON DEF ANEMIA ( Reported) Finasteride 5 MG TABLET 1 TAB PO AT BEDTIME BPH (Reported) Fluticasone/Salmeterol (Advair 500-50 Diskus) 500 MCG-50 MCG/DOSE BLST.W.DEV 1 PUF INH BID ASTHMA (Reported) Furosemide (Lasix) 20 MG TABLET 1 TAB PO EOD CHF (Reported) Ipratropium [place] (Unknown Strength) SPRAY (Unknown Dose) NA QPM ALLERGIES (Reported) Levothyroxine Sodium (Synthroid) 50 MCG TABLET 1 TAB PO DAILY hypothyroidism (Reported) Metformin HCl 500 MG TABLET 1 TAB PO BID DM (Reported) Montelukast Sodium 10 MG TABLET 1 TAB PO AT BEDTIME COPD (Reported) Solifenacin Succinate (Vesicare) 5 MG TABLET 1 TAB PO DAILY BLADDER (Reported ) Tamsulosin HCl (Flomax) 0.4 MG CAP.ER.24H 1 CAP PO DAILY BPH (Reported) (JO ANN AMADOR DO) Past History Travel History Traveled to [place] past 21 day No Medical History Any Pertinent Medical History? 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 Hx Contributory? No (SALO PEREZ) Review of Systems Review of Systems Constitutional: Reports: see HPI. EENTM: Reports: no symptoms. Respiratory: Reports: see HPI. Cardiovascular: Reports: see HPI. GI: Reports: no symptoms. Genitourinary: Reports: no symptoms. Musculoskeletal: Reports: no symptoms. Skin: Reports: no symptoms. Neurological/Psychological: Reports: no symptoms. Hematologic/Endocrine: Reports: no symptoms. Immunologic/Allergic: Reports: no symptoms. All Other Systems: Reviewed and Negative (SALO PEREZ) Physical Exam Physical Exam General Appearance: well developed/nourished, alert, awake Head: atraumatic, normal appearance Eyes: Bilateral: normal appearance, EOMI. Ears, Nose, Throat: normal ENT inspection, hearing grossly normal Neck: normal inspection, full range of motion Respiratory: decreased breath sounds, rhonchi, wheezing Cardiovascular: irregularly irregular Gastrointestinal: soft Extremities: normal inspection, normal range of motion, no edema Neurologic/Psych: awake, alert, oriented x 3 Skin: intact, normal color Core Measures ACS in differential dx? No Severe Sepsis Present: No Septic Shock Present: No (SALO PEREZ) Progress Differential Diagnosis: asthma, AMI, bronchitis, costochondritis, CHF, COPD, musculoskeletal pain, pericarditis, pulmonary embolism, pneumonia, pneumothorax, rib fracture, unstable angina Plan of Care: Orders Procedure Date/time Status AEROSOL (GEN) 09/17 1251 Complete BLOOD CULTURE 09/17 1152 Active TROPONIN LEVEL 09/17 1152 Complete LACTIC ACID 09/17 1152 Complete COMPREHENSIVE METABOLIC PANEL 09/17 1152 Complete CBC WITHOUT DIFFERENTIAL 09/17 1152 Complete B-TYPE NATRIURETIC PEP (BNP) 09/17 1152 Complete EKG 09/17 1137 Active Current Medications Sig/Chuck Start time Last Medication Dose Stop Time Status Admin Azithromycin 500 MG ONCE ONE 09/17 1530 AC 09/17 (Zithromax) 09/17 1629 1543 Sodium Chloride 250 ML (Normal Saline 0.9%) Laboratory Tests 09/17/16 1452: Lactic Acid Cancelled 09/17/16 1155: Anion Gap 13, Estimated GFR > 60, BUN/Creatinine Ratio 32.9 H, Glucose 106 H, Lactic Acid 0.7, Calcium 8.8, Total Bilirubin 0.6, AST 22, ALT 21, Alkaline Phosphatase 75, Troponin I < 0.01, Hrd-T-Tegunqsakuw Pept 1140 H, Total Protein 6.6, Albumin 4.1, Globulin 2.5, Albumin/Globulin Ratio 1.6, CBC w Diff NO MAN DIFF REQ, RBC 4.40 L, MCV 80.2, MCH 25.7 L, RDW 23.9 H, MPV 9.7, Gran % 82.2 H, Lymphocytes % 8.3 L, Monocytes % 7.1, Eosinophils % 2.3, Basophils % 0.1, Absolute Granulocytes 7.2 H, Absolute Lymphocytes 0.7 L, Absolute Monocytes 0.6, Absolute Eosinophils 0.2, Absolute Basophils 0, PUBS MCHC 32.0 L Microbiology 09/17 120 BLOOD: Blood Culture - RECD 09/17 1154 BLOOD: Blood Culture - RECD Diagnostic Imaging: Viewed by Me: Radiology Read. Discussed w/RAD: Radiology Read. Radiology Impression: SERVICE DATE: 09/17/16 EXAM TYPE: RAD - XRY- PORTABLE CHEST XRAY EXAMINATION: XR PORTABLE CHEST CLINICAL INFORMATION: Shortness of breath and cough COMPARISON: Multiple chest x-rays most recent prior dated 08/03/2016 TECHNIQUE: Portable frontal view of the chest was obtained. FINDINGS: Borderline heart size. Elevation of the right hemidiaphragm is slightly more pronounced. Hazy reticular markings right midlung noted again. Subtle patchy reticular changes left midlung slightly more pronounced. Slight increase in the streaky opacities likely base.. IMPRESSION: Slightly more pronounced reticular markings right mid lung and hazy reticular changes left midlung. Superimposed viral pneumonia cannot be excluded. Streaky atelectasis right lateral base . Slightly greater elevation of the right hemidiaphragm. DICTATED BY: REFUGIO NAIK MD DATE/TIME DICTATED:09/17/161257 ROTOR CASTING MACHINE OPERATOR:CHAI Initial ED EKG: rate (77), AFIB (VIBHA MONTALVO,SALO) Departure Departure Disposition: STILL A PATIENT Condition: Stable Clinical Impression Primary Impression: COPD exacerbation Secondary Impressions: Pneumonia Referrals: ANABELLE VALDEZ MD (PCP/Family) Departure Forms: Customer Survey General Discharge Information Admission Note Spoke With: ADAM GOMEZ M.D Documentation of Exam: Documentation of any treatments & extenuating circumstances including Concerns Regarding Discharge (functional status, medication knowledge or non-compliance, living conditions, etc.) that warrant an admission rather than observation: Patient will require IV steroids. Supplemental oxygen. Regular breathing treatments. Pulmonary consult. IV antibiotics. Patient feels unsafe at home. Patient would do poorly as an outpatient. (SALO PEREZ) PA/FORMING PROCESS WORKER Co-Sign Statement Statement: ED Attending supervision documentation- [X] I saw and evaluated the patient. I have also reviewed all the pertinent lab results and diagnostic results. I agree with the findings and the plan of care as documented in the PA's/FORMING PROCESS WORKER's documentation. [] I have reviewed the ED Record and agree with the PA's/FORMING PROCESS WORKER's documentation. [] Additions or exceptions (if any) to the PAs/FORMING PROCESS WORKER's note and plan are summarized below: [] (JO ANN AMADOR DO) Critical Care Note Critical Care Note Critical Care Time: non-applicable (SALO PEREZ)
[2016-09-17 12:03] LABS: ABSOLUTE BASOPHIL COUNT 0 /CUMM (0.0-0.2); ABSOLUTE EOSINOPHIL COUNT 0.2 /CUMM (0.0-0.7); ABSOLUTE GRANULOCYTE CT 7.2 /CUMM (1.4-6.5); ABSOLUTE LYMPH COUNT 0.7 /CUMM (1.2-3.4); ABSOLUTE MONOCYTE COUNT 0.6 /CUMM (0.10-0.60); BASOPHIL % 0.1 % (0.0-2.0); EOSINOPHIL % 2.3 % (0-5); GRANULOCYTE % 82.2 % (42.2-75.2); HEMATOCRIT 35.3 % (42-52); MEAN CORPUSCULAR HGB 25.7 PG (27.0-31.0); MEAN CORPUSCULAR VOLUME 80.2 FL (80.0-94.0); MEAN PLATELET VOLUME 9.7 FL (7.4-10.4); PLATELET COUNT 207 /CUMM (130-400); RBC DISTRIBUTION WIDTH 23.9 % (11.5-14.5); WHITE BLOOD CELL COUNT 8.8 /CUMM (4.8-10.8)
--- NOTE | 2016-09-17 12:04 | NUR ---
PT TO ER ROOM 2 FROM TRIAGE. IV EST. BLOOD AND BLOOD CULTURES X2 DRAWN AND SENT TO LAB. PA AT BEDSIDE FOR EVAL, PT C/O SOB AND PRODUCTIVE COUGH. DENIES CHEST PAIN.
--- NOTE | 2016-09-17 12:05 | NUR ---
RESP AT BEDSIDE FOR TREATMENT
[2016-09-17] MEDS ORDERED: CETIRIZINE HCL10 M1 PO (12:21)
[2016-09-17] MEDS ORDERED: IPRATROPIUM BRO30 M2 (12:22)
[2016-09-17] MEDS ORDERED: ASCORBIC ACID500 M2 PO (12:25)
[2016-09-17] MEDS ORDERED: DIGOXIN125 MCG PO (12:27)
--- NOTE | 2016-09-17 12:28 | NUR ---
XRAY AT BEDSIDE
--- NOTE | 2016-09-17 13:06 | RADIOLOGY REPORT ---
EXAMINATION: XR PORTABLE CHEST CLINICAL INFORMATION: Shortness of breath and cough COMPARISON: Multiple chest x-rays most recent prior dated 08/03/2016 TECHNIQUE: Portable frontal view of the chest was obtained. FINDINGS: Borderline heart size. Elevation of the right hemidiaphragm is slightly more pronounced. Hazy reticular markings right midlung noted again. Subtle patchy reticular changes left midlung slightly more pronounced. Slight increase in the streaky opacities likely base.. IMPRESSION: Slightly more pronounced reticular markings right mid lung and hazy reticular changes left midlung. Superimposed viral pneumonia cannot be excluded. Streaky atelectasis right lateral base . Slightly greater elevation of the right hemidiaphragm.
--- NOTE | 2016-09-17 14:22 | NUR ---
PT AWARE WAITING ON RESULTS AT THIS TIME
--- NOTE | 2016-09-17 15:00 | NUR ---
PT RESTING ON STRETCHER, PROVIDED WITH JUICE PER REQUEST. OFERS NO COMPLAINTS AT THIS TIME
--- NOTE | 2016-09-17 15:10 | NUR ---
PT C/O HEADACHE AT THIS TIME MEDICATED WITH 650MG TYLENOL PER ORDER FROM PA AT THIS TIME
--- NOTE | 2016-09-17 15:16 | NUR ---
HEART HEALTHY TRAY ORDERED FOR PT AT THIS TIME
--- NOTE | 2016-09-17 15:44 | NUR ---
PT MEDICATED PER EMAR AT THIS TIME
--- NOTE | 2016-09-17 16:15 | NUR ---
PT EATING DINNER TRAY AT THIS TIME.
--- NOTE | 2016-09-17 17:08 | History & Physical ---
RAHEL RIVAS,SYD[place] 09/17/16 0413: General Information and HPI MD Statement: I have seen and personally examined KENIA SHEARER and documented this H&P. The patient is a 86 year old M who presented with a patient stated chief complaint of [shortness of breath]. Source of Information: patient, family Exam Limitations: no limitations History of Present Illness: This is a 56-year-old man with a past medical history of COPD on nocturnal 1 L of oxygen at home, history of Parkinson's disease, history of atrial fibrillation rate controlled with Cardizem CD 240 and anticoagulation with apixaban 2.5 mg twice a day, ischemic cardiomyopathy, diabetes mellitus, chronic venous insufficiency, with multiple admissions in the past for COPD exacerbation and acute hypoxicfailure who presented to the [facility] of persistent shortness of breath. The patient says that for the last couple of days he has been feeling fatigued and weak and has been coughing up productive sputum yellowish in color.. The patient has been reporting some subjective fever but has not been able to record the temperature at home. He denies any recent sick contacts but states that he was recently in [place] 1 week back to visit a family friend. The patient denies any recent leg swellings and has been compliant with his Lasix 20 mg every other day. Denies any orthopnea, palpitations . She denies any chest pain. Allergies/Medications Allergies: Coded Allergies: pollen extracts (UNKNOWN 07/01/16) atorvastatin (Severe, MUSCLE WEAKNESS 07/01/16) Uncoded Allergies: DUST (UNKNOWN 12/26/14) Home Med list Albuterol Sulfate (Proair Hfa) 90 MCG HFA.AER.AD 2 PUF INH Q4-6 PRN PRN COPD (Reported) Apixaban (Eliquis) 2.5 MG TABLET 1 TAB PO BID AFIB (Reported) Please discuss with your emergency communications dispatcher before resuming the medication Ascorbic Acid 500 MG TABLET 1 TAB PO DAILY VITAMIN SUPPORT (Reported) Carbidopa/Levodopa (Sinemet 25-100 MG Tablet) 25 MG-100 MG TABLET 1 TAB PO TID PARKINSON (Reported) Cetirizine HCl 10 MG TAB.CHEW 1 TAB PO QPM ALLERGIES (Reported) Dexlansoprazole (Dexilant) 60 MG KILLIAN.BP 1 CAP PO DAILY ACID REFLUX ( Reported) Digoxin 125 MCG TABLET 1 TAB PO DAILY HEART (Reported) Diltiazem HCl (Diltiazem ER) 240 MG CAP.ER.DEG 1 TAB PO DAILY HEART (Reported ) Docusate Sodium (Colace) 100 MG CAPSULE 1 PO DAILY Constipation (Reported) Ezetimibe/Simvastatin (Vytorin 10-10 MG Tablet) 10 MG-10 MG TABLET 1 TAB PO AT BEDTIME CHOLESTEROL (Reported) Ferrous Sulfate 325 MG (65 MG IRON) TABLET 1 TAB PO DAILY IRON DEF ANEMIA ( Reported) Finasteride 5 MG TABLET 1 TAB PO AT BEDTIME BPH (Reported) Fluticasone/Salmeterol (Advair 500-50 Diskus) 500 MCG-50 MCG/DOSE BLST.W.DEV 1 PUF INH BID ASTHMA (Reported) Furosemide (Lasix) 20 MG TABLET 1 TAB PO EOD CHF (Reported) Ipratropium Cecil (Unknown Strength) SPRAY (Unknown Dose) NA QPM ALLERGIES (Reported) Levothyroxine Sodium (Synthroid) 50 MCG TABLET 1 TAB PO DAILY hypothyroidism (Reported) Metformin HCl 500 MG TABLET 1 TAB PO BID DM (Reported) Montelukast Sodium 10 MG TABLET 1 TAB PO AT BEDTIME COPD (Reported) Solifenacin Succinate (Vesicare) 5 MG TABLET 1 TAB PO DAILY BLADDER (Reported ) Tamsulosin HCl (Flomax) 0.4 MG CAP.ER.24H 1 CAP PO DAILY BPH (Reported) Past History Travel History Traveled to [place] past 21 day No Medical History Neurological: Parkinson's disease EENT: blindness, hearing loss, macular degeneration Cardiovascular: AFIB, CHF, hypertension, hyperlipidemia Respiratory: bronchitis, COPD, emphysema, pneumonia, Lung ca s/p lobectomy Gastrointestinal: lower GI bleed, AVM Hepatic: NONE Renal: NONE Musculoskeletal: NONE Psychiatric: NONE Endocrine: diabetes Blood Disorders: anemia Cancer(s): lung cancer, 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 MOTHER Relation not specified for: FH: hypertension Psychosocial History Who Do You Live With? parent Services at Home: None Primary Language: Wolof Smoking Status: Former Smoker ETOH Use: denies use Functional Ability ADLs Independent: dressing, eating, toileting, bathing. Ambulation: independent IADLs Needs Assist: shopping, housework, finances, food prep, telephone, transportation, medication admin. Review of Systems Review of Systems Constitutional: Reports: see HPI. Cardiovascular: Reports: see HPI. Denies: chest pain, edema, orthopena, palpitations. Respiratory: Reports: see HPI, cough, orthopnea, short of breath, wheezing. Genitourinary: Denies: dysuria, frequency, hematuria. Musculoskeletal: Denies: gout, joint pain, joint swelling, muscle pain. Exam & Diagnostic Data Last 24 Hrs of Vital Signs/I&O Vital Signs Date Time Temp Pulse Resp B/P B/P Pulse O2 O2 Flow FiO2 Mean Ox Delivery Rate 09/17 1641 99.0 76 20 129/78 96 Nasal 2.0L Cannula 09/17 1431 98.6 76 18 146/85 98 Nasal 2.0L Cannula 09/17 1205 98 Nasal 2.0L Cannula 09/17 1200 95 Nasal 2.0L Cannula 09/17 1140 97.3 84 18 168/95 91 Room Air Intake & Output 09/17 1600 09/17 0800 09/17 0000 Intake Total Output Total Balance Patient 154 lb Weight Weight Reported by Patient Measurement Method Physical Exam General Appearance Alert, Oriented X3, Cooperative Skin No Rashes, No Breakdown Skin Temp/Moisture Exam: Warm/Dry Sepsis Skin Exam (color): Normal for Ethnicity HEENT Atraumatic, PERRLA, EOMI Neck Supple, No JVD Lymphatic Axillary nl, Cervical nl Cardiovascular Regular Rate, Normal S1, Normal S2 Lungs BILATERAL DECREASED AIRWAY ENTRY AND BILATERAL WHEEZING Abdomen Soft, No Tenderness Neurological Normal Gait, Normal Speech, Strength at 5/5 X4 Ext, Normal Tone Extremities RIGHT LEG SWELLING 1+ Last 24 Hrs of Labs/Les: Laboratory Tests 09/17/16 1452: Lactic Acid Cancelled 09/17/16 1155: Anion Gap 13, Estimated GFR > 60, BUN/Creatinine Ratio 32.9 H, Glucose 106 H, Lactic Acid 0.7, Calcium 8.8, Total Bilirubin 0.6, AST 22, ALT 21, Alkaline Phosphatase 75, Troponin I < 0.01, Uud-T-Rdcusklkfyy Pept 1140 H, Total Protein 6.6, Albumin 4.1, Globulin 2.5, Albumin/Globulin Ratio 1.6, CBC w Diff NO MAN DIFF REQ, RBC 4.40 L, MCV 80.2, MCH 25.7 L, RDW 23.9 H, MPV 9.7, Gran % 82.2 H, Lymphocytes % 8.3 L, Monocytes % 7.1, Eosinophils % 2.3, Basophils % 0.1, Absolute Granulocytes 7.2 H, Absolute Lymphocytes 0.7 L, Absolute Monocytes 0.6, Absolute Eosinophils 0.2, Absolute Basophils 0, PUBS MCHC 32.0 L, Digoxin Pending Microbiology 09/17 1734 URINE ROUT: Legionella Antigen - ORD 09/17 1734 URINE ROUT: Streptococcus pneumoniae Antigen (M - ORD 09/17 172 LOWER RESP: Respiratory Culture - ORD 09/17 172 LOWER RESP: Gram Stain - ORD 09/17 1202 BLOOD: Blood Culture - RECD 09/17 115 BLOOD: Blood Culture - RECD Diagnostic Data EKG Results Atrial fibrillation with a rate of 77 CXR Results Slightly more pronounced reticular markings right mid lung and hazy reticular changes left midlung. Superimposed viral pneumonia cannot be excluded. Streaky atelectasis right lateral base . Slightly greater elevation of the right hemidiaphragm. Assessment/Plan Assessment: This is an 86-year-old male with a past medical history of paroxysmal atrial fibrillation rate controlled with Cardizem CD 240, coagulation, history of COPD on nocturnal 1 L of oxygen and presented to [facility] persistent shortness of breath and productive sputum which is yellowish in color. Vitals at the time of admission showed a blood pressure of Temperature of 99, respiration rate of 20, blood pressure of 129/78, saturation of 96% on 2 L of oxygen WBC of 8.8, hemoglobin of 11.3, hematocrit of 35.3, degenerative 207 Sodium 143, potassium of 4, BUNs of 23, creatinine and GFR of 0.7 and 60 respectively ProBNP of 1140, troponin of 0.01 EKG showed atrial fibrillation with normal ventricular response Chest x-ray was significant for new onset radicular opacity Assessment 1. Acute hypoxic respiratory failure most likely secondary to underlying community-acquired pneumonia 2. History of paroxysmal atrial fibrillation but controlled, followed up with Dr. Guadarrama 3. History of hypertension 4. History of hyperlipidemia 5. History of Parkinson's disease 6. History of mild aortic valve stenosis 7. History of diabetes mellitus controlled on metformin 8. History of COPD on nocturnal 1 L of oxygen followed up by Dr. Crane 9.H/o of DM and on metformin at home. Plan Admit to general medicine floor(i spoke to ED physicain(dr Dao) and questioned the disposition to Telemetry for afib,but considering patient has controlled vent reposnse will admit him to ) IV ceftriaxone and azithromycin of which one 1 doses was given in the ER, so we will resume in the morning The patient also has mild COPD exacerbation for which we will start him on IV salmeterol 40 mg every 12 Continue with all other cardiac medications Continue with Eliquis, digoxin, Cardizem We should also continue with by mouth Lasix which the patient takes 20 mg every other day and his last dose was on Saturday(12/16/2016) The patient is reluctant to take the 20 mg today for which he wants to resume from tomorrow [facility] is full code DVT prophylaxis with Eliquis as mentioned above Mild to moderate pain pathway avoid narcotics. As Ranked By This Provider Problem List: 1. Healthcare associated bacterial pneumonia Core Measures/Miscellaneous Acute Coronary Syndrome ACS Diagnosis: No Cerebrovascular Accident CVA/TIA Diagnosis: No Congestive Heart Failure CHF Diagnosis: No Venous Thromboembolism VTE Risk Factors: Acute medical illness, Age > 40 No [facility] VTE prophylaxis d/t: VTE low risk, No contraindications No VTE Pharm Prophylaxis d/t: No contraindications VTE Diagnosis: No VTE Type: NONE VTE Confirmed by (Test): NONE Severe Sepsis Severe Sepsis Present: No Septic Shock Septic Shock Present: No Miscellaneous Documentation Attending Case Discussed With: ADAM GOMEZ M.D Primary Care Physician: ANABELLE VALDEZ MD Patient sees these Specialists MD Dr. Thierry Lanza Level of Patient Care: General Medicine GUMARO RIVAS,[facility] 09/17/162039: Attending Review Statement Attending Statement Attending MD Statement: examined this patient, discuss w/resident/PA/COMMUNITY SPECIALIST, agreed w/resident/PA/COMMUNITY SPECIALIST, reviewed EMR data (avail), discussed with nursing, reviewed images, amended to note Attending Assessment/Plan: 86 year old gentleman with past medical history significant for COPD on nocturnal oxygen at call Parkinson disease, A. fib (rate controlled with a CCB ) with ACs ( apaxiban ) for stroke prophylaxis, diabetes mellitus, coronary artery disease, chronic venous insufficiency and previous admissions for COPD exacerbation comes in with progressive shortness for the last few days, 30, productive sputum, fever and chills. On examination, hypoxia requiring 2 L oxygen, normotensive, EKG with a HR of 77, temp of 99,and saturating 96% on 2 L of oxygen via nasal cannula. Lung examination significant for decreased bilateral breath sounds with generalized wheezing. Chest x-ray with pronounced reticular markings in the right mid and easy intra-articular changes in the left midlung. Pneumonia could not be excluded. A & P: Admission to the floor with acute hypoxic respiratory failure given community-acquired pneumonia, IV ceftriaxone and azithromycin, check for rapid flu, IV steroids, supplemental oxygen, TRC nebs, strep and Legionella urinary antigen, sputum cx, continue his home cardiac medications, start on insulin sliding scale since the patient is on IV steroids, Full code, DVT prophylaxis with Elequis, Pain control Patient would like to have his lung doctor Dr. Crane and his emergency communications dispatcher, Dr. Guadarrama. knows about his admission.
--- NOTE | 2016-09-17 17:24 | NUR ---
HOUSE STAFF AT BEDSIDE FOR EVAL
--- NOTE | 2016-09-17 17:25 | NUR ---
PT ADMITTED TO ROOM 204-2
--- NOTE | 2016-09-17 17:33 | NUR ---
REPORTT GIVEN TO FLOOR. DISITBUTION CALLED FOR PT TRNAPROT
--- NOTE | 2016-09-17 17:34 | NUR ---
SPUTUM CULTURE SENT TO LAB
[2016-09-17 18:15] VITALS: BP 128/68
[2016-09-17 23:32] VITALS: BP 130/60
[2016-09-18 06:31] VITALS: BP 166/78
--- NOTE | 2016-09-18 06:45 | NUR ---
NURSE NOTE: BP 166/78, AUTO WINDER PANCHO MADE AWARE. WILL HANDOFF TO NEXT NURSE.
--- NOTE | 2016-09-18 07:14 | PN- Housestaff ---
GENNY NATH 09/18/16 0714: Subjective Follow-up For: Community acquired pneumonia Possible bronchitis Complaints: pain scale (0-10) Subjective: Patient was seen and examined this morning. He is alert, awake and oriented to time place and person. No acute events noticed overnight. He reports shortness of breath and chest tightness. Also reports cough associated with yellow sputum production. Denied any fever, chills, chest pain. He denied any palpitations, headache, nausea, vomiting, abdominal pain. He denies any leg swelling. Vitals were stable. Review of Systems Constitutional: Reports: see HPI. Objective Last 24 Hrs of Vital Signs/I&O Vital Signs Date Time Temp Pulse Resp B/P B/P Pulse O2 O2 Flow FiO2 Mean Ox Delivery Rate 09/18 1118 97 Nasal 2.0L Cannula 09/18 1105 75 142/70 09/18 1105 75 142/70 09/18 0800 Nasal 2.0L Cannula 09/18 0631 98.0 79 20 166/78 98 Nasal 1.5L Cannula 09/18 0000 Nasal 2.0L Cannula 09/17 2332 98.4 78 20 130/60 96 Nasal 1.5L Cannula 09/17 2132 Nasal 1.5L Cannula 09/17 1824 94 Nasal 2.0L Cannula 09/17 1815 98.0 76 20 128/68 94 Nasal 2.0L Cannula 09/17 1641 99.0 76 20 129/78 96 Nasal 2.0L Cannula Intake & Output 09/18 1600 09/18 0800 09/18 0000 Intake Total 2040 480 480 Output Total 750 600 Balance 1290 480 -120 Intake, IV 0 Intake, Oral 2040 480 480 Number 0 Bowel Movements Output, Urine 750 600 Patient 69.4 kg Weight Physical Exam General Appearance: Alert, Oriented X3, Cooperative, No Acute Distress Skin: No Rashes, No Breakdown HEENT: Atraumatic, PERRLA, EOMI Neck: Supple, No JVD Lymphatic: Cervical nl Cardiovascular: Normal S1, Normal S2 Lungs: Normal Air Movement, rhonchi Abdomen: Normal Bowel Sounds, Soft, No Tenderness Extremities: No Clubbing, No Cyanosis, No Edema Vascular: Normal Pulses, Pulses Symmetrical Current Medications: Current Medications Sig/Chuck Start time Last Medication Dose Route Stop Time Status Admin Acetaminophen 650 MG Q6P PRN 09/17 1715 AC PO Acetaminophen 1,000 MG Q6P PRN 09/17 1715 AC IV Albuterol Sulfate 3 ML BID 09/17 2200 AC 09/18 INH 1110 Albuterol Sulfate 2 PUF Q4-6 PRN PRN 09/17 1715 AC INH Apixaban 2.5 MG BID 09/17 2200 AC 09/18 PO 1105 Ascorbic Acid 500 MG DAILY 09/18 1000 AC 09/18 PO 1101 Atorvastatin Calcium 10 MG 1700 09/18 1700 AC PO Azithromycin 500 MG Q24H 09/18 1600 AC Sodium Chloride 250 ML IV Azithromycin 500 MG ONCE ONE 09/17 1530 DC 09/17 Sodium Chloride 250 ML IV 09/17 1629 1543 Budesonide/ 2 PUF BID 09/18 2200 CAN Formoterol Fumarate INH Budesonide/ 2 PUF BID 09/18 1056 CAN Formoterol Fumarate INH Budesonide/ 2 PUF BID 09/17 2200 DC 09/17 Formoterol Fumarate INH 2200 Carbidopa/Levodopa 1 TAB TID 09/17 2200 AC 09/18 PO 1101 Ceftriaxone Sodium 1,000 MG Q24H 09/18 1600 AC IV Ceftriaxone Sodium 0 .STK-MED ONE 09/17 1537 DC .ROUTE Ceftriaxone Sodium 1,000 MG ONCE ONE 09/17 1530 DC 09/17 IV 09/17 1531 1543 Digoxin 0.125 MG DAILY 09/18 1000 AC 09/18 PO 1105 Diltiazem HCl 240 MG DAILY 09/18 1000 AC 09/18 PO 1105 Ezetimibe 10 MG DAILY 09/18 1000 AC 09/18 PO 1107 Ferrous Sulfate 325 MG DAILY 09/18 1000 AC PO Finasteride 5 MG AT BEDTIME 09/17 2200 AC 09/17 PO 2201 Furosemide 20 MG Q48H 09/18 1000 AC 09/18 PO 1101 Hydromorphone HCl 1 MG Q6P PRN 09/17 1715 AC IV Insulin Aspart 0 TIDAC 09/18 0800 AC 09/18 SC 0827 Levothyroxine Sodium 0.05 MG DAILY AC 09/18 0700 AC 09/18 PO 0536 Methylprednisolone 40 MG Q12 09/17 2200 DC 09/17 IV 2201 Methylprednisolone 0 .STK-MED ONE 09/17 1536 DC .ROUTE Methylprednisolone 125 MG ONCE ONE 09/17 1530 DC 09/17 IV 09/17 1531 1543 Montelukast Sodium 10 MG AT BEDTIME 09/17 2199 AC 09/17 PO 220 Oxybutynin Chloride 5 MG DAILY 09/18 1000 AC 09/18 PO 1105 Prednisone 40 MG DAILY 09/18 1106 AC 09/18 PO 1354 Tamsulosin HCl 0.4 MG DAILY 09/18 1000 AC 09/18 PO 1105 Last 24 Hrs of Lab/Les Results Last 24 Hrs of Labs/Mics: Laboratory Tests 09/18/16 0708: Anion Gap 10, Estimated GFR > 60, BUN/Creatinine Ratio 26.7 H, CBC w Diff NO MAN DIFF REQ, RBC 4.11 L, MCV 80.3, MCH 26.0 L, RDW 23.8 H, MPV 10.1, Gran % 87.1 H, Lymphocytes % 11.4 L, Monocytes % 1.3 L, Eosinophils % 0, Basophils % 0.2, Absolute Granulocytes 3.3, Absolute Lymphocytes 0.4 L, Absolute Monocytes 0 L, Absolute Eosinophils 0, Absolute Basophils 0, PUBS MCHC 32.4 L Microbiology 09/18 1105 LOWER RESP: Respiratory Culture - COLB 09/18 110 LOWER RESP: Gram Stain - COLB 09/18 0040 NASOPHARYN: Influenza Virus A & B Rapid Smear - COMP 09/18 2239 URINE ROUT: Legionella Antigen - COMP 09/18 2239 URINE ROUT: Streptococcus pneumoniae Antigen (M - COMP 09/17 173 LOWER RESP: Respiratory Culture - RES GRAM NEGATIVE RODS 09/18 1731 LOWER RESP: Gram Stain - RES Assessment/Plan Assessment: This is a 86-year-old man with past medical history significant for macular degeneration, allergies, COPD on nocturnal oxygen 1 L, multiple admissions for pneumonia in the past, congestive heart failure, atrial fibrillation on eliqus, hypertension, Parkinson's disease, GERD, low GI bleed, AV malformation, hyperlipidemia, constipation, anemia, BPH, urine retention, hypothyroidism, diabetes mellitus, lung cancer status right lower lobe lobectomy presented to ER with chief complaint of fever, chills, cough, sputum production, difficulty breathing for 2-3 days. Vitals on admission-afebrile, heart rate 84, respiratory rate 18, blood pressure 168/95, saturating at 91 on room air, later 98% on 2 L cannula. Pertinent labs on admission-CBC BEP normal ProBNP 1140 Chest x-ray Slightly more pronounced reticular markings right mid lung and hazy reticular changes left midlung. Superimposed viral pneumonia cannot be excluded. Streaky atelectasis right lateral base . Slightly greater elevation of the right hemidiaphragm. ct chest 1. No focal pneumonia seen. Scattered areas of atelectasis are seen in the lung bases bilaterally. 2. Severe emphysema with chronic volume loss in the right lower lung, likely due to prior right lower lobectomy versus chronic collapse. Please correlate with surgical history. 3. Borderline mediastinal adenopathy, likely reactive. 4. Dense atherosclerotic vascular calcifications, including coronary arteries and aortic valves. 5. Liver findings suggestive of cirrhosis. Clinical correlation requested. 6. Evidence of prior granulomatous disease with scattered bilateral calcified granulomas in the lungs and in the liver and splee Community acquired pneumonia/acute bronchitis Patient presented with worsening shortness of breath associated with fever, chills, productive cough. Denies any chest pain. Reports exposure to sick contacts and travel history. He is afebrile with normal leukocyte count. Chest x-ray showed right midlung hazy opacities suggestive of pneumonia. * Admitted to general medicine floor for further management of pneumonia * Monitor vitals closely every shift * Maintain oxygen saturation above 90% * Provide supplemental oxygen whenever necessary * Patient is on 1 L oxygen at nighttime for COPD * IV fluids * Patient was started on antibiotics azithromycin and ceftriaxone in the emergency room * We will continue antibiotics azithromycin and ceftriaxone-day2 * Patient was started on IV Solu-Medrol 40 mg every 12 hours in the emergency room * Steroids tapered down to prednisone 40 mg daily * Pulmonology consult., Recommended CAT scan chest * Follow-up blood culture, sputum cultures * The total respiratory care * Nebulizers whenever required Possible COPD exacerbation Patient has COPD at baseline who uses oxygen at nighttime 1 L. He uses albuterol fluticasone, ipratropium, Montelukast at home. He came in with worsening shortness of breath, fever, chills associated with productive cough. * Possible COPD exacerbation with underlying bronchitis * Total respiratory care * Nebulizers * Inhalers * Prednisone 40 mg daily * Continue antibiotics * Follow-up blood culture and sputum cultures * Provide supplemental oxygen Congestive heart failure He follows Dr. Guadarrama certified low vision therapist as an outpatient. He was started on Lasix every other day for leg swelling and heart failure. * Contacted Dr. Guadarrama * Echocardiogram was ordered * Will follow cardiology recommendations * ProBNP elevated on admission * Continue Lasix every 48 hours-20 mg * Last echocardiogram in March 2015 showed normal ejection fraction Allergies Continue Citrizine Lung cancer Status post right lower lobe lobectomy Atrial fibrillation Patient is on digoxin, diltiazem, eliqus 2.5 mg twice a day Please continue all the home medications for atrial fibrillation Parkinson's disease Continue home medication carbidopa and L-dopa GERD On omeprazole Hyperlipidemia Continue home medications simvastatin Constipation On Colace whenever necessary Anemia on iron sulfate BPH Continue home dose of tamsulosin and finasteride Hypothyroidism Continue home medications Synthyroid Diabetes mellitus On metformin at home Please hold metformin Accu-Cheks before meals and at bedtime Insulin sliding scale Full code Consistent carbohydrate diet DVT prophylaxis eliqus Pain pathway Problem List: 1. ATRIAL FIBRILATION 2. Community acquired pneumonia Pain Ratin Pain Location: n/a Pain Goal: Remain pain free Pain Plan: tylinol Tomorrow's Labs & Rationales: none GEOFF AMARO 09/18/16 1118: Attending MD Review Statement Attending Statement Attending MD Statement: examined this patient, discuss w/resident/PA/ROBOTIC WELDING OPERATOR, agreed w/resident/PA/ROBOTIC WELDING OPERATOR, discussed with family, reviewed EMR data (avail), discussed with nursing, discussed with case mgmt, reviewed images, amended to note Attending Assessment/Plan: Assessment 1. Acute on chronic respiratroy failure/COPD. 2. paroxysmal atrial fibrillation but controlled, followed up with Dr. Guadarrama 3. hypertension 4. hyperlipidemia 5. Parkinson's disease 6. mild aortic valve stenosis 7. diabetes mellitus controlled on metformin 8. Compensated HFpEF. EF 60% on lasix qod 9. Possible viral bronchitis vs CAP. 10. h/o lung cancer s/p RUlobectomy. PLAN admitted to inpatient medical services Pulm consult, taper steroids, oxygen supplementation, abx, BDs CT without contrast to determine lung parencyhma. obtain ECHO in setting of elevated bnp. Resume home meds. gi/dvt prophaylxis plan of care d/wed patient bedside
[2016-09-18 08:07] LABS: ABSOLUTE BASOPHIL COUNT 0 /CUMM (0.0-0.2); ABSOLUTE EOSINOPHIL COUNT 0 /CUMM (0.0-0.7); EOSINOPHIL % 0 % (0-5)
[2016-09-18 08:24] LABS: ABSOLUTE GRANULOCYTE CT 3.3 /CUMM (1.4-6.5); ABSOLUTE LYMPH COUNT 0.4 /CUMM (1.2-3.4); ABSOLUTE MONOCYTE COUNT 0 /CUMM (0.10-0.60); BASOPHIL % 0.2 % (0.0-2.0); MEAN CORPUSCULAR HGB CONC 32.4 G/DL (33.0-37.0); MEAN CORPUSCULAR VOLUME 80.3 FL (80.0-94.0); MEAN PLATELET VOLUME 10.1 FL (7.4-10.4); PLATELET COUNT 167 /CUMM (130-400); RBC DISTRIBUTION WIDTH 23.8 % (11.5-14.5); RED BLOOD CELL CT 4.11 /CUMM (4.70-6.10); WHITE BLOOD CELL COUNT 3.8 /CUMM (4.8-10.8)
--- NOTE | 2016-09-18 09:33 | Cons- Pulmonary ---
General Information and HPI Consulting Request Date of Consult: 09/18/16 Requested By: Dr. Souza Reason for Consult: pneumonia Source of Information: patient Exam Limitations: no limitations History of Present Illness: Consultation for dyspnea and CAP. 86 year old man with a history of RLL lobectomy for adenocarcinoma, A.fib on Eliquis (follows with Dr. Guadarrama), CAD, CHF, Parkinson's, allergies/chronic sinusitis and hearing loss (follows with Dr. Fuentes), HTN, DM, COPD, thyroid nodules. For COPD on Advair 250/50 BID with rinsing of the mouth. Not using anti- cholinergics secondary to prostate issues and eye problems. Dr. Fuentes wanted to consider allergy shots given IgE 763 (normal <114). CT chest surveillance post lobectomy was stable, follows with myself and Dr. Liu. Patient over the weekend went his grandson's wedding in [place]. He felt chills and cold and was caught in some rain. Since then, thick romano mucus and dyspnea. No fevers, no leukocytosis, no cp, no n/v/d/c, no diaz. CXR with streaky changes on right. Currently on ceftraixone/zithromax. Allergies/Medications Allergies: Coded Allergies: pollen extracts (UNKNOWN 07/01/16) atorvastatin (Severe, MUSCLE WEAKNESS 07/01/16) Uncoded Allergies: DUST (UNKNOWN 12/26/14) Home Med List: Albuterol Sulfate (Proair Hfa) 90 MCG HFA.AER.AD 2 PUF INH Q4-6 PRN PRN COPD (Reported) Apixaban (Eliquis) 2.5 MG TABLET 1 TAB PO BID AFIB (Reported) Please discuss with your cds sales advisor before resuming the medication Ascorbic Acid 500 MG TABLET 1 TAB PO DAILY VITAMIN SUPPORT (Reported) Carbidopa/Levodopa (Sinemet 25-100 MG Tablet) 25 MG-100 MG TABLET 1 TAB PO TID PARKINSON (Reported) Cetirizine HCl 10 MG TAB.CHEW 1 TAB PO QPM ALLERGIES (Reported) Dexlansoprazole (Dexilant) 60 MG CAP.DR.BP 1 CAP PO DAILY ACID REFLUX ( Reported) Digoxin 125 MCG TABLET 1 TAB PO DAILY HEART (Reported) Diltiazem HCl (Diltiazem ER) 240 MG CAP.ER.DEG 1 TAB PO DAILY HEART (Reported ) Docusate Sodium (Colace) 100 MG CAPSULE 1 PO DAILY Constipation (Reported) Ezetimibe/Simvastatin (Vytorin 10-10 MG Tablet) 10 MG-10 MG TABLET 1 TAB PO AT BEDTIME CHOLESTEROL (Reported) Ferrous Sulfate 325 MG (65 MG IRON) TABLET 1 TAB PO DAILY IRON DEF ANEMIA ( Reported) Finasteride 5 MG TABLET 1 TAB PO AT BEDTIME BPH (Reported) Fluticasone/Salmeterol (Advair 500-50 Diskus) 500 MCG-50 MCG/DOSE BLST.W.DEV 1 PUF INH BID ASTHMA (Reported) Furosemide (Lasix) 20 MG TABLET 1 TAB PO EOD CHF (Reported) Ipratropium [place] (Unknown Strength) SPRAY (Unknown Dose) NA QPM ALLERGIES (Reported) Levothyroxine Sodium (Synthroid) 50 MCG TABLET 1 TAB PO DAILY hypothyroidism (Reported) Metformin HCl 500 MG TABLET 1 TAB PO BID DM (Reported) Montelukast Sodium 10 MG TABLET 1 TAB PO AT BEDTIME COPD (Reported) Solifenacin Succinate (Vesicare) 5 MG TABLET 1 TAB PO DAILY BLADDER (Reported ) Tamsulosin HCl (Flomax) 0.4 MG CAP.ER.24H 1 CAP PO DAILY BPH (Reported) Current Medications: Current Medications Sig/Chuck Start time Last Medication Dose Route Stop Time Status Admin Acetaminophen 650 MG Q6P PRN 09/17 171 AC PO Acetaminophen 1,000 MG Q6P PRN 09/17 1715 AC IV Acetaminophen 650 MG ONCE ONE 09/17 1515 DC 09/17 PO 09/17 1516 1512 Acetaminophen 0 .STK-MED ONE 09/17 1511 DC PO Albuterol Sulfate 3 ML BID 09/17 2200 AC 09/17 INH 2120 Albuterol Sulfate 2 PUF Q4-6 PRN PRN 09/17 1715 AC INH Albuterol Sulfate 3 ML ONCE ONE 09/17 1245 DC 09/17 INH 09/17 1246 1200 Apixaban 2.5 MG BID 09/17 2200 AC 09/17 PO 2201 Ascorbic Acid 500 MG DAILY 09/18 1000 AC PO Atorvastatin Calcium 10 MG 1700 09/18 1700 AC PO Azithromycin 500 MG Q24H 09/18 1600 AC Sodium Chloride 250 ML IV Azithromycin 500 MG ONCE ONE 09/17 1530 DC 09/17 Sodium Chloride 250 ML IV 09/17 1629 1543 Budesonide/ 2 PUF BID 09/17 2200 AC 09/17 Formoterol Fumarate INH 2200 Carbidopa/Levodopa 1 TAB TID 09/17 220 AC 09/17 PO 2201 Ceftriaxone Sodium 1,000 MG Q24H 09/18 1600 AC IV Ceftriaxone Sodium 0 .STK-MED ONE 09/17 1537 DC .ROUTE Ceftriaxone Sodium 1,000 MG ONCE ONE 09/17 1530 DC 09/17 IV 09/17 1531 1543 Digoxin 0.125 MG DAILY 09/18 1000 AC PO Diltiazem HCl 240 MG DAILY 09/18 1000 AC PO Ezetimibe 10 MG DAILY 09/18 1000 AC PO Ferrous Sulfate 325 MG DAILY 09/18 1000 AC PO Finasteride 5 MG AT BEDTIME 09/17 2200 AC 09/17 PO 2201 Furosemide 20 MG Q48H 09/18 1000 AC PO Hydromorphone HCl 1 MG Q6P PRN 09/17 1715 AC IV Insulin Aspart 0 TIDAC 09/18 0800 AC 09/18 SC 0827 Levothyroxine Sodium 0.05 MG DAILY AC 09/18 0700 AC 09/18 PO 0536 Methylprednisolone 40 MG Q12 09/17 2200 AC 09/17 IV 2201 Methylprednisolone 0 .STK-MED ONE 09/17 1536 DC .ROUTE Methylprednisolone 125 MG ONCE ONE 09/17 1530 DC 09/17 IV 09/17 1531 1543 Montelukast Sodium 10 MG AT BEDTIME 09/17 2200 AC 09/17 PO 2201 Oxybutynin Chloride 5 MG DAILY 09/18 1000 AC PO Tamsulosin HCl 0.4 MG DAILY 09/18 1000 AC PO Review of Systems Comments 18 point review of systems performed. Pertinent positive and negative findings are in the HPI, otherwise negative. 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 MOTHER Relation not specified for: FH: hypertension Psychosocial History Where Do You Live? Home Who Do You Live With? parent Services at Home: None Primary Language: Iraqi Smoking Status: Former Smoker ETOH Use: denies use Functional Ability ADLs Independent: dressing, eating, toileting, bathing. Ambulation: independent IADLs Needs Assist: shopping, housework, finances, food prep, telephone, transportation, medication admin. Exam & Diagnostic Data Last 24 Hrs of Vital Signs/I&O Vital Signs Date Time Temp Pulse Resp B/P B/P Pulse O2 O2 Flow FiO2 Mean Ox Delivery Rate 09/18 0800 Nasal 2.0L Cannula 09/18 0631 98.0 79 20 166/78 98 Nasal 1.5L Cannula 09/18 0000 Nasal 2.0L Cannula 09/17 2332 98.4 78 20 130/60 96 Nasal 1.5L Cannula 09/17 2132 Nasal 1.5L Cannula 09/17 1824 94 Nasal 2.0L Cannula 09/17 1815 98.0 76 20 128/68 94 Nasal 2.0L Cannula 09/17 1641 99.0 76 20 129/78 96 Nasal 2.0L Cannula 09/17 1431 98.6 76 18 146/85 98 Nasal 2.0L Cannula 09/17 1205 98 Nasal 2.0L Cannula 09/17 1200 95 Nasal 2.0L Cannula 09/17 1140 97.3 84 18 168/95 91 Room Air Intake & Output 09/18 1600 09/18 0800 09/18 0000 Intake Total 480 480 Output Total 600 Balance 480 -120 Intake, Oral 480 480 Output, Urine 600 Patient 153 lb Weight Physical Exam Other Physical Findings: General - Alert, awake and oriented HEENT - normocephalic, atraumatic Cardiovascular - S1, S2, +systolic murmur Lungs - rhonchi improved Abdomen - soft, bowel sounds positive, no tenderness Extremities - without edema or cyanosis Last 48 Hrs of Labs/Les: Laboratory Tests 09/18/16 0708: Anion Gap 10, Estimated GFR > 60, BUN/Creatinine Ratio 26.7 H, CBC w Diff Pending, WBC Pending, RBC Pending, Hgb Pending, Hct Pending, MCV Pending, MCH Pending, RDW Pending, Plt Count Pending, MPV Pending, Gran % Pending, Lymphocytes % Pending, Monocytes % Pending, Eosinophils % Pending, Basophils % Pending, Absolute Granulocytes Pending, Absolute Lymphocytes Pending, Absolute Monocytes Pending, Absolute Eosinophils Pending, Absolute Basophils Pending, PUBS MCHC Pending 09/17/16 1452: Lactic Acid Cancelled 09/17/16 1155: Anion Gap 13, Estimated GFR > 60, BUN/Creatinine Ratio 32.9 H, Glucose 106 H, Lactic Acid 0.7, Calcium 8.8, Total Bilirubin 0.6, AST 22, ALT 21, Alkaline Phosphatase 75, Troponin I < 0.01, [id number] Pept 1140 H, Total Protein 6.6, Albumin 4.1, Globulin 2.5, Albumin/Globulin Ratio 1.6, CBC w Diff NO MAN DIFF REQ, RBC 4.40 L, MCV 80.2, MCH 25.7 L, RDW 23.9 H, MPV 9.7, Gran % 82.2 H, Lymphocytes % 8.3 L, Monocytes % 7.1, Eosinophils % 2.3, Basophils % 0.1, Absolute Granulocytes 7.2 H, Absolute Lymphocytes 0.7 L, Absolute Monocytes 0.6, Absolute Eosinophils 0.2, Absolute Basophils 0, PUBS MCHC 32.0 L, Digoxin 0.5 L Microbiology 09/18 0040 NASOPHARYN: Influenza Virus A & B Rapid Smear - COMP 09/18 2239 URINE ROUT: Legionella Antigen - COMP 09/18 2239 URINE ROUT: Streptococcus pneumoniae Antigen (M - COMP Assessment/Plan Impression/Plan: Impression 86 year old man * acute community acquired pneumonia or possible bronchitis * hx lung cancer s/p[ RLL lobectomyu Plan - obtain ct chest without contrast to evaluate lung parenchyma - cont current abx - pancx, including sputum - trc/nebs - DC symbicort - patient takes Advair - DC solumedrol, begin prednisone 40mg po DVT prophylaxis at all times Consult Acknowledgment - Thank you for your consult request.
[2016-09-18 09:39] LABS: GRANULOCYTE % 87.1 % (42.2-75.2)
--- NOTE | 2016-09-18 12:35 | CT SCAN REPORT ---
EXAMINATION: CT CHEST WITHOUT CONTRAST CLINICAL INFORMATION: Dyspnea. Cough. Presumptive diagnosis of pneumonia. COMPARISON: CT scan of the chest dated 05/23/2016 and 05/24/2014. CTA of the chest dated 04/05/2015 and 03/10/2015 and 01/03/2015. TECHNIQUE: Multidetector volumetric CT imaging of the chest was obtained noncontrast. Sagittal and coronal reformations were obtained. DLP: 214.97 mGy-cm. FINDINGS: LUNGS: Moderate to severe centrilobular emphysema seen throughout the lungs. There is chronic volume loss in the right hemithorax with elevation of the right hemidiaphragm seen and multiple densities noted in region of the central right lower lobe airways, suggesting prior right lower lobectomy. Correlation with patient's surgical history is requested. Prominent air trapping is seen within the right middle lobe. There is now mild atelectatic change present within the medial and inferior right middle lobe with associated mild bronchiolectasis. Mild volume loss is also seen in the left lower lobe. No focal dense consolidation is seen to suspect a pneumonia. There are new small bilateral pleural effusions. Several bilateral scattered calcified granulomas are seen. In addition, a few scattered bilateral solid noncalcified nodular densities are also seen, the 3 largest of which measure up to 0.4 cm in size and include the following as seen on series 4: 1. Left lingula, series 4, image 259. 2. Left lower lobe pleural-based, series 4, image 365. 3. Right upper lobe, series 4, image 183. These nodules are all unchanged dating back to 04/05/2015, consistent with a benign etiology. LYMPHOVASCULAR STRUCTURES: Ascending aorta is ectatic, measuring 3.6 cm at the level of the right main pulmonary artery. Descending aorta at the same level measures 3.5 cm. Pulmonary arteries are enlarged as well with the right main pulmonary artery measuring 3.6 cm and the left main pulmonary artery 3.0 cm in size. Dense atherosclerotic calcifications of the left anterior descending coronary artery and moderate atherosclerotic calcifications of the remainder of the coronary arteries is seen. Aortic valvular calcifications are seen. There is enlargement of the left atrium and left ventricle and to a lesser extent the right heart chambers. No pericardial effusion is seen. There is a borderline sized prevascular lymph node, measuring up to 1 cm in short axis. Other subcentimeter sized mediastinal lymph nodes are also seen. No hilar or axillary adenopathy. THYROID GLAND: Unremarkable to the extent included. UPPER ABDOMEN: Liver contour appears lobular and there is enlargement of the portal veins, raising the suspicion of liver cirrhosis. No definite hepatic mass seen. Several scattered punctate calcifications are seen, consistent with hepatic granulomas. There are also several punctate calcifications in the spleen, consistent with granulomas. Pancreas to the extent visualized appears atrophic. Both adrenal glands are normal. In the upper pole of the left kidney, an incompletely imaged low-attenuation mass is seen, consistent with a previously demonstrated cyst. In the upper pole of the right kidney, a smaller exophytic 1.3 cm intermediate attenuation mass is seen, unchanged from prior studies dating back to 2012, most likely representing a hyperdense cyst. Slight fullness at the GE junction is seen, suggestive of a small hiatal hernia. BONES: There is a small ossific fragment seen in the superior right glenohumeral joint space, unchanged dating back to 01/03/2015, possibly due to chronic calcific tendinitis. Mild degenerative changes are seen in both shoulder joints and throughout the thoracic spine. No suspicious bone findings are seen. IMPRESSION: 1. No focal pneumonia seen. Scattered areas of atelectasis are seen in the lung bases bilaterally. 2. Severe emphysema with chronic volume loss in the right lower lung, likely due to prior right lower lobectomy versus chronic collapse. Please correlate with surgical history. 3. Borderline mediastinal adenopathy, likely reactive. 4. Dense atherosclerotic vascular calcifications, including coronary arteries and aortic valves. 5. Liver findings suggestive of cirrhosis. Clinical correlation requested. 6. Evidence of prior granulomatous disease with scattered bilateral calcified granulomas in the lungs and in the liver and spleen.
--- NOTE | 2016-09-18 12:44 | Cons- Cardiology ---
General Information and HPI Consulting Request Date of Consult: 09/18/16 Requested By: ADAM GOMEZ M.D Reason for Consult: Atrial fibrillation History of Present Illness: The patient is an 86-year-old man with history of COPD, chronic atrial fibrillation, diabetes mellitus, and Parkinson's disease. He presented with complaint of fatigue and weakness. He was coughing up sputum which was yellowish in color. He noted some subjective fever at home. No chest pain. No new edema. He has been compliant with his medications. No orthopnea. No palpitations. No lightheadedness or dizziness. No nausea or vomiting. He is followed in the office by Dr. Guadarrama. Allergies/Medications Allergies: Coded Allergies: pollen extracts (UNKNOWN 07/01/16) atorvastatin (Severe, MUSCLE WEAKNESS 07/01/16) Uncoded Allergies: DUST (UNKNOWN 12/26/14) Home Med List: Albuterol Sulfate (Proair Hfa) 90 MCG HFA.AER.AD 2 PUF INH Q4-6 PRN PRN COPD (Reported) Apixaban (Eliquis) 2.5 MG TABLET 1 TAB PO BID AFIB (Reported) Please discuss with your wind project manager before resuming the medication Ascorbic Acid 500 MG TABLET 1 TAB PO DAILY VITAMIN SUPPORT (Reported) Carbidopa/Levodopa (Sinemet 25-100 MG Tablet) 25 MG-100 MG TABLET 1 TAB PO TID PARKINSON (Reported) Cetirizine HCl 10 MG TAB.CHEW 1 TAB PO QPM ALLERGIES (Reported) Dexlansoprazole (Dexilant) 60 MG CAP.DR.BP 1 CAP PO DAILY ACID REFLUX ( Reported) Digoxin 125 MCG TABLET 1 TAB PO DAILY HEART (Reported) Diltiazem HCl (Diltiazem ER) 240 MG CAP.ER.DEG 1 TAB PO DAILY HEART (Reported ) Docusate Sodium (Colace) 100 MG CAPSULE 1 PO DAILY Constipation (Reported) Ezetimibe/Simvastatin (Vytorin 10-10 MG Tablet) 10 MG-10 MG TABLET 1 TAB PO AT BEDTIME CHOLESTEROL (Reported) Ferrous Sulfate 325 MG (65 MG IRON) TABLET 1 TAB PO DAILY IRON DEF ANEMIA ( Reported) Finasteride 5 MG TABLET 1 TAB PO AT BEDTIME BPH (Reported) Fluticasone/Salmeterol (Advair 500-50 Diskus) 500 MCG-50 MCG/DOSE BLST.W.DEV 1 PUF INH BID ASTHMA (Reported) Furosemide (Lasix) 20 MG TABLET 1 TAB PO EOD CHF (Reported) Ipratropium [place] (Unknown Strength) SPRAY (Unknown Dose) NA QPM ALLERGIES (Reported) Levothyroxine Sodium (Synthroid) 50 MCG TABLET 1 TAB PO DAILY hypothyroidism (Reported) Metformin HCl 500 MG TABLET 1 TAB PO BID DM (Reported) Montelukast Sodium 10 MG TABLET 1 TAB PO AT BEDTIME COPD (Reported) Solifenacin Succinate (Vesicare) 5 MG TABLET 1 TAB PO DAILY BLADDER (Reported ) Tamsulosin HCl (Flomax) 0.4 MG CAP.ER.24H 1 CAP PO DAILY BPH (Reported) Current Medications: Current Medications Sig/Chuck Start time Last Medication Dose Route Stop Time Status Admin Acetaminophen 650 MG Q6P PRN 09/17 1715 AC PO Acetaminophen 1,000 MG Q6P PRN 09/17 171 AC IV Albuterol Sulfate 3 ML BID 09/17 2200 AC 09/18 INH 2045 Albuterol Sulfate 2 PUF Q4-6 PRN PRN 09/17 1715 AC INH Apixaban 2.5 MG BID 09/17 2200 AC 09/18 PO 2118 Ascorbic Acid 500 MG DAILY 09/18 1000 AC 09/18 PO 1101 Atorvastatin Calcium 10 MG 1700 09/18 1700 AC 09/18 PO 1648 Azithromycin 500 MG Q24H 09/18 1600 AC 09/18 Sodium Chloride 250 ML IV 1647 Budesonide/ 2 PUF BID 09/18 2200 CAN Formoterol Fumarate INH Budesonide/ 2 PUF BID 09/18 1056 CAN Formoterol Fumarate INH Budesonide/ 2 PUF BID 09/17 2200 DC 09/17 Formoterol Fumarate INH 2200 Carbidopa/Levodopa 1 TAB TID 09/17 2200 AC 09/18 PO 2117 Ceftriaxone Sodium 1,000 MG Q24H 09/18 1600 AC 09/18 IV 1648 Digoxin 0.125 MG DAILY 09/18 1000 AC 09/18 PO 1105 Diltiazem HCl 240 MG DAILY 09/18 1000 AC 09/18 PO 1105 Ezetimibe 10 MG DAILY 09/18 1000 AC 09/18 PO 1107 Ferrous Sulfate 325 MG DAILY 09/18 1000 AC PO Finasteride 5 MG AT BEDTIME 09/17 2200 AC 09/18 PO 2117 Furosemide 20 MG Q48H 09/18 1000 AC 09/18 PO 1101 Hydromorphone HCl 1 MG Q6P PRN 09/17 1715 AC IV Insulin Aspart 0 TIDAC 09/18 0800 AC 09/18 SC 0827 Levothyroxine Sodium 0.05 MG DAILY AC 09/18 0700 AC 09/19 PO 0656 Melatonin 5 MG ONCE ONE 09/19 0200 DC 09/19 PO 09/19 0201 0207 Methylprednisolone 40 MG Q12 09/17 2200 DC 09/17 IV 2201 Montelukast Sodium 10 MG AT BEDTIME 09/17 2200 AC 09/18 PO 211 Oxybutynin Chloride 5 MG DAILY 09/18 1000 AC 09/18 PO 1105 Prednisone 40 MG DAILY 09/18 1106 AC 09/18 PO 1354 Tamsulosin HCl 0.4 MG DAILY 09/18 1000 AC 09/18 PO 1105 Review of Systems Review of Systems: No rash. No tremor. No melena. No syncope. All other systems are reviewed and are noted to be negative. Past History Travel History Traveled to [place] past 21 day No Medical History Blood Transfusion Hx: Yes Neurological: Parkinson's disease EENT: blindness, hearing loss, macular degeneration Cardiovascular: AFIB, CHF, hypertension, hyperlipidemia Respiratory: bronchitis, COPD, emphysema, pneumonia, Lung ca s/p lobectomy Gastrointestinal: lower GI bleed, AVM Hepatic: NONE Renal: NONE Musculoskeletal: NONE Psychiatric: NONE Endocrine: diabetes Blood Disorders: anemia Cancer(s): lung cancer, RLL LOBECTOMY SIDE BOSS/Reproductive: NONE Other Medical Hx: IGG DEFICIENCY Surgical History Surgical History: Lobectomy Family History Relations & Conditions If Any: SISTER (some platelet problem). MOTHER Relation not specified for: FH: hypertension Psychosocial History Where Do You Live? Home Who Do You Live With? parent Services at Home: None Primary Language: Belarusian Smoking Status: Former Smoker ETOH Use: denies use Functional Ability ADLs Independent: dressing, eating, toileting, bathing. Ambulation: independent IADLs Needs Assist: shopping, housework, finances, food prep, telephone, transportation, medication admin. ECHO Results (as available) Report: 1. This was a technically difficult examination due to the patient's body habitus and underlying pulmonary disease. 2. 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 The ascending aorta is upper normal in size. 3. Mild to moderate thickening of the mitral leaflets is present with moderate anular calcification and fibrosis of the chordal structures. Mild to moderate mitral insufficiency is present with moderate left atrial dilatation. 4. There is no significant pericardial fluid present. 5. The left ventricular chamber size is normal with mild to moderate concentric hypertrophy and hyperdynamic systolic function. The ejection fraction is greater than 65-70% with no obvious resting wall motion abnormalities. 6. Mild dilatation of the right heart chambers is present with moderate tricuspid insufficiency, mild to moderate pulmonic insufficiency and pulmonary hypertension with an estimated RV systolic pressure of 54 mmHg. 7. There is no recent study available for comparison. Exam & Diagnostic Data Vital Signs and I&O Vital Signs Date Time Temp Pulse Resp B/P B/P Pulse O2 O2 Flow FiO2 Mean Ox Delivery Rate 09/19 0654 97.9 67 18 144/70 97 Nasal 2.0L Cannula 09/19 0030 97 Nasal 2.0L Cannula 09/18 2158 98.5 78 20 120/54 97 Nasal 2.0L Cannula 09/18 2129 Nasal 2.0L Cannula 09/18 2045 95 Nasal 2.0L Cannula 09/18 1541 98.1 74 20 105/50 99 Nasal 1.5L Cannula 09/18 1118 97 Nasal 2.0L Cannula 09/18 1105 75 142/70 09/18 1105 75 142/70 Intake & Output 09/19 1600 09/19 0800 09/19 0000 09/18 1600 09/18 0800 09/18 0000 Intake Total 108 881 5087 480 480 Output Total 750 600 Balance 153 070 9254 480 -120 Intake, IV 0 Intake, Oral 911 448 3781 480 480 Number 0 Bowel Movements Output, Urine 750 600 Patient 153 lb Weight Physical Exam: Gen: The patient is in no acute distress HEENT: Normal nose, ears, and oropharynx. Pupils equal bilaterally. Conjunctiva normal. Neck: Supple with no JVD, no masses, and no thyromegaly Lungs: scattered rhonchi with normal respiratory effort Heart: Irregularly irregular, S1, S2, 1/6 systolic murmur. No peripheral edema, 2+ pulses in the lower extremities bilaterally Abdomen: Soft, nontender, no masses. No hepatomegaly. No splenomegaly Extremities: No clubbing or cyanosis. Normal muscle strength in the upper and lower extremities. Skin: Normal skin turgor with no skin ulcers or lesions noted. Neuro: Cranial nerves intact. Sensation intact Psych: Alert and oriented 3 with appropriate affect Labs/Les Results: Laboratory Tests 09/19 09/18 0634 0708 Chemistry Sodium (137 - 145 mmol/L) 142 142 Potassium (3.5 - 5.1 mmol/L) 3.8 4.1 Chloride (98 - 107 mmol/L) 106 106 Carbon Dioxide (22 - 30 mmol/L) 28 27 Anion Gap (5 - 16) 9 10 BUN (9 - 20 mg/dL) 20 16 Creatinine (0.7 - 1.2 mg/dL) 0.7 0.6 L Estimated GFR (>60 ml/min) > 60 > 60 BUN/Creatinine Ratio (7 - 25 %) 28.6 H 26.7 H Hematology CBC w Diff NO MAN DIFF REQ NO MAN DIFF REQ WBC (4.8 - 10.8 /CUMM) 7.5 3.8 L RBC (4.70 - 6.10 /CUMM) 3.94 L 4.11 L Hgb (14.0 - 18.0 G/DL) 10.1 L 10.7 L Hct (42 - 52 %) 31.5 L 33.0 L MCV (80.0 - 94.0 FL) 80.1 80.3 MCH (27.0 - 31.0 PG) 25.6 L 26.0 L RDW (11.5 - 14.5 %) 24.0 H 23.8 H Plt Count (130 - 400 /CUMM) 180 167 MPV (7.4 - 10.4 FL) 10.3 10.1 Gran % (42.2 - 75.2 %) 79.6 H 87.1 H Lymphocytes % (20.5 - 51.1 %) 11.2 L 11.4 L Monocytes % (1.7 - 9.3 %) 9.1 1.3 L Eosinophils % (0 - 5 %) 0 0 Basophils % (0.0 - 2.0 %) 0.1 0.2 Absolute Granulocytes (1.4 - 6.5 /CUMM) 6.0 3.3 Absolute Lymphocytes (1.2 - 3.4 /CUMM) 0.8 L 0.4 L Absolute Monocytes (0.10 - 0.60 /CUMM) 0.7 H 0 L Absolute Eosinophils (0.0 - 0.7 /CUMM) 0 0 Absolute Basophils (0.0 - 0.2 /CUMM) 0 0 PUBS MCHC (33.0 - 37.0 G/DL) 32.0 L 32.4 L 09/17 09/17 1452 1155 Chemistry Sodium (137 - 145 mmol/L) 143 Potassium (3.5 - 5.1 mmol/L) 4.0 Chloride (98 - 107 mmol/L) 105 Carbon Dioxide (22 - 30 mmol/L) 25 Anion Gap (5 - 16) 13 BUN (9 - 20 mg/dL) 23 H Creatinine (0.7 - 1.2 mg/dL) 0.7 Estimated GFR (>60 ml/min) > 60 BUN/Creatinine Ratio (7 - 25 %) 32.9 H Glucose (65 - 99 mg/dL) 106 H Lactic Acid (0.7 - 2.1 mmol/L) Cancelled 0.7 Calcium (8.4 - 10.2 mg/dL) 8.8 Total Bilirubin (0.2 - 1.3 mg/dL) 0.6 AST (17 - 59 U/L) 22 ALT (21 - 72 U/L) 21 Alkaline Phosphatase (< 127 U/L) 75 Troponin I (<0.11 ng/ml) < 0.01 [id number] Pept (<125 pg/mL) 1140 H Total Protein (6.3 - 8.2 g/dL) 6.6 Albumin (3.5 - 5.0 g/dL) 4.1 Globulin (1.9 - 4.2 gm/dL) 2.5 Albumin/Globulin Ratio (1.1 - 2.2 %) 1.6 Hematology CBC w Diff NO MAN DIFF REQ WBC (4.8 - 10.8 /CUMM) 8.8 RBC (4.70 - 6.10 /CUMM) 4.40 L Hgb (14.0 - 18.0 G/DL) 11.3 L Hct (42 - 52 %) 35.3 L MCV (80.0 - 94.0 FL) 80.2 MCH (27.0 - 31.0 PG) 25.7 L RDW (11.5 - 14.5 %) 23.9 H Plt Count (130 - 400 /CUMM) 207 MPV (7.4 - 10.4 FL) 9.7 Gran % (42.2 - 75.2 %) 82.2 H Lymphocytes % (20.5 - 51.1 %) 8.3 L Monocytes % (1.7 - 9.3 %) 7.1 Eosinophils % (0 - 5 %) 2.3 Basophils % (0.0 - 2.0 %) 0.1 Absolute Granulocytes (1.4 - 6.5 /CUMM) 7.2 H Absolute Lymphocytes (1.2 - 3.4 /CUMM) 0.7 L Absolute Monocytes (0.10 - 0.60 /CUMM) 0.6 Absolute Eosinophils (0.0 - 0.7 /CUMM) 0.2 Absolute Basophils (0.0 - 0.2 /CUMM) 0 PUBS MCHC (33.0 - 37.0 G/DL) 32.0 L Toxicology Digoxin (0.8 - 2.0 ng/mL) 0.5 L Diagnostic Data EKG Results EKG tracing is a patent reviewed, and reveals atrial fibrillation with ventricular rate of 77 CXR Results Slightly more pronounced reticular markings right mid lung and hazy reticular changes left midlung. Superimposed viral pneumonia cannot be excluded. Streaky atelectasis right lateral base . Slightly greater elevation of the right hemidiaphragm. Other Results CT scan of the chest September 18, 2016: 1. No focal pneumonia seen. Scattered areas of atelectasis are seen in the lung bases bilaterally. 2. Severe emphysema with chronic volume loss in the right lower lung, likely due to prior right lower lobectomy versus chronic collapse. Please correlate with surgical history. 3. Borderline mediastinal adenopathy, likely reactive. 4. Dense atherosclerotic vascular calcifications, including coronary arteries and aortic valves. 5. Liver findings suggestive of cirrhosis. Clinical correlation requested. 6. Evidence of prior granulomatous disease with scattered bilateral calcified granulomas in the lungs and in the liver and spleen. Assessment/Plan Assessment/Plan the patient is an 86-year-old female with history of chronic atrial fibrillation, anticoagulated on Eliquis. She is admitted with community- acquired pneumonia and COPD exacerbation. She remains in atrial fibrillation with rate under control. He is on oral Lasix as an outpatient for chronic diastolic heart failure. Cardiac status appears to be stable at this time, with no evidence of acute CHF or rapid atrial fibrillation. Plan: * Antibiotic therapy as per the medical service * Continue p.o. Lasix at his usual outpatient dose. * Continue Eliquis for anticoagulation. Of note, he is taking 2.5 milligrams b.i.d. rather than the usual dose of 5 milligrams b.i.d.. Will check with Dr. Guadarrama regarding whether he should be on the full 5 milligram dose. * Continue other cardiac medications. Consult Acknowledgment - Thank you for your consult request.
[2016-09-18 15:41] VITALS: BP 105/50
[2016-09-18 21:58] VITALS: BP 120/54
[2016-09-19 06:54] VITALS: BP 144/70
--- NOTE | 2016-09-19 07:20 | PN- Housestaff ---
GENNY NATH 09/19/16 0720: Subjective Follow-up For: Community acquired pneumonia Possible bronchitis/COPD exacerbation Complaints: pain scale (0-10) Subjective: Patient was seen and examined this morning. He is alert, awake and oriented to time place and person. No acute events noticed overnight. He reports shortness of breath and chest tightness improved since admission. Also reports mild cough associated with yellow sputum production. Denied any fever, chills, chest pain. He denied any palpitations, headache, nausea, vomiting, abdominal pain. He denies any leg swelling. Vitals were stable. Review of Systems Constitutional: Denies: chills, fever. Objective Last 24 Hrs of Vital Signs/I&O Vital Signs Date Time Temp Pulse Resp B/P B/P Pulse O2 O2 Flow FiO2 Mean Ox Delivery Rate 09/19 1134 95 Room Air 09/19 1055 22 92 Room Air 09/19 1055 20 97 Room Air 09/19 1054 20 99 Nasal 2.0L Cannula 09/19 1025 78 122/78 09/19 0800 97 Nasal 2.0L Cannula 09/19 0654 97.9 67 18 144/70 97 Nasal 2.0L Cannula 09/19 0030 97 Nasal 2.0L Cannula 09/18 2158 98.5 78 20 120/54 97 Nasal 2.0L Cannula 09/18 2129 Nasal 2.0L Cannula 09/18 2045 95 Nasal 2.0L Cannula Intake & Output 09/19 1600 09/19 0800 09/19 0000 Intake Total 240 120 Output Total Balance 240 120 Intake, Oral 240 120 Physical Exam General Appearance: Alert, Oriented X3, Cooperative, No Acute Distress Skin: No Rashes, No Breakdown HEENT: Atraumatic, PERRLA, EOMI, Mucous Membr. moist/pink Neck: Supple, No JVD Lymphatic: Cervical nl Cardiovascular: Normal S1, Normal S2 Lungs: Normal Air Movement Abdomen: Normal Bowel Sounds, Soft, No Tenderness Extremities: No Clubbing, No Cyanosis, No Edema Vascular: Normal Pulses Current Medications: Current Medications Sig/Chuck Start time Last Medication Dose Route Stop Time Status Admin Acetaminophen 650 MG Q6P PRN 09/17 171 DCD PO Acetaminophen 1,000 MG Q6P PRN 09/17 171 DCD IV Albuterol Sulfate 3 ML BID 09/17 2200 DCD 09/19 INH 1130 Albuterol Sulfate 2 PUF Q4-6 PRN PRN 09/17 171 DCD INH Apixaban 2.5 MG BID 09/17 2199 DCD 09/19 PO 1025 Ascorbic Acid 500 MG DAILY 09/18 1000 DCD 09/19 PO 1026 Atorvastatin Calcium 10 MG 1700 09/18 1700 DCD 09/18 PO 1648 Azithromycin 500 MG Q24H 09/18 1600 DC 09/18 Sodium Chloride 250 ML IV 1647 Carbidopa/Levodopa 1 TAB TID 09/17 2200 DCD 09/19 PO 1026 Ceftriaxone Sodium 1,000 MG Q24H 09/18 1600 DC 09/18 IV 1648 Digoxin 0.125 MG DAILY 09/18 1000 DCD 09/19 PO 1025 Diltiazem HCl 240 MG DAILY 09/18 1000 DCD 09/19 PO 1026 Ezetimibe 10 MG DAILY 09/18 1000 DCD 09/19 PO 1026 Ferrous Sulfate 325 MG DAILY 09/18 1000 DCD 09/19 PO 1026 Finasteride 5 MG AT BEDTIME 09/17 2199 DCD 09/18 PO 2117 Furosemide 20 MG Q48H 09/18 1000 DCD 09/18 PO 1101 Hydromorphone HCl 1 MG Q6P PRN 09/17 171 DCD IV Insulin Aspart 0 TIDAC 09/18 0800 DCD 09/18 SC 0827 Levothyroxine Sodium 0.05 MG DAILY AC 09/18 0700 DCD 09/19 PO 0656 Melatonin 5 MG ONCE ONE 09/19 0200 DC 09/19 PO 09/19 0201 0207 Montelukast Sodium 10 MG AT BEDTIME 09/17 2199 DCD 09/18 PO 2117 Oxybutynin Chloride 5 MG DAILY 09/18 1000 DCD 09/19 PO 1026 Patient Medication 1 ED .STK-MED ONE 09/19 1330 DC Teaching ED 09/19 1331 Prednisone 40 MG DAILY 09/18 1106 DCD 09/19 PO 1025 Tamsulosin HCl 0.4 MG DAILY 09/18 1000 DCD 09/19 PO 1026 Last 24 Hrs of Lab/Les Results Last 24 Hrs of Labs/Mics: Laboratory Tests 09/19/16 0634: Anion Gap 9, Estimated GFR > 60, BUN/Creatinine Ratio 28.6 H, CBC w Diff NO MAN DIFF REQ, RBC 3.94 L, MCV 80.1, MCH 25.6 L, RDW 24.0 H, MPV 10.3, Gran % 79.6 H, Lymphocytes % 11.2 L, Monocytes % 9.1, Eosinophils % 0, Basophils % 0.1, Absolute Granulocytes 6.0, Absolute Lymphocytes 0.8 L, Absolute Monocytes 0.7 H, Absolute Eosinophils 0, Absolute Basophils 0, PUBS MCHC 32.0 L Assessment/Plan Assessment: This is a 86-year-old man with past medical history significant for macular degeneration, allergies, COPD on nocturnal oxygen 1 L, multiple admissions for pneumonia in the past, congestive heart failure, atrial fibrillation on eliqus, hypertension, Parkinson's disease, GERD, low GI bleed, AV malformation, hyperlipidemia, constipation, anemia, BPH, urine retention, hypothyroidism, diabetes mellitus, lung cancer status right lower lobe lobectomy presented to ER with chief complaint of fever, chills, cough, sputum production, difficulty breathing for 2-3 days. Vitals on admission-afebrile, heart rate 84, respiratory rate 18, blood pressure 168/95, saturating at 91 on room air, later 98% on 2 L cannula. Pertinent labs on admission-CBC BEP normal ProBNP 1140 Chest x-ray Slightly more pronounced reticular markings right mid lung and hazy reticular changes left midlung. Superimposed viral pneumonia cannot be excluded. Streaky atelectasis right lateral base . Slightly greater elevation of the right hemidiaphragm. ct chest 1. No focal pneumonia seen. Scattered areas of atelectasis are seen in the lung bases bilaterally. 2. Severe emphysema with chronic volume loss in the right lower lung, likely due to prior right lower lobectomy versus chronic collapse. Please correlate with surgical history. 3. Borderline mediastinal adenopathy, likely reactive. 4. Dense atherosclerotic vascular calcifications, including coronary arteries and aortic valves. 5. Liver findings suggestive of cirrhosis. Clinical correlation requested. 6. Evidence of prior granulomatous disease with scattered bilateral calcified granulomas in the lungs and in the liver and splee Community acquired pneumonia/acute bronchitis Patient presented with worsening shortness of breath associated with fever, chills, productive cough. Denies any chest pain. Reports exposure to sick contacts and travel history. He is afebrile with normal leukocyte count. Chest x-ray showed right midlung hazy opacities suggestive of pneumonia. CT scan ruled out pneumonia. * Admitted to general medicine floor for further management * Monitor vitals closely every shift * Maintain oxygen saturation above 90% * Provide supplemental oxygen whenever necessary * Patient is on 1 L oxygen at nighttime for COPD * IV fluids * Patient was started on antibiotics azithromycin and ceftriaxone in the emergency room * continued antibiotics azithromycin and ceftriaxone for 2days * Patient was started on IV Solu-Medrol 40 mg every 12 hours in the emergency room * Steroids tapered down to prednisone 40 mg daily * We'll continue prednisone 40 mg for 4 more days and azithromycin for 5 days at the time of discharge * Pulmonology consulted * Follow-up blood culture, sputum cultures * The total respiratory care * Nebulizers whenever required Possible COPD exacerbation Patient has COPD at baseline who uses oxygen at nighttime 1 L. He uses albuterol fluticasone, ipratropium, Montelukast at home. He came in with worsening shortness of breath, fever, chills associated with productive cough. * Possible COPD exacerbation with underlying bronchitis * Total respiratory care * Nebulizers * Inhalers * Prednisone 40 mg daily for 4 more days * Continue antibiotics * Follow-up blood culture and sputum cultures * Provide supplemental oxygen lower ext swelling He follows Dr. Guadarrama mill dresser as an outpatient. He was started on Lasix every other day for leg swelling. * Contacted Dr. Guadarrama * Echocardiogram was ordered-no heart failure * Will follow cardiology recommendations * ProBNP elevated on admission * Continue Lasix every 48 hours-20 mg * Last echocardiogram in March 2015 showed normal ejection fraction Allergies Continue Citrizine Lung cancer Status post right lower lobe lobectomy Atrial fibrillation Patient is on digoxin, diltiazem, eliqus 2.5 mg twice a day Please continue all the home medications for atrial fibrillation Parkinson's disease Continue home medication carbidopa and L-dopa GERD On omeprazole Hyperlipidemia Continue home medications simvastatin Constipation On Colace whenever necessary Anemia on iron sulfate BPH Continue home dose of tamsulosin and finasteride Hypothyroidism Continue home medications Synthyroid Diabetes mellitus On metformin at home Please hold metformin Accu-Cheks before meals and at bedtime Insulin sliding scale Full code Consistent carbohydrate diet DVT prophylaxis eliqus Pain pathway Problem List: 1. COPD (chronic obstructive pulmonary disease) Pain Ratin Pain Location: n/a Pain Goal: Remain pain free Pain Plan: none Tomorrow's Labs & Rationales: none GEOFF AMARO 09/19/16 1105: Attending MD Review Statement Attending Statement Attending MD Statement: examined this patient, discuss w/resident/PA/DESIZING PAD OPERATOR, agreed w/resident/PA/DESIZING PAD OPERATOR, discussed with family, reviewed EMR data (avail), discussed with nursing, discussed with case mgmt, reviewed images, amended to note Attending Assessment/Plan: Assessment 1. Acute on chronic respiratroy failure/COPD exacerbation. 2. paroxysmal atrial fibrillation but controlled, followed up with Dr. Guadarrama 3. hypertension 4. hyperlipidemia 5. Parkinson's disease 6. Moderate pulmonary hypertension. 7. diabetes mellitus controlled on metformin 8. Mild to moderate valvular disease 9. Possible viral bronchitis 10. h/o lung cancer s/p RLlobectomy. PLAN admitted to inpatient medical services Pulm consult, taper steroids, oxygen supplementation, abx, BDs CT without contrast no focal pneumonia, chronic changes ECHO with EF 60%, RVSP 66mm hg. Resume home meds. gi/dvt prophaylxis plan of care d/wed patient bedside
--- NOTE | 2016-09-19 07:54 | ECHOCARDIOGRAM REPORT ---
KENIA SHEARER Age: 86 : 1930 Gender: M Exam Date: 09/18/2016 19:55 Exam Location: [address] [place] [address] Ht (in): 66 Wt (lb): 153 BSA: 1.81 BP: 5 / 50 Ordering Physician: VIKTORIA CASTELLANOS, Referring Physician: Chang Guadarrama MD Technologist: Tosin Schafer [facility] Room Number: 204-02 Indications: HEART FAILURE Rhythm: Atrial fibrillation Technical Quality: Good FINDINGS Left Ventricle Normal size left ventricle. No obvious regional wall motion abnormalities. Left ventricular wall thickness increased. Normal left ventricular ejection fraction estimated at 65-70%. Right Ventricle Moderate right ventricular dilatation. Right Atrium Moderate right atrial dilatation. Left Atrium Moderate left atrial dilatation. Mitral Valve Mild thickening/calcification of the anterior mitral valve leaflet. Moderate mitral annular calcification. [id number] mitral regurgitation. Aortic Valve Trileaflet aortic valve. Diffuse thickening of the aortic valve cusps with reduced excursion. Mild aortic stenosis. Tricuspid Valve Tricuspid valve not well visualized, grossly normal. Moderate tricuspid regurgitation. Right ventricular systolic pressure estimated to be elevated at 66 mmHg. Pulmonic Valve Pulmonic valve not well visualized, grossly normal. Mild pulmonic regurgitation. Pericardium No pericardial effusion. Great Vessels Normal size aortic root and proximal ascending aorta. CONCLUSIONS 1. Mild aortic stenosis is present (PG 32 mmHg; MG 15 mmHg; ELAN 1.9 cm2). 2. THickening and calcification of the mitral leaflets is present with moderate anular calcfiicatoin and mild to moderate eccentric mitral insufficiency with moderate left atrial enlargement. 3. There is no pericardial fluid detected. 4. THe left ventricular chamber size and systolic function are normal with mild concentric hypertrophy present. 5. Moderate enlargement of the right heart chambers is present with moderate tricuspid insufficiency, mild pulmonic insufficiency and pulmomary hypertension with an estimated RV systolic pressure of 66 mmHg. 6. Color flow imaging suggests the presence of a PFO. Chang Guadarrama M.D. (Electronically Signed) Final Date: 19 Sep 2016 07:53 MEASUREMENTS (Male / Female) Normal Values 2D ECHO LV Diastolic Diameter PLAX 5.0 cm 4.2 - 5.9 / 3.9 - 5.3 cm LV Systolic Diameter PLAX 2.3 cm 2.1 - 4.0 cm LV Fractional Shortening PLAX 54.0 % 25 - 46 % LV Ejection Fraction 2D Teich 84.7 % IVS Diastolic Thickness 1.5 cm LVPW Diastolic Thickness 1.3 cm LV Relative Wall Thickness 0.6 RV Internal Dim ED PLAX 3.3 cm 1.9 - 3.8 cm LVOT Diameter 2.2 cm Aortic Root Diameter 3.5 cm LA Systolic Diameter LX 5.3 cm 3.0 - 4.0 / 2.7 - 3.8 cm LA Volume 83.0 cm 18 - 58 / 22 - 52 cm Ascending Aorta Diameter 3.2 cm DOPPLER AV Peak Velocity 296.0 cm/s AV Peak Gradient 35.0 mmHg AV Mean Velocity 202.0 cm/s AV Mean Gradient 19.0 mmHg AV Velocity Time Integral 61.8 cm LVOT Peak Velocity 147.0 cm/s LVOT Peak Gradient 8.6 mmHg LVOT Mean Velocity 90.3 cm/s LVOT Mean Gradient 4.0 mmHg LVOT Velocity Time Integral 26.5 cm LVOT Stroke Volume 100.7 cm AV Area Cont Eq vti 1.6 cm AV Area Cont Eq pk 1.9 cm MV Peak Velocity 157.0 cm/s MV Peak Gradient 9.9 mmHg MV Mean Velocity 84.1 cm/s MV Mean Gradient 4.0 mmHg Mitral E Point Velocity 153.0 cm/s MV PHT Velocity 163.0 cm/s MV Deceleration Frederick 496.0 cm/s MV Pressure Half Time 98.6 ms MV Area PHT 2.2 cm MV Deceleration Time 204.0 ms TR Peak Velocity 407.0 cm/s TR Peak Gradient 66.3 mmHg Right Atrial Pressure 5.0 mmHg Pulmonary Artery Systolic Pressu 71.3 mmHg Right Ventricular Systolic Press 71.3 mmHg PV Peak Velocity 160.0 cm/s PV Peak Gradient 10.2 mmHg PV Mean Velocity 94.6 cm/s PV Mean Gradient 4.0 mmHg PV Velocity Time Integral 31.3 cm LV E' Lateral Velocity 14.1 cm/s Mitral E to LV E' Lateral Ratio 10.9 LV E' Septal Velocity 10.7 cm/s Mitral E to LV E' Septal Ratio 14.3
[2016-09-19 08:07] LABS: ABSOLUTE BASOPHIL COUNT 0 /CUMM (0.0-0.2); ABSOLUTE EOSINOPHIL COUNT 0 /CUMM (0.0-0.7); ABSOLUTE LYMPH COUNT 0.8 /CUMM (1.2-3.4); ABSOLUTE MONOCYTE COUNT 0.7 /CUMM (0.10-0.60); BASOPHIL % 0.1 % (0.0-2.0); EOSINOPHIL % 0 % (0-5); GRANULOCYTE % 79.6 % (42.2-75.2); HEMATOCRIT 31.5 % (42-52); MEAN CORPUSCULAR HGB 25.6 PG (27.0-31.0); MEAN CORPUSCULAR VOLUME 80.1 FL (80.0-94.0); MEAN PLATELET VOLUME 10.3 FL (7.4-10.4); PLATELET COUNT 180 /CUMM (130-400); RED BLOOD CELL CT 3.94 /CUMM (4.70-6.10)
--- NOTE | 2016-09-19 08:09 | Patient Discharge Instructions ---
Discharge Instructions General Discharge Information You were seen/treated for: acute bronchitis community acquired pneumonia You had these procedures: None Watch for these problems: Fever, chills Chest pain Worsening shortness of breath Productive cough Special Instructions: Please follow-up with your primary care doctor in 1-2 weeks Please follow-up with your wastewater treatment plant attendant Dr. Feliberto Crane in 1-2 weeks Please follow-up with your load dispatcher Chang Guadarrama MD in 1-2 weeks Diet Recommended Diet: Diabetic Activity Full Activity/No Limits: Yes Acute Coronary Syndrome Inclusion Criteria At DC or during hospital stay patient has or had the following: ACS DIAGNOSIS No Discharge Core Measures Meds if any: Prescribed or Continued at Discharge Meds if any: NOT Prescribed or Continued at Discharge Congestive Heart Failure Inclusion Criteria At DC or during hospital stay patient has or had the following: CHF DIAGNOSIS No Discharge Core Measures Meds if any: Prescribed or Continued at Discharge Meds if any: NOT Prescribed or Continued at Discharge Cerebrovascular accident Inclusion Criteria At DC or during hospital stay patient has or had the following: CVA/TIA Diagnosis No Discharge Core Measures Meds if any: Prescribed or Continued at Discharge Meds if any: NOT Prescribed or Continued at Discharge Venous thromboembolism Inclusion Criteria VTE Diagnosis No VTE Type NONE VTE Confirmed by (Test) NONE Discharge Core Measures - Per Current guidelines, there needs to be overlap - treatment for the first 5 days of Warfarin therapy. - If discharged on Warfarin prior to 5 days of - overlap therapy, the patient will need to be - assessed for post discharge needs including - *Post discharge parental anticoagulation - *Warfarin and/or parental anticoagulation education - *Follow up date to check INR post discharge At least 5 days overlap therapy as Inpatient No Meds if any: Prescribed or Continued at Discharge Note: Overlap Therapy is Warfarin and Anticoagulant Meds if any: NOT Prescribed or Continued at Discharge
[2016-09-19 08:39] LABS: WHITE BLOOD CELL COUNT 7.5 /CUMM (4.8-10.8)
--- NOTE | 2016-09-19 09:00 | PN- Pulmonary ---
Subjective HPI/Critical Care Issues: pt seen and examined 97% on 2LNC afebrile hemodynamicaly stable mild pulmonary htn RVSP 66 suggested presence of a PFO scattered atelectasis, no focal consolidation on CT Objective Current Medications: Current Medications Sig/Chuck Start time Last Medication Dose Route Stop Time Status Admin Acetaminophen 650 MG Q6P PRN 09/17 1715 AC PO Acetaminophen 1,000 MG Q6P PRN 09/17 1715 AC IV Albuterol Sulfate 3 ML BID 09/17 2200 AC 09/18 INH 2045 Albuterol Sulfate 2 PUF Q4-6 PRN PRN 09/17 171 AC INH Apixaban 2.5 MG BID 09/17 2200 AC 09/18 PO 2118 Ascorbic Acid 500 MG DAILY 09/18 1000 AC 09/18 PO 1101 Atorvastatin Calcium 10 MG 1700 09/18 1700 AC 09/18 PO 1648 Azithromycin 500 MG Q24H 09/18 1600 AC 09/18 Sodium Chloride 250 ML IV 1647 Budesonide/ 2 PUF BID 09/18 2200 CAN Formoterol Fumarate INH Budesonide/ 2 PUF BID 09/18 1056 CAN Formoterol Fumarate INH Budesonide/ 2 PUF BID 09/17 2200 DC 09/17 Formoterol Fumarate INH 2200 Carbidopa/Levodopa 1 TAB TID 09/17 2200 AC 09/18 PO 2117 Ceftriaxone Sodium 1,000 MG Q24H 09/18 1600 AC 09/18 IV 1648 Digoxin 0.125 MG DAILY 09/18 1000 AC 09/18 PO 1105 Diltiazem HCl 240 MG DAILY 09/18 1000 AC 09/18 PO 1105 Ezetimibe 10 MG DAILY 09/18 1000 AC 09/18 PO 1107 Ferrous Sulfate 325 MG DAILY 09/18 1000 AC PO Finasteride 5 MG AT BEDTIME 09/17 2200 AC 09/18 PO 2117 Furosemide 20 MG Q48H 09/18 1000 AC 09/18 PO 1101 Hydromorphone HCl 1 MG Q6P PRN 09/17 1715 AC IV Insulin Aspart 0 TIDAC 09/18 0800 AC 09/18 SC 0827 Levothyroxine Sodium 0.05 MG DAILY AC 09/18 0700 AC 09/19 PO 0656 Melatonin 5 MG ONCE ONE 09/19 0200 DC 09/19 PO 09/19 020 0207 Methylprednisolone 40 MG Q12 09/170 DC 09/17 IV 220 Montelukast Sodium 10 MG AT BEDTIME 09/17 220 AC 09/18 PO 2117 Oxybutynin Chloride 5 MG DAILY 09/18 1000 AC 09/18 PO 1105 Prednisone 40 MG DAILY 09/18 1106 AC 09/18 PO 1354 Tamsulosin HCl 0.4 MG DAILY 09/18 1000 AC 09/18 PO 1105 Vital Signs & I&O Last 24 Hrs of Vitals and I&O: Vital Signs Date Time Temp Pulse Resp B/P B/P Pulse O2 O2 Flow FiO2 Mean Ox Delivery Rate 09/19 0654 97.9 67 18 144/70 97 Nasal 2.0L Cannula 09/19 0030 97 Nasal 2.0L Cannula 09/18 2158 98.5 78 20 120/54 97 Nasal 2.0L Cannula 09/18 2129 Nasal 2.0L Cannula 09/18 2045 95 Nasal 2.0L Cannula 09/18 1541 98.1 74 20 105/50 99 Nasal 1.5L Cannula 09/18 1118 97 Nasal 2.0L Cannula 09/18 1105 75 142/70 09/18 1105 75 142/70 Intake & Output 09/19 1600 09/19 0800 09/19 0000 Intake Total 240 120 Output Total Balance 240 120 Intake, Oral 240 120 Exam Other Physical Findings: General - Alert, awake and oriented HEENT - normocephalic, atraumatic Cardiovascular - S1, S2, +systolic murmur Lungs - rhonchi improved Abdomen - soft, bowel sounds positive, no tenderness Extremities - without edema or cyanosis Results Last 24 Hrs of Lab Results: Laboratory Tests 09/19/16 0634: Anion Gap 9, Estimated GFR > 60, BUN/Creatinine Ratio 28.6 H, CBC w Diff NO MAN DIFF REQ, RBC 3.94 L, MCV 80.1, MCH 25.6 L, RDW 24.0 H, MPV 10.3, Gran % 79.6 H, Lymphocytes % 11.2 L, Monocytes % 9.1, Eosinophils % 0, Basophils % 0.1, Absolute Granulocytes 6.0, Absolute Lymphocytes 0.8 L, Absolute Monocytes 0.7 H, Absolute Eosinophils 0, Absolute Basophils 0, PUBS MCHC 32.0 L Impression/Plan Impression/Plan Impression/Plan: Impression 86 year old man * acute bronchitis with mild exacerbation of COPD * hx lung cancer s/p[ RLL lobectomy. * mild , pulmonary htn Plan - no pneumonia on CT - dc ceftriaxone - 5 days zithromax for bronchitis - total of 5 days (4 more) of prednisone 40mg po without a taper DVT prophylaxis at all times - on eliquis
[2016-09-19 10:25] VITALS: BP 122/78
[2016-09-19] MEDS ORDERED: PREDNISONE20 M1 PO (10:52)
[2016-09-19] MEDS ORDERED: ZITHROMAX500 M2 PO (10:52)
--- NOTE | 2016-09-19 10:55 | NUR ---
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
--- NOTE | 2016-09-19 11:31 | Discharge Summary ---
See Addendum Visit Information Visit Dates Admission Date: 09/17/16 Discharge Date: 09/19/16 Hospital Course Course Attending Physician: GEOFF AMARO MD Primary Care Physician: ANABELLE VALDEZ MD Other Care Providers: Pulmonology-Feliberto Crane Cardiology Dr. Guadarrama Consulting Request: Consulting Specialty: Cardiology Hospital Course: This is a 86-year-old man with past medical history significant for macular degeneration, allergies, COPD on nocturnal oxygen 1 L, multiple admissions for pneumonia in the past, congestive heart failure, atrial fibrillation on eliqus, hypertension, Parkinson's disease, GERD, low GI bleed, AV malformation, hyperlipidemia, constipation, anemia, BPH, urine retention, hypothyroidism, diabetes mellitus, lung cancer status right lower lobe lobectomy presented to ER with chief complaint of fever, chills, cough, sputum production, difficulty breathing for 2-3 days. Vitals on admission-afebrile, heart rate 84, respiratory rate 18, blood pressure 168/95, saturating at 91 on room air, later 98% on 2 L cannula. Pertinent labs on admission-CBC BEP normal ProBNP 1140 Chest x-ray Slightly more pronounced reticular markings right mid lung and hazy reticular changes left midlung. Superimposed viral pneumonia cannot be excluded. Streaky atelectasis right lateral base . Slightly greater elevation of the right hemidiaphragm. ct chest 1. No focal pneumonia seen. Scattered areas of atelectasis are seen in the lung bases bilaterally. 2. Severe emphysema with chronic volume loss in the right lower lung, likely due to prior right lower lobectomy versus chronic collapse. Please correlate with surgical history. 3. Borderline mediastinal adenopathy, likely reactive. 4. Dense atherosclerotic vascular calcifications, including coronary arteries and aortic valves. 5. Liver findings suggestive of cirrhosis. Clinical correlation requested. 6. Evidence of prior granulomatous disease with scattered bilateral calcified granulomas in the lungs and in the liver and splee acute bronchitis with mild COPD exacerbation Patient presented with worsening shortness of breath associated with fever, chills, productive cough. Denies any chest pain. Reports exposure to sick contacts and travel history. He is afebrile with normal leukocyte count. Chest x-ray showed right midlung hazy opacities suggestive of pneumonia. CT scan ruled out pneumonia. He was Admitted to general medicine floor for further management. Monitored vitals closely every shift and Maintained oxygen saturation above 90%. Provided supplemental oxygen whenever necessary. Patient was started on antibiotics azithromycin and ceftriaxone in the emergency room continued antibiotics azithromycin and ceftriaxone for 2days and discharged on Z -Jon for 5 days. Patient was started on IV Solu-Medrol 40 mg every 12 hours in the emergency room and Steroids tapered down to prednisone 40 mg daily for 5 more days as per Dr. Crane recommendations. Possible COPD exacerbation Patient has COPD at baseline who uses oxygen at nighttime 1 L. He uses albuterol fluticasone, ipratropium, Montelukast at home. He came in with worsening shortness of breath, fever, chills associated with productive cough. We treated Possible COPD exacerbation with underlying bronchitis. he was given total respiratory care and nebulizer treatments. He was given prednisone 40 mg for 5 days. Antibiotics Z-Jon for 5 days lower ext swelling He follows Dr. Guadarrama housing liaison as an outpatient. He was started on Lasix every other day for leg swelling. We Contacted Dr. Guadarrama and Continued Lasix every 48 hours-20 mg echo done in the hospital CONCLUSIONS 1. Mild aortic stenosis is present (PG 32 mmHg; MG 15 mmHg; ELAN 1.9 cm2). 2. THickening and calcification of the mitral leaflets is present with moderate anular calcfiicatoin and mild to moderate eccentric mitral insufficiency with moderate left atrial enlargement. 3. There is no pericardial fluid detected. 4. THe left ventricular chamber size and systolic function are normal with mild concentrichypertrophy present. 5. Moderate enlargement of the right heart chambers is present with moderate tricuspid insufficiency, mild pulmonic insufficiency and pulmomary hypertension with an estimated RV systolic pressure of 66 mmHg. Allergies Continued Citrizine Lung cancer Status post right lower lobe lobectomy Atrial fibrillation Patient is on digoxin, diltiazem, eliqus 2.5 mg twice a day we continued all the home medications for atrial fibrillation Parkinson's disease Continued home medication carbidopa and L-dopa GERD continued omeprazole Hyperlipidemia Continued home medications simvastatin Constipation On Colace whenever necessary Anemia continued iron sulfate BPH Continued home dose of tamsulosin and finasteride Hypothyroidism Continued home medications Synthyroid Diabetes mellitus On metformin at home. We've held the metformin in the hospital Accu-Cheks before meals and at bedtime and placed on Insulin sliding scale Full code Consistent carbohydrate diet DVT prophylaxis eliqus Pain pathway Complications: none Allergies: Coded Allergies: pollen extracts (UNKNOWN 07/01/16) atorvastatin (Severe, MUSCLE WEAKNESS 07/01/16) Uncoded Allergies: DUST (UNKNOWN 12/26/14) Significant Procedures: none Pertinent Lab Results: ECHO CONCLUSIONS 1. Mild aortic stenosis is present (PG 32 mmHg; MG 15 mmHg; ELAN 1.9 cm2). 2. THickening and calcification of the mitral leaflets is present with moderate anular calcfiicatoin and mild to moderate eccentric mitral insufficiency with moderate left atrial enlargement. 3. There is no pericardial fluid detected. 4. THe left ventricular chamber size and systolic function are normal with mild concentric hypertrophy present. 5. Moderate enlargement of the right heart chambers is present with moderate tricuspid insufficiency, mild pulmonic insufficiency and pulmomary hypertension with an estimated RV systolic pressure of 66 mmHg. 6. Color flow imaging suggests the presence of a PFO. CHEST CT IMPRESSION: 1. No focal pneumonia seen. Scattered areas of atelectasis are seen in the lung bases bilaterally. 2. Severe emphysema with chronic volume loss in the right lower lung, likely due to prior right lower lobectomy versus chronic collapse. Please correlate with surgical history. 3. Borderline mediastinal adenopathy, likely reactive. 4. Dense atherosclerotic vascular calcifications, including coronary arteries and aortic valves. 5. Liver findings suggestive of cirrhosis. Clinical correlation requested. 6. Evidence of prior granulomatous disease with scattered bilateral calcified granulomas in the lungs and in the liver and spleen. CXR IMPRESSION: Slightly more pronounced reticular markings right mid lung and hazy reticular changes left midlung. Superimposed viral pneumonia cannot be excluded. Streaky atelectasis right lateral base . Slightly greater elevation of the right hemidiaphragm. Disposition Summary Disposition Principal Diagnosis: Acute bronchitis with mild COPD exacerbation Additional Diagnosis: Mild aortic stenosis Pulmonary hypertension Discharge Disposition: home health services Discharge Instructions General Discharge Information Code Status: Full Code Patient's Diet: DIABETIC DIET Patient's Activity: As tolerated Follow-Up Instructions/Appts: Please follow-up with your primary care doctor in 1-2 weeks Please follow-up with your order entry clerk Dr. Feliberto Crane in 1-2 weeks Please follow-up with your housing liaison Chang Guadarrama MD in 1-2 weeks Medications at Discharge Discharge Medications: Continue taking these medications: Fluticasone/Salmeterol (Advair 500-50 Diskus) 500 MCG-50 MCG/DOSE BLST.W.DEV 1 Puff Inhale through mouth TWICE DAILY Comments: NOT GIVEN Levothyroxine Sodium (Synthroid) 50 MCG TABLET 1 Tablet ORAL DAILY Qty = 30 Comments: Last Taken:09/17/16 Time:0700 Docusate Sodium (Colace) 100 MG CAPSULE 1 ORAL DAILY Comments: NOT GIVEN Dexlansoprazole (Dexilant) 60 MG CAP.DR.BP 1 Capsule ORAL DAILY Comments: NOT GIVEN Tamsulosin HCl (Flomax) 0.4 MG CAP.ER.24H 1 Capsule ORAL DAILY Comments: Last Taken: 09/19/16 Time: 1000AM Solifenacin Succinate (Vesicare) 5 MG TABLET 1 Tablet ORAL DAILY Comments: Last Taken: 09/19/16 Time: 1000AM Metformin HCl (Metformin HCl) 500 MG TABLET 1 Tablet ORAL TWICE DAILY Qty = 180 Comments: Last Taken:NOT GIVEN IN HOSPITAL Time: Carbidopa/Levodopa (Sinemet 25-100 MG Tablet) 25 MG-100 MG TABLET 1 Tablet ORAL THREE TIMES DAILY Comments: Last Taken:09/19/16 Time:1000 Diltiazem HCl (Diltiazem ER) 240 MG CAP.ER.DEG 1 Tablet ORAL DAILY Ferrous Sulfate (Ferrous Sulfate) 325 MG (65 MG IRON) TABLET 1 Tablet ORAL DAILY Comments: NOT GIVEN Finasteride (Finasteride) 5 MG TABLET 1 Tablet ORAL AT BEDTIME Comments: Last Taken:09/18/16 Time:9 PM Furosemide (Lasix) 20 MG TABLET 1 Tablet ORAL Every other day Comments: Last Taken:07/07/16 Time:1000 Montelukast Sodium (Montelukast Sodium) 10 MG TABLET 1 Tablet ORAL AT BEDTIME Comments: Last Taken:09/18/16 Time: 10 PM Apixaban (Eliquis) 2.5 MG TABLET 1 Tablet ORAL TWICE DAILY Instructions: Please discuss with your housing liaison before resuming the medication Comments: Last Taken:09/19/16 Time:1000 Albuterol Sulfate (Proair Hfa) 90 MCG HFA.AER.AD 2 Puff Inhale through mouth EVERY 4-6 HOURS NEEDED as needed for COPD Comments: Last Taken:NOT GIVEN IN HOSPITAL Time: Ezetimibe/Simvastatin (Vytorin 10-10 MG Tablet) 10 MG-10 MG TABLET 1 Tablet ORAL AT BEDTIME Comments: Last Taken:09/19/16 Time:1000 Cetirizine HCl (Cetirizine HCl) 10 MG TAB.CHEW 1 Tablet ORAL Every night Comments: NOT GIVEN IN HOSPITAL Ipratropium Sweeny (Ipratropium Sweeny) (Unknown Strength) SPRAY Unknown Dose Route Not Applicable Every night Comments: NOT GIVEN Ascorbic Acid (Ascorbic Acid) 500 MG TABLET 1 Tablet ORAL DAILY Comments: Last Taken:09/19/16 Time: 1000AM Digoxin (Digoxin) 125 MCG TABLET 1 Tablet ORAL DAILY Comments: Last Taken: 09/19/16 Time: 1000AM Start taking the following new medications: Azithromycin (Zithromax) 500 MG TABLET 1 Tablet ORAL DAILY Qty = 5 No Refills Comments: NOT GIVEN IN HOSPITAL Prednisone (Prednisone) 20 MG TABLET 1 Tablet ORAL See Instructions Qty = 8 No Refills Instructions: take 2piils each day for 4more days Comments: Last Taken: 09/19/16 Time: 1000AM PREDNISONE 40MG GIVEN Copies To: COURTNEY RIVAS,ANABELLE
--- NOTE | 2016-09-19 12:15 | PN- Cardiology ---
Subjective Subjective: The patient is doing much better today. Anxiously awaiting discharge. Respiratory status improved. New cardiac issues noted. Assessment/Plan Assessment/Plan Assessment: 1. Exacerbation of COPD/rhonchi this 2. Atrial fibrillation 3. History of coronary artery disease 4. Lower extremity edema with no history of any overt heart failure in the past. 4. Significant underlying pulmonary hypertension with chronic cor pulmonale Recommendations: -From a cardiac standpoint, the patient appears stable. -Historically, the patient has had normal left ventricular function. His repeat echocardiogram confirms normal left ventricular function with no evidence of significant systolic or diastolic heart failure. Likely, the patient has never been in overt left heart failure. He does have chronic lower extremity edema for which she receives diuretics. The lower extremity edema is related to venous insufficiency and his baseline significant pulmonary hypertension. -For now, the patient is stable from a cardiac standpoint. There is no contraindication to discharging the patient from a cardiac perspective. -The patient will see me in the office in 2 weeks.
== END 2016-09-19 12:51 | disposition home health service (06) | DRG 192 ==
LOC: ERH 11:36 → 2NB 16:24 → ERHI 16:24 → 2NB 16:24 → ENRESERV 17:15 → 2NB 17:45 → ENPENDDIS 09-19 11:05 → 2NB 09-19 12:51
PROVIDERS: Internal Medicine Nephrology; Physician Assistant Medical; ADMIT Internal Medicine
DX: J44.0 Chronic obstructive pulmonary disease with (acute) lower respiratory infection (principal); G20 Parkinson's disease; I27.2 Other secondary pulmonary hypertension; I48.2 Chronic atrial fibrillation; I25.5 Ischemic cardiomyopathy; I35.0 Nonrheumatic aortic (valve) stenosis; E11.9 Type 2 diabetes mellitus without complications; J44.1 Chronic obstructive pulmonary disease with (acute) exacerbation; J20.9 Acute bronchitis, unspecified; Z79.01 Long term (current) use of anticoagulants; Z79.84 Long term (current) use of oral hypoglycemic drugs; I10 Essential (primary) hypertension; Z85.118 Personal history of other malignant neoplasm of bronchus and lung; I25.10 Atherosclerotic heart disease of native coronary artery without angina pectoris
CPT/HCPCS: 2NBSP; 36415; 82436; 87040; 87070; 87449; 87450; 87804; 87804-59; 93005; 93010; 93306; 96374; 96375; J0456; J0696; J2920; J2930; J3490; J7040

== ENCOUNTER 2017-06-17 11:42 | Inpatient (IN) | payer OTHER, MEDICARE ==
[~2017-06-17] VITALS: Ht 167.6 cm; Wt 68.9 kg
[~2017-06-17 11:42] MED LIST changes: +ASCORBIC ACID500 M2 PO; +AZITHROMYCIN250 M1 PO; +CETIRIZINE HCL10 M1 PO; +DIGOXIN125 MCG PO; +FERROUS SULFAT325 M2 PO; +FLONASE ALLERG9.9 ML NASB; +IPRATROPIUM BRO30 M2 NASB; +LANOXIN125 MCG PO; +MELATONIN10 M5 PO; +MIRTAZAPINE7.5 M1 PO; +PREDNISONE20 M1 PO; +PRESERVISION A1 EAC1 PO; +RETIN-A20 GM TOP; +SENNA8.6 M3 PO; +TERBINAFINE15 GM TOP; +THERA TEARS15 ML OU; +XOPENEX0.63 MG/1 INH/SOL; +ZITHROMAX500 M2 PO
--- NOTE | 2017-06-17 14:18 | RADIOLOGY REPORT ---
EXAMINATION: CR CHEST CLINICAL INFORMATION: Cough. Presumptive diagnosis of pneumonia. COMPARISON: CT scan of the chest dated 05/30/2017. Several prior chest x-rays, most recent of which is dated 03/03/2017. TECHNIQUE: 2 views of the chest were obtained. FINDINGS: The cardiomediastinal silhouette is enlarged, unchanged from prior exam. There is slight tracheal deviation towards the right side from midline, due to mass effect by the aortic arch as well as due to mild volume loss in the right hemithorax with elevation of the right hemidiaphragm and right mid and lower lung patchy opacities again seen. Compared to prior exam, the appearance is similar. There is also some reticular opacity in the left lung base, consistent with atelectasis, improved when compared to prior exam. Underlying extensive emphysematous lung disease is noted. Trace right pleural effusion is again seen, unchanged. No pneumothorax is seen. Osteopenia is noted with mild vertebral spondylosis in the lower thoracic spine. No suspicious bone findings. IMPRESSION: Interval slight improvement in the reticular opacities in the left lung base is seen. No significant change in the right mid and lower lung reticular opacities. No significant change in trace right-sided pleural effusion.
--- NOTE | 2017-06-17 14:47 | ED DYSPNEA/ASTHMA COMPLAINT ---
History of Present Illness General Chief Complaint: Upper Respiratory Sx/Fever Stated Complaint: NO RELIEF OF PNA SYMPTOMS Source: patient, old records Exam Limitations: no limitations Vital Signs & Intake/Output Vital Signs & Intake/Output ED Intake and Output 06/20 0000 06/19 1200 Intake Total 480 Output Total Balance 480 Intake, Oral 480 Allergies Coded Allergies: pollen extracts (UNKNOWN 07/01/16) atorvastatin (Severe, MUSCLE WEAKNESS 07/01/16) Uncoded Allergies: DUST (UNKNOWN 12/26/14) Triage Note: PT TO ED "I HAD PNEUMONIA AND FINISHED THE ANTIBIOTICS A WEEK AGO, IF I TAKE THE OXYGEN OFF I GO DOWN TO THE 70'S, AND I USUALLY ONLY USE IT AT NIGHT NEVER DURING THE DAY". "I CALLED DR RIVAS AND HE IS AWAY, AND DR ODELL IS HOME SICK". Triage Nurses Notes Reviewed? yes Onset: Abrupt Duration: week(s):, continues in ED, getting worse Timing: recent history Severity: moderate, severe HPI: 87-year-old male comes into emergency room for persistent cough and shortness of breath getting progressively worse. He was diagnosed with pneumonia in the beginning of the month. He was seen on 2 separate occasions at 2 different hospitals and prescribed antibiotics. He tried to call his patient coordinator front desk Dr. Rivas and the other human resources operations manager DrYasmine is sick with the flu. He reports persistent shortness of breath. He is on 1 L of oxygen nighttime but reports that since he 's been sick he's been on 2 L all day. His oxygen level dropping. He comes in for further evaluation. (Jonnie Contreras) Reconcile Medications Albuterol Sulfate (Proair Hfa) 90 MCG HFA.AER.AD 2 PUF INH Q4H PRN COPD ( Reported) Apixaban (Eliquis) 2.5 MG TABLET 1 TAB PO BID AFIB (Reported) Please discuss with your asphalt roller operator before resuming the medication Ascorbic Acid 500 MG TABLET 1 TAB PO DAILY VITAMIN SUPPORT (Reported) Carbidopa/Levodopa (Sinemet 25-100 MG Tablet) 25 MG-100 MG TABLET 1 TAB PO TID PARKINSON (Reported) Carboxymethylcellulose Sodium (Thera Tears) 0.25 % DROPS 1 DROP OU 5XDAILY DRY EYES (Reported) Cetirizine HCl 10 MG TAB.CHEW 1 TAB PO QPM ALLERGIES (Reported) Dexlansoprazole (Dexilant) 60 MG CAP.DR.BP 1 CAP PO DAILY ACID REFLUX ( Reported) Digoxin (Lanoxin) 125 MCG TABLET 0.125 MG PO Q48 HEART HEALTH Please take every other day. Diltiazem HCl (Diltiazem ER) 240 MG CAP.ER.DEG 1 TAB PO DAILY HEART (Reported ) Docusate Sodium (Colace) 100 MG CAPSULE 1 CAP PO DAILY Constipation (Reported ) Ezetimibe/Simvastatin (Vytorin 10-10 MG Tablet) 10 MG-10 MG TABLET 1 TAB PO AT BEDTIME CHOLESTEROL (Reported) Ferrous Sulfate 325 MG (65 MG IRON) TABLET.DR 325 MG PO BID ANEMIA .. Finasteride 5 MG TABLET 1 TAB PO AT BEDTIME BPH (Reported) Fluticasone Propionate (Flonase Allergy Relief) 50 MCG/ACTUATION SPRAY.SUSP 2 SPRAY NASB DAILY ALLERGIES (Reported) Fluticasone/Salmeterol (Advair 500-50 Diskus) 500 MCG-50 MCG/DOSE BLST.W.DEV 1 PUF INH Q12H ASTHMA (Reported) Furosemide (Lasix) 20 MG TABLET 1 TAB PO EOD DIURETIC (Reported) Ipratropium [place] 21 MCG (0.03 %) SPRAY 2 SPRAY NASB QHS ALLERGIES ( Reported) Levalbuterol HCl (Xopenex) 0.63 MG/3 ML VIAL.NEB 1 ML INH/ALISA Q6P PRN COPD ( Reported) Levothyroxine Sodium (Synthroid) 50 MCG TABLET 1 TAB PO DAILY hypothyroidism (Reported) Melatonin 10 MG CAPSULE 1 CAP PO DAILY SUPPLEMENT (Reported) Metformin HCl 500 MG TABLET 1 TAB PO BID DM (Reported) Mirtazapine 7.5 MG TABLET 1 TAB PO QHS MENTAL HEALTH Montelukast Sodium 10 MG TABLET 1 TAB PO AT BEDTIME COPD (Reported) Prednisone (Deltasone) 20 MG TABLET 40 MG PO DAILY Steroid Taper Please take for 5 days then stop. Sennosides (Senna) 8.6 MG TABLET 2 TAB PO DAILY PRN CONSTIPATION (Reported) Solifenacin Succinate (Vesicare) 5 MG TABLET 1 TAB PO DAILY BLADDER (Reported ) Tamsulosin HCl (Flomax) 0.4 MG CAP.ER.24H 1 CAP PO DAILY BPH (Reported) Terbinafine HCl (Terbinafine) 1 % CREAM..G. 1 RUCHI TOP QHS FEET/TOES/BUTTOCKS (Reported) Tretinoin (Retin-A) 0.025 % CREAM..G. 1 RUCHI TOP AD AT BEDTIME EVERY 2-3 NIGHTS (Reported) Vit C/E/Zn/Coppr/Lutein/Zeaxan (Preservision Areds 2 Softgel) 250-200-40 CAPSULE 1 CAP PO BID SUPPLEMENT (Reported) (Negin RIVAS,Jae Taylor) Past History Travel History Traveled to [place] past 21 day No Medical History Any Pertinent Medical History? see below for history Neurological: Parkinson's disease EENT: blindness, hearing loss, macular degeneration Cardiovascular: aortic aneurysm, AFIB, CHF, hypertension, hyperlipidemia Respiratory: bronchitis, COPD, emphysema, pneumonia, Lung ca s/p lobectomy Gastrointestinal: lower GI bleed, AVM Hepatic: NONE Renal: NONE Musculoskeletal: osteoarthritis Psychiatric: NONE Endocrine: diabetes Blood Disorders: anemia Cancer(s): lung cancer, RLL LOBECTOMY REIMBURSEMENT REPRESENTATIVE/Reproductive: NONE Other Medical Hx: IGG DEFICIENCY History of MRSA: No History of VRE: No History of CDIFF: No Influenza Vaccine: 02/03/17 Surgical History Surgical History: cholecystectomy, Lobectomy R ANKLE SURGERY L EAR SURGERY 5TH AND 6TH VERTEBRA FUSE Psychosocial History Who do you live with Spouse Services at Home None What is your primary language Nigerian Tobacco Use: Quit >30 days ago ETOH Use: denies use Illicit Drug Use: denies illicit drug use Family History Family History, If Any: SISTER (some platelet problem). MOTHER Relation not specified for: FH: hypertension Hx Contributory? No (Jonnie Contreras) Review of Systems Review of Systems Constitutional: Reports: see HPI. EENTM: Reports: see HPI. Respiratory: Reports: see HPI. Cardiovascular: Reports: no symptoms. GI: Reports: no symptoms. Genitourinary: Reports: no symptoms. Musculoskeletal: Reports: no symptoms. Skin: Reports: no symptoms. Neurological/Psychological: Reports: no symptoms. Hematologic/Endocrine: Reports: no symptoms. Immunologic/Allergic: Reports: no symptoms. All Other Systems: Reviewed and Negative (Jonnie Contreras) Physical Exam Physical Exam General Appearance: well developed/nourished, alert, mild distress Head: atraumatic, normal appearance Eyes: Bilateral: normal appearance, EOMI. Ears, Nose, Throat: normal ENT inspection, hearing grossly normal Neck: normal inspection Respiratory: no respiratory distress, decreased breath sounds Cardiovascular: regular rate/rhythm Gastrointestinal: soft Extremities: normal inspection, no edema Neurologic/Psych: awake, alert, oriented x 3, normal gait Skin: intact, normal color Core Measures ACS in differential dx? Yes CVA/TIA Diagnosis No Sepsis Present: No Sepsis Focused Exam Completed? No (Paul MONTALVO,Jonnie) Progress Differential Diagnosis: asthma, AMI, bronchitis, costochondritis, CHF, COPD, musculoskeletal pain, pericarditis, pulmonary embolism, pneumonia, pneumothorax, rib fracture, unstable angina Plan of Care: Orders Procedure Date/time Status AEROSOL CHG 06/19 UNK Complete OXYGEN 06/19 UNK Complete OXYGEN DAILY CHARGE 06/19 UNK Complete Diagnostic Imaging: Viewed by Me: Radiology Read. Discussed w/RAD: Radiology Read. Radiology Impression: PATIENT: KENIA SHEARER PRESENT AGE: 87 PATIENT ACCOUNT NO: [id number] : 31 LOCATION: [facility] ORDERING PHYSICIAN: Howard MONTALVO SERVICE DATE: 06/17/17 EXAM TYPE: RAD - XRY-CHEST XRAY, TWO VIEWS EXAMINATION: CR CHEST CLINICAL INFORMATION: Cough. Presumptive diagnosis of pneumonia. COMPARISON: CT scan of the chest dated 05/30/2017. Several prior chest x-rays, most recent of which is dated . TECHNIQUE: 2 views of the chest were obtained. FINDINGS: The cardiomediastinal silhouette is enlarged, unchanged from prior exam. There is slight tracheal deviation towards the right side from midline, due to mass effect by the aortic arch as well as due to mild volume loss in the right hemithorax with elevation of the right hemidiaphragm and right mid and lower lung patchy opacities again seen. Compared to prior exam, the appearance is similar. There is also some reticular opacity in the left lung base, consistent with atelectasis, improved when compared to prior exam. Underlying extensive emphysematous lung disease is noted. Trace right pleural effusion is again seen, unchanged. No pneumothorax is seen. Osteopenia is noted with mild vertebral spondylosis in the lower thoracic spine. No suspicious bone findings. IMPRESSION : Interval slight improvement in the reticular opacities in the left lung base is seen. No significant change in the right mid and lower lung reticular opacities. No significant change in trace right-sided pleural effusion. DICTATED BY: Thu Katz MD DATE/TIME DICTATED:06/17/171407 REM[employer]NCODING CENTER MANAGER: CHAI DATE/TIME TRANSCRIBED:06/17/171407 CONFIDENTIAL, DO NOT COPY WITHOUT APPROPRIATE AUTHORIZATION. <Electronically signed in Other Vendor System> SIGNED BY: Thu Katz MD 06/17/17 1418 Initial ED EKG: rate (63), AFIB (Jonnie Contreras) Departure Departure Disposition: STILL A PATIENT Condition: Stable Clinical Impression Primary Impression: Pneumonia Secondary Impressions: Hypoxia Referrals: Pawel De La Rosa MD (PCP/Family) Departure Forms: Customer Survey General Discharge Information Observation Note Spoke With: Martín Kumari MD Physician Advisor Notified: ABIGAIL RIVAS,ETHAN Re[address] Place Patient In: Non-ED OBS Care Area Rationale for Observation: My rational for observation is as follows . Patient will require pulmonary consult. Patient's oxygen saturation drops 4% and he is short of breath on exertion. He is normally not supposed to be on 2 L of oxygen daily. He may require intravenous antibiotics. Patient would do poorly as an outpatient. (Jonnie Contreras) Departure Prescriptions: Current Visit Scripts Prednisone (Deltasone) 40 MG PO DAILY #10 TAB Please take for 5 days then stop. PA/[employer] Co-Sign Statement Statement: ED Attending supervision documentation- [X] I saw and evaluated the patient. I have also reviewed all the pertinent lab results and diagnostic results. I agree with the findings and the plan of care as documented in the PA's/[employer]'s documentation. Patient presents for evaluation of worsening shortness of breath over the past few days. Physical examination reveals a diffusely decreased breath sounds. [] I have reviewed the ED Record and agree with the PA's/[employer]'s documentation. [] Additions or exceptions (if any) to the PAs/[employer]'s note and plan are summarized below: [] (Negin RIVAS,Jae Taylor) Critical Care Note Critical Care Note Critical Care Time: non-applicable (Jonnie Contreras) Radiology Impression: PATIENT: KENIA SHEARER PRESENT AGE: 87 PATIENT ACCOUNT NO: [id number] : 31 LOCATION: [facility] ORDERING PHYSICIAN: Howard MONTALVO SERVICE DATE: 02/12/18-1323 EXAM TYPE: RAD - XRY-CHEST XRAY, TWO VIEWS EXAMINATION: CR CHEST CLINICAL INFORMATION: Cough. Presumptive diagnosis of pneumonia. COMPARISON: CT scan of the chest dated 05/30/2017. Several prior chest x-rays, most recent of which is dated . TECHNIQUE: 2 views of the chest were obtained. FINDINGS: The cardiomediastinal silhouette is enlarged, unchanged from prior exam. There is slight tracheal deviation towards the right side from midline, due to mass effect by the aortic arch as well as due to mild volume loss in the right hemithorax with elevation of the right hemidiaphragm and right mid and lower lung patchy opacities again seen. Compared to prior exam, the appearance is similar. There is also some reticular opacity in the left lung base, consistent with atelectasis, improved when compared to prior exam. Underlying extensive emphysematous lung disease is noted. Trace right pleural effusion is again seen, unchanged. No pneumothorax is seen. Osteopenia is noted with mild vertebral spondylosis in the lower thoracic spine. No suspicious bone findings. IMPRESSION : Interval slight improvement in the reticular opacities in the left lung base is seen. No significant change in the right mid and lower lung reticular opacities. No significant change in trace right-sided pleural effusion. DICTATED BY: Thu Katz MD DATE/TIME DICTATED:06/17/171407 REMOTE ENCODING CENTER MANAGER: CHAI DATE/TIME TRANSCRIBED:06/17/171407 CONFIDENTIAL, DO NOT COPY WITHOUT APPROPRIATE AUTHORIZATION. <Electronically signed in Other Vendor System> SIGNED BY: Thu Katz MD 06/17/17 1418 Initial ED EKG: rate (63), AFIB Departure Departure Disposition: STILL A PATIENT Condition: Stable Clinical Impression Primary Impression: Pneumonia Secondary Impressions: Hypoxia Referrals: Pawel De La Rosa MD (PCP/Family) Departure Forms: Customer Survey General Discharge Information Observation Note Spoke With: Martín Kumari MD Physician Advisor Notified: ABIGAIL RIVAS,ETHAN Reyes Place Patient In: Non-ED OBS Care Area Rationale for Observation: My rational for observation is as follows . Patient will require pulmonary consult. Patient's oxygen saturation drops 4% and he is short of breath on exertion. He is normally not supposed to be on 2 L of oxygen daily. He may require intravenous antibiotics. Patient would do poorly as an outpatient. Critical Care Note Critical Care Note Critical Care Time: non-applicable
[2017-06-17 15:55] LABS: ABSOLUTE BASOPHIL COUNT 0 /CUMM (0.0-0.2); ABSOLUTE EOSINOPHIL COUNT 0.4 /CUMM (0.0-0.7); ABSOLUTE GRANULOCYTE CT 3.8 /CUMM (1.4-6.5); ABSOLUTE LYMPH COUNT 0.9 /CUMM (1.2-3.4); ABSOLUTE MONOCYTE COUNT 0.6 /CUMM (0.10-0.60); BASOPHIL % 0.4 % (0.0-2.0); EOSINOPHIL % 6.3 % (0-5); GRANULOCYTE % 67.3 % (42.2-75.2); HEMATOCRIT 31.2 % (42-52); MEAN CORPUSCULAR HGB 26.1 PG (27.0-31.0); MEAN CORPUSCULAR HGB CONC 32.2 G/DL (33.0-37.0); MEAN CORPUSCULAR VOLUME 80.9 FL (80.0-94.0); MEAN PLATELET VOLUME 9.3 FL (7.4-10.4); PLATELET COUNT 158 /CUMM (130-400); RBC DISTRIBUTION WIDTH 18.7 % (11.5-14.5); RED BLOOD CELL CT 3.86 /CUMM (4.70-6.10); WHITE BLOOD CELL COUNT 5.7 /CUMM (4.8-10.8)
--- NOTE | 2017-06-17 17:42 | History & Physical ---
ToneMcclure 06/17/17 9886: General Information and HPI MD Statement: I have seen and personally examined KENIA SHEARER and documented this H&P. The patient is a 87 year old M who presented with a patient stated chief complaint of worsening shortness of breath with productive cough and weakness for 3 weeks.[]. 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 Patient reported that he was in his usual state of health 3-1/2 weeks back when he developed pneumonia and he was admitted at [facility] for 7 days and he was treated for pneumonia with antibiotics for 10 days. After discharge he started to feel weak again and that's progressively worsening since then. Patient also reported after the discharge he didn't feel better and his cough started to worse and no for last couple of days he is also bringing some phlegm that's nonbloody and non -foul-smelling. Patient also reported having chills for last couple of days but didn't report any fever. Patient reported that today he took off his oxygen and he desaturated to 84%. He called Dr. Crane's office but he is away that's what patient decided to come to ED. Patient denied any chest pain, palpitations, fever, lightheadedness, sick contact, dizziness, loss of consciousness, hemoptysis, hematemesis, vomiting, abdominal pain and dysuria. Patient reported that he is using 2 pillows at nighttime and without pillows he feels short of breath but it's going on for a long time. Patient also reported feeling nauseous but no vomiting and decreased appetite. Last time patient was admitted in [facility] in February 2017 with shortness of breath and was treated for CHF exacerbation and COPD exacerbation. Echocardiogram was done in February 2017 that showing ejection fraction 60-65% with pulmonary hypertension and right ventricle systolic pressure 62 mmHg. ED course: Vitals: Temperature 97.8, pulse 69, respiratory rate 22, blood pressure 182/91, oxygen saturation 96% on 1 L O2. Labs: WBC 5.7, hemoglobin 10.1, hematocrit 31.2, platelet count 158, sodium 141, potassium 3.9, BUN 18, creatinine 0.7, BUN/creatinine ratio 25.7, glucose 98, lactic acid 0.7, calcium 8.9, AST 18, ALT 18, troponin less than 0.01 Rapid flu test was done in ED that was negative. Allergies/Medications Allergies: Coded Allergies: pollen extracts (UNKNOWN 07/01/16) atorvastatin (Severe, MUSCLE WEAKNESS 07/01/16) Uncoded Allergies: DUST (UNKNOWN 12/26/14) Home Med list Albuterol Sulfate (Proair Hfa) 90 MCG HFA.AER.AD 2 PUF INH Q4H PRN COPD ( Reported) Apixaban (Eliquis) 2.5 MG TABLET 1 TAB PO BID AFIB (Reported) Please discuss with your evidence technician before resuming the medication Ascorbic Acid 500 MG TABLET 1 TAB PO DAILY VITAMIN SUPPORT (Reported) Carbidopa/Levodopa (Sinemet 25-100 MG Tablet) 25 MG-100 MG TABLET 1 TAB PO TID PARKINSON (Reported) Carboxymethylcellulose Sodium (Thera Tears) 0.25 % DROPS 1 DROP OU 5XDAILY DRY EYES (Reported) Cetirizine HCl 10 MG TAB.CHEW 1 TAB PO QPM ALLERGIES (Reported) Dexlansoprazole (Dexilant) 60 MG CAP.DR.BP 1 CAP PO DAILY ACID REFLUX ( Reported) Digoxin (Lanoxin) 125 MCG TABLET 0.125 MG PO Q48 HEART HEALTH Please take every other day. Diltiazem HCl (Diltiazem ER) 240 MG CAP.ER.DEG 1 TAB PO DAILY HEART (Reported ) Docusate Sodium (Colace) 100 MG CAPSULE 1 CAP PO DAILY Constipation (Reported ) Ezetimibe/Simvastatin (Vytorin 10-10 MG Tablet) 10 MG-10 MG TABLET 1 TAB PO AT BEDTIME CHOLESTEROL (Reported) Ferrous Sulfate 325 MG (65 MG IRON) TABLET.DR 325 MG PO BID ANEMIA .. Finasteride 5 MG TABLET 1 TAB PO AT BEDTIME BPH (Reported) Fluticasone Propionate (Flonase Allergy Relief) 50 MCG/ACTUATION SPRAY.SUSP 2 SPRAY NASB DAILY ALLERGIES (Reported) Fluticasone/Salmeterol (Advair 500-50 Diskus) 500 MCG-50 MCG/DOSE BLST.W.DEV 1 PUF INH Q12H ASTHMA (Reported) Furosemide (Lasix) 20 MG TABLET 1 TAB PO EOD DIURETIC (Reported) Ipratropium [place] 21 MCG (0.03 %) SPRAY 2 SPRAY NASB QHS ALLERGIES ( Reported) Levalbuterol HCl (Xopenex) 0.63 MG/3 ML VIAL.NEB 1 ML INH/ALISA Q6P PRN COPD ( Reported) Levothyroxine Sodium (Synthroid) 50 MCG TABLET 1 TAB PO DAILY hypothyroidism (Reported) Melatonin 10 MG CAPSULE 1 CAP PO DAILY SUPPLEMENT (Reported) Metformin HCl 500 MG TABLET 1 TAB PO BID DM (Reported) Mirtazapine 7.5 MG TABLET 1 TAB PO QHS MENTAL HEALTH Montelukast Sodium 10 MG TABLET 1 TAB PO AT BEDTIME COPD (Reported) Prednisone 10 MG TABLET 0 PO SEE ADMIN CRITERIA BREATHING PROBLEMS Please: take 2 pills on 03/06/17 take 2 pills on 03/07/17 take 1 pill on 03/08/17. Sennosides (Senna) 8.6 MG TABLET 2 TAB PO DAILY PRN CONSTIPATION (Reported) Solifenacin Succinate (Vesicare) 5 MG TABLET 1 TAB PO DAILY BLADDER (Reported ) Tamsulosin HCl (Flomax) 0.4 MG CAP.ER.24H 1 CAP PO DAILY BPH (Reported) Terbinafine HCl (Terbinafine) 1 % CREAM..G. 1 RUCHI TOP QHS FEET/TOES/BUTTOCKS (Reported) Tretinoin (Retin-A) 0.025 % CREAM..G. 1 RUCHI TOP AD AT BEDTIME EVERY 2-3 NIGHTS (Reported) Vit C/E/Zn/Coppr/Lutein/Zeaxan (Preservision Areds 2 Softgel) 250-200-40 CAPSULE 1 CAP PO BID SUPPLEMENT (Reported) Past History Travel History Traveled to [place] past 21 day No Medical History Neurological: Parkinson's disease EENT: blindness, hearing loss, macular degeneration Cardiovascular: aortic aneurysm, AFIB, CHF, hypertension, hyperlipidemia Respiratory: bronchitis, COPD, emphysema, pneumonia, Lung ca s/p lobectomy Gastrointestinal: lower GI bleed, AVM Hepatic: NONE Renal: NONE Musculoskeletal: osteoarthritis Psychiatric: NONE Endocrine: diabetes Blood Disorders: anemia Cancer(s): lung cancer, 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 MOTHER Relation not specified for: FH: hypertension Psychosocial History Who Do You Live With? parent Services at Home: None Primary Language: Urdu ETOH Use: denies use Illicit Drug Use: denies illicit drug use Functional Ability ADLs Independent: dressing, eating, toileting, bathing. Ambulation: independent IADLs Needs Assist: shopping, housework, finances, food prep, telephone, transportation, medication admin. Review of Systems Review of Systems Constitutional: Reports: chills, weakness. EENTM: Reports: no symptoms. Cardiovascular: Reports: orthopena. Respiratory: Reports: cough, short of breath, sputum production. GI: Reports: no symptoms. Genitourinary: Reports: no symptoms. Musculoskeletal: Reports: no symptoms. Neurological/Psychological: Reports: no symptoms. Exam & Diagnostic Data Last 24 Hrs of Vital Signs/I&O Vital Signs Date Time Temp Pulse Resp B/P B/P Pulse O2 O2 Flow FiO2 Mean Ox Delivery Rate 06/17 1730 98.7 60 20 135/78 96 06/17 1503 98.3 64 22 160/74 97 Nasal 1.0L Cannula 06/17 1455 97 1.0L 06/17 1153 97.8 69 22 182/91 96 Nasal 1.0L Cannula Intake & Output 06/17 1600 06/17 0800 06/17 0000 Intake Total 0 Output Total 200 Balance -200 Intake, Oral 0 Output, Urine 200 Patient 152 lb Weight Physical Exam General Appearance Alert, Oriented X3, Cooperative Skin Temp/Moisture Exam: Warm/Dry Sepsis Skin Exam (color): Normal for Ethnicity HEENT Atraumatic, PERRLA, EOMI Neck Supple Cardiovascular Normal S1, Normal S2 Lungs Decreased breath sounds b/l with course crepitus Abdomen Soft, No Tenderness Neurological Normal Speech, Strength at 5/5 X4 Ext, Normal Tone, Sensation Intact Extremities B/L pedal edema Assessment/Plan Assessment: 87 YO M with PMH of Akash.carlos on eliquis, COPD on home O2, chronic diastolic heart failure, HTN, HLD, DM, 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 We will admit the patient we will admit the patient on general medicine floor for acute hypoxemic respiratory failure due to COPD exacerbation. Acute hypoxemic respiratory failure due to possible COPD exacerbation: -Patient was desaturating to 84% without oxygen. -Continue supplemental oxygen as needed to keep saturation above 92% -IV Solu-Medrol 40 mg every 8 hourly. -TRC nebulization as needed. -Azithromycin IV -Mucinex to bring up phlegm. -Sputum cultures -Pulmonology consult. History of A. fib: -We will continue his Eliquis. History of CHF; -Continue home meds including Lasix. History of diabetes and hypertension; -Accu-Cheks -Insulin NovoLog according to sliding scale. -Continue home medication for hypertension. DVT prophylaxis: Mechanical and patient is already on Eliquis CODE STATUS: Full code As Ranked By This Provider Problem List: 1. Acute hypoxemic respiratory failure 2. COPD exacerbation Core Measures/Misc (01/20) Acute Coronary Syndrome ACS Diagnosis: No Congestive Heart Failure Congestive Heart Failure Diagnosis No Cerebrovascular Accident CVA/TIA Diagnosis: No VTE (View Protocol) VTE Risk Factors Age>40 No Mechanical VTE Prophylaxis d/t N/A MechProphylax Ordered No VTE Pharm Prophylaxis d/t NA PharmProphylax ordered Sepsis (View protocol) Sepsis Present: No Jai Cruz 06/17/17 1842: Resident Review Statement Resident Statement: examined this patient, discussed with pharmacist intern, agreed with pharmacist intern, discussed with family, reviewed EMR data (avail), amended to note Other Findings: Mr. Shearer is an 87-year-old gentleman with lung cancer s/p right lower lobe resection, AFib, ~CHF, COPD (on 1L NC at night), DM, Parkinson's Disease, ~and colonic AVMs with chronic GIB/anemia recently admitted with CAP and COPD exacerbation. ~Recent admission to [facility] for community acquired pneumonia as well as COPD exacerbation. He was started on ceftriaxone and doxycycline, with eventual transition to cefUROXIME and doxycycline. Additionally, he was treated with prednisone for COPD exacerbation. He was saturating low bilaterally relation and hence was discharged on home oxygen-2 L on ablation and 1 L at rest. Today he comes back, for continued hypoxemia and no improvement in breathing status. In the setting of no white count, no fevers and appropriate seven-day regimen for pneumonia at [facility], I think he can be watched off antibiotics. Please obtain sputum cultures. For his COPD, he does have evidence of inspiratory wheezes bilaterally. He is at least GOLD C. TRC. We will continue his home inhalers and nebulizers. IV steroids 40 mg every 8 hours. We will obtain pulmonary evaluation. His persistent hypoxemia off oxygen, does raise suspicion for PE as well. We will get a d-dimer, ultrasound of lower extremities. Of note patient states compliance with his Eliquis (which he takes for his A. fib) and also has IVC filter. ProBNP checked which is less than his baseline. Full code. Heart healthy diet. Eliquis as DVT prophylaxis. Martín Kumari MD 06/17/17 2211: Attending MD Review Statement Attending Statement Attending MD Statement: examined this patient, discuss w/resident/PA/MASTER COASTWISE YACHT, agreed w/resident/PA/MASTER COASTWISE YACHT, reviewed EMR data (avail), reviewed images, amended to note Attending Assessment/Plan: The patient is an 87 yo male with h/o COPD, afib (on Eliquis), chronic hypoxic respiratory failure (on home oxygen), h/o preserved EF CHF, DM2, lung ca (s/p RLL lobectomy), Parkinson's Disaes, h/o lower GI bleed (AVM) who had a recent 7 day hospital stay at [facility] where he was admitted for treatment of pneumonia. He presents now after completion of antibiotics with increasing dyspnea and cough. Some chills w/o fevers or chest pain. He is followed by Dr. Crane for pulmonary issues. He has noted significant desaturations at home (84% ) and he has had to turn up his oxygen. Last [place] admission was 02/19 for dyspnea and was treated for COPD exacerbation/CHF. Physical Exam: VS: T 97.8, P 69, R 22, BP 182/91-135/78, PO 96% 1L HEENT: eyes- PERRLA, EOMI abby- dry mucosa Neck: no bruits or adenopathy Chest: diminished breath sounds with scattered rhonchi (coarse) Cor: reg, nl S1, S2 w/o murm Abd: BS+, soft, NT Ext: 1-2+ LE edema- right > left (patient states right is usually more edematous ). Labs/Tests- as above. Impression/Plan: #COPD Exacerbaton- as above, patient with persistent symptoms after pneumonia Rx. Plan: Will bring in as Observation patient as per Case Management. Continue TRC Nebs, Azithromax, IV Medrol, etc. PT evaluation. #Acute Hypoxic Respiratory Failure- as noted, patient desaturated to 81% with minimal ambulation. Plan: Continue oxygen support. #DM2- on Metformin. Plan: Follow sugars and check glucoscan. Slinding scale insulin. #Hypothyroid- on Levothyroxine. Plan: Continue Levothyroxine. #HTN- BP as above. Plan: Continue current meds (Diltiazem/Fursemide). Plan: Continue current meds (Diltiazem/Fursemide).
--- NOTE | 2017-06-17 21:14 | ULTRASOUND REPORT ---
EXAMINATION: US TRIPLEX OF LOWER EXTREMITIES, BILATERAL CLINICAL INFORMATION: Edema lower extremity, right greater than left COMPARISON: None TECHNIQUE: Color-flow triplex imaging with spectral analysis and compression Doppler were performed on the lower extremities. FINDINGS: Respiratory variation, normal compression and augmented flow are noted throughout the lower extremities. The visualized common femoral vein, superficial femoral vein, profunda femoral vein, popliteal vein and midcalf peroneal and posterior tibial venous segments show no evidence of deep venous thrombosis. There is no Whatley's cyst. IMPRESSION: Normal triplex scan without evidence of deep venous thrombosis involving the lower extremities.
[2017-06-17 21:26] VITALS: BP 140/58
--- NOTE | 2017-06-17 22:29 | Admission Certification ---
See Addendum Admission Certification Certification Statement - As attending physician, I certify that at the time of - admission, based on clinical presentation, severity of - symptoms, need for further diagnostic testing and - therapeutic interventions, and risk of adverse outcomes - without in-hospital treatment, in my clinical assessment, - this patient requires an acute hospital stay for a minimum - of two nights or longer. I have also considered psychsocial - factors such as support system, advanced age, financial - issues, cognitive issues, and failed out-patient treatments, - past re-admission history, safety of patient, and lack of - compliance as applicable. Specific rationale supporting this admission is: The patient presents in the ED with c/o dyspnea post pneumonia. Needs admission to medicine for evaluation. Pulmonary consult (Dr. Clemons).
[2017-06-18 06:14] VITALS: BP 130/66
--- NOTE | 2017-06-18 08:20 | PN- Housestaff ---
See Addendum Subjective Follow-up For: COPD Subjective: Admitted last night for COPD exacerbation. He has not declined but not improved either since admission. Breathing still not great, no CP though. He was recently admitted to [facility], diagnosed with PNA and received a full course of antibiotics. No fever or chills Review of Systems Constitutional: Reports: no symptoms. EENTM: Reports: no symptoms. Cardiovascular: Reports: no symptoms. Respiratory: Reports: see HPI. Gastrointestinal: Reports: no symptoms. Genitourinary: Reports: no symptoms. Musculoskeletal: Reports: no symptoms. Skin: Reports: no symptoms. Neurological/Psychological: Reports: no symptoms. Hematologic/Endocrine: Reports: no symptoms. Immunologic/Allergic: Reports: no symptoms. Objective Last 24 Hrs of Vital Signs/I&O Vital Signs Date Time Temp Pulse Resp B/P B/P Pulse O2 O2 Flow FiO2 Mean Ox Delivery Rate 06/18 613 98.2 61 20 130/66 97 06/17 2255 60 140/58 06/17 2128 97 Nasal 1.5L Cannula 06/17 2125 98.5 60 18 140/58 97 Nasal 1.5L Cannula 06/17 190 98.2 58 20 139/68 96 Nasal 1.0L Cannula 06/17 1730 98.7 60 20 135/78 96 06/17 1503 98.3 64 22 160/74 97 Nasal 1.0L Cannula 06/17 1455 97 1.0L 06/17 1153 97.8 69 22 182/91 96 Nasal 1.0L Cannula Intake & Output 06/18 1600 06/18 0800 06/18 0000 Intake Total 480 420 Output Total 750 Balance 480 -330 Intake, Oral 480 420 Output, Urine 750 Patient 69.059 kg Weight Physical Exam General Appearance: Alert, Oriented X3, Cooperative, No Acute Distress Cardiovascular: Regular Rate, Normal S1, Normal S2 Lungs: mild wheezing bilaterally Abdomen: Normal Bowel Sounds, Soft, No Tenderness Neurological: Normal Speech Extremities: No Edema, Normal Pulses, No Tenderness/Swelling Current Medications: Current Medications Sig/Chuck Start time Last Medication Dose Route Stop Time Status Admin Acetaminophen 650 MG Q6P PRN 06/17 1845 AC PO Albuterol Sulfate 2 PUF Q4P PRN 06/17 1900 AC INH Albuterol Sulfate 3 ML Q6P PRN 06/17 1900 AC INH Apixaban 2.5 MG BID 06/17 2200 AC 06/17 PO 2254 Ascorbic Acid 500 MG DAILY 06/18 1000 AC PO Azithromycin 500 MG DAILY 06/18 1000 CAN Dextrose/Water 250 ML IV Azithromycin 250 MG DAILY 06/18 1000 AC PO Budesonide/ 2 PUF BID 06/17 2200 AC 06/17 Formoterol Fumarate INH 2255 Carbidopa/Levodopa 1 TAB TID 06/17 2200 AC 06/18 PO 0617 Digoxin 0.125 MG Q48H 06/18 1700 AC PO Diltiazem HCl 240 MG DAILY 06/18 1000 AC PO Docusate Sodium 100 MG DAILY 06/17 1848 AC 06/17 PO 2254 Ferrous Sulfate 325 MG BID 06/17 2200 AC 06/17 PO 2254 Finasteride 5 MG AT BEDTIME 06/17 2200 AC 06/17 PO 2254 Fluticasone 2 SPRAY DAILY 06/18 1000 AC Propionate MAGDALENO Furosemide 20 MG Q48 06/18 1000 AC PO Insulin Aspart 0 TIDAC 06/18 0800 AC SC Levothyroxine Sodium 0.05 MG DAILY AC 06/18 0700 AC 06/18 PO 0617 Melatonin 10 MG AT BEDTIME 06/17 2200 AC 06/17 PO 2254 Methylprednisolone 40 MG Q12 06/17 2200 AC 06/17 IV 06/23 1001 2255 Mirtazapine 7.5 MG AT BEDTIME 06/17 2200 AC PO Montelukast Sodium 10 MG AT BEDTIME 06/17 2200 AC 06/17 PO 2255 Omeprazole 40 MG DAILY AC 06/18 0700 AC 06/18 PO 0617 Simvastatin 10 MG 1700 06/18 1700 AC PO Tamsulosin HCl 0.4 MG DAILY 06/17 1848 AC 06/17 PO 2255 Tiotropium [place] 1 PUF DAILY 06/18 1000 AC INH Last 24 Hrs of Lab/Les Results Last 24 Hrs of Labs/Mics: Laboratory Tests 06/18/17 0643: Sodium Pending, Potassium Pending, Chloride Pending, Carbon Dioxide Pending, Anion Gap Pending, BUN Pending, Creatinine Pending, BUN/Creatinine Ratio Pending , CBC w Diff Pending, WBC Pending, RBC Pending, Hgb Pending, Hct Pending, MCV Pending, MCH Pending, MCHC Pending, RDW Pending, Plt Count Pending, MPV Pending 06/17/17 1736: D-Dimer High Sensitivty Cancelled 06/17/17 1545: Anion Gap 9, Estimated GFR > 60, BUN/Creatinine Ratio 25.7 H, Glucose 98, Lactic Acid 0.7, Calcium 8.9, Total Bilirubin 0.5, AST 18, ALT 18 L, Alkaline Phosphatase 64, Troponin I < 0.01, Sgo-R-Zielpgkpkci Pept 839 H, Total Protein 6.4, Albumin 3.8, Globulin 2.6, Albumin/Globulin Ratio 1.5, D-Dimer High Sensitivty < 200, CBC w Diff NO MAN DIFF REQ, RBC 3.86 L, MCV 80.9, MCH 26.1 L , MCHC 32.2 L, RDW 18.7 H, MPV 9.3, Gran % 67.3, Lymphocytes % 15.1 L, Monocytes % 10.9 H, Eosinophils % 6.3 H, Basophils % 0.4, Absolute Granulocytes 3.8, Absolute Lymphocytes 0.9 L, Absolute Monocytes 0.6, Absolute Eosinophils 0.4, Absolute Basophils 0 06/17/17 1447: Lactic Acid Cancelled Microbiology 06/17 185 LOWER RESP: Respiratory Culture - COLB 06/17 185 LOWER RESP: Gram Stain - COLB 06/17 1705 NASOPHARYN: Influenza Virus A & B Rapid Smear - COMP 06/17 1643 BLOOD: Blood Culture - CAN Cancelled: Cancelled via OE: Error 06/17 1643 BLOOD: Blood Culture - CAN Cancelled: Cancelled via OE: Error 06/17 1610 BLOOD: Blood Culture - RECD 06/17 1604 BLOOD: Blood Culture - RECD Assessment/Plan Assessment: 87 YO M with PMH of Good on eliquis, COPD on home O2, chronic diastolic heart failure, HTN, HLD, DM, 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 Problem list: 1. Acute hypoxic respiratory failure secondary to COPD exacerbation #Acute hypoxic respiratory failure secondary to COPD exacerbation: Patient desaturated to 81% with minimal ambulation. He was recently admitted to [facility] for pneumonia and received a full course of antibiotics. He is status post right lower lobe lobectomy. -Methylprednisone 40 mg every 8 hours -TR nebs -Azithromycin -Guaifenesin -Follow cultures -Appreciate pulmonology #Chronic medical problems: -Continue home medications DVT prophylaxis with apixiban Heart healthy diet Full code Problem List: 1. COPD (chronic obstructive pulmonary disease) Pain Ratin Pain Location: no pain Pain Goal: Remain pain free Pain Plan: see a/p Tomorrow's Labs & Rationales: none
[2017-06-18 08:40] LABS: ABSOLUTE BASOPHIL COUNT 0 /CUMM (0.0-0.2); ABSOLUTE EOSINOPHIL COUNT 0 /CUMM (0.0-0.7); ABSOLUTE GRANULOCYTE CT 3.6 /CUMM (1.4-6.5); ABSOLUTE LYMPH COUNT 0.4 /CUMM (1.2-3.4); ABSOLUTE MONOCYTE COUNT 0.1 /CUMM (0.10-0.60); BASOPHIL % 0.3 % (0.0-2.0); EOSINOPHIL % 0.1 % (0-5); HEMATOCRIT 30.6 % (42-52); MEAN CORPUSCULAR HGB 26.4 PG (27.0-31.0); MEAN CORPUSCULAR HGB CONC 32.6 G/DL (33.0-37.0); MEAN CORPUSCULAR VOLUME 81.1 FL (80.0-94.0); MEAN PLATELET VOLUME 9.6 FL (7.4-10.4); PLATELET COUNT 147 /CUMM (130-400); RBC DISTRIBUTION WIDTH 18.9 % (11.5-14.5); RED BLOOD CELL CT 3.77 /CUMM (4.70-6.10); WHITE BLOOD CELL COUNT 4.1 /CUMM (4.8-10.8)
[2017-06-18 09:32] LABS: GRANULOCYTE % 88.9 % (42.2-75.2)
--- NOTE | 2017-06-18 10:28 | Cons- Pulmonary ---
General Information and HPI Consulting Request Date of Consult: 06/18/17 Requested By: Foreign Reason for Consult: Shortness of breath weakness History of Present Illness: Patient is 87-year-old with COPD coronary disease atrial fibrillation on anticoagulation status post lung cancer resection and recent admission for pneumonia to [facility] admitted with cough shortness of breath and weakness chest x-ray failed to show any acute pneumonia. Oxygen saturations 1.5 L are 97% his baseline is 1 L.. 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 Diltiazem HCl (Diltiazem ER) 240 MG CAP.ER.DEG 1 TAB PO DAILY HEART (Reported ) Docusate Sodium (Colace) 100 MG CAPSULE 1 CAP PO DAILY Constipation (Reported ) Ezetimibe/Simvastatin (Vytorin 10-10 MG Tablet) 10 MG-10 MG TABLET 1 TAB PO AT BEDTIME CHOLESTEROL (Reported) Ferrous Sulfate 325 MG (65 MG IRON) TABLET.DR 325 MG PO BID ANEMIA .. Finasteride 5 MG TABLET 1 TAB PO AT BEDTIME BPH (Reported) Fluticasone Propionate (Flonase Allergy Relief) 50 MCG/ACTUATION SPRAY.SUSP 2 SPRAY NASB DAILY ALLERGIES (Reported) Fluticasone/Salmeterol (Advair 500-50 Diskus) 500 MCG-50 MCG/DOSE BLST.W.DEV 1 PUF INH Q12H ASTHMA (Reported) Furosemide (Lasix) 20 MG TABLET 1 TAB PO EOD DIURETIC (Reported) Ipratropium [place] 21 MCG (0.03 %) SPRAY 2 SPRAY NASB QHS ALLERGIES ( Reported) Levalbuterol HCl (Xopenex) 0.63 MG/3 ML VIAL.NEB 1 ML INH/ALISA Q6P PRN COPD ( Reported) Levothyroxine Sodium (Synthroid) 50 MCG TABLET 1 TAB PO DAILY hypothyroidism (Reported) Melatonin 10 MG CAPSULE 1 CAP PO DAILY SUPPLEMENT (Reported) Metformin HCl 500 MG TABLET 1 TAB PO BID DM (Reported) Mirtazapine 7.5 MG TABLET 1 TAB PO QHS MENTAL HEALTH Montelukast Sodium 10 MG TABLET 1 TAB PO AT BEDTIME COPD (Reported) Prednisone 10 MG TABLET 0 PO SEE ADMIN CRITERIA BREATHING PROBLEMS Please: take 2 pills on 03/06/17 take 2 pills on 03/07/17 take 1 pill on 03/08/17. Sennosides (Senna) 8.6 MG TABLET 2 TAB PO DAILY PRN CONSTIPATION (Reported) Solifenacin Succinate (Vesicare) 5 MG TABLET 1 TAB PO DAILY BLADDER (Reported ) Tamsulosin HCl (Flomax) 0.4 MG CAP.ER.24H 1 CAP PO DAILY BPH (Reported) Terbinafine HCl (Terbinafine) 1 % CREAM..G. 1 RUCHI TOP QHS FEET/TOES/BUTTOCKS (Reported) Tretinoin (Retin-A) 0.025 % CREAM..G. 1 RUCHI TOP AD AT BEDTIME EVERY 2-3 NIGHTS (Reported) Vit C/E/Zn/Coppr/Lutein/Zeaxan (Preservision Areds 2 Softgel) 250-200-40 CAPSULE 1 CAP PO BID SUPPLEMENT (Reported) Review of Systems Review of Systems Constitutional: Reports: chills, weakness. Denies: fever. Cardiovascular: Denies: chest pain. Respiratory: Reports: cough, short of breath, sputum production. Denies: hemoptysis. GI: Denies: abdominal pain, diarrhea, melena. 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 MOTHER Relation not specified for: FH: hypertension Psychosocial History Who Do You Live With? parent Services at Home: None Primary Language: Kiswahili Smoking Status: Unknown If Ever Smoked ETOH Use: denies use Illicit Drug Use: denies illicit drug use Functional Ability ADLs Independent: dressing, eating, toileting, bathing. Ambulation: independent IADLs Needs Assist: shopping, housework, finances, food prep, telephone, transportation, medication admin. Exam & Diagnostic Data Last 24 Hrs of Vital Signs/I&O Vital Signs Date Time Temp Pulse Resp B/P B/P Pulse O2 O2 Flow FiO2 Mean Ox Delivery Rate 06/18 0514 98.2 61 20 130/66 97 06/17 2255 60 140/58 06/179 97 Nasal 1.5L Cannula 06/17 2125 98.5 60 18 140/58 97 Nasal 1.5L Cannula 06/17 1906 98.2 58 20 139/68 96 Nasal 1.0L Cannula 06/17 1730 98.7 60 20 135/78 96 06/17 1503 98.3 64 22 160/74 97 Nasal 1.0L Cannula 06/17 1455 97 1.0L 06/17 1153 97.8 69 22 182/91 96 Nasal 1.0L Cannula Intake & Output 06/18 1600 06/18 0800 06/18 0000 Intake Total 480 420 Output Total 750 Balance 480 -330 Intake, Oral 480 420 Output, Urine 750 Patient 152 lb Weight Oxygen saturation 1.5 L 97% exam of his chest shows rare expiratory wheezes cardiac exam shows a regular S1 and S2 abdomen is soft nontender there is minimal edema Last 48 Hrs of Labs/Les: Laboratory Tests 06/18/17 0643: Anion Gap 12, Estimated GFR > 60, BUN/Creatinine Ratio 23.8, CBC w Diff NO MAN DIFF REQ, RBC 3.77 L, MCV 81.1, MCH 26.4 L, MCHC 32.6 L, RDW 18.9 H, MPV 9.6 , Gran % 88.9 H, Lymphocytes % 9.4 L, Monocytes % 1.3 L, Eosinophils % 0.1, Basophils % 0.3, Absolute Granulocytes 3.6, Absolute Lymphocytes 0.4 L, Absolute Monocytes 0.1, Absolute Eosinophils 0, Absolute Basophils 0 06/17/17 1736: D-Dimer High Sensitivty Cancelled 06/17/17 1545: Anion Gap 9, Estimated GFR > 60, BUN/Creatinine Ratio 25.7 H, Glucose 98, Lactic Acid 0.7, Calcium 8.9, Total Bilirubin 0.5, AST 18, ALT 18 L, Alkaline Phosphatase 64, Troponin I < 0.01, Gza-[id number]-Mtguoazwybx Pept 839 H, Total Protein 6.4, Albumin 3.8, Globulin 2.6, Albumin/Globulin Ratio 1.5, D-Dimer High Sensitivty < 200, CBC w Diff NO MAN DIFF REQ, RBC 3.86 L, MCV 80.9, MCH 26.1 L , MCHC 32.2 L, RDW 18.7 H, MPV 9.3, Gran % 67.3, Lymphocytes % 15.1 L, Monocytes % 10.9 H, Eosinophils % 6.3 H, Basophils % 0.4, Absolute Granulocytes 3.8, Absolute Lymphocytes 0.9 L, Absolute Monocytes 0.6, Absolute Eosinophils 0.4, Absolute Basophils 0 06/17/17 1447: Lactic Acid Cancelled Microbiology 06/17 1705 NASOPHARYN: Influenza Virus A & B Rapid Smear - COMP Assessment/Plan Impression/Plan: 87-year-old with multiple medical problems query atrial fibrillation coronary artery disease COPD recent discharge for pneumonia came in with weakness increased shortness breath cough and transient decrease in oxygen saturations Recommendations: Taper FiO2 back to baseline obtain sputum C&S brief course of IV steroids convert to by mouth prednisone continue baseline bronchodilator medications physical therapy evaluation Consult Acknowledgment - Thank you for your consult request.
[2017-06-18 14:40] VITALS: BP 126/58
[2017-06-18 23:32] VITALS: BP 110/76
[2017-06-19 06:36] VITALS: BP 120/76
--- NOTE | 2017-06-19 06:56 | PN- Housestaff ---
See Addendum Subjective Follow-up For: COPD Subjective: LATHA. Yesterday, the patient desaturated to 90% amublating and 86% in recovery. This morning, he feels better, feels like breathing is improving. No CP, abd pain, or other issues. Review of Systems Constitutional: Reports: no symptoms. EENTM: Reports: no symptoms. Cardiovascular: Reports: no symptoms. Respiratory: Reports: see HPI. Gastrointestinal: Reports: no symptoms. Genitourinary: Reports: no symptoms. Musculoskeletal: Reports: no symptoms. Skin: Reports: no symptoms. Neurological/Psychological: Reports: no symptoms. Hematologic/Endocrine: Reports: no symptoms. Immunologic/Allergic: Reports: no symptoms. Objective Last 24 Hrs of Vital Signs/I&O Vital Signs Date Time Temp Pulse Resp B/P B/P Pulse O2 O2 Flow FiO2 Mean Ox Delivery Rate 06/19 0636 98.4 74 18 120/76 97 06/18 2332 98.4 62 20 110/76 97 Nasal 1.0L Cannula 06/18 2206 Nasal 1.0L Cannula 06/18 1811 74 122/82 06/18 1440 98.2 76 20 126/58 97 Nasal Cannula 06/18 1311 Nasal 1.5L Cannula 06/18 0800 94 Nasal 1.0L Cannula Intake & Output 06/19 0800 06/19 0000 06/18 1600 Intake Total 480 480 660 Output Total Balance 480 480 660 Intake, IV 60 Intake, Oral 480 480 600 Number 0 Bowel Movements Patient 68.946 kg Weight Weight Reported by Patient Measurement Method Physical Exam General Appearance: Alert, Oriented X3, Cooperative, No Acute Distress Skin: No Rashes Cardiovascular: Regular Rate, Normal S1, Normal S2 Lungs: prolonged expiration with mild wheezing Abdomen: Normal Bowel Sounds, Soft, No Tenderness Neurological: Normal Speech Extremities: No Edema, Normal Pulses, No Tenderness/Swelling Current Medications: Current Medications Sig/Chuck Start time Last Medication Dose Route Stop Time Status Admin Acetaminophen 650 MG Q6P PRN 06/17 1845 AC PO Albuterol Sulfate 2 PUF Q4P PRN 06/17 190 AC INH Albuterol Sulfate 3 ML Q6P PRN 06/17 1900 AC 06/18 INH 1956 Apixaban 2.5 MG BID 06/17 2200 AC 06/18 PO 220 Ascorbic Acid 500 MG DAILY 06/18 1000 AC 06/18 PO 1029 Azithromycin 250 MG DAILY 06/18 1000 AC 06/18 PO 1030 Budesonide/ 2 PUF BID 06/17 2200 AC 06/18 Formoterol Fumarate INH 2201 Carbidopa/Levodopa 1 TAB TID 06/17 2200 AC 06/19 PO 0627 Digoxin 0.125 MG Q48H 06/18 1700 AC 06/18 PO 1811 Diltiazem HCl 240 MG DAILY 06/18 1000 AC 06/18 PO 1030 Docusate Sodium 100 MG DAILY 06/17 1848 AC 06/18 PO 1029 Ferrous Sulfate 325 MG BID 06/17 2200 AC 06/18 PO 2203 Finasteride 5 MG AT BEDTIME 06/17 2200 AC 06/18 PO 2201 Fluticasone 2 SPRAY DAILY 06/18 1000 AC 06/18 Propionate MAGDALENO 1030 Furosemide 20 MG Q48 06/18 1000 AC 06/18 PO 1030 Guaifenesin 600 MG Q12 06/18 2200 AC 06/18 PO 2201 Insulin Aspart 0 TIDAC 06/18 0800 AC 06/18 SC 1312 Levothyroxine Sodium 0.05 MG DAILY AC 06/18 0700 AC 06/19 PO 0627 Melatonin 10 MG AT BEDTIME 06/17 2200 AC 06/18 PO 2201 Methylprednisolone 40 MG Q12 06/17 2200 AC 06/18 IV 06/23 1001 2201 Mirtazapine 7.5 MG AT BEDTIME 06/17 2200 AC PO Montelukast Sodium 10 MG AT BEDTIME 06/17 2200 AC 06/18 PO 2201 Omeprazole 40 MG DAILY AC 06/18 0700 AC 06/19 PO 0627 Simvastatin 10 MG 1700 06/18 1700 AC 06/18 PO 1812 Tamsulosin HCl 0.4 MG DAILY 06/17 1848 AC 06/18 PO 2203 Tiotropium [place] 1 PUF DAILY 06/18 1000 AC 06/18 INH 1027 Assessment/Plan Assessment: 87 YO M with PMH of Good on eliquis, COPD on home O2, chronic diastolic heart failure, HTN, HLD, DM, 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 Problem list: 1. Acute hypoxic respiratory failure secondary to COPD exacerbation #Acute hypoxic respiratory failure secondary to COPD exacerbation: Patient desaturated to 81% with minimal ambulation. He was recently admitted to [place] for pneumonia and received a full course of antibiotics. He is status post right lower lobe lobectomy. Yesterday, he desaturated to 90% ambulating 86% in recovery. -Prednisone 40 mg daily -TRC nebs -Azithromycin -Guaifenesin -Follow cultures -Appreciate pulmonology #Chronic medical problems: -Continue home medications DVT prophylaxis with apixiban Heart healthy diet Full code Problem List: 1. COPD (chronic obstructive pulmonary disease) Pain Ratin Pain Location: no pain Pain Goal: Remain pain free Pain Plan: see a/p Tomorrow's Labs & Rationales: none
--- NOTE | 2017-06-19 08:24 | PN- Pulmonary ---
Subjective HPI/Critical Care Issues: Patient feels markedly improved Objective Current Medications: Current Medications Sig/Chuck Start time Last Medication Dose Route Stop Time Status Admin Acetaminophen 650 MG Q6P PRN 06/17 1845 AC PO Albuterol Sulfate 2 PUF Q4P PRN 06/17 1900 AC INH Albuterol Sulfate 3 ML Q6P PRN 06/17 1900 AC 06/18 INH 1956 Apixaban 2.5 MG BID 06/17 2200 AC 06/18 PO 2201 Ascorbic Acid 500 MG DAILY 06/18 1000 AC 06/18 PO 1029 Azithromycin 250 MG DAILY 06/18 1000 AC 06/18 PO 1030 Budesonide/ 2 PUF BID 06/17 2200 AC 06/18 Formoterol Fumarate INH 2201 Carbidopa/Levodopa 1 TAB TID 06/17 2200 AC 06/19 PO 0627 Digoxin 0.125 MG Q48H 06/18 1700 AC 06/18 PO 1811 Diltiazem HCl 240 MG DAILY 06/18 1000 AC 06/18 PO 1030 Docusate Sodium 100 MG DAILY 06/17 1848 AC 06/18 PO 1029 Ferrous Sulfate 325 MG BID 06/17 2200 AC 06/18 PO 2203 Finasteride 5 MG AT BEDTIME 06/17 2200 AC 06/18 PO 2201 Fluticasone 2 SPRAY DAILY 06/18 1000 AC 06/18 Propionate MAGDALENO 1030 Furosemide 20 MG Q48 06/18 1000 AC 06/18 PO 1030 Guaifenesin 600 MG Q12 06/18 2200 AC 06/18 PO 2201 Insulin Aspart 0 TIDAC 06/18 0800 AC 06/19 SC 0815 Levothyroxine Sodium 0.05 MG DAILY AC 06/18 0700 AC 06/19 PO 0627 Melatonin 10 MG AT BEDTIME 06/17 2200 AC 06/18 PO 2201 Methylprednisolone 40 MG Q12 06/17 2200 DC 06/18 IV 06/23 1001 2201 Mirtazapine 7.5 MG AT BEDTIME 06/17 2200 AC PO Montelukast Sodium 10 MG AT BEDTIME 06/17 2200 AC 06/18 PO 2201 Omeprazole 40 MG DAILY AC 06/18 0700 AC 06/19 PO 0627 Prednisone 40 MG DAILY 06/19 1000 AC PO Simvastatin 10 MG 1700 06/18 1700 AC 06/18 PO 1812 Tamsulosin HCl 0.4 MG DAILY 06/17 1848 AC 06/18 PO 2203 Tiotropium [place] 1 PUF DAILY 06/18 1000 AC 06/18 INH 1027 Vital Signs & I&O Last 24 Hrs of Vitals and I&O: Vital Signs Date Time Temp Pulse Resp B/P B/P Pulse O2 O2 Flow FiO2 Mean Ox Delivery Rate 06/19 0636 98.4 74 18 120/76 97 06/18 2332 98.4 62 20 110/76 97 Nasal 1.0L Cannula 06/18 2206 Nasal 1.0L Cannula 06/18 1811 74 122/82 06/18 1440 98.2 76 20 126/58 97 Nasal Cannula 06/18 1311 Nasal 1.5L Cannula Intake & Output 06/19 1600 06/19 0800 06/19 0000 Intake Total 480 480 Output Total Balance 480 480 Intake, Oral 480 480 Patient 152 lb Weight Weight Reported by Patient Measurement Method Impression/Plan Impression/Plan Impression/Plan: 87-year-old with multiple medical problems query atrial fibrillation coronary artery disease COPD recent discharge for pneumonia came in with weakness increased shortness breath cough and transient decrease in oxygen saturation respiratory status is markedly improved and he is interested in going home Recommendations: Taper FiO2 back to baseline follow-up sputum C&S if available Taper prednisone complete course of antibiotics outpatient follow-up with Dr. Crane next week
--- NOTE | 2017-06-19 08:32 | PN- Student ---
Subjective Subjective: Edison is an 87 year old male with a PMHx of atrial fibrillation (on eliquis), COPD (on home O2), chronic diastolic heart failure, HTN, HL, DM, RLL lobectomy 2 /2 adenocarcinoma, Parkinson's Disease, chronic lower GI bleed 2/2 AVM, anemia, osteoarthritis, IgG deficiency, macular degeneration, thyroid nodule, and hearing loss who was admitted to our service after presenting to the ED 2/2 worsening SOB, productive cough, generalized weakness, and chills since being discharged from [facility] 3 weeks ago, after 7 days of inpatient care and 10 days of abx for PNA. He states he received the PNA and flu vaccine last February. No overnight events were reported. The patient feels his breathing is improving and denies chest pain, abdominal pain, palpitations, or lightheadedness. Objective Objective: Microbiology [06/17/17] INFLUENZA A&B - NEGATIVE Imaging [06/17/17] CXR - IMPRESSION: Interval slight improvement in the reticular opacities in the left lung base is seen. No significant change in the right mid and lower lung reticular opacities. No significant change in trace right-sided pleural effusion. [06/17/17] VENOUS DOPPLER - IMPRESSION: Normal triplex scan without evidence of deep venous thrombosis involving the lower extremities. Physical Examination Vitals: 98.4, 74, 18, 120/76 (130/66, 140/58, 160/74, 189/91), 97NC 1L General: AOx3. Patient was polite and cooperative. Neurological: Cognition intact, no poverty of speech, dysarthria, or retardation of thought. No tremor or nystagmus noted. Skin: Moist and well perfused. Cardiovascular: RR, S1,S2, no murmurs, rubs, or gallops appreciated. Respiratory: No wheezes, rales, or rhonchi. GI: Soft, protuberant, and non tender to palpation. Extremities: No edema. DP/PT pulses 2+ bilaterally. Results Results: Laboratory Tests 06/18/17 0643: Anion Gap 12, Estimated GFR > 60, BUN/Creatinine Ratio 23.8, CBC w Diff NO MAN DIFF REQ, RBC 3.77 L, MCV 81.1, MCH 26.4 L, MCHC 32.6 L, RDW 18.9 H, MPV 9.6 , Gran % 88.9 H, Lymphocytes % 9.4 L, Monocytes % 1.3 L, Eosinophils % 0.1, Basophils % 0.3, Absolute Granulocytes 3.6, Absolute Lymphocytes 0.4 L, Absolute Monocytes 0.1, Absolute Eosinophils 0, Absolute Basophils 0 06/17/17 1736: D-Dimer High Sensitivty Cancelled 06/17/17 1545: Anion Gap 9, Estimated GFR > 60, BUN/Creatinine Ratio 25.7 H, Glucose 98, Lactic Acid 0.7, Calcium 8.9, Total Bilirubin 0.5, AST 18, ALT 18 L, Alkaline Phosphatase 64, Troponin I < 0.01, Jdt-O-Aubenvclebt Pept 839 H, Total Protein 6.4, Albumin 3.8, Globulin 2.6, Albumin/Globulin Ratio 1.5, D-Dimer High Sensitivty < 200, CBC w Diff NO MAN DIFF REQ, RBC 3.86 L, MCV 80.9, MCH 26.1 L , MCHC 32.2 L, RDW 18.7 H, MPV 9.3, Gran % 67.3, Lymphocytes % 15.1 L, Monocytes % 10.9 H, Eosinophils % 6.3 H, Basophils % 0.4, Absolute Granulocytes 3.8, Absolute Lymphocytes 0.9 L, Absolute Monocytes 0.6, Absolute Eosinophils 0.4, Absolute Basophils 0 06/17/17 1447: Lactic Acid Cancelled Microbiology 06/17 185 LOWER RESP: Respiratory Culture - CAN Cancelled: SPECIMEN NOT RECEIVED IN LABORATORY 06/17 1851 LOWER RESP: Gram Stain - CAN Cancelled: SPECIMEN NOT RECEIVED IN LABORATORY 06/17 1705 NASOPHARYN: Influenza Virus A & B Rapid Smear - COMP 06/17 1643 BLOOD: Blood Culture - CAN Cancelled: Cancelled via OE: Error 06/17 1643 BLOOD: Blood Culture - CAN Cancelled: Cancelled via OE: Error 06/17 1610 BLOOD: Blood Culture - RES 06/17 1604 BLOOD: Blood Culture - RES Assessment/Plan Assessment: Edison is an 87 year old male with a PMHx of atrial fibrillation (on eliquis), COPD (on home O2), chronic diastolic heart failure, HTN, HL, DM, RLL lobectomy 2 /2 adenocarcinoma, Parkinson's Disease, chronic lower GI bleed 2/2 AVM, anemia, osteoarthritis, IgG deficiency, macular degeneration, thyroid nodule, and hearing loss who was admitted to our service after presenting to the ED 2/2 worsening SOB, productive cough, generalized weakness, and chills since being discharged from [facility] 3 weeks ago, after 7 days of inpatient care and 10 days of abx for PNA. He states he received the PNA and flu vaccine last February. Overnight vitals: 98.4, 74, 18, 120/76 (130/66, 140/58, 160/74, 189/91), 97NC 1L Labs: WBC 4.1 (from 5.7), H/H 10.0/30.6 (10.1/31.2), Pro-BNP 839 PROBLEM LIST: Worsening SOB, chills, malaise COPD PD Anemia Afib Diastolic HF HTN, HL, DM IgG deficiency 1) Worsening SOB, chills, malaise Recent discharge from [facility] for PNA of which he never fully recovered. Looks like COPD exacerbation 2/2 residual PNA. Plan: Continue prednisone 40mg qd, TRC nebs, continue azithromycin 250mg qd, guaifenesin 600mg q12h, f/u on cultures. 2) DHF Plan: Continue to monitor as outpatient. Educate patient on signs/symptoms of elevated bilirubin (ie jaundice, icterus, pruritis, confusion, fatigue) 3) Parkinson's Disease Plan: Continue home medications. Continue fall precautions. Monitor for signs of sundowning. 4) Asymptomatic Anemia - H/H 10.0/30.6 (10.1/31.2) Plan: Continue CBCs qAC. Consider hemeoccult test given established history. Continue to monitor for signs/symptoms of anemia (pallor, SOB, lightheadedness). Consider transfusing blood if Hgb <7.0. NEJM "Lower v Higher Hgb threshold for transfusion in septic shock" noted no difference in 90 day mortality between groups. 5) HTN, HL, DM Plan: Continue home medications. Monitor glucose TID with SS Novalog. 6) IgG deficiency Plan: Monitor for signs/symptoms of infection 6) Afib Plan: Continue home medications. Monitor with EKG qd Diet: Heart healthy diet DVT ppx: ALPS Full code Discharge criteria: Pending ability to ambulate. Transition medications to PO. care with STR. Transition medications to PO.
--- NOTE | 2017-06-19 10:21 | Patient Discharge Instructions ---
Discharge Instructions General Discharge Information You were seen/treated for: COPD exacerbation Watch for these problems: Fever, chest pain, shortness of breath. Special Instructions: Please take all medications as directed. Please follow up with pulmonology and primary care. Diet Continue normal diet: Yes Activity Full Activity/No Limits: Yes Acute Coronary Syndrome Inclusion Criteria At DC or during hospital stay patient has or had the following: ACS DIAGNOSIS No Discharge Core Measures Meds if any: Prescribed or Continued at Discharge Meds if any: NOT Prescribed or Continued at Discharge Congestive Heart Failure Inclusion Criteria At DC or during hospital stay patient has or had the following: CHF DIAGNOSIS No Discharge Core Measures Meds if any: Prescribed or Continued at Discharge Meds if any: NOT Prescribed or Continued at Discharge Cerebrovascular accident Inclusion Criteria At DC or during hospital stay patient has or had the following: CVA/TIA Diagnosis No Discharge Core Measures Meds if any: Prescribed or Continued at Discharge Meds if any: NOT Prescribed or Continued at Discharge Venous thromboembolism Inclusion Criteria VTE Diagnosis No VTE Type NONE VTE Confirmed by (Test) NONE Discharge Core Measures - Per Current guidelines, there needs to be overlap - treatment for the first 5 days of Warfarin therapy. - If discharged on Warfarin prior to 5 days of - overlap therapy, the patient will need to be - assessed for post discharge needs including - *Post discharge parental anticoagulation - *Warfarin and/or parental anticoagulation education - *Follow up date to check INR post discharge At least 5 days overlap therapy as Inpatient No Meds if any: Prescribed or Continued at Discharge Note: Overlap Therapy is Warfarin and Anticoagulant Meds if any: NOT Prescribed or Continued at Discharge
[2017-06-19] MEDS ORDERED: DELTASONE20 MG PO (10:23)
--- NOTE | 2017-06-19 10:34 | Discharge Summary ---
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 On presentation, vital signs were T 97.8, HR 69, RR 22, BP 122/91, saturating 96 % on 1 L nasal cannula. Please note the patient desaturated to 81% with minimal ambulation. Laboratories were significant for hemoglobin 10.1, white blood cell count 5.7, MCV 80.9, normal BEP. Chest x-ray showed interval slight improvement in the reticular opacities in the left lung base with no significant change in the right mid and lower lung reticular opacities and no change to the trace right-sided pleural effusion. Venous Doppler ultrasound showed no evidence of DVT. He was admitted to general medicine and treated for the following problems: 1. Acute hypoxic respiratory failure secondary to COPD exacerbation #Acute hypoxic respiratory failure secondary to COPD exacerbation: Patient was initially placed in observation with shortness of breath likely secondary to COPD exacerbation. Patient desaturated to 81% with minimal ambulation. He was recently admitted to [facility] for pneumonia and received a full course of antibiotics. He was started on IV methylprednisone, total respiratory care, azithromycin, and guaifenesin. Pulmonology was consulted. The following day, he desaturated to 90% ambulating and 86% recovery, and he was converted to a full admission. He subsequently recovered and his breathing has significant improved with further steroid and antibiotic treatment. He was prescribed a steroid taper he should follow-up with primary care and pulmonology. #Chronic medical problems: His home medications were continued. Allergies: Coded Allergies: pollen extracts (UNKNOWN 07/01/16) atorvastatin (Severe, MUSCLE WEAKNESS 07/01/16) Uncoded Allergies: DUST (UNKNOWN 12/26/14) Disposition Summary Disposition Principal Diagnosis: 1. Acute hypoxic respiratory failure secondary to COPD exacerbation Additional Diagnosis: 1. Acute hypoxic respiratory failure secondary to COPD exacerbation Discharge Disposition: home health services Discharge Instructions General Discharge Information Code Status: Full Code Patient's Diet: Diabetic diet Patient's Activity: As tolerated Follow-Up Instructions/Appts: Please take all medications as directed. Please follow-up with primary care and pulmonology. Medications at Discharge Discharge Medications: Stop taking the following medications: Prednisone (Prednisone) 10 MG TABLET ORAL SEE INSTRUCTIONS Qty = 5 Continue taking these medications: Fluticasone/Salmeterol (Advair 500-50 Diskus) 500 MCG-50 MCG/DOSE BLST.W.DEV 1 Puff Inhale through mouth Q12H Comments: NOT GIVEN Levothyroxine Sodium (Synthroid) 50 MCG TABLET 1 Tablet ORAL DAILY Qty = 30 Comments: Last Taken: 06/19/17 Time: 0630 AM Docusate Sodium (Colace) 100 MG CAPSULE 1 Capsule ORAL DAILY Comments: Last Taken: 06/19/17 Time: 1020 AM Dexlansoprazole (Dexilant) 60 MG CAP.DR.BP 1 Capsule ORAL DAILY Comments: NOT GIVEN IN HOSPITAL Tamsulosin HCl (Flomax) 0.4 MG CAP.ER.24H 1 Capsule ORAL DAILY Comments: Last Taken: 06/19/17 Time: 1020 AM Solifenacin Succinate (Vesicare) 5 MG TABLET 1 Tablet ORAL DAILY Comments: NOT GIVEN Metformin HCl (Metformin HCl) 500 MG TABLET 1 Tablet ORAL TWICE DAILY Qty = 180 Comments: NOT GIVEN IN HOSPITAL Carbidopa/Levodopa (Sinemet 25-100 MG Tablet) 25 MG-100 MG TABLET 1 Tablet ORAL THREE TIMES DAILY Comments: Last Taken: 06/19/17 Time: 0630 AM Diltiazem HCl (Diltiazem ER) 240 MG CAP.ER.DEG 1 Tablet ORAL DAILY Comments: Last Taken: 06/19/17 Time: 1020 AM Finasteride (Finasteride) 5 MG TABLET 1 Tablet ORAL AT BEDTIME Comments: Last Taken: 06/18/17 Time: 10:00 PM Montelukast Sodium (Montelukast Sodium) 10 MG TABLET 1 Tablet ORAL AT BEDTIME Comments: Last Taken: 06/18/17 Time: 10:00 PM Apixaban (Eliquis) 2.5 MG TABLET 1 Tablet ORAL TWICE DAILY Instructions: Please discuss with your director child before resuming the medication Comments: Last Taken: 06/19/17 Time: 1020 AM Albuterol Sulfate (Proair Hfa) 90 MCG HFA.AER.AD 2 Puff Inhale through mouth Q4H as needed for COPD Comments: Last Taken: 06/19/17 Time: 0940 AM Ezetimibe/Simvastatin (Vytorin 10-10 MG Tablet) 10 MG-10 MG TABLET 1 Tablet ORAL AT BEDTIME Comments: Last Taken: 06/19/17 Time: 6:00 PM SIMVISTATIN GIVEN Cetirizine HCl (Cetirizine HCl) 10 MG TAB.CHEW 1 Tablet ORAL Every night Comments: NOT GIVEN IN HOSPITAL Ipratropium [place] (Ipratropium [place]) 21 MCG (0.03 %) SPRAY 2 Reading Both sides of nose TAKE AT BEDTIME Comments: NOT GIVEN Ascorbic Acid (Ascorbic Acid) 500 MG TABLET 1 Tablet ORAL DAILY Comments: Last Taken: 06/19/17 Time: 1020 AM Mirtazapine (Mirtazapine) 7.5 MG TABLET 1 Tablet ORAL TAKE AT BEDTIME Qty = 30 Comments: NOT GIVEN Furosemide (Lasix) 20 MG TABLET 1 Tablet ORAL Every other day Comments: Last Taken: 06/18/17 Time: 1030 AM Fluticasone Propionate (Flonase Allergy Relief) 50 MCG/ACTUATION SPRAY.SUSP 2 Reading Both sides of nose DAILY Comments: Last Taken: 06/19/17 Time: 1020 AM Levalbuterol HCl (Xopenex) 0.63 MG/3 ML VIAL.NEB 1 Milliliters Inhale Solution EVERY SIX HOURS NEEDED as needed for COPD Comments: NOT GIVEN Vit C/E/Zn/Coppr/Lutein/Zeaxan (Preservision Areds 2 Softgel) 250-200-40 CAPSULE 1 Capsule ORAL TWICE DAILY Comments: NOT GIVEN Melatonin (Melatonin) 10 MG CAPSULE 1 Capsule ORAL DAILY Comments: Last Taken: 06/18/17 Time: 10:00 PM Sennosides (Senna) 8.6 MG TABLET 2 Tablet ORAL DAILY as needed for CONSTIPATION Comments: NOT GIVEN IN HOSPITAL Carboxymethylcellulose Sodium (Thera Tears) 0.25 % DROPS 1 DROP Both Eyes 5XDAILY Comments: NOT GIVEN IN HOSPITAL Terbinafine HCl (Terbinafine) 1 % CREAM..G. 1 Application On the skin TAKE AT BEDTIME Comments: NOT GIVEN Tretinoin (Retin-A) 0.025 % CREAM..G. 1 Application On the skin As Directed Comments: NOT GIVEN Ferrous Sulfate (Ferrous Sulfate) 325 MG (65 MG IRON) TABLET.DR 325 Milligram ORAL TWICE DAILY Qty = 60 Instructions: .. Comments: Last Taken: 06/19/17 Time: 1020 AM Digoxin (Lanoxin) 125 MCG TABLET 0.125 Milligram ORAL EVERY 48 HOURS (Every 2 days) Qty = 15 Instructions: Please take every other day. Comments: Last Taken: 06/18/17 Time: 6:15 PM Start taking the following new medications: Prednisone (Deltasone) 20 MG TABLET 40 Milligram ORAL DAILY Qty = 10 No Refills Instructions: Please take for 5 days then stop. Comments: Last Taken: 06/19/17 Time: 1020 AM Copies To: Abhijit RIVAS,Alexis Reyes; Estrella RIVAS,Pawel; Rosa Maria RIVAS,Feliberto
== END 2017-06-19 13:15 | DRG 190 ==
LOC: ERH 11:42 → ERHI 18:22 → ENRESERV 19:22 → ENTRNSPT 20:59 → EDTRNSPT 21:03 → EDTRNSPTSTS 21:03 → 2NB 21:09 → CMPTRNSPT 21:24 → 2NB 06-18 20:21 → ENPENDDIS 06-19 10:27 → ENTRNSPT 06-19 13:11 → 2NB 06-19 13:15 → EDTRNSPTSTS 06-19 13:17 → EDTRNSPT 06-19 13:17 → CMPTRNSPT 06-19 13:40
PROVIDERS: Internal Medicine Hematology & Oncology; Physician Assistant Medical
DX: J44.1 Chronic obstructive pulmonary disease with (acute) exacerbation (principal); J96.01 Acute respiratory failure with hypoxia; I50.32 Chronic diastolic (congestive) heart failure; Z99.81 Dependence on supplemental oxygen; I11.0 Hypertensive heart disease with heart failure; I48.91 Unspecified atrial fibrillation; Z79.01 Long term (current) use of anticoagulants; E11.9 Type 2 diabetes mellitus without complications; Z79.84 Long term (current) use of oral hypoglycemic drugs; G20 Parkinson's disease; I25.10 Atherosclerotic heart disease of native coronary artery without angina pectoris
CPT/HCPCS: 1263; 1328; 1425; 1530; 1748; 6040; 36415; 71046; 82436; 87040; 87070; 87804; 87804-59; 93005; 93010; 93970; G0378; J0456; J2920; J3490

== ENCOUNTER 2017-07-14 09:18 | Observation (INO) | payer OTHER, MEDICARE ==
[~2017-07-14] VITALS: Ht 167.6 cm; Wt 72.6 kg
[~2017-07-14 09:18] MED LIST changes: +DELTASONE20 MG PO
--- NOTE | 2017-07-14 09:22 | ED DYSPNEA/ASTHMA COMPLAINT ---
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 Source: patient, old records Exam Limitations: no limitations Vital Signs & Intake/Output Vital Signs & Intake/Output Vital Signs Date Time Temp Pulse Resp B/P B/P Pulse O2 O2 Flow FiO2 Mean Ox Delivery Rate 07/14 1704 67 18 124/64 98 Nasal 4.0L Cannula 07/14 1548 94 Nasal 3.0L Cannula 07/14 1500 96 Nasal 4.0L Cannula 07/14 1320 98.4 90 22 140/72 94 Nasal 3.0L Cannula 07/14 1258 98.4 90 22 140/72 07/14 1108 100.0 90 20 143/74 95 Room Air 07/14 0951 98 Nasal 4.0L Cannula 07/14 0951 99.7 91 18 150/64 98 Nasal 4.0L Cannula 07/14 0935 96 Nasal 4.0L Cannula Allergies Coded Allergies: pollen extracts (UNKNOWN 07/01/16) atorvastatin (Severe, MUSCLE WEAKNESS, CRAMPS 07/14/17) Uncoded Allergies: DUST (UNKNOWN 12/26/14) Triage Nurses Notes Reviewed? 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 He reports to orthopnea x 2 days. Patient is rolled on 1 L oxygen at home and has had increased to 2 L since this morning. No abdominal pain nausea vomiting. No urinary complaints. He's been vomiting all his medication is not currently on prednisone. No modifying factors or associated symptoms otherwise. He is on lasix 20mg QOD, last dose was yesterday. Cardio is dr price, pulm is dr marlow. 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 Diltiazem HCl (Diltiazem ER) 240 MG CAP.ER.DEG 1 TAB PO DAILY HEART (Reported ) Docusate Sodium (Colace) 100 MG CAPSULE 1 CAP PO DAILY Constipation (Reported ) Ezetimibe/Simvastatin (Vytorin 10-10 MG Tablet) 10 MG-10 MG TABLET 1 TAB PO AT BEDTIME CHOLESTEROL (Reported) Ferrous Sulfate 325 MG (65 MG IRON) TABLET.DR 325 MG PO BID ANEMIA .. Finasteride 5 MG TABLET 1 TAB PO AT BEDTIME BPH (Reported) Fluticasone Propionate (Flonase Allergy Relief) 50 MCG/ACTUATION SPRAY.SUSP 2 SPRAY NASB DAILY ALLERGIES (Reported) Fluticasone/Salmeterol (Advair 250-50 Diskus) 250 MCG-50 MCG/DOSE BLST.W.DEV 1 PUF INH BID COPD (Reported) Furosemide (Lasix) 20 MG TABLET 1 TAB PO EOD DIURETIC (Reported) Ipratropium Rutherford 21 MCG (0.03 %) SPRAY 2 SPRAY NASB QHS ALLERGIES ( Reported) Levalbuterol HCl (Xopenex) 0.63 MG/3 ML VIAL.NEB 1 ML INH/ALISA Q6P PRN COPD ( Reported) Levothyroxine Sodium (Synthroid) 50 MCG TABLET 1 TAB PO DAILY hypothyroidism (Reported) Melatonin 5 MG TABLET 1-2 TAB PO QPM SLEEP (Reported) Metformin HCl 500 MG TABLET 1 TAB PO BID DM (Reported) Montelukast Sodium 10 MG TABLET 1 TAB PO AT BEDTIME COPD (Reported) Polyethylene Glycol 3350 17 GRAM POWD.PACK 1 PAC PO PRN GI (Reported) Sucralfate 1 GRAM TABLET 1 TAB PO TID GI (Reported) Tamsulosin HCl (Flomax) 0.4 MG CAP.ER.24H 1 CAP PO DAILY BPH (Reported) Terbinafine HCl (Terbinafine) 1 % CREAM..G. 1 RUCHI TOP QHS FEET/TOES/BUTTOCKS (Reported) Tiotropium Rutherford (Spiriva) 18 MCG CAP.W.DEV 1 CAP INH DAILY COPD (Reported) Vit C/E/Zn/Coppr/Lutein/Zeaxan (Preservision Areds 2 Softgel) 250-200-40 CAPSULE 1 CAP PO BID SUPPLEMENT (Reported) (Chelsie RIVAS,Jose Reyes) Past History Travel History Traveled to [place] past 21 day No Medical History Any Pertinent Medical History? 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 MOTHER Relation not specified for: FH: hypertension Hx Contributory? No (Diana MONTALVO,Howard) Review of Systems Review of Systems Constitutional: Reports: see HPI. Comments Review of systems: See HPI, All other systems negative. Constitutional, no chills no fever, no malaise HEENT: no sore throat no congestion Cardiovascular: No chest pain , no palpitation Skin: no rashes, no change in skin Respiratory: dyspnea cough ,no sputum GI: No nausea no vomiting, no diarrhea, no bloating/constipation : No dysuria Muscle skeletal: No joint pain, no back pain, no neck pain, Neurologic: , no headache Psych: No stress Heme/endocrine: No bruising Immunology: No lymphadenopathy (Howard Brock) Physical Exam Physical Exam General Appearance: well developed/nourished, alert, awake Respiratory: decreased breath sounds Comments: Well-developed well-nourished person in no acute distress HEENT: Normal EENT exam; PERRL, EOMI, HEAD is atraumatic. moist mucous membranes. Neck: Supple, normal range of motion Back: Full range of motion Cardiovascular: irregular rate and rhythm no murmurs rubs or gallops, normal JVP Respiratory: Chest nontender.There were no bony deformities, no asymmetry. MILD TO MODERATE respiratory distress. Patient speaking in 3-4 WORD sentences. diminished breath sounds b/l Abdomen: Soft, nontender nondistended, no appreciable organomegaly. Normal bowel sounds. No rebound/guarding, No appreciable enlargement of the abdominal aorta, No ascites. Extremity: No edema, full range of motion of extremities, 5 out of 5 strength noted to bilateral upper and lower extremities Neuro: Alert oriented x3, motor sensory normal, There were no obvious focal neurologic abnormalities. Skin: No appreciable rash on exposed skin, skin is warm and dry. Psych: Mood and affect is normal, memory and judgment is normal. Core Measures ACS in differential dx? Yes CVA/TIA Diagnosis No Sepsis Present: No Sepsis Focused Exam Completed? No (Howard Brock) Progress Differential Diagnosis: asthma, AMI, bronchitis, pericarditis, pulmonary embolism, pneumonia, pneumothorax, unstable angina, sepsis, influenza Plan of Care: Orders Procedure Date/time Status CBC WITHOUT DIFFERENTIAL 07/15 0600 Active BASIC ELECTROLYTES PLUS BUN&CR 07/15 0600 Active Heart Healthy Diet 07/14 L Active TROPONIN LEVEL 07/14 2200 Active EKG 07/14 2200 Active TROPONIN LEVEL 07/14 1600 Complete EKG 07/14 1600 Active Weight 07/14 1532 Active Vital Signs 07/14 1532 Active Teach/Educate 07/14 1532 Active Pain Treatment and Response 07/14 1532 Active Nutritional Intake, Monitor 07/14 153 Active Isolation 07/14 1532 Active Intake & Output 07/14 1532 Active Patient Care Conference 07/14 1532 Active Activity/Ambulation 07/14 1532 Active STREP PNEUMO URINARY ANTIGEN 07/14 1255 Active LEGIONELLA URINARY ANTIGEN 07/14 1255 Active TRC EVALUATION (GEN) 07/14 1249 Active Pathway - chart 07/14 1249 Active House Staff 07/14 1249 Active Patient Data 07/14 1249 Active Code Status 07/[address] in observation 07/14 1113 Active Patient Data 07/14 1112 Active ED Holding Orders 07/14 1057 Active Vital Signs 07/14 1057 Active Code Status 07/14 1057 Complete DIGOXIN 07/14 0933 Complete AEROSOL (GEN) 07/14 0932 Complete Telemetry/Facilities Administrator 07/14 0931 Active RAPID VIRAL INFLUENZA A 07/14 0931 Complete BLOOD CULTURE 07/14 0931 Active TROPONIN LEVEL 07/14 0931 Complete PARTIAL THROMBOPLASTIN TIME 07/14 0931 Complete PROTHROMBIN TIME 07/14 0931 Complete LACTIC ACID 07/14 0931 Complete COMPREHENSIVE METABOLIC PANEL 07/14 0931 Complete CBC WITHOUT DIFFERENTIAL 07/14 0931 Complete B-TYPE NATRIURETIC PEP (BNP) 07/14 0931 Complete Intake & Output 07/14 0925 Active EKG 07/14 0920 Active AEROSOL (GEN) 07/14 UNK Complete Lab Add-on Test 07/14 UNK Active VTE Mechanical Prophylaxis 07/14 UNK Active Vital Signs 07/14 UNK Complete Telemetry/Facilities Administrator 07/14 UNK Active Nursing Misc 07/14 UNK Active Intake & Output 07/14 UNK Complete FingerStick- Glucose 07/14 UNK Active Current Medications Sig/Chuck Start time Last Medication Dose Stop Time Status Admin Digoxin 0.125 MG Q48 07/16 1000 AC (Lanoxin) Azithromycin 500 MG DAILY@1200 07/15 1200 AC (Zithromax) Dextrose/Water 250 ML (D5W) Furosemide 20 MG DAILY 07/15 1000 AC (Lasix) Finasteride 5 MG AT BEDTIME 07/14 2199 AC (Proscar) Melatonin 5 MG QPM 07/14 2199 AC (Melatonin) Methylprednisolone 40 MG Q8 07/14 2199 AC (Solumedrol) Montelukast Sodium 10 MG AT BEDTIME 07/14 220 AC (Singulair) Insulin Aspart 0 TIDAC 07/14 1700 AC 07/14 (NovoLOG) 1705 Simvastatin 10 MG DAILY@1700 07/14 1700 AC 07/14 (Zocor) 1705 Sucralfate 1,000 MG TID 07/14 1600 AC 07/14 (Carafate) 1705 Artificial Tears 2 GTT 4 TIMES/DAY 07/14 1400 AC 07/14 (Tears Natural) 1417 Methylprednisolone 40 MG Q8 07/14 1400 CAN (Solumedrol) Tiotropium Rutherford 1 PUF DAILY 07/14 1302 AC 07/14 (Spiriva) 1300 Levothyroxine Sodium 0.05 MG DAILY AC 07/14 1301 AC 07/14 (Synthroid) 1300 Tamsulosin HCl 0.4 MG DAILY 07/14 1301 AC 07/14 (Flomax) 1258 Acetaminophen 650 MG Q6P PRN 07/14 1300 AC (Tylenol) Albuterol Sulfate 2 PUF Q4H PRN 07/14 1300 AC (Ventolin) Ipratropium Rutherford 2.5 ML DAILY 07/14 1300 AC (Atrovent) Sodium Chloride 2 SPRAY Q4P PRN 07/14 1300 AC (Nasal) Sodium Chloride 2 SPRAY Q4P PRN 07/14 1300 CAN (Nasal) Diltiazem HCl 240 MG DAILY 07/14 1258 AC 07/14 (Cardizem CD) 1255 Ezetimibe 10 MG DAILY 07/14 1258 AC 07/14 (Zetia) 1256 Ferrous Sulfate 325 MG BID 07/14 1258 AC 07/14 (Feosol) 1256 Omeprazole 40 MG DAILY AC 07/14 1257 AC 07/14 (Prilosec) 1255 Apixaban 2.5 MG BID 07/14 1256 AC 07/14 (Eliquis) 1255 Ascorbic Acid 500 MG DAILY 07/14 1256 AC 07/14 (Vitamin C) 1255 Carbidopa/Levodopa 1 TAB TID 07/14 1256 AC 07/14 (Sinemet 25/100MG) 1705 Fluticasone 2 SPRAY DAILY 07/14 1254 AC 07/14 Propionate 1413 (Flonase) Laboratory Tests 07/14/17 1632: Troponin I 0.05 07/14/17 1231: Lactic Acid Cancelled 07/14/17 0933: Anion Gap 11, Estimated GFR > 60, BUN/Creatinine Ratio 30.0 H, Glucose 152 H, Lactic Acid 1.3, Calcium 8.6, Total Bilirubin 0.5, AST 17, ALT 27, Alkaline Phosphatase 61, Troponin I < 0.01, Tav-F-Evtejlqhurf Pept 1090 H, Total Protein 5.9 L, Albumin 3.4 L, Globulin 2.5, Albumin/Globulin Ratio 1.4, PT 15.3 H, INR 1.40 H, APTT 33, CBC w Diff NO MAN DIFF REQ, RBC 3.70 L, MCV 78.9 L, MCH 25.8 L, MCHC 32.6 L, RDW 17.1 H, MPV 9.2, Gran % 82.3 H, Lymphocytes % 5.2 L, Monocytes % 7.3, Eosinophils % 5.0, Basophils % 0.2, Absolute Granulocytes 7.4 H, Absolute Lymphocytes 0.5 L, Absolute Monocytes 0.7 H, Absolute Eosinophils 0.4, Absolute Basophils 0, Digoxin < 0.4 L Microbiology 07/14 1255 URINE ROUT: Legionella Antigen - COLB 07/14 1255 URINE ROUT: Streptococcus pneumoniae Antigen (M - COLB 07/14 1104 BLOOD: Blood Culture - RECD 07/14 0938 NASOPHARYN: Influenza Virus A & B Rapid Smear - COMP 07/14 0933 BLOOD: Blood Culture - RECD pt med with duoneb, solumedrol and tylenol iv. case d/w dr patel agrees with clari ching's h/h is at baseline today jeane significantly improved from the DuoNeb. I discussed with him at length his lab results CAT scan and x-ray findings need for admission which he is in agreement with case d/w dr liu will admit Diagnostic Imaging: Viewed by Me: Radiology Read. Discussed w/RAD: Radiology Read. Radiology Impression: PATIENT: JEANE SHEARER PRESENT AGE: 87 PATIENT ACCOUNT NO: [id number] : 31 LOCATION: [facility] ORDERING PHYSICIAN: Howard MONTALVO SERVICE DATE: 07/14/17 EXAM TYPE: RAD - XRY-PORTABLE CHEST XRAY EXAMINATION: XR PORTABLE CHEST CLINICAL INFORMATION: Dyspnea. Fever. Presumptive diagnosis of pneumonia, CHF. COMPARISON: Several prior chest x-rays, most recent of which is dated 2017. CT scan of the chest dated 05/30/2017. TECHNIQUE: Portable AP semierect view of the chest was obtained. FINDINGS: EKG leads overlie the chest. The cardiomediastinal silhouette is enlarged, unchanged. Calcification and ectasia of the aorta is again seen. Slight shift of the thoracic trachea toward the right side is again noted, unchanged, related to mass effect by the aortic arch as well as slight volume loss in the right hemithorax. There is persistent elevation of the right hemidiaphragm and patchy parenchymal opacity and volume loss in the right mid and lower lung, slightly more prominent than on the prior exam. There is also evidence of central vascular congestion and perihilar opacities, consistent with superimposed pulmonary edema. Trace right-sided pleural effusion is present. Some linear opacities in the left lung base are seen, consistent with subsegmental atelectasis. Underlying emphysematous lung disease is again noted. There are some nodular densities seen projected over the left lateral mid lung, similar to prior exam. Osteopenia and degenerative changes in the left shoulder joint are again noted. IMPRESSION: 1. Findings are suspicious for pulmonary edema, superimposed upon chronic right mid and lower lung opacities and volume loss, perhaps related to chronic pneumonia or atelectasis. 2. Left basilar subsegmental atelectasis, unchanged. 3. Underlying obstructive lung disease and small left mid lung nodular densities again seen. On prior chest CT scan, multiple other nodular densities were seen, poorly assessed on this exam. DICTATED BY: Thu Katz MD DATE/TIME DICTATED:07/14 PUBLISHING SPECIALIST:CHAI DATE/TIME TRANSCRIBED:07/14/171033 CONFIDENTIAL, DO NOT COPY WITHOUT APPROPRIATE AUTHORIZATION. <Electronically signed in Other Vendor System> SIGNED BY: Thu Katz MD 07/14/17 1044 , PATIENT: JEANE SHEARER PRESENT AGE: 87 PATIENT ACCOUNT NO: [id number] : 31 LOCATION: [facility] ORDERING PHYSICIAN: Howard MONTALVO SERVICE DATE: 07/14/17 EXAM TYPE: CAT - CT HEAD WO IV CONTRAST EXAMINATION: CT HEAD WITHOUT CONTRAST CLINICAL INFORMATION: Left-sided headache. COMPARISON: 07/01/16. TECHNIQUE: Contiguous axial imaging was performed from the skull base to vertex without intravenous administration of contrast. DLP: 604.69 mGy-cm FINDINGS: There is no evidence of acute intracranial hemorrhage or territorial infarction. No abnormal mass effect or midline shift is seen. Fofana to white matter differentiation is well preserved. No extra-axial fluid collections are identified. There is age-appropriate diffuse atrophy with prominence of the ventricles an cortical gyri. Calcification in the basal ganglia consistent with mineralizing vasculopathy is unchanged. A small calcification in the left centrum semiovale is unchanged. Periventricular low- attenuation consistent with chronic small vessel ischemic disease is stable. The osseous structures and soft tissues are normal. The mastoid air cells and visualized portions of the paranasal sinuses are well aerated. A small amount of layering fluid is seen in the left maxillary antrum. IMPRESSION: No acute intracranial pathology. DICTATED BY: Natanael Alvarenga MD DATE/TIME DICTATED:03/23 PUBLISHING SPECIALIST:CHAI DATE/TIME TRANSCRIBED:07/14/171137 CONFIDENTIAL, DO NOT COPY WITHOUT APPROPRIATE AUTHORIZATION. <Electronically signed in Other Vendor System> SIGNED BY: Natanael Alvarenga MD 07/14/17 1153 Initial ED EKG: afib at 90, no acute st seg chagnes, normal axis Prior EKG: unchanged (06/2017) Rhythm Strip: atrial fibrillation (Howard Brock) Departure Departure Time of Disposition: 1057 Disposition: STILL A PATIENT Condition: Stable Clinical Impression Primary Impression: CHF exacerbation Qualifiers: Heart failure type: unspecified Qualified Code: I50.9 - Heart failure, unspecified Secondary Impressions: COPD exacerbation, Lung nodule Referrals: Pawel De La Rosa MD (PCP/Family) Departure Forms: Customer Survey General Discharge Information Admission Note Spoke With: Zoila Liu MD Documentation of Exam: Documentation of any treatments & extenuating circumstances including Concerns Regarding Discharge (functional status, medication knowledge or non-compliance, living conditions, etc.) that warrant an admission rather than observation: CARDIO AND PULM CONSULT, TREND LABS, PREMATURE DSICHARGE WOULD BE MEDICALLY HARMFUL, IV DIURESIS, TREND CULTUERS IV ABX (Howard Brock) Observation Note Spoke With: Zoila Liu MD Physician Advisor Notified: CHELSIE RIVAS,JOSE Reyes Place Patient In: Non-ED OBS Care Area Rationale for Observation: My rational for observation is as follows [patient was recently admitted but requires coming to the hospital again. Patient will be placed in observation. Patient has pulmonary edema as well as pneumonia. Patient will require IV antibiotics, IV diuresis, pulmonary consultation, cardiology consultation, telemetry monitoring, serial enzymes.]. PA/DIRECT MAIL MANAGER Co-Sign Statement Statement: ED Attending supervision documentation- [X] I saw and evaluated the patient. I have also reviewed all the pertinent lab results and diagnostic results. I agree with the findings and the plan of care as documented in the PA's/DIRECT MAIL MANAGER's documentation. [X] I have reviewed the ED Record and agree with the PA's/DIRECT MAIL MANAGER's documentation. [] Additions or exceptions (if any) to the PAs/DIRECT MAIL MANAGER's note and plan are summarized below: [SEE ABOVE NOTE] (Chelsie RIVAS,Jose Reyes) Critical Care Note Critical Care Note Critical Care Time: non-applicable (Howard Brock)
[2017-07-14 10:15] LABS: ABSOLUTE BASOPHIL COUNT 0 /CUMM (0.0-0.2); ABSOLUTE EOSINOPHIL COUNT 0.4 /CUMM (0.0-0.7); ABSOLUTE GRANULOCYTE CT 7.4 /CUMM (1.4-6.5); ABSOLUTE LYMPH COUNT 0.5 /CUMM (1.2-3.4); ABSOLUTE MONOCYTE COUNT 0.7 /CUMM (0.10-0.60); BASOPHIL % 0.2 % (0.0-2.0); GRANULOCYTE % 82.3 % (42.2-75.2); HEMATOCRIT 29.2 % (42-52); MEAN CORPUSCULAR HGB 25.8 PG (27.0-31.0); MEAN CORPUSCULAR HGB CONC 32.6 G/DL (33.0-37.0); MEAN CORPUSCULAR VOLUME 78.9 FL (80.0-94.0); MEAN PLATELET VOLUME 9.2 FL (7.4-10.4); PLATELET COUNT 170 /CUMM (130-400); RBC DISTRIBUTION WIDTH 17.1 % (11.5-14.5)
[2017-07-14 10:25] LABS: PT 15.3 SEC (9.4-12.5); PTT 33 SEC (25-37)
--- NOTE | 2017-07-14 10:44 | RADIOLOGY REPORT ---
EXAMINATION: XR PORTABLE CHEST CLINICAL INFORMATION: Dyspnea. Fever. Presumptive diagnosis of pneumonia, CHF. COMPARISON: Several prior chest x-rays, most recent of which is dated 06/17/2017. CT scan of the chest dated 05/30/2017. TECHNIQUE: Portable AP semierect view of the chest was obtained. FINDINGS: EKG leads overlie the chest. The cardiomediastinal silhouette is enlarged, unchanged. Calcification and ectasia of the aorta is again seen. Slight shift of the thoracic trachea toward the right side is again noted, unchanged, related to mass effect by the aortic arch as well as slight volume loss in the right hemithorax. There is persistent elevation of the right hemidiaphragm and patchy parenchymal opacity and volume loss in the right mid and lower lung, slightly more prominent than on the prior exam. There is also evidence of central vascular congestion and perihilar opacities, consistent with superimposed pulmonary edema. Trace right-sided pleural effusion is present. Some linear opacities in the left lung base are seen, consistent with subsegmental atelectasis. Underlying emphysematous lung disease is again noted. There are some nodular densities seen projected over the left lateral mid lung, similar to prior exam. Osteopenia and degenerative changes in the left shoulder joint are again noted. IMPRESSION: 1. Findings are suspicious for pulmonary edema, superimposed upon chronic right mid and lower lung opacities and volume loss, perhaps related to chronic pneumonia or atelectasis. 2. Left basilar subsegmental atelectasis, unchanged. 3. Underlying obstructive lung disease and small left mid lung nodular densities again seen. On prior chest CT scan, multiple other nodular densities were seen, poorly assessed on this exam.
[2017-07-14] MEDS ORDERED: ADVAIR 250-501 EACH INH (11:52)
[2017-07-14] MEDS ORDERED: SUCRALFATE1 G1 PO (11:53)
--- NOTE | 2017-07-14 11:53 | CT SCAN REPORT ---
EXAMINATION: CT HEAD WITHOUT CONTRAST CLINICAL INFORMATION: Left-sided headache. COMPARISON: 07/01/16. TECHNIQUE: Contiguous axial imaging was performed from the skull base to vertex without intravenous administration of contrast. DLP: 604.69 mGy-cm FINDINGS: There is no evidence of acute intracranial hemorrhage or territorial infarction. No abnormal mass effect or midline shift is seen. Fofana to white matter differentiation is well preserved. No extra-axial fluid collections are identified. There is age-appropriate diffuse atrophy with prominence of the ventricles an cortical gyri. Calcification in the basal ganglia consistent with mineralizing vasculopathy is unchanged. A small calcification in the left centrum semiovale is unchanged. Periventricular low-attenuation consistent with chronic small vessel ischemic disease is stable. The osseous structures and soft tissues are normal. The mastoid air cells and visualized portions of the paranasal sinuses are well aerated. A small amount of layering fluid is seen in the left maxillary antrum. IMPRESSION: No acute intracranial pathology.
[2017-07-14] MEDS ORDERED: MELATONIN5 M7 PO (11:57)
[2017-07-14] MEDS ORDERED: POLYETHYLENE GL17 GM PO (12:01)
[2017-07-14] MEDS ORDERED: SPIRIVA18 MCG INH (12:01)
--- NOTE | 2017-07-14 13:07 | History & Physical ---
[place] 07/14/17 1306: General Information and HPI MD Statement: I have seen and personally examined KENIA SHEARER and documented this H&P. The patient is a 87 year old M who presented with a patient stated chief complaint of short of breath since this morning. Source of Information: patient, old records Exam Limitations: no limitations History of Present Illness: This is a 86-year-old man with past medical history significant for macular degeneration, allergies, COPD on oxygen 1 L, multiple admissions for pneumonia in the past, diastolic congestive heart failure, atrial fibrillation on eliqus, hypertension, Parkinson's disease, GERD, low GI bleed, AV malformation, hyperlipidemia, constipation, anemia, BPH, urine retention, hypothyroidism, diabetes mellitus, lung cancer status right lower lobe lobectomy presented to ER with chief complaint of chills, cough, sputum production, difficulty breathing for one day. He was recently discharged on 06/19/2017 after being treated for acute hypoxic respiratory failure, COPD exacerbation with steroids and antibiotics. He was admitted 3 times over the past 6 months for COPD exacerbation, pneumonia and CHF. Patient reports generalized body aches, weakness, chills, productive cough, headache, sinus pressure which is ongoing for the past 2 days. Patient reported sudden onset of worsening shortness of breath this morning, no relief with inhalers, minimal benefit after increasing oxygen supplementation from 1 L to 2 L, desaturated to 84%. He decided to come to the emergency room for further evaluation of worsening shortness of breath. 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 Multiple admissions in the past for pneumonia and COPD exacerbations. Patient denies any chest pain, palpitations, fever, nausea, vomiting, abdominal pain, constipation, diarrhea, change in urine habits. He denies any worsening lower extremity swelling, orthopnea, paroxysmal nocturnal dyspnea. Patient quit smoking in 1984, no alcohol abuse, no illicit drug abuse. He follows up with his sweatband maker and keyboard operator. Allergies/Medications Allergies: Coded Allergies: pollen extracts (UNKNOWN 07/01/16) atorvastatin (Severe, MUSCLE WEAKNESS, CRAMPS 07/14/17) Uncoded Allergies: DUST (UNKNOWN 12/26/14) Compliance With Home Meds: GOOD Past History Travel History Traveled to [place] past 21 day No Medical History Neurological: Parkinson's disease EENT: blindness, hearing loss, macular degeneration Cardiovascular: aortic aneurysm, AFIB, CHF, hypertension, hyperlipidemia Respiratory: bronchitis, COPD, emphysema, pneumonia, Lung ca s/p lobectomy Gastrointestinal: lower GI bleed, AVM Hepatic: NONE Renal: NONE Musculoskeletal: osteoarthritis Psychiatric: NONE Endocrine: diabetes Blood Disorders: anemia Cancer(s): lung cancer, 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 MOTHER Relation not specified for: FH: hypertension Psychosocial History Who Do You Live With? parent Services at Home: None Primary Language: Trinidadian Smoking Status: Former Smoker ETOH Use: denies use Illicit Drug Use: denies illicit drug use Functional Ability ADLs Independent: dressing, eating, toileting, bathing. Ambulation: independent IADLs Needs Assist: shopping, housework, finances, food prep, telephone, transportation, medication admin. Review of Systems Review of Systems Constitutional: Reports: chills, diaphoresis, weakness. Denies: fever, malaise, unexplained weight loss. EENTM: Denies: blurred vision, double vision, visual changes. Cardiovascular: Denies: chest pain, edema, orthopena, palpitations, peripheral edema, syncope. Respiratory: Reports: cough, short of breath, sputum production. Denies: hemoptysis, orthopnea, stridor, wheezing. GI: Denies: abdominal pain, bloating, constipation, diarrhea, distention. Genitourinary: Denies: discharge, dysuria, frequency. Musculoskeletal: Denies: back pain, gout, joint pain. Neurological/Psychological: Denies: anxiety, ataxia, depressed, dementia. Exam & Diagnostic Data Last 24 Hrs of Vital Signs/I&O Vital Signs Date Time Temp Pulse Resp B/P B/P Pulse O2 O2 Flow FiO2 Mean Ox Delivery Rate 07/14 1500 96 Nasal 4.0L Cannula 07/14 1320 98.4 90 22 140/72 94 Nasal 3.0L Cannula 07/14 1258 98.4 90 22 140/72 03/11 1108 100.0 90 20 143/74 95 Room Air 07/14 0951 98 Nasal 4.0L Cannula 07/14 0951 99.7 91 18 150/64 98 Nasal 4.0L Cannula 07/14 0935 96 Nasal 4.0L Cannula Intake & Output 07/14 1600 07/14 0800 07/14 0000 Intake Total Output Total 1225 Balance -1225 Output, Urine 1225 Patient 69.4 kg Weight Weight Reported by Patient Measurement Method Physical Exam General Appearance Alert, Oriented X3, Cooperative, No Acute Distress Skin No Rashes, No Breakdown Skin Temp/Moisture Exam: Warm/Dry Sepsis Skin Exam (color): Normal for Ethnicity HEENT Atraumatic, PERRLA, EOMI, Mucous Membr. moist/pink Neck Supple, No JVD Lymphatic Axillary nl, Cervical nl Cardiovascular Regular Rate, Normal S1, Normal S2, No Murmurs Lungs Normal Air Movement, b/l wheezes Abdomen Normal Bowel Sounds, Soft, No Tenderness Neurological Strength at 5/5 X4 Ext, Cranial Nerves 3-12 NL, Reflexes 2+ Extremities No Clubbing, No Cyanosis, No Edema Vascular Normal Pulses, Pulses Symmetrical Sepsis Peripheral Pulse Location: Radial Sepsis Peripheral Pulse Exam: Normal Sepsis Cap Refill Exam: <2 Sec Last 24 Hrs of Labs/Les: Laboratory Tests 07/14/17 1231: Lactic Acid Cancelled 07/14/17 0933: Anion Gap 11, Estimated GFR > 60, BUN/Creatinine Ratio 30.0 H, Glucose 152 H, Lactic Acid 1.3, Calcium 8.6, Total Bilirubin 0.5, AST 17, ALT 27, Alkaline Phosphatase 61, Troponin I < 0.01, Ldl-S-Teqyjkvpxud Pept 1090 H, Total Protein 5.9 L, Albumin 3.4 L, Globulin 2.5, Albumin/Globulin Ratio 1.4, PT 15.3 H, INR 1.40 H, APTT 33, CBC w Diff NO MAN DIFF REQ, RBC 3.70 L, MCV 78.9 L, MCH 25.8 L, MCHC 32.6 L, RDW 17.1 H, MPV 9.2, Gran % 82.3 H, Lymphocytes % 5.2 L, Monocytes % 7.3, Eosinophils % 5.0, Basophils % 0.2, Absolute Granulocytes 7.4 H, Absolute Lymphocytes 0.5 L, Absolute Monocytes 0.7 H, Absolute Eosinophils 0.4, Absolute Basophils 0, Digoxin < 0.4 L Microbiology 07/14 1255 URINE ROUT: Legionella Antigen - COLB 07/14 1255 URINE ROUT: Streptococcus pneumoniae Antigen (M - COLB 07/14 1104 BLOOD: Blood Culture - RECD 07/14 0938 NASOPHARYN: Influenza Virus A & B Rapid Smear - COMP 07/14 0933 BLOOD: Blood Culture - RECD Diagnostic Data EKG Results Atrial fibrillation, rate 96, no ST-T wave changes. CXR Results X-ray findings consistent with pulmonary edema Assessment/Plan Assessment: This is a 86-year-old man with past medical history significant for macular degeneration, allergies, COPD on oxygen 1 L, multiple admissions for pneumonia in the past, diastolic congestive heart failure, atrial fibrillation on eliqus, hypertension, Parkinson's disease, GERD, low GI bleed, AV malformation, hyperlipidemia, constipation, anemia, BPH, urine retention, hypothyroidism, diabetes mellitus, lung cancer status right lower lobe lobectomy presented to ER with chief complaint of chills, cough, sputum production, difficulty breathing for one day. Vitals MAXIMUM TEMPERATURE 100, respiratory rate 20, heart rate 90, blood pressure 140/ 70, saturating at 95 on 4 L labs WBC 9, hemoglobin 9.5, hematocrit 28, platelets 117 Sodium 142, potassium 3.6, BUN 18, creatinine 0.6 Chest x-ray 1. Findings are suspicious for pulmonary edema, superimposed upon chronic right mid and lower lung opacities and volume loss, perhaps related to chronic pneumonia or atelectasis. 2. Left basilar subsegmental atelectasis, unchanged. 3. Underlying obstructive lung disease and small left mid lung nodular densities again seen. On prior chest CT scan, multiple other nodular densities were seen, poorly assessed on this exam. Acute on chronic respiratory failure from Acute bronchitis with COPD exacerbation Patient presented with worsening shortness of breath associated with chills, productive cough. Denies any chest pain. Reports exposure to sick contacts and denies any travel history. He is afebrile with normal leukocyte count. Chest x -ray showed pulmonary edema, superimposed upon chronic right mid and lower lung opacities and volume loss, perhaps related to chronic pneumonia or atelectasis. * Admit to tele floor for further management. * Monitor vitals closely every shift * Maintain oxygen saturation above 90%. * Provide supplemental oxygen whenever necessary. * Patient was started on antibiotics azithromycin and ceftriaxone in the emergency room * Continue azithromycin for 5 days * Total respiratory care * Continue home medications, inhaler and nebulizer treatments. * Patient received IV Solu-Medrol 125 mg once in the emergency room. * Will start him on IV methylprednisolone 40 mg every 8 hours * Follow blood cultures * Follow-up urine strep and Legionella antigen * Follow-up for fever, leukocytosis Acute on chronic diastolic heart failure He follows Dr. Guadarrama sweatband maker as an outpatient. He was on Lasix 20 every other day for leg swelling. Presented to ER with worsening shortness of breath, acute on chronic hypoxic respiratory failure requiring 4 L oxygen supplementation. Chest x-ray findings consistent with pulmonary edema. ProBNP at baseline 1090. He is compliant with his daily medications Lasix, low na diet. No recent change in weight. * Will give IV Lasix 20 mg daily * Daily ins and outs * Monitor daily weights * Monitor BUN and creatinine * Serial troponin and EKG * Last echocardiogram was done in 2016, showed diastolic dysfunction with pulmonary hypertension with an estimated RV systolic pressure of 66 mmHg. Left-sided sinus headaches Patient was on oxygen at home. Never use humidifier. * Flonase * Nasal saline spray * Humidified oxygen * CAT scan head was done given his persistent headache. * There is no evidence of acute intracranial hemorrhage or territorial infarction. No abnormal mass effect or midline shift is seen. Fofana to white matter differentiation is well preserved. No extra-axial fluid collections are identified. Allergies Continue Citrizine Lung cancer Status post right lower lobe lobectomy Atrial fibrillation Patient is on digoxin, diltiazem, eliqus 2.5 mg twice a day continue all the home medications for atrial fibrillation Parkinson's disease Continue home medication carbidopa and L-dopa GERD continue omeprazole Hyperlipidemia Continue home medications simvastatin Anemia continued iron sulfate BPH Continue home dose of tamsulosin and finasteride Hypothyroidism Continue home medications Synthyroid Diabetes mellitus On metformin at home. We've held the metformin in the hospital Accu-Cheks before meals and at bedtime and placed on Insulin sliding scale Mental health Continue mirtazapine 7.5 daily. Full code Consistent carbohydrate diet DVT prophylaxis eliqus Pain pathway As Ranked By This Provider Problem List: 1. COPD exacerbation 2. CHF exacerbation Qualifiers Heart failure type: unspecified Qualified Code: I50.9 - Heart failure, unspecified Core Measures/Misc (01/20) Acute Coronary Syndrome ACS Diagnosis: No Congestive Heart Failure Congestive Heart Failure Diagnosis No Cerebrovascular Accident CVA/TIA Diagnosis: No VTE (View Protocol) VTE Risk Factors Acute Medical Illness No Mechanical VTE Prophylaxis d/t N/A MechProphylax Ordered No VTE Pharm Prophylaxis d/t NA PharmProphylax ordered Sepsis (View protocol) Sepsis Present: No Zoila Liu 07/14/17 1622: General Information and HPI Allergies/Medications Home Med list Albuterol Sulfate (Proair Hfa) 90 MCG HFA.AER.AD 2 PUF INH Q4H PRN COPD ( Reported) Apixaban (Eliquis) 2.5 MG TABLET 1 TAB PO BID AFIB (Reported) Please discuss with your sweatband maker before resuming the medication Ascorbic Acid 500 MG TABLET 1 TAB PO DAILY VITAMIN SUPPORT (Reported) Azithromycin 250 MG TABLET 250 MG PO DAILY Bronchitis TAKE ON 07/18/2017.. Carbidopa/Levodopa (Sinemet 25-100 MG Tablet) 25 MG-100 MG TABLET 1 TAB PO TID PARKINSONS (Reported) Carboxymethylcellulose Sodium (Thera Tears) 0.25 % DROPS 1 DROP OU 5XDAILY PRN DRY EYES (Reported) Cetirizine HCl 10 MG TAB.CHEW 1 TAB PO QPM ALLERGIES (Reported) Dexlansoprazole (Dexilant) 60 MG CAP.DR.BP 1 CAP PO DAILY ACID REFLUX ( Reported) Digoxin (Lanoxin) 125 MCG TABLET 0.125 MG PO Q48 HEART HEALTH Please take every other day. Diltiazem HCl (Diltiazem ER) 240 MG CAP.ER.DEG 1 TAB PO DAILY HEART (Reported ) Docusate Sodium (Colace) 100 MG CAPSULE 1 CAP PO DAILY Constipation (Reported ) Ezetimibe/Simvastatin (Vytorin 10-10 MG Tablet) 10 MG-10 MG TABLET 1 TAB PO AT BEDTIME CHOLESTEROL (Reported) Ferrous Sulfate 325 MG (65 MG IRON) TABLET.DR 325 MG PO BID ANEMIA .. Finasteride 5 MG TABLET 1 TAB PO AT BEDTIME BPH (Reported) Fluticasone Propionate (Flonase Allergy Relief) 50 MCG/ACTUATION SPRAY.SUSP 2 SPRAY NASB DAILY ALLERGIES (Reported) Fluticasone/Salmeterol (Advair 250-50 Diskus) 250 MCG-50 MCG/DOSE BLST.W.DEV 1 PUF INH BID COPD (Reported) Furosemide (Lasix) 20 MG TABLET 1 TAB PO EOD DIURETIC (Reported) Ipratropium [place] 21 MCG (0.03 %) SPRAY 2 SPRAY NASB QHS ALLERGIES ( Reported) Levalbuterol HCl (Xopenex) 0.63 MG/3 ML VIAL.NEB 1 ML INH/ALISA Q6P PRN COPD ( Reported) Levothyroxine Sodium (Synthroid) 50 MCG TABLET 1 TAB PO DAILY hypothyroidism (Reported) Meclizine HCl 25 MG TABLET 1 TAB PO TIDPRN dizziness/vertigo Melatonin 5 MG TABLET 1-2 TAB PO QPM SLEEP (Reported) Metformin HCl 500 MG TABLET 1 TAB PO BID DM (Reported) Montelukast Sodium 10 MG TABLET 1 TAB PO AT BEDTIME COPD (Reported) Polyethylene Glycol 3350 17 GRAM POWD.PACK 1 PAC PO PRN GI (Reported) Prednisone 10 MG TABLET 0 PO TAPER COPD EXACERBATION On Take 07/18 60 MG #6 07/19-07/20 40 MG #8 07/21-07/22 30 MG #6 07/23-07/24 20 MG #4 07/25-07/26 10 MG #2 Then Stop Sucralfate 1 GRAM TABLET 1 TAB PO TID GI (Reported) Tamsulosin HCl (Flomax) 0.4 MG CAP.ER.24H 1 CAP PO DAILY BPH (Reported) Terbinafine HCl (Terbinafine) 1 % CREAM..G. 1 RUCHI TOP QHS FEET/TOES/BUTTOCKS (Reported) Tiotropium [place] (Spiriva) 18 MCG CAP.W.DEV 1 CAP INH DAILY COPD (Reported) Vit C/E/Zn/Coppr/Lutein/Zeaxan (Preservision Areds 2 Softgel) 250-200-40 CAPSULE 1 CAP PO BID SUPPLEMENT (Reported) Attending MD Review Statement Attending Statement Attending MD Statement: examined this patient, discuss w/resident/PA/COMMERCIAL LINES ASSISTANT, agreed w/resident/PA/COMMERCIAL LINES ASSISTANT, reviewed EMR data (avail), discussed with nursing, discussed with case mgmt Attending Assessment/Plan: pt recently dced from hospital. Pt with pmh of copd , chf on home oxgyen at 1 L presented to the ER with sob, cough with pinkish sputum and body aches for the last 2 days prior to admission. Pt in Er had cxr done which showed fluid overload and was given iv lasix 20mg in ER and was given ceftriaxone and zithromaz and iv solumedrol 125mg Acute on chornic resp faliure secondary to copd exacerbation - cont on solumedrol 40mg iv q8h. started on zithromax for possible acute bronchitis . Acute chf exacerbation- start on lasix 20mg iv daily. will f/u on I & O and monitor on tele.
[2017-07-14 23:00] VITALS: BP 120/52
[2017-07-15 07:30] VITALS: BP 108/54
[2017-07-15 08:18] LABS: ABSOLUTE BASOPHIL COUNT 0 /CUMM (0.0-0.2); ABSOLUTE EOSINOPHIL COUNT 0 /CUMM (0.0-0.7); ABSOLUTE LYMPH COUNT 0.4 /CUMM (1.2-3.4); ABSOLUTE MONOCYTE COUNT 0.2 /CUMM (0.10-0.60); BASOPHIL % 0.2 % (0.0-2.0); EOSINOPHIL % 0 % (0-5); HEMATOCRIT 25.8 % (42-52); MEAN CORPUSCULAR HGB 25.5 PG (27.0-31.0); MEAN CORPUSCULAR HGB CONC 32.4 G/DL (33.0-37.0); MEAN CORPUSCULAR VOLUME 78.7 FL (80.0-94.0); MEAN PLATELET VOLUME 9.6 FL (7.4-10.4); PLATELET COUNT 142 /CUMM (130-400); RBC DISTRIBUTION WIDTH 16.7 % (11.5-14.5); RED BLOOD CELL CT 3.28 /CUMM (4.70-6.10); WHITE BLOOD CELL COUNT 4.6 /CUMM (4.8-10.8)
[2017-07-15 09:18] LABS: GRANULOCYTE % 87.4 % (42.2-75.2)
--- NOTE | 2017-07-15 10:05 | PN- Housestaff ---
[place] 07/15/17 0953: Subjective Follow-up For: Acute bronchitis Acute hypoxemic respiratory failure COPD exacerbation Subjective: States that his breathing status has much improved since yesterday. States he feels weak. Denies any worsening cough or sputum production. Denies any fevers or chills overnight. Review of Systems Constitutional: Reports: see HPI. Objective Last 24 Hrs of Vital Signs/I&O Vital Signs Date Time Temp Pulse Resp B/P B/P Pulse O2 O2 Flow FiO2 Mean Ox Delivery Rate 07/15 0937 96 Nasal 2.0L Cannula 07/15 0936 70 110/70 07/15 0935 69 110/70 07/15 0800 95 Nasal 2.0L Cannula 07/15 0730 98.7 61 18 108/54 95 Nasal Cannula 07/15 0000 Nasal 2.0L Cannula 07/14 2300 98.1 68 16 120/52 94 Nasal 2.0L Cannula 07/14 2000 98 Nasal 3.0L Cannula 07/14 1950 Nasal 2.0L Cannula 07/14 1704 67 18 124/64 98 Nasal 4.0L Cannula 07/14 1548 94 Nasal 3.0L Cannula 07/14 1500 96 Nasal 4.0L Cannula 07/14 1320 98.4 90 22 140/72 94 Nasal 3.0L Cannula 07/14 1258 98.4 90 22 140/72 07/14 1108 100.0 90 20 143/74 95 Room Air Intake & Output 07/15 1600 07/15 0800 07/15 0000 Intake Total 111 111 Output Total 300 Balance -189 111 Intake, IV 11 11 Intake, Oral 100 100 Output, Urine 300 Patient 159 lb Weight Physical Exam General Appearance: Alert, Oriented X3, Cooperative, Mild Distress Sepsis Skin Exam (color): Normal for Ethnicity HEENT: Atraumatic, Mucous Membr. moist/pink Neck: Supple Cardiovascular: Regular Rate, Normal S1, Normal S2 Lungs: decreased air entry diffusely. No wheezing. Abdomen: Normal Bowel Sounds, Soft Extremities: No Clubbing, No Cyanosis, No Edema Current Medications: Current Medications Sig/Chuck Start time Last Medication Dose Route Stop Time Status Admin Acetaminophen 650 MG Q6P PRN 07/14 1300 AC PO Acetaminophen 1,000 MG ONCE ONE 07/14 0845 DC 07/14 N/A 1 UNIT IV 07/14 0859 0945 Albuterol Sulfate 3 ML BID 07/14 2200 AC 07/15 INH 0932 Albuterol Sulfate 3 ML ONCE ONE 07/14 1500 DC 07/14 INH 07/14 1501 1459 Albuterol Sulfate 2 PUF Q4H PRN 07/14 1300 AC INH Apixaban 2.5 MG BID 07/14 1256 AC 07/15 PO 0936 Artificial Tears 2 GTT 4 TIMES/DAY 07/14 1400 AC 07/14 OPH 1417 Ascorbic Acid 500 MG DAILY 07/14 1256 AC 07/15 PO 0935 Azithromycin 500 MG DAILY@1200 07/15 1200 AC Dextrose/Water 250 ML IV Azithromycin 500 MG ONCE ONE 07/14 1100 DC 07/14 Dextrose/Water 250 ML IV 07/14 1159 1207 Carbidopa/Levodopa 1 TAB TID 07/14 1256 AC 07/15 PO 0935 Ceftriaxone Sodium 0 .STK-MED ONE 07/14 1139 DC .ROUTE Ceftriaxone Sodium 1,000 MG ONCE ONE 07/14 1100 DC 07/14 IV 07/14 1101 1207 Digoxin 0.125 MG Q48 07/16 1000 AC PO Diltiazem HCl 240 MG DAILY 07/14 1258 AC 07/15 PO 0936 Ezetimibe 10 MG DAILY 07/14 1258 AC 07/15 PO 0935 Ferrous Sulfate 325 MG BID 07/14 1258 AC 07/15 PO 0936 Finasteride 5 MG AT BEDTIME 07/14 2200 AC 07/14 PO 2159 Fluticasone 2 SPRAY DAILY 07/14 1254 AC 07/15 Propionate MAGDALENO 0936 Furosemide 20 MG DAILY 07/15 1000 AC 07/15 IV 0815 Furosemide 0 .STK-MED ONE 07/14 1139 DC IV Furosemide 20 MG ONCE ONE 07/14 1100 DC 07/14 IV 07/14 1101 1207 Insulin Aspart 0 AT BEDTIME 07/15 2200 AC SC Insulin Aspart 5 UNITS ONCE ONE 07/15 0015 DC 07/15 SC 07/15 0016 0018 Insulin Aspart 6 UNITS ONCE ONE 07/14 2300 DC 07/14 SC 07/14 2301 2253 Insulin Aspart 0 TIDAC 07/14 1700 AC 07/15 SC 0816 Ipratropium [place] 2.5 ML DAILY 07/14 1300 CAN INH Levothyroxine Sodium 0.05 MG DAILY AC 07/14 1301 AC 07/15 PO 0624 Melatonin 5 MG QPM 07/14 2200 AC 07/14 PO 2203 Methylprednisolone 40 MG Q8 07/14 2200 AC 07/15 IV 0624 Methylprednisolone 40 MG Q8 07/14 1400 CAN IV Montelukast Sodium 10 MG AT BEDTIME 07/14 2200 AC 07/14 PO 2159 Omeprazole 40 MG DAILY AC 07/14 1257 AC 07/15 PO 0624 Ramelteon 8 MG ONCE ONE 07/15 0100 DC 07/15 PO 07/15 0101 0136 Simvastatin 10 MG DAILY@1700 07/14 1700 AC 07/14 PO 1705 Sodium Chloride 2 SPRAY Q4P PRN 07/14 1300 AC MAGDALENO Sodium Chloride 2 SPRAY Q4P PRN 07/14 1300 CAN MAGDALENO Sucralfate 1,000 MG TID 07/14 1600 AC 07/15 PO 0936 Tamsulosin HCl 0.4 MG DAILY 07/14 1301 AC 07/15 PO 0936 Tiotropium [place] 1 PUF DAILY 07/14 1302 AC 07/15 INH 0936 Last 24 Hrs of Lab/Les Results Last 24 Hrs of Labs/Mics: Laboratory Tests 07/15/17 0628: Anion Gap 10, Estimated GFR > 60, BUN/Creatinine Ratio 40.0 H, CBC w Diff NO MAN DIFF REQ, RBC 3.28 L, MCV 78.7 L, MCH 25.5 L, MCHC 32.4 L, RDW 16.7 H, MPV 9.6, Gran % 87.4 H, Lymphocytes % 9.1 L, Monocytes % 3.3, Eosinophils % 0, Basophils % 0.2, Absolute Granulocytes 4.0, Absolute Lymphocytes 0.4 L, Absolute Monocytes 0.2, Absolute Eosinophils 0, Absolute Basophils 0 07/14/17 2243: Troponin I 0.04 07/14/17 1632: Troponin I 0.05 07/14/17 1231: Lactic Acid Cancelled Microbiology 07/15 0545 URINE ROUT: Legionella Antigen - COMP 07/15 644 URINE ROUT: Streptococcus pneumoniae Antigen (M - COMP 07/14 1104 BLOOD: Blood Culture - RECD Assessment/Plan Assessment: 87-year-old gentleman with past medical history for several COPD exacerbations, multiple admissions for pneumonia in the past, diastolic CHF, atrial fibrillation on Eliquis, hypertension, Parkinson's disease who presented to [facility] ED on 07/14/2017 with a chief complaint of worsening cough, sputum production shortness of breath and chills. He presented with a MAXIMUM TEMPERATURE of 100 and saturating 95 on 4 L. He endorses episodes of hypoxemia going to as low as 64-74% while on oxygen at home. So far, troponins have stayed negative and proBNP is at baseline. No crackles on exam at admission, no crackles or peripheral edema today. Chest x-ray was suspicious for pulmonary edema and did show underlying obstructive lung disease. 1. Acute hypoxemic respiratory failure secondary to bronchitis. Continue supplemental oxygen. Decrease steroids to 40 mg every 12. TRC nebs. Beta agonist therapy. Discontinue ceftriaxone. Continue with azithromycin. Patient is frustrated with frequent exacerbations and admissions. Since he continues to have frequent exacerbations in spite of optimal therapy for COPD with bronchodilators and anti-inflammatory agents, question for pulmonary to perhaps consider him for for antibiotic prophylaxis with thrice weekly azithromycin. 2. CHF exacerbation. Euvolemic on exam today. Change to by mouth Lasix. Continue daily weights. Negative troponins noted. 3. History of atrial fibrillation. Continue rate controlling medications- digoxin, diltiazem. Continue anticoagulation with Eliquis. 4. GERD continue omeprazole. 5. Diabetes. Last 2 FSG readings 177, 177. Previous high readings noted. Continue to monitor, on current regimen. 6. Continue Sinemet, simvastatin, iron sulfate, tamsulosin and finasteride. Full code. Eliquis for DVT prophylaxis. Low-salt diet. Problem List: 1. COPD (chronic obstructive pulmonary disease) Pain Ratin Pain Location: Headache Pain Goal: Remain pain free Pain Plan: PRN Tomorrow's Labs & Rationales: Acute infection Janice RIVAS,[facility] 07/15/17 1340: Attending MD Review Statement Attending Statement Attending MD Statement: examined this patient, discuss w/resident/PA/HEEL GUMMER, agreed w/resident/PA/HEEL GUMMER, reviewed EMR data (avail), discussed with nursing, discussed with case mgmt, amended to note Attending Assessment/Plan: Patient seen and examined. Sitting up comfortably in bed and not in any acute distress. Denies shortness of breath at rest. Reports mild cough. Reports feeling slightly better compared to presentation. He is afebrile. Low-grade temp of 100.0 presentation. Maintaining saturation of 96% on 2 L of oxygen. On examination he has no jugular venous distention. Heart sounds are regular. He has fair entry bilaterally with no added sounds. Abdomen soft and nontender. He has no peripheral edema. Pulmonology consultation appreciated. We will continue patient on bronchodilator therapy and systemic steroid therapy for mild COPD exacerbation secondary to acute bronchitis. Switch Zithromax to oral route. Mobilize patients. Repeat chest x-ray as recommended by the counterintelligence agent. Anticipate discharge in the next 24-48 hours.
--- NOTE | 2017-07-15 11:30 | Cons- Pulmonary ---
General Information and HPI Consulting Request Date of Consult: 07/15/17 Requested By: Dr. Camacho Reason for Consult: COPD exacerbation Source of Information: patient Exam Limitations: no limitations History of Present Illness: Consultation for dyspnea, exacerbation of COPD. 86 year old man with a history of RLL lobectomy for adenocarcinoma, A.fib on Eliquis (follows with Dr. Guadarrama), CAD, CHF, Parkinson's, allergies/chronic sinusitis and hearing loss (follows with Dr. Fuentes), HTN, DM, COPD, thyroid nodules. For COPD on Advair 250/50 BID with rinsing of the mouth. Not using anti- cholinergics secondary to prostate issues and eye problems. Dr. Fuentes wanted to consider allergy shots given IgE 763 (normal <114). CT chest surveillance post lobectomy was stable, follows with myself and Dr. Liu. No leukocytosis, no fever, feels congested. Had a burn to his right middle finger that is healing. No n/v/d/c. No cp. Some clear phlegm. CXR with congestion. Allergies/Medications Allergies: Coded Allergies: pollen extracts (UNKNOWN 07/01/16) atorvastatin (Severe, MUSCLE WEAKNESS, CRAMPS 07/14/17) Uncoded Allergies: DUST (UNKNOWN 12/26/14) Home Med List: Albuterol Sulfate (Proair Hfa) 90 MCG HFA.AER.AD 2 PUF INH Q4H PRN COPD ( Reported) Apixaban (Eliquis) 2.5 MG TABLET 1 TAB PO BID AFIB (Reported) Please discuss with your shore hand dredge or barge before resuming the medication Ascorbic Acid 500 MG TABLET 1 TAB PO DAILY VITAMIN SUPPORT (Reported) Carbidopa/Levodopa (Sinemet 25-100 MG Tablet) 25 MG-100 MG TABLET 1 TAB PO TID PARKINSONS (Reported) Carboxymethylcellulose Sodium (Thera Tears) 0.25 % DROPS 1 DROP OU 5XDAILY PRN DRY EYES (Reported) Cetirizine HCl 10 MG TAB.CHEW 1 TAB PO QPM ALLERGIES (Reported) Dexlansoprazole (Dexilant) 60 MG CAP.DRYasmineBP 1 CAP PO DAILY ACID REFLUX ( Reported) Digoxin (Lanoxin) 125 MCG TABLET 0.125 MG PO Q48 HEART HEALTH Please take every other day. Diltiazem HCl (Diltiazem ER) 240 MG CAP.ER.DEG 1 TAB PO DAILY HEART (Reported ) Docusate Sodium (Colace) 100 MG CAPSULE 1 CAP PO DAILY Constipation (Reported ) Ezetimibe/Simvastatin (Vytorin 10-10 MG Tablet) 10 MG-10 MG TABLET 1 TAB PO AT BEDTIME CHOLESTEROL (Reported) Ferrous Sulfate 325 MG (65 MG IRON) TABLET.DR 325 MG PO BID ANEMIA .. Finasteride 5 MG TABLET 1 TAB PO AT BEDTIME BPH (Reported) Fluticasone Propionate (Flonase Allergy Relief) 50 MCG/ACTUATION SPRAY.SUSP 2 SPRAY NASB DAILY ALLERGIES (Reported) Fluticasone/Salmeterol (Advair 250-50 Diskus) 250 MCG-50 MCG/DOSE BLST.W.DEV 1 PUF INH BID COPD (Reported) Furosemide (Lasix) 20 MG TABLET 1 TAB PO EOD DIURETIC (Reported) Ipratropium [place] 21 MCG (0.03 %) SPRAY 2 SPRAY NASB QHS ALLERGIES ( Reported) Levalbuterol HCl (Xopenex) 0.63 MG/3 ML VIAL.NEB 1 ML INH/ALISA Q6P PRN COPD ( Reported) Levothyroxine Sodium (Synthroid) 50 MCG TABLET 1 TAB PO DAILY hypothyroidism (Reported) Melatonin 5 MG TABLET 1-2 TAB PO QPM SLEEP (Reported) Metformin HCl 500 MG TABLET 1 TAB PO BID DM (Reported) Montelukast Sodium 10 MG TABLET 1 TAB PO AT BEDTIME COPD (Reported) Polyethylene Glycol 3350 17 GRAM POWD.PACK 1 PAC PO PRN GI (Reported) Sucralfate 1 GRAM TABLET 1 TAB PO TID GI (Reported) Tamsulosin HCl (Flomax) 0.4 MG CAP.ER.24H 1 CAP PO DAILY BPH (Reported) Terbinafine HCl (Terbinafine) 1 % CREAM..G. 1 RUCHI TOP QHS FEET/TOES/BUTTOCKS (Reported) Tiotropium [place] (Spiriva) 18 MCG CAP.W.DEV 1 CAP INH DAILY COPD (Reported) Vit C/E/Zn/Coppr/Lutein/Zeaxan (Preservision Areds 2 Softgel) 250-200-40 CAPSULE 1 CAP PO BID SUPPLEMENT (Reported) Current Medications: Current Medications Sig/Chuck Start time Last Medication Dose Route Stop Time Status Admin Acetaminophen 650 MG Q6P PRN 07/14 1300 AC PO Albuterol Sulfate 3 ML BID 07/14 2200 AC 07/15 INH 0932 Albuterol Sulfate 3 ML ONCE ONE 07/14 1500 DC 07/14 INH 07/14 1501 1459 Albuterol Sulfate 2 PUF Q4H PRN 07/14 1300 AC INH Apixaban 2.5 MG BID 07/14 1256 AC 07/15 PO 0936 Artificial Tears 2 GTT 4 TIMES/DAY 07/14 1400 AC 07/15 OPH 1108 Ascorbic Acid 500 MG DAILY 07/14 1256 AC 07/15 PO 0935 Azithromycin 500 MG DAILY@1200 07/15 1200 AC 07/15 Dextrose/Water 250 ML IV 1108 Azithromycin 500 MG ONCE ONE 07/14 1100 DC 07/14 Dextrose/Water 250 ML IV 07/14 1159 1207 Carbidopa/Levodopa 1 TAB TID 07/14 1256 AC 07/15 PO 0935 Ceftriaxone Sodium 0 .STK-MED ONE 07/14 1139 DC .ROUTE Digoxin 0.125 MG Q48 07/16 1000 AC PO Diltiazem HCl 240 MG DAILY 07/14 1258 AC 07/15 PO 0936 Ezetimibe 10 MG DAILY 07/14 1258 AC 07/15 PO 0935 Ferrous Sulfate 325 MG BID 07/14 1258 AC 07/15 PO 0936 Finasteride 5 MG AT BEDTIME 07/14 2200 AC 07/14 PO 2159 Fluticasone 2 SPRAY DAILY 07/14 1254 AC 07/15 Propionate MAGDALENO 0936 Furosemide 20 MG DAILY 07/15 1000 AC 07/15 IV 0815 Furosemide 0 .STK-MED ONE 07/14 1139 DC IV Insulin Aspart 0 AT BEDTIME 07/15 2200 AC SC Insulin Aspart 5 UNITS ONCE ONE 07/15 0015 DC 07/15 SC 07/15 0016 0018 Insulin Aspart 6 UNITS ONCE ONE 07/14 2300 DC 07/14 SC 07/14 2301 2253 Insulin Aspart 0 TIDAC 07/14 1700 AC 07/15 SC 0816 Ipratropium [place] 2.5 ML DAILY 07/14 1300 CAN INH Levothyroxine Sodium 0.05 MG DAILY AC 07/14 1301 AC 07/15 PO 0624 Melatonin 5 MG QPM 07/14 2200 AC 07/14 PO 2203 Methylprednisolone 40 MG Q8 07/14 2200 AC 07/15 IV 0624 Methylprednisolone 40 MG Q8 07/14 1400 CAN IV Montelukast Sodium 10 MG AT BEDTIME 07/14 2200 AC 07/14 PO 2159 Omeprazole 40 MG DAILY AC 07/14 1257 AC 07/15 PO 0624 Ramelteon 8 MG ONCE ONE 07/15 0100 DC 07/15 PO 07/15 0101 0136 Simvastatin 10 MG DAILY@1700 07/14 1700 AC 07/14 PO 1705 Sodium Chloride 2 SPRAY Q4P PRN 07/14 1300 AC MAGDALENO Sodium Chloride 2 SPRAY Q4P PRN 07/14 1300 CAN MAGDALENO Sucralfate 1,000 MG TID 07/14 1600 AC 07/15 PO 0936 Tamsulosin HCl 0.4 MG DAILY 07/14 1301 AC 07/15 PO 0936 Tiotropium [place] 1 PUF DAILY 07/14 1302 AC 07/15 INH 0936 Review of Systems Comments 18 point review of systems was performed and reviewed. Please see pertinent positives and pertinent negatives in the HPI. Otherwise ROS is negative. 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 MOTHER Relation not specified for: FH: hypertension Psychosocial History Where Do You Live? Home Who Do You Live With? parent Services at Home: None Primary Language: Bahamian Smoking Status: Former Smoker ETOH Use: denies use Illicit Drug Use: denies illicit drug use Functional Ability ADLs Independent: dressing, eating, toileting, bathing. Ambulation: independent IADLs Needs Assist: shopping, housework, finances, food prep, telephone, transportation, medication admin. Exam & Diagnostic Data Last 24 Hrs of Vital Signs/I&O Vital Signs Date Time Temp Pulse Resp B/P B/P Pulse O2 O2 Flow FiO2 Mean Ox Delivery Rate 07/15 936 96 Nasal 2.0L Cannula 03/12 0936 70 110/70 07/15 0935 69 110/70 07/15 0800 95 Nasal 2.0L Cannula 07/15 0730 98.7 61 18 108/54 95 Nasal Cannula 07/15 0000 Nasal 2.0L Cannula 07/14 2300 98.1 68 16 120/52 94 Nasal 2.0L Cannula 07/14 2000 98 Nasal 3.0L Cannula 07/14 1950 Nasal 2.0L Cannula 07/14 1704 67 18 124/64 98 Nasal 4.0L Cannula 07/14 1548 94 Nasal 3.0L Cannula 07/14 1500 96 Nasal 4.0L Cannula 07/14 1320 98.4 90 22 140/72 94 Nasal 3.0L Cannula 07/14 1258 98.4 90 22 140/72 Intake & Output 07/15 1600 07/15 0800 07/15 0000 Intake Total 111 111 Output Total 300 Balance -189 111 Intake, IV 11 11 Intake, Oral 100 100 Output, Urine 300 Patient 159 lb Weight Physical Exam Other Physical Findings: General - Alert, awake and oriented HEENT - normocephalic, atraumatic Cardiovascular - S1, S2, +systolic murmur Lungs - rhonchi bilateral bases mostly on the left Abdomen - soft, bowel sounds positive, no tenderness Extremities - without edema or cyanosis Last 48 Hrs of Labs/Les: Laboratory Tests 07/15/17 0628: Anion Gap 10, Estimated GFR > 60, BUN/Creatinine Ratio 40.0 H, CBC w Diff NO MAN DIFF REQ, RBC 3.28 L, MCV 78.7 L, MCH 25.5 L, MCHC 32.4 L, RDW 16.7 H, MPV 9.6, Gran % 87.4 H, Lymphocytes % 9.1 L, Monocytes % 3.3, Eosinophils % 0, Basophils % 0.2, Absolute Granulocytes 4.0, Absolute Lymphocytes 0.4 L, Absolute Monocytes 0.2, Absolute Eosinophils 0, Absolute Basophils 0 07/14/17 2243: Troponin I 0.04 07/14/17 1632: Troponin I 0.05 07/14/17 1231: Lactic Acid Cancelled 07/14/17 0933: Anion Gap 11, Estimated GFR > 60, BUN/Creatinine Ratio 30.0 H, Glucose 152 H, Lactic Acid 1.3, Calcium 8.6, Total Bilirubin 0.5, AST 17, ALT 27, Alkaline Phosphatase 61, Troponin I < 0.01, Xdf-W-Idgasnlbfyb Pept 1090 H, Total Protein 5.9 L, Albumin 3.4 L, Globulin 2.5, Albumin/Globulin Ratio 1.4, PT 15.3 H, INR 1.40 H, APTT 33, CBC w Diff NO MAN DIFF REQ, RBC 3.70 L, MCV 78.9 L, MCH 25.8 L, MCHC 32.6 L, RDW 17.1 H, MPV 9.2, Gran % 82.3 H, Lymphocytes % 5.2 L, Monocytes % 7.3, Eosinophils % 5.0, Basophils % 0.2, Absolute Granulocytes 7.4 H, Absolute Lymphocytes 0.5 L, Absolute Monocytes 0.7 H, Absolute Eosinophils 0.4, Absolute Basophils 0, Digoxin < 0.4 L Microbiology 07/15 644 URINE ROUT: Legionella Antigen - COMP 07/15 644 URINE ROUT: Streptococcus pneumoniae Antigen (M - COMP 07/14 0938 NASOPHARYN: Influenza Virus A & B Rapid Smear - COMP Assessment/Plan Impression/Plan: Impression 86 year old man * acute bronchitis with exacerbation of COPD * hx lung cancer s/p[ RLL lobectomy. * mild , pulmonary htn Plan - cont zithromax - reduce solumedrol to 40mg iv q12h tomorrow - TRC/Nebs - cont inhalers - recheck pa/lateral cxr today DVT prophylaxis at all times - on eliquis Consult Acknowledgment - Thank you for your consult request.
[2017-07-15 14:47] VITALS: BP 110/54
--- NOTE | 2017-07-15 15:21 | RADIOLOGY REPORT ---
EXAMINATION: XR CHEST CLINICAL INFORMATION: Low-grade fever. COMPARISON: Multiple priors, most recently 07/14/2017 TECHNIQUE: 2 views of the chest were obtained. FINDINGS: Mild elevation of the right hemidiaphragm. Small right pleural effusion. Persistent right mid to lower lung opacity. Central vascular prominence remains. No pneumothorax. The cardiomediastinal silhouette is unchanged, with a calcified aorta. Degenerative changes of the spine. IMPRESSION: Persistent elevation of the right hemidiaphragm. Small right pleural effusion with persistent right mid to lower lung opacity. Asymmetric edema is possible. Pneumonia could have this appearance.
[2017-07-15 22:03] VITALS: BP 124/80
[2017-07-16 07:22] VITALS: BP 118/72
[2017-07-16 08:52] LABS: ABSOLUTE BASOPHIL COUNT 0 /CUMM (0.0-0.2); ABSOLUTE EOSINOPHIL COUNT 0 /CUMM (0.0-0.7); ABSOLUTE GRANULOCYTE CT 7.6 /CUMM (1.4-6.5); ABSOLUTE LYMPH COUNT 0.4 /CUMM (1.2-3.4); ABSOLUTE MONOCYTE COUNT 0.3 /CUMM (0.10-0.60); BASOPHIL % 0 % (0.0-2.0); EOSINOPHIL % 0 % (0-5); HEMATOCRIT 27.1 % (42-52); MEAN CORPUSCULAR HGB 25.7 PG (27.0-31.0); MEAN CORPUSCULAR HGB CONC 32.8 G/DL (33.0-37.0); MEAN CORPUSCULAR VOLUME 78.2 FL (80.0-94.0); MEAN PLATELET VOLUME 9.7 FL (7.4-10.4); PLATELET COUNT 184 /CUMM (130-400); RBC DISTRIBUTION WIDTH 16.9 % (11.5-14.5); RED BLOOD CELL CT 3.47 /CUMM (4.70-6.10)
[2017-07-16 09:30] LABS: WHITE BLOOD CELL COUNT 8.3 /CUMM (4.8-10.8)
--- NOTE | 2017-07-16 10:18 | PN- Housestaff ---
AnthonyJai 07/16/17 1011: Subjective Follow-up For: Acute bronchitis Acute hypoxemic respiratory failure COPD exacerbation Subjective: States that his breathing status has much improved since yesterday. Denies any worsening cough or sputum production. Denies any fevers or chills overnight. Review of Systems Constitutional: Reports: see HPI. Objective Last 24 Hrs of Vital Signs/I&O Vital Signs Date Time Temp Pulse Resp B/P B/P Pulse O2 O2 Flow FiO2 Mean Ox Delivery Rate 07/16 1000 67 118/72 07/16 1000 67 118/72 07/16 0849 97 Nasal 2.0L Cannula 07/16 0722 98.6 67 24 118/72 96 Nasal Cannula 07/16 0000 Nasal 1.5L Cannula 07/15 2203 99.0 63 24 124/80 96 07/15 1910 96 Nasal 2.0L Cannula 07/15 1600 Nasal 2.0L Cannula 07/15 1447 98.5 60 20 110/54 94 Nasal 2.0L Cannula Intake & Output 07/16 1600 07/16 0800 07/16 0000 Intake Total 124 800 Output Total 200 Balance 124 600 Intake, IV 24 Intake, Oral 100 800 Output, Urine 200 Patient 162 lb Weight Physical Exam General Appearance: Alert, Oriented X3 Cardiovascular: Regular Rate, Normal S1, Normal S2 Lungs: Clear to Auscultation, Normal Air Movement Abdomen: Normal Bowel Sounds, Soft Extremities: No Clubbing, No Cyanosis, No Edema Current Medications: Current Medications Sig/Chuck Start time Last Medication Dose Route Stop Time Status Admin Acetaminophen 650 MG Q6P PRN 07/14 1300 AC PO Albuterol Sulfate 3 ML BID 07/14 2200 AC 07/16 INH 0833 Albuterol Sulfate 2 PUF Q4H PRN 07/14 1300 AC INH Apixaban 2.5 MG BID 07/14 1256 AC 07/16 PO 1000 Artificial Tears 2 GTT 4 TIMES/DAY 07/14 1400 AC 07/16 OPH 0959 Ascorbic Acid 500 MG DAILY 07/14 1256 AC 07/16 PO 1000 Azithromycin 250 MG DAILY 07/16 1000 AC 07/16 PO 07/18 1001 1000 Azithromycin 500 MG DAILY@1200 07/15 1200 DC 07/15 Dextrose/Water 250 ML IV 1108 Benzocaine/Menthol 1 EDMUNDO ONCE ONE 07/16 0030 DC 07/16 PO 07/16 0031 0038 Carbidopa/Levodopa 1 TAB TID 07/14 1256 AC 07/16 PO 1000 Digoxin 0.125 MG Q48 07/16 1000 AC 07/16 PO 1000 Diltiazem HCl 240 MG DAILY 07/14 1258 AC 07/16 PO 1000 Docusate Sodium 100 MG DAILY NEEDED PRN 07/16 0230 AC 07/16 PO 1000 Ezetimibe 10 MG DAILY 07/14 1258 AC 07/16 PO 1000 Ferrous Sulfate 325 MG BID 07/14 1258 AC 07/16 PO 1000 Finasteride 5 MG AT BEDTIME 07/14 2200 AC 07/15 PO 2211 Fluticasone 2 SPRAY DAILY 07/14 1254 AC 07/16 Propionate MAGDALENO 0959 Furosemide 20 MG DAILY 07/15 1000 AC 07/16 IV 0959 Insulin Aspart 0 TIDAC 07/16 1200 AC SC Insulin Aspart 0 AT BEDTIME 07/15 2200 AC SC Insulin Aspart 0 TIDAC 07/14 1700 DC 07/16 SC 0820 Levothyroxine Sodium 0.05 MG DAILY AC 07/14 1301 AC 07/16 PO 0652 Melatonin 5 MG ONCE ONE 07/16 0030 DC 07/16 PO 07/16 0031 0020 Melatonin 5 MG QPM 07/14 2200 AC 07/15 PO 2211 Methylprednisolone 40 MG Q12 07/16 1000 AC IV Methylprednisolone 40 MG Q8 07/14 2200 DC 07/16 IV 0652 Montelukast Sodium 10 MG AT BEDTIME 07/14 2200 AC 07/15 PO 2211 Omeprazole 40 MG DAILY AC 07/14 1257 AC 07/16 PO 0652 Polyethylene Glycol 17 GM DAILY 07/16 1000 AC 07/16 PO 0959 Senna 187 MG AT BEDTIME NEED.. 07/16 0230 AC PO Simvastatin 10 MG DAILY@1700 07/14 1700 AC 07/15 PO 1615 Sodium Chloride 2 SPRAY Q4P PRN 07/14 1300 AC MAGDALENO Sucralfate 1,000 MG TID 07/14 1600 AC 07/16 PO 1000 Tamsulosin HCl 0.4 MG DAILY 07/14 1301 AC 07/16 PO 1000 Tiotropium [place] 1 PUF DAILY 07/14 1302 AC 07/16 INH 0959 Last 24 Hrs of Lab/Les Results Last 24 Hrs of Labs/Mics: Laboratory Tests 07/16/17 0650: Anion Gap 12, Estimated GFR > 60, BUN/Creatinine Ratio 44.3 H, CBC w Diff Pending, WBC Pending, RBC Pending, Hgb Pending, Hct Pending, MCV Pending, MCH Pending, MCHC Pending, RDW Pending, Plt Count Pending, MPV Pending, Gran % Pending, Lymphocytes % Pending, Monocytes % Pending, Eosinophils % Pending, Basophils % Pending, Absolute Granulocytes Pending, Absolute Lymphocytes Pending , Absolute Monocytes Pending, Absolute Eosinophils Pending, Absolute Basophils Pending Assessment/Plan Assessment: 87-year-old gentleman with past medical history for several COPD exacerbations, multiple admissions for pneumonia in the past, diastolic CHF, atrial fibrillation on Eliquis, hypertension, Parkinson's disease who presented to [facility] ED on 07/14/2017 with a chief complaint of worsening cough, sputum production shortness of breath and chills. He presented with a MAXIMUM TEMPERATURE of 100 and saturating 95 on 4 L. He endorses episodes of hypoxemia with reported oxygen saturations as low as 64-74% while on oxygen at home. So far, troponins have stayed negative and proBNP is at baseline. No crackles on exam at admission, no crackles or peripheral edema today. Chest x-ray was suspicious for pulmonary edema and did show underlying obstructive lung disease. 1. Acute hypoxemic respiratory failure secondary to bronchitis. Continue supplemental oxygen. Decreased steroids to 40 mg every 12. Has shown much improvement, switch to by mouth prednisone with rapid taper soon. TRC nebs. Beta agonist therapy. Continue with azithromycin. 2. CHF exacerbation. Euvolemic on exam today. Change to by mouth Lasix. Continue daily weights. Negative troponins noted. 3. History of atrial fibrillation. Continue rate controlling medications- digoxin, diltiazem. Continue anticoagulation with Eliquis. 4. GERD continue omeprazole. 5. Diabetes. Last 2 FSG readings 209, 193. Previous high readings noted. Continue to monitor, on current regimen. High readings (422) yesterday around noon. Changed diet to CC2. He takes metformin at home, which is on hold. We will increase his insulin regimen to medium dose. 6. Continue Sinemet, simvastatin, iron sulfate, tamsulosin and finasteride. Full code. Eliquis for DVT prophylaxis. Low-salt diet. Problem List: 1. COPD exacerbation Pain Ratin Pain Location: None Pain Goal: Remain pain free Pain Plan: PRN Tomorrow's Labs & Rationales: Frederic Camacho MD,[place] 07/16/17 1132: Attending MD Review Statement Attending Statement Attending MD Statement: examined this patient, discuss w/resident/PA/ONLINE MARKETING COORDINATOR, agreed w/resident/PA/ONLINE MARKETING COORDINATOR, reviewed EMR data (avail), discussed with nursing, discussed with case mgmt, amended to note Attending Assessment/Plan: Patient seen and examined. Resting comfortably and not in any acute distress. No issues overnight. No events on telemetry monitoring. On examination he is not in respiratory distress. Has adequate entry bilaterally with mild rhonchi. Abdomen soft and nontender. He has no peripheral edema. Recommendations: -Taper down Solu-Medrol to 40 mg IV every 12 hours today. -If patient continues to do well we will transition to oral steroids tomorrow. -Anticipate discharge in the next 24 hours if patient continues to show adequate clinical improvement. -Mobilize patient.
[2017-07-16 10:26] LABS: GRANULOCYTE % 90.8 % (42.2-75.2)
[2017-07-16] MEDS ORDERED: AZITHROMYCIN250 M1 PO (13:09)
--- NOTE | 2017-07-16 13:12 | PN- Pulmonary ---
Subjective HPI/Critical Care Issues: pt seen and examined feeling better Objective Current Medications: Current Medications Sig/Chuck Start time Last Medication Dose Route Stop Time Status Admin Acetaminophen 650 MG Q6P PRN 07/14 1300 AC PO Albuterol Sulfate 3 ML BID 07/14 2200 AC 07/16 INH 0833 Albuterol Sulfate 2 PUF Q4H PRN 07/14 1300 AC INH Apixaban 2.5 MG BID 07/14 1256 AC 07/16 PO 1000 Artificial Tears 2 GTT 4 TIMES/DAY 07/14 1400 AC 07/16 OPH 0959 Ascorbic Acid 500 MG DAILY 07/14 1256 AC 07/16 PO 1000 Azithromycin 250 MG DAILY 07/16 1000 AC 07/16 PO 07/18 1001 1000 Azithromycin 500 MG DAILY@1200 07/15 1200 DC 07/15 Dextrose/Water 250 ML IV 1108 Benzocaine/Menthol 1 EDMUNDO ONCE ONE 07/16 0030 DC 07/16 PO 07/16 0031 0038 Carbidopa/Levodopa 1 TAB TID 07/14 1256 AC 07/16 PO 1000 Digoxin 0.125 MG Q48 07/16 1000 AC 07/16 PO 1000 Diltiazem HCl 240 MG DAILY 07/14 1258 AC 07/16 PO 1000 Docusate Sodium 100 MG DAILY NEEDED PRN 07/16 0230 AC 07/16 PO 1000 Ezetimibe 10 MG DAILY 07/14 1258 AC 07/16 PO 1000 Ferrous Sulfate 325 MG BID 07/14 1258 AC 07/15 PO 2211 Finasteride 5 MG AT BEDTIME 07/14 2200 AC 07/15 PO 2211 Fluticasone 2 SPRAY DAILY 07/14 1254 AC 07/16 Propionate MAGDALENO 0959 Furosemide 20 MG DAILY 07/17 1000 UNVr PO Furosemide 20 MG DAILY 07/15 1000 DC 07/16 IV 0959 Insulin Aspart 0 TIDAC 07/16 1200 AC 07/16 SC 1310 Insulin Aspart 0 AT BEDTIME 07/15 2200 AC SC Insulin Aspart 0 TIDAC 07/14 1700 DC 07/16 SC 0820 Levothyroxine Sodium 0.05 MG DAILY AC 07/14 1301 AC 07/16 PO 0652 Melatonin 5 MG ONCE ONE 07/16 0030 DC 07/16 PO 07/16 0031 0020 Melatonin 5 MG QPM 07/14 2200 AC 07/15 PO 2211 Methylprednisolone 40 MG Q12 07/16 1000 DC IV Methylprednisolone 40 MG Q8 07/14 2200 DC 07/16 IV 0652 Montelukast Sodium 10 MG AT BEDTIME 07/14 2200 AC 07/15 PO 2211 Omeprazole 40 MG DAILY AC 07/14 1257 AC 07/16 PO 0652 Polyethylene Glycol 17 GM DAILY 07/16 1000 AC 07/16 PO 0959 Prednisone 60 MG DAILY 07/17 1000 UNVr PO 07/27 0959 Prednisone 20 MG ONCE ONE 07/16 1315 UNVr PO 07/16 1316 Senna 187 MG AT BEDTIME NEED.. 07/16 0230 AC PO Simvastatin 10 MG DAILY@1700 07/14 1700 AC 07/15 PO 1615 Sodium Chloride 2 SPRAY Q4P PRN 07/14 1300 AC MAGDALENO Sucralfate 1,000 MG TID 07/14 1600 AC 07/16 PO 1000 Tamsulosin HCl 0.4 MG DAILY 07/14 1301 AC 07/16 PO 1000 Tiotropium [place] 1 PUF DAILY 07/14 1302 AC 07/16 INH 0959 Vital Signs & I&O Last 24 Hrs of Vitals and I&O: Vital Signs Date Time Temp Pulse Resp B/P B/P Pulse O2 O2 Flow FiO2 Mean Ox Delivery Rate 07/16 1000 67 118/72 07/16 1000 67 118/72 07/16 0849 97 Nasal 2.0L Cannula 07/16 0800 97 Nasal 1.5L Cannula 07/16 0722 98.6 67 24 118/72 96 Nasal Cannula 07/16 0000 Nasal 1.5L Cannula 07/15 2203 99.0 63 24 124/80 96 07/15 1910 96 Nasal 2.0L Cannula 07/15 1600 Nasal 2.0L Cannula 07/15 1447 98.5 60 20 110/54 94 Nasal 2.0L Cannula Intake & Output 07/16 1600 07/16 0800 07/16 0000 Intake Total 440 124 800 Output Total 500 200 Balance -60 124 600 Intake, IV 24 Intake, Oral 440 100 800 Output, Urine 500 200 Patient 162 lb Weight Exam Other Physical Findings: General - Alert, awake and oriented HEENT - normocephalic, atraumatic Cardiovascular - S1, S2, +systolic murmur Lungs - rhonchi bilateral bases mostly on the left Abdomen - soft, bowel sounds positive, no tenderness Extremities - without edema or cyanosis Results Last 24 Hrs of Lab Results: Laboratory Tests 07/16/17 0650: Anion Gap 12, Estimated GFR > 60, BUN/Creatinine Ratio 44.3 H, CBC w Diff NO MAN DIFF REQ, RBC 3.47 L, MCV 78.2 L, MCH 25.7 L, MCHC 32.8 L, RDW 16.9 H, MPV 9.7, Gran % 90.8 H, Lymphocytes % 5.4 L, Monocytes % 3.8, Eosinophils % 0, Basophils % 0, Absolute Granulocytes 7.6 H, Absolute Lymphocytes 0.4 L, Absolute Monocytes 0.3, Absolute Eosinophils 0, Absolute Basophils 0 Impression/Plan Impression/Plan Impression/Plan: Impression 86 year old man * acute bronchitis with exacerbation of COPD * hx lung cancer s/p[ RLL lobectomy. * mild , pulmonary htn Plan - cont zithromax - finish solumedrol to 40mg iv q12h, begin po prednisone 60mg in am - TRC/Nebs - cont inhalers - recheck pa/lateral cxr today DVT prophylaxis at all times - on eliquis
[2017-07-16] MEDS ORDERED: PREDNISONE10 M2 PO (13:14)
[2017-07-16 14:51] VITALS: BP 116/52
--- NOTE | 2017-07-16 14:52 | Patient Discharge Instructions ---
Discharge Instructions General Discharge Information You were seen/treated for: COPD exacerbation. Acute bronchitis. Watch for these problems: Worsening breathing symptoms. Special Instructions: Please follow-up with primary care physician in 1-2 weeks. Please follow-up with food product inspector as an outpatient. Diet Continue normal diet: No Recommended Diet: Heart Healthy Activity Full Activity/No Limits: Yes Acute Coronary Syndrome Inclusion Criteria At DC or during hospital stay patient has or had the following: ACS DIAGNOSIS No Discharge Core Measures Meds if any: Prescribed or Continued at Discharge Meds if any: NOT Prescribed or Continued at Discharge Congestive Heart Failure Inclusion Criteria At DC or during hospital stay patient has or had the following: CHF DIAGNOSIS No Discharge Core Measures Meds if any: Prescribed or Continued at Discharge Meds if any: NOT Prescribed or Continued at Discharge Cerebrovascular accident Inclusion Criteria At DC or during hospital stay patient has or had the following: CVA/TIA Diagnosis No Discharge Core Measures Meds if any: Prescribed or Continued at Discharge Meds if any: NOT Prescribed or Continued at Discharge Venous thromboembolism Inclusion Criteria VTE Diagnosis No VTE Type NONE VTE Confirmed by (Test) NONE Discharge Core Measures - Per Current guidelines, there needs to be overlap - treatment for the first 5 days of Warfarin therapy. - If discharged on Warfarin prior to 5 days of - overlap therapy, the patient will need to be - assessed for post discharge needs including - *Post discharge parental anticoagulation - *Warfarin and/or parental anticoagulation education - *Follow up date to check INR post discharge At least 5 days overlap therapy as Inpatient No Meds if any: Prescribed or Continued at Discharge Note: Overlap Therapy is Warfarin and Anticoagulant Meds if any: NOT Prescribed or Continued at Discharge
--- NOTE | 2017-07-16 15:50 | Discharge Summary ---
Visit Information Visit Dates Admission Date: 07/14/17 Discharge Date: 07/17/17 Hospital Course Course Attending Physician: Salina Camacho MD Primary Care Physician: Estrella RIVAS,[facility] Course: 86-year-old gentleman with past history of allergies, COPD, multiple admissions for pneumonia in the past, diastolic congestive heart failure, atrial fibrillation on Eliquis, hypertension, Parkinson's disease, lung cancer status post right lower lobe lobectomy presented to the ED on 07/14/2017 with chief complaints of cough, worsening breathing, chills 1 day duration. Patient did report episodes of severe hypoxemia, very any was desaturating to 84 %. Patient is oxygen dependent at home, baseline oxygen requirement 1 L. The patient was admitted for following. Of note, patient did have one positive culture - gram-positive rods, which was likely a contaminant. 1. Acute hypoxemic respiratory failure, likely secondary to acute bronchitis leading to COPD exacerbation. Patient was started on IV corticosteroids, short acting beta agonist, inhaled anticholinergics and provided TRC nebs. By second day, patient showed improvement and eventually was transitioned to by mouth steroids. Patient will be discharged on a quick taper of by mouth steroids and follow-up closely with his assistant shift supervisor as an outpatient. Patient was also given azithromycin to complete a five-day course. A chest x- ray obtained remained negative for any consolidation/pneumonia and was revealing of only chronic changes. 2. CHF exacerbation. Patient was treated with IV Lasix, by second day he was euvolemic on exam. Patient will be discharged on his home dose of by mouth Lasix upon discharge. 3. History of atrial fibrillation. He was continued on his rate controlling medications-digoxin, diltiazem. Home dose of Eliquis was continued. 4. He was managed for GERD, diabetes, Parkinson's disease, hyperlipidemia, BPH with his home medications and will be discharged on the same medications. Patient remained stable to be discharged, pending PT evaluation. Allergies: Coded Allergies: pollen extracts (UNKNOWN 07/01/16) atorvastatin (Severe, MUSCLE WEAKNESS, CRAMPS 07/14/17) Uncoded Allergies: DUST (UNKNOWN 12/26/14) Disposition Summary Disposition Principal Diagnosis: Acute hypoxemic respiratory failure. Additional Diagnosis: COPD exacerbation. Acute bronchitis. Discharge Disposition: home health services Discharge Instructions General Discharge Information Code Status: Full Code Patient's Diet: Consistent carbohydrate diet. Patient's Activity: As tolerated. Follow-Up Instructions/Appts: Please follow-up with primary care physician in 1-2 weeks of discharge. Please follow with assistant shift supervisor in 1 week of discharge. Medications at Discharge Discharge Medications: Continue taking these medications: Levothyroxine Sodium (Synthroid) 50 MCG TABLET 1 Tablet ORAL DAILY Qty = 30 Comments: Last Taken: 07/17/17 Time: 0630 AM Docusate Sodium (Colace) 100 MG CAPSULE 1 Capsule ORAL DAILY Comments: Last Taken: 07/16/17 Time: 1000 Dexlansoprazole (Dexilant) 60 MG CAP.DR.BP 1 Capsule ORAL DAILY Comments: NOT GIVEN IN HOSPITAL Tamsulosin HCl (Flomax) 0.4 MG CAP.ER.24H 1 Capsule ORAL DAILY Comments: Last Taken: 07/17/17 Time: 40 Metformin HCl (Metformin HCl) 500 MG TABLET 1 Tablet ORAL TWICE DAILY Qty = 180 Comments: NOT GIVEN IN HOSPITAL Carbidopa/Levodopa (Sinemet 25-100 MG Tablet) 25 MG-100 MG TABLET 1 Tablet ORAL THREE TIMES DAILY Comments: Last Taken: 07/17/17 Time: 740 Diltiazem HCl (Diltiazem ER) 240 MG CAP.ER.DEG 1 Tablet ORAL DAILY Comments: Last Taken: 07/17/17 Time: 740 Finasteride (Finasteride) 5 MG TABLET 1 Tablet ORAL AT BEDTIME Comments: Last Taken: 06/18/17 Time: 10:00 PM Montelukast Sodium (Montelukast Sodium) 10 MG TABLET 1 Tablet ORAL AT BEDTIME Comments: Last Taken: 07/16/17 Time: 2108 Apixaban (Eliquis) 2.5 MG TABLET 1 Tablet ORAL TWICE DAILY Instructions: Please discuss with your gymnastic teacher before resuming the medication Comments: Last Taken: 07/17/17 Time: 740 Albuterol Sulfate (Proair Hfa) 90 MCG HFA.AER.AD 2 Puff Inhale through mouth Q4H as needed for COPD Comments: Last Taken: 07/17/17 Time: 827 Ezetimibe/Simvastatin (Vytorin 10-10 MG Tablet) 10 MG-10 MG TABLET 1 Tablet ORAL AT BEDTIME Comments: Last Taken: 07/17/17 Time: 740 Cetirizine HCl (Cetirizine HCl) 10 MG TAB.CHEW 1 Tablet ORAL Every night Comments: NOT GIVEN IN HOSPITAL Ipratropium Omega (Ipratropium Omega) 21 MCG (0.03 %) SPRAY 2 [place] Both sides of nose TAKE AT BEDTIME Comments: NOT GIVEN Ascorbic Acid (Ascorbic Acid) 500 MG TABLET 1 Tablet ORAL DAILY Comments: Last Taken: 07/17/17 Time: 0740 Furosemide (Lasix) 20 MG TABLET 1 Tablet ORAL Every other day Comments: Last Taken: 07/17/17 Time: 740 Fluticasone Propionate (Flonase Allergy Relief) 50 MCG/ACTUATION SPRAY.SUSP 2 [place] Both sides of nose DAILY Comments: Last Taken: 07/17/17 Time: 740 Levalbuterol HCl (Xopenex) 0.63 MG/3 ML VIAL.NEB 1 Milliliters Inhale Solution EVERY SIX HOURS NEEDED as needed for COPD Comments: NOT GIVEN Vit C/E/Zn/Coppr/Lutein/Zeaxan (Preservision Areds 2 Softgel) 250-200-40 CAPSULE 1 Capsule ORAL TWICE DAILY Comments: NOT GIVEN Carboxymethylcellulose Sodium (Thera Tears) 0.25 % DROPS 1 DROP Both Eyes 5XDAILY as needed for DRY EYES Comments: NOT GIVEN IN HOSPITAL Terbinafine HCl (Terbinafine) 1 % CREAM..G. 1 Application On the skin TAKE AT BEDTIME Comments: NOT GIVEN Ferrous Sulfate (Ferrous Sulfate) 325 MG (65 MG IRON) TABLET.DR 325 Milligram ORAL TWICE DAILY Qty = 60 Instructions: .. Comments: Last Taken: 07/15/17 Time: 2211 Digoxin (Lanoxin) 125 MCG TABLET 0.125 Milligram ORAL EVERY 48 HOURS (Every 2 days) Qty = 15 Instructions: Please take every other day. Comments: Last Taken: 07/16/17 Time: 1000 Fluticasone/Salmeterol (Advair 250-50 Diskus) 250 MCG-50 MCG/DOSE BLST.W.DEV 1 Puff Inhale through mouth TWICE DAILY Qty = 180 Comments: NOT GIVEN IN HOSPITAL Sucralfate (Sucralfate) 1 GRAM TABLET 1 Tablet ORAL THREE TIMES DAILY Qty = 270 Comments: Last Taken:07/17/17 Time:0740 Melatonin (Melatonin) 5 MG TABLET 1-2 Tablet ORAL Every night Comments: Last Taken:07/16/17 Time:2339 Tiotropium Omega (Spiriva) 18 MCG CAP.W.DEV 1 Capsule Inhale through mouth DAILY Qty = 90 Comments: Last Taken: 07/17/17 Time: 0742 Polyethylene Glycol 3350 (Polyethylene Glycol 3350) 17 GRAM POWD.PACK 1 Packet ORAL as needed for GI Qty = 90 Comments: Last Taken:07/17/17 Time:0739 Start taking the following new medications: Prednisone (Prednisone) 10 MG TABLET 0 ORAL TAPER Qty = 26 No Refills Instructions: On Take 07/18 60 MG #6 07/19-07/20 40 MG #8 07/21-07/22 30 MG #6 07/23-07/24 20 MG #4 07/25-07/26 10 MG #2 Then Stop Comments: Last Taken:07/17/17 Time:0740 Azithromycin (Azithromycin) 250 MG TABLET 250 Milligram ORAL DAILY Days = 1 No Refills Instructions: TAKE ON 07/18/2017.. Comments: Last Taken: 07/17/17 Time:0740 Meclizine HCl (Meclizine HCl) 25 MG TABLET 1 Tablet ORAL THREE TIMES A DAY NEEDED Qty = 30 No Refills Copies To: Estrella RIVAS,Pawel; Rosa Maria RIVAS,Feliberto Attending MD Review Statement Documenting Attending: Salina Camacho MD Other Findings: Discharged in stable condition.
[2017-07-16 22:06] VITALS: BP 132/52
[2017-07-17 06:59] VITALS: BP 126/58
[2017-07-17 07:40] VITALS: BP 126/58
--- NOTE | 2017-07-17 07:40 | PN-Observation ---
Lobito RIVAS,Anay 07/17/17 0740: Observation Note Observation Note _ I have personally examined KENIA SHEARER. him disposition is uncertain at this time. Before a determination can be made, he requires continued observation for the following reasons [dizziness, improved with meclizine and discharged today]. Assessment/Plan Medical Assessment: 87-year-old gentleman with past medical history for several COPD exacerbations, multiple admissions for pneumonia in the past, diastolic CHF, atrial fibrillation on Eliquis, hypertension, Parkinson's disease who presented to [facility] ED on 07/14/2017 with a chief complaint of worsening cough, sputum production shortness of breath and chills. He presented with a MAXIMUM TEMPERATURE of 100 and saturating 95 on 4 L. He endorses episodes of hypoxemia with reported oxygen saturations as low as 64-74% while on oxygen at home. So far, troponins have stayed negative and proBNP is at baseline. No crackles on exam at admission, no crackles or peripheral edema today. Chest x-ray was suspicious for pulmonary edema and did show underlying obstructive lung disease. 1. Acute hypoxemic respiratory failure secondary to bronchitis. Continue supplemental oxygen. Started on oral prednisone, improved a lot. TR nebs. Beta agonist therapy. Continue with azithromycin. stable for discharge today. 2. CHF exacerbation. Euvolemic on exam today. Continue by mouth Lasix. Continue daily weights. Negative troponins noted. 3. History of atrial fibrillation. Continue rate controlling medications- digoxin, diltiazem. Continue anticoagulation with Eliquis. 4. GERD continue omeprazole. 5. Diabetes. Last 2 FSG readings 209, 193. Previous high readings noted. Continue to monitor, on current regimen. High readings (422) yesterday around noon. Changed diet to CC2. He takes metformin at home, which is on hold. We will increase his insulin regimen to medium dose. 6. Continue Sinemet, simvastatin, iron sulfate, tamsulosin and finasteride. Full code. Eliquis for DVT prophylaxis. Low-salt diet. Problem List: 1. CHF exacerbation Qualifiers Heart failure type: unspecified Qualified Code: I50.9 - Heart failure, unspecified 2. COPD exacerbation Subjective Follow-up For: COPD exacerbation CHF exacerbation Subjective: Feels better, still dizzy. Reports he wants to feel 100% before leaving home. He is breathing much better. Review of Systems Constitutional: Reports: see HPI. Objective Last 24 Hrs of Vital Signs/I&O Vital Signs Date Time Temp Pulse Resp B/P B/P Pulse O2 O2 Flow FiO2 Mean Ox Delivery Rate 07/17 0659 98.4 61 22 126/58 96 Nasal Cannula 07/17 0000 Nasal 1.5L Cannula 07/16 2206 98.8 68 22 132/52 96 Nasal Cannula 07/16 2037 98 Nasal 1.5L Cannula 07/16 1600 Nasal 1.5L Cannula 07/16 1451 98.5 71 22 116/52 95 Nasal Cannula 07/16 1000 67 118/72 07/16 1000 67 118/72 07/16 0849 97 Nasal 2.0L Cannula 07/16 0800 97 Nasal 1.5L Cannula Intake & Output 07/17 0800 07/17 0000 07/16 1600 Intake Total 220 400 740 Output Total 135 469 1892 Balance -280 100 -560 Intake, Oral 220 400 740 Number 0 0 Bowel Movements Output, Urine 166 945 2973 Patient 72.575 kg Weight Weight Bed scale Measurement Method Physical Exam General Appearance: Alert, Oriented X3, Cooperative Skin: No Rashes, No Breakdown HEENT: Atraumatic, PERRLA, EOMI Neck: Supple, No JVD Cardiovascular: Normal S1, Normal S2, No Murmurs Lungs: Clear to Auscultation, Normal Air Movement Abdomen: Normal Bowel Sounds, Soft, No Tenderness, No Hepatospenomegaly Neurological: Normal Gait, Normal Speech, Strength at 5/5 X4 Ext, Normal Tone Current Medications: Current Medications Sig/Chuck Start time Last Medication Dose Route Stop Time Status Admin Acetaminophen 650 MG Q6P PRN 07/14 1300 DCD PO Albuterol Sulfate 3 ML BID 07/14 2199 DCD 07/17 INH 0828 Albuterol Sulfate 2 PUF Q4H PRN 07/14 1300 DCD INH Apixaban 2.5 MG BID 07/14 1256 DCD 07/17 PO 0741 Artificial Tears 2 GTT 4 TIMES/DAY 07/14 1400 DCD 07/17 OPH 0741 Ascorbic Acid 500 MG DAILY 07/14 1256 DCD 07/17 PO 0740 Azithromycin 250 MG DAILY 07/16 1000 DCD 07/17 PO 07/18 1001 0740 Carbidopa/Levodopa 1 TAB TID 07/14 1256 DCD 07/17 PO 0741 Digoxin 0.125 MG Q48 07/16 1000 DCD 07/16 PO 1000 Diltiazem HCl 240 MG DAILY 07/14 1258 DCD 07/17 PO 0741 Docusate Sodium 100 MG DAILY NEEDED PRN 07/16 0230 DCD 07/16 PO 1000 Ezetimibe 10 MG DAILY 07/14 1258 DCD 07/17 PO 0741 Ferrous Sulfate 325 MG BID 07/14 1258 DCD 07/15 PO 2211 Finasteride 5 MG AT BEDTIME 07/14 2200 DCD 07/16 PO 2110 Fluticasone 2 SPRAY DAILY 07/14 1254 DCD 07/17 Propionate MAGDALENO 0742 Furosemide 20 MG DAILY 07/17 1000 DCD 07/17 PO 0741 Insulin Aspart 0 TIDAC 07/16 1200 DCD 07/17 SC 1137 Insulin Aspart 0 AT BEDTIME 07/15 2200 DCD SC Insulin Detemir 12 UNITS .STK-MED ONE 07/17 0735 DC SC 07/17 0736 Levothyroxine Sodium 0.05 MG DAILY AC 07/14 1301 DCD 07/17 PO 0633 Meclizine HCl 25 MG ONCE ONE 07/17 1215 DC 07/17 PO 07/17 1216 1255 Melatonin 10 MG ONCE ONE 07/16 2115 DC 07/16 PO 07/16 2116 2339 Melatonin 5 MG QPM 07/14 2200 DCD 07/15 PO 2211 Methylprednisolone 40 MG ONCE ONE 07/160 DC 07/16 IV 07/16 2201 2109 Montelukast Sodium 10 MG AT BEDTIME 07/14 2200 DCD 07/16 PO 2109 Omeprazole 40 MG DAILY AC 07/14 1257 DCD 07/17 PO 0633 Polyethylene Glycol 17 GM DAILY 07/16 1000 DCD 07/17 PO 0739 Prednisone 10 MG DAILY 07/25 1000 DCD PO 07/26 1001 Prednisone 20 MG DAILY 07/23 1000 DCD PO 07/24 1001 Prednisone 30 MG DAILY 07/21 1000 DCD PO 07/22 1001 Prednisone 40 MG DAILY 07/19 1000 DCD PO 07/20 1001 Prednisone 60 MG DAILY 07/17 1000 DCD 07/17 PO 07/18 1001 0740 Senna 187 MG AT BEDTIME NEED.. 07/16 0230 DCD PO Simvastatin 10 MG DAILY@1700 07/14 1700 DCD 07/16 PO 1748 Sodium Chloride 2 SPRAY Q4P PRN 07/14 1300 DCD MAGDALENO Sucralfate 1,000 MG TID 07/14 1600 DCD 07/17 PO 0740 Tamsulosin HCl 0.4 MG DAILY 07/14 1301 DCD 07/17 PO 0740 Tiotropium [place] 1 PUF DAILY 07/14 1302 DCD 07/17 INH 0742 Last 24 Hrs of Labs/Mics: Laboratory Tests 07/17/17 0631: Anion Gap 11, Estimated GFR > 60, BUN/Creatinine Ratio 48.6 H, CBC w Diff NO MAN DIFF REQ, RBC 3.30 L, MCV 78.3 L, MCH 25.1 L, MCHC 32.1 L, RDW 17.3 H, MPV 9.3, Gran % 91.2 H, Lymphocytes % 5.0 L, Monocytes % 3.8, Eosinophils % 0, Basophils % 0, Absolute Granulocytes 6.5, Absolute Lymphocytes 0.4 L, Absolute Monocytes 0.3, Absolute Eosinophils 0, Absolute Basophils 0 Salina Camacho MD 07/17/17 1129: Observation Note Observation Note _ I have personally examined KENIA SHEARER. him disposition is uncertain at this time. Before a determination can be made, he requires continued observation for the following reasons []. Patient seen and examined. Sitting up comfortably in bed and not in any acute distress. No issues overnight reported by nursing staff. He is ambulated freely. He is on baseline oxygen of 1.5 L. On examination he is not in any respiratory distress. He has adequate entry bilaterally with no added sounds. Abdomen is soft and nontender. He has no peripheral edema. He is afebrile and hemodynamically stable. He has been transitioned to oral steroid therapy. He is medically stable to be discharged today as previously discussed with the patient yesterday. Patient at this point reported that he feels dizzy. He reports that he feels lightheaded. Orthostatic vitals were checked and are negative. He reports that dizziness is worse with position change. He has no nystagmus on exam. It appears that he may have some benign positional vertigo. Recommendations: -Continue patient on oral steroids and bronchodilator regimen as recommended by his electronic assembly service. -Begin patient on meclizine to continue as needed at home for dizziness for probable benign positional vertigo. Patient has been advised to follow-up with his electronic assembly and primary care provider in the outpatient setting. -Follow-up with case management to arrange for more frequent nursing follow-up in the outpatient setting. He currently reports he seen by his visiting nurse only twice a month. -Patient is medically stable to be discharged from the hospital today. -Glucose level is slightly elevated and is anticipated to improve with tapering of his prednisone therapy.
[2017-07-17 08:17] LABS: ABSOLUTE BASOPHIL COUNT 0 /CUMM (0.0-0.2); ABSOLUTE EOSINOPHIL COUNT 0 /CUMM (0.0-0.7); ABSOLUTE GRANULOCYTE CT 6.5 /CUMM (1.4-6.5); ABSOLUTE LYMPH COUNT 0.4 /CUMM (1.2-3.4); ABSOLUTE MONOCYTE COUNT 0.3 /CUMM (0.10-0.60); BASOPHIL % 0 % (0.0-2.0); EOSINOPHIL % 0 % (0-5); HEMATOCRIT 25.8 % (42-52); MEAN CORPUSCULAR HGB 25.1 PG (27.0-31.0); MEAN CORPUSCULAR HGB CONC 32.1 G/DL (33.0-37.0); MEAN CORPUSCULAR VOLUME 78.3 FL (80.0-94.0); MEAN PLATELET VOLUME 9.3 FL (7.4-10.4); PLATELET COUNT 201 /CUMM (130-400); RBC DISTRIBUTION WIDTH 17.3 % (11.5-14.5); WHITE BLOOD CELL COUNT 7.2 /CUMM (4.8-10.8)
[2017-07-17 09:01] LABS: GRANULOCYTE % 91.2 % (42.2-75.2)
--- NOTE | 2017-07-17 11:27 | PN- Pulmonary ---
Subjective HPI/Critical Care Issues: pt seen and examined feeling much better from pulmonary perspective c/o dizziness Objective Current Medications: Current Medications Sig/Chuck Start time Last Medication Dose Route Stop Time Status Admin Acetaminophen 650 MG Q6P PRN 07/14 1300 AC PO Albuterol Sulfate 3 ML BID 07/14 2200 AC 07/17 INH 0828 Albuterol Sulfate 2 PUF Q4H PRN 07/14 1300 AC INH Apixaban 2.5 MG BID 07/14 1256 AC 07/17 PO 0741 Artificial Tears 2 GTT 4 TIMES/DAY 07/14 1400 AC 07/17 OPH 0741 Ascorbic Acid 500 MG DAILY 07/14 1256 AC 07/17 PO 0740 Azithromycin 250 MG DAILY 07/16 1000 AC 07/17 PO 07/18 1001 0740 Carbidopa/Levodopa 1 TAB TID 07/14 1256 AC 07/17 PO 0741 Digoxin 0.125 MG Q48 07/16 1000 AC 07/16 PO 1000 Diltiazem HCl 240 MG DAILY 07/14 1258 AC 07/17 PO 0741 Docusate Sodium 100 MG DAILY NEEDED PRN 07/16 0230 AC 07/16 PO 1000 Ezetimibe 10 MG DAILY 07/14 1258 AC 07/17 PO 0741 Ferrous Sulfate 325 MG BID 07/14 1258 AC 07/15 PO 2211 Finasteride 5 MG AT BEDTIME 07/14 2200 AC 07/16 PO 2110 Fluticasone 2 SPRAY DAILY 07/14 1254 AC 07/17 Propionate MAGDALENO 0742 Furosemide 20 MG DAILY 07/17 1000 AC 07/17 PO 0741 Furosemide 20 MG DAILY 07/15 1000 DC 07/16 IV 0959 Insulin Aspart 0 TIDAC 07/16 1200 AC 07/17 SC 0739 Insulin Aspart 0 AT BEDTIME 07/15 2200 AC SC Levothyroxine Sodium 0.05 MG DAILY AC 07/14 1301 AC 07/17 PO 0633 Melatonin 10 MG ONCE ONE 07/16 2114 DC 07/16 PO 07/16 211 2339 Melatonin 5 MG QPM 07/14 2200 AC 07/15 PO 2211 Methylprednisolone 40 MG ONCE ONE 07/16 2200 DC 07/16 IV 07/16 220 2109 Methylprednisolone 40 MG Q12 07/16 1000 DC IV Montelukast Sodium 10 MG AT BEDTIME 07/14 2200 AC 07/16 PO 2109 Omeprazole 40 MG DAILY AC 07/14 1257 AC 07/17 PO 0633 Polyethylene Glycol 17 GM DAILY 07/16 1000 AC 07/17 PO 0739 Prednisone 10 MG DAILY 07/25 1000 AC PO 07/26 1001 Prednisone 20 MG DAILY 07/23 1000 AC PO 07/24 1001 Prednisone 30 MG DAILY 07/21 1000 AC PO 07/22 1001 Prednisone 40 MG DAILY 07/19 1000 AC PO 07/20 1001 Prednisone 60 MG DAILY 07/17 1000 CAN PO 07/27 0959 Prednisone 60 MG DAILY 07/17 1000 AC 07/17 PO 07/18 1001 0740 Prednisone 20 MG ONCE ONE 07/16 1315 DC 07/16 PO 07/16 1316 1439 Senna 187 MG AT BEDTIME NEED.. 07/16 0230 AC PO Simvastatin 10 MG DAILY@1700 07/14 1700 AC 07/16 PO 1748 Sodium Chloride 2 SPRAY Q4P PRN 07/14 1300 AC MAGDALENO Sucralfate 1,000 MG TID 07/14 1600 AC 07/17 PO 0740 Tamsulosin HCl 0.4 MG DAILY 07/14 1301 AC 07/17 PO 0740 Tiotropium [place] 1 PUF DAILY 07/14 1302 AC 07/17 INH 0742 Vital Signs & I&O Last 24 Hrs of Vitals and I&O: Vital Signs Date Time Temp Pulse Resp B/P B/P Pulse O2 O2 Flow FiO2 Mean Ox Delivery Rate 07/17 0831 96 Nasal 1.5L Cannula 07/17 0800 Nasal 1.5L Cannula 07/17 0740 61 126/58 07/17 0659 98.4 61 22 126/58 96 Nasal Cannula 07/17 0000 Nasal 1.5L Cannula 07/16 2206 98.8 68 22 132/52 96 Nasal Cannula 07/16 2037 98 Nasal 1.5L Cannula 07/16 1600 Nasal 1.5L Cannula 07/16 1451 98.5 71 22 116/52 95 Nasal Cannula Intake & Output 07/17 1600 07/17 0800 07/17 0000 Intake Total 220 400 Output Total 500 300 Balance -280 100 Intake, Oral 220 400 Number 0 Bowel Movements Output, Urine 500 300 Patient 160 lb Weight Weight Bed scale Measurement Method Exam Other Physical Findings: General - Alert, awake and oriented HEENT - normocephalic, atraumatic Cardiovascular - S1, S2, +systolic murmur Lungs - rhonchi bilateral bases mostly on the left Abdomen - soft, bowel sounds positive, no tenderness Extremities - without edema or cyanosis Results Last 24 Hrs of Lab Results: Laboratory Tests 07/17/17 0631: Anion Gap 11, Estimated GFR > 60, BUN/Creatinine Ratio 48.6 H, CBC w Diff NO MAN DIFF REQ, RBC 3.30 L, MCV 78.3 L, MCH 25.1 L, MCHC 32.1 L, RDW 17.3 H, MPV 9.3, Gran % 91.2 H, Lymphocytes % 5.0 L, Monocytes % 3.8, Eosinophils % 0, Basophils % 0, Absolute Granulocytes 6.5, Absolute Lymphocytes 0.4 L, Absolute Monocytes 0.3, Absolute Eosinophils 0, Absolute Basophils 0 Impression/Plan Impression/Plan Impression/Plan: Impression 86 year old man * acute bronchitis with exacerbation of COPD * hx lung cancer s/p[ RLL lobectomy. * mild , pulmonary htn Plan - cont zithromax - prednisone taper as ordered - dizziness - negative orthostatics - TRC/Nebs - cont inhalers DVT prophylaxis at all times - on eliquis
[2017-07-17] MEDS ORDERED: PREDNISONE10 M2 PO (12:35)
[2017-07-17] MEDS ORDERED: AZITHROMYCIN250 M1 PO (12:36)
[2017-07-17] MEDS ORDERED: MECLIZINE HCL25 MG PO (13:52)
== END 2017-07-17 14:28 | disposition home health service (06) ==
LOC: ERH 09:18 → ERHI 11:13 → 1NO 11:13 → ENRESERV 16:09 → ENTRNSPT 17:32 → EDTRNSPTSTS 17:49 → 1NO 18:08 → CMPTRNSPT 18:25 → 1NO 07-15 07:57 → ENPENDDIS 07-17 12:51 → ENTRNSPT 07-17 14:20 → EDTRNSPTSTS 07-17 14:23 → 1NO 07-17 14:28 → CMPTRNSPT 07-17 14:59
PROVIDERS: Hospitalist; Internal Medicine Hematology & Oncology; Physician Assistant Medical
DX: I11.0 Hypertensive heart disease with heart failure (principal); J96.21 Acute and chronic respiratory failure with hypoxia; I50.33 Acute on chronic diastolic (congestive) heart failure; J20.9 Acute bronchitis, unspecified; J44.1 Chronic obstructive pulmonary disease with (acute) exacerbation; Z99.81 Dependence on supplemental oxygen; G44.89 Other headache syndrome; I35.0 Nonrheumatic aortic (valve) stenosis; I27.20 Pulmonary hypertension, unspecified; H35.30 Unspecified macular degeneration; I48.91 Unspecified atrial fibrillation; Z79.01 Long term (current) use of anticoagulants; G20 Parkinson's disease; K21.9 Gastro-esophageal reflux disease without esophagitis; E78.5 Hyperlipidemia, unspecified; K59.00 Constipation, unspecified; D64.9 Anemia, unspecified; Z87.891 Personal history of nicotine dependence; N40.0 Benign prostatic hyperplasia without lower urinary tract symptoms; R33.9 Retention of urine, unspecified; E03.9 Hypothyroidism, unspecified; E11.9 Type 2 diabetes mellitus without complications; Z85.118 Personal history of other malignant neoplasm of bronchus and lung; I71.9 Aortic aneurysm of unspecified site, without rupture; Z79.4 Long term (current) use of insulin; D80.3 Selective deficiency of immunoglobulin G [IgG] subclasses
CPT/HCPCS: 1NSP; 36592; 71045; 71046; 82436; 87040; 87071; 87449; 87450; 87804; 87804-59; 93005; 93010; 96374; 96375; 96376; G0378; J0131; J0456; J0696; J1815; J1940; J2920; J2930; J3490; J7060

== ENCOUNTER 2017-07-19 13:48 | Inpatient (IN) | payer OTHER, MEDICARE ==
[~2017-07-19] VITALS: Ht 167.6 cm; Wt 69.1 kg
[~2017-07-19 13:48] MED LIST changes: +ADVAIR 250-501 EACH INH; +MECLIZINE HCL25 MG PO; +MELATONIN5 M7 PO; +POLYETHYLENE GL17 GM PO; +SPIRIVA18 MCG INH; +SUCRALFATE1 G1 PO
--- NOTE | 2017-07-19 14:36 | ED GENERAL ADULT ---
History of Present Illness General Chief Complaint: General Adult Stated Complaint: WEAKNESS Source: patient Exam Limitations: no limitations Vital Signs & Intake/Output Vital Signs & Intake/Output Vital Signs Date Time Temp Pulse Resp B/P B/P Pulse O2 O2 Flow FiO2 Mean Ox Delivery Rate 07/19 1635 97.2 74 18 146/73 98 Nasal 3.0L Cannula 07/19 1431 97.0 62 18 132/63 98 Nasal 3.0L Cannula 07/19 1430 99 Nasal 2.0L Cannula 07/19 1429 96.9 73 20 144/67 99 Nasal 2.0L Cannula Allergies Coded Allergies: pollen extracts (UNKNOWN 07/01/16) atorvastatin (Severe, MUSCLE WEAKNESS, CRAMPS 07/14/17) Uncoded Allergies: DUST (UNKNOWN 12/26/14) Triage Note: PT BIBA FROM HOME S/P FEELING WEAK AND DIZZY. REPORTS RECENT ADMISSION FOR DARK STOOLS WITH DC ON 07/17/17. STATES VISITING NURSE TOLD HIM HE SHOULD NOT HAVE BEEN DC WITH HGB OF 8. PT CALLED [facility] WHO TOLD HIM TO COME TO ED. PT HAS NO ABDOMINAL PAIN, NO N/V, + BLACK COLORED DIARRHEA THIS AM. ALSO REPORTS PINK TINGED SPUTUM AND ON ABX FOR ?PNA. Triage Nurses Notes Reviewed? yes Onset: Abrupt Duration: day(s):, constant, continues in ED Timing: recent history Injury Environment: home No Modifying Factors: none HPI: 87-year-old male comes into the emergency room for further evaluation of increased weakness. Some blood in his stool. Patient reports he had a black bowel movement and he is on anticoagulants. He was just recently here for bronchitis pneumonia and is currently on antibiotics. Denies any chest pain shortness of breath but reports profoundly weak and unable to ambulate. He says that he told them he cannot be discharged when they discharged him because he was still feeling weak and dizzy at that time. He spoke with someone from [facility] today who called an ambulance and sent him here for further evaluation. (Jonnie Contreras) Reconcile Medications Albuterol Sulfate (Proair Hfa) 90 MCG HFA.AER.AD 2 PUF INH Q4H PRN COPD ( Reported) Apixaban (Eliquis) 2.5 MG TABLET 1 TAB PO BID AFIB (Reported) Please discuss with your director institution before resuming the medication Ascorbic Acid 500 MG TABLET 1 TAB PO DAILY VITAMIN SUPPORT (Reported) Carbidopa/Levodopa (Sinemet 25-100 MG Tablet) 25 MG-100 MG TABLET 1 TAB PO TID PARKINSONS (Reported) Carboxymethylcellulose Sodium (Thera Tears) 0.25 % DROPS 1 DROP OU 5XDAILY PRN DRY EYES (Reported) Cetirizine HCl 10 MG TAB.CHEW 1 TAB PO QPM ALLERGIES (Reported) Dexlansoprazole (Dexilant) 60 MG CAP.DR.BP 1 CAP PO DAILY ACID REFLUX ( Reported) Digoxin (Lanoxin) 125 MCG TABLET 0.125 MG PO Q48 HEART HEALTH Please take every other day. Diltiazem HCl (Diltiazem ER) 240 MG CAP.ER.DEG 1 TAB PO DAILY HEART (Reported ) Docusate Sodium (Colace) 100 MG CAPSULE 1 CAP PO DAILY Constipation (Reported ) Ezetimibe/Simvastatin (Vytorin 10-10 MG Tablet) 10 MG-10 MG TABLET 1 TAB PO AT BEDTIME CHOLESTEROL (Reported) Ferrous Sulfate 325 MG (65 MG IRON) TABLET.DR 325 MG PO BID ANEMIA .. Finasteride 5 MG TABLET 1 TAB PO AT BEDTIME BPH (Reported) Fluticasone Propionate (Flonase Allergy Relief) 50 MCG/ACTUATION SPRAY.SUSP 2 SPRAY NASB DAILY ALLERGIES (Reported) Fluticasone/Salmeterol (Advair 250-50 Diskus) 250 MCG-50 MCG/DOSE BLST.W.DEV 1 PUF INH BID COPD (Reported) Furosemide (Lasix) 20 MG TABLET 1 TAB PO EOD DIURETIC (Reported) Guaifenesin (Mucinex) (Unknown Strength) TAB.ER.12H (Unknown Dose) PO QPM MUCUS (Reported) Ipratropium [place] 21 MCG (0.03 %) SPRAY 2 SPRAY NASB QHS ALLERGIES ( Reported) Levalbuterol HCl (Xopenex) 0.63 MG/3 ML VIAL.NEB 1 VIAL INH/ALISA Q6P PRN COPD (Reported) Levothyroxine Sodium (Synthroid) 50 MCG TABLET 1 TAB PO DAILY hypothyroidism (Reported) Meclizine HCl 25 MG TABLET 1 TAB PO TIDPRN dizziness/vertigo Melatonin 5 MG TABLET 2 TAB PO QPM SLEEP (Reported) Metformin HCl 500 MG TABLET 1 TAB PO BID DM (Reported) Montelukast Sodium 10 MG TABLET 1 TAB PO AT BEDTIME COPD (Reported) Polyethylene Glycol 3350 17 GRAM POWD.PACK 1 PAC PO PRN GI (Reported) Prednisone 10 MG TABLET 0 PO TAPER COPD EXACERBATION On Take 07/18 60 MG #6 07/19-07/20 40 MG #8 07/21-07/22 30 MG #6 07/23-07/24 20 MG #4 07/25-07/26 10 MG #2 Then Stop Sucralfate 1 GRAM TABLET 1 TAB PO TID GI (Reported) Tamsulosin HCl (Flomax) 0.4 MG CAP.ER.24H 1 CAP PO DAILY BPH (Reported) Terbinafine HCl (Terbinafine) 1 % CREAM..G. 1 RUCHI TOP QHS FEET/TOES/BUTTOCKS (Reported) Tiotropium [place] (Spiriva) 18 MCG CAP.W.DEV 1 CAP INH DAILY COPD (Reported) Vit C/E/Zn/Coppr/Lutein/Zeaxan (Preservision Areds 2 Softgel) 250-200-40 CAPSULE 1 CAP PO BID SUPPLEMENT (Reported) (Jae Amador DO) Past History Travel History Traveled to [place] past 21 day No Medical History Any Pertinent Medical History? 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 MOTHER Relation not specified for: FH: hypertension Hx Contributory? No (Jonnie Contreras) Review of Systems Review of Systems Constitutional: Reports: see HPI. EENTM: Reports: no symptoms. Respiratory: Reports: no symptoms. Cardiovascular: Reports: no symptoms. GI: Reports: see HPI. Genitourinary: Reports: no symptoms. Musculoskeletal: Reports: no symptoms. Skin: Reports: no symptoms. Neurological/Psychological: Reports: no symptoms. Hematologic/Endocrine: Reports: see HPI. Immunologic/Allergic: Reports: no symptoms. All Other Systems: Reviewed and Negative (Jonnie Contreras) Physical Exam Physical Exam General Appearance: well developed/nourished, alert, awake, mild distress Head: atraumatic, normal appearance Eyes: Bilateral: normal appearance. Ears, Nose, Throat: normal ENT inspection, hearing grossly normal Neck: normal inspection Respiratory: normal breath sounds, no respiratory distress Cardiovascular: regular rate/rhythm Gastrointestinal: soft Back: normal inspection Extremities: normal inspection, normal range of motion, no edema Neurologic/Psych: alert, oriented x 3 Skin: intact Core Measures ACS in differential dx? No CVA/TIA Diagnosis: No Sepsis Present: No Sepsis Focused Exam Completed? No (Jonnie Contreras) Progress Differential Diagnoses I considered the following diagnoses in my evaluation of the patient: Upper GI bleed, peptic ulcer disease, esophageal varices, angiodysplasia, diverticulosis, UTI, pneumonia, Plan of Care: Orders Procedure Date/time Status Heart Healthy Diet 07/20 B Active Pathway - chart 07/19 1752 Active House Staff 07/19 1752 Active Code Status 07/19 1752 Active Patient Data 07/19 1722 Active Admit to inpatient 07/19 1716 Active Vital Signs 07/19 1626 Active Code Status 07/19 1626 Complete Intake & Output 07/19 1428 Active TYPE & SCREEN (NOT X-MATCH) 07/19 1424 Complete URINALYSIS 07/19 1409 Complete TROPONIN LEVEL 07/19 1409 Complete PARTIAL THROMBOPLASTIN TIME 07/19 1409 Complete PROTHROMBIN TIME 07/19 1409 Complete COMPREHENSIVE METABOLIC PANEL 07/19 1409 Complete CBC WITHOUT DIFFERENTIAL 07/19 1409 Complete EKG 07/19 1409 Active VTE Mechanical Prophylaxis 07/19 UNK Active Current Medications Sig/Chuck Start time Last Medication Dose Stop Time Status Admin Digoxin 0.125 MG Q48 07/21 1000 AC (Lanoxin) Furosemide 20 MG Q48 07/21 1000 AC (Lasix) Diltiazem HCl 240 MG DAILY 07/20 1000 AC (Cardizem CD) Fluticasone 2 SPRAY DAILY 07/20 1000 AC Propionate (Flonase) Tamsulosin HCl 0.4 MG DAILY 07/20 1000 AC (Flomax) Tiotropium [place] 1 PUF DAILY 07/20 1000 AC (Spiriva) Levothyroxine Sodium 0.05 MG DAILY AC 07/20 0700 AC (Synthroid) Budesonide/ 2 PUF BID 07/19 2199 AC Formoterol Fumarate (Symbicort) Carbidopa/Levodopa 1 TAB TID 07/19 2199 AC (Sinemet 25/100MG) Finasteride 5 MG AT BEDTIME 07/19 2199 AC (Proscar) Guaifenesin 600 MG Q12 07/19 2199 AC (Mucinex) Melatonin 10 MG QPM 07/19 2199 AC (Melatonin) Montelukast Sodium 10 MG AT BEDTIME 07/19 2199 AC (Singulair) Meclizine HCl 25 MG TID PRN 07/19 191 AC (Antivert) Albuterol Sulfate 2 PUF Q4P PRN 07/19 190 AC (Ventolin) Laboratory Tests 07/19/17 1438: Anion Gap 10, Estimated GFR > 60, BUN/Creatinine Ratio 38.6 H, Glucose 238 H, Calcium 8.7, Total Bilirubin 0.6, AST 32, ALT 51, Alkaline Phosphatase 48, Troponin I < 0.01, Total Protein 5.3 L, Albumin 3.1 L, Globulin 2.2, Albumin/ Globulin Ratio 1.4, PT 14.9 H, INR 1.36 H, APTT 26, CBC w Diff NO MAN DIFF REQ , RBC 3.69 L, MCV 78.3 L, MCH 24.6 L, MCHC 31.4 L, RDW 17.2 H, MPV 8.5, Gran % 90.1 H, Lymphocytes % 5.8 L, Monocytes % 3.8, Eosinophils % 0.3, Basophils % 0, Absolute Granulocytes 8.7 H, Absolute Lymphocytes 0.6 L, Absolute Monocytes 0.4, Absolute Eosinophils 0, Absolute Basophils 0, Urine Color STRAW, Urine Clarity CLEAR, Urine pH 5.0, Ur Specific [place] <= 1.005, Urine Protein NEG, Urine Ketones NEG, Urine Nitrite NEG, Urine Bilirubin NEG, Urine Urobilinogen 0.2, Ur Leukocyte Esterase NEG, Ur Microscopic EXAM NOT REQUIRED, Urine Hemoglobin NEG, Urine Glucose NEG Initial ED EKG: rate (72), AFIB (Paul PA,Cromwell) Differential Diagnoses I considered the following diagnoses in my evaluation of the patient: (Jae Amador DO) Departure Departure Disposition: HOME OR SELF CARE Condition: Stable Clinical Impression Primary Impression: GI bleed Referrals: Pawel De La Rosa MD (PCP/Family) Departure Forms: Customer Survey General Discharge Information Observation Note Spoke With: Lee Loving MD Physician Advisor Notified: JAE AMADOR DO Place Patient In: Non-ED OBS Care Area Rationale for Observation: My rational for observation is as follows . Serial CBCs. GI consultation. Physical therapy consultation. Case management consultation. (Jonnie Contreras) PA/COLOR REPAIRER Co-Sign Statement Statement: ED Attending supervision documentation- [X] I saw and evaluated the patient. I have also reviewed all the pertinent lab results and diagnostic results. I agree with the findings and the plan of care as documented in the PA's/COLOR REPAIRER's documentation. [] I have reviewed the ED Record and agree with the PA's/COLOR REPAIRER's documentation. [] Additions or exceptions (if any) to the PAs/COLOR REPAIRER's note and plan are summarized below : [] Patient in no acute distress on my exam, abdomen is soft and nontender. (Jae Amador DO) Critical Care Note Critical Care Note Critical Care Time: non-applicable (Jonnie Contreras)
[2017-07-19 14:52] LABS: ABSOLUTE BASOPHIL COUNT 0 /CUMM (0.0-0.2); ABSOLUTE EOSINOPHIL COUNT 0 /CUMM (0.0-0.7); ABSOLUTE GRANULOCYTE CT 8.7 /CUMM (1.4-6.5); ABSOLUTE LYMPH COUNT 0.6 /CUMM (1.2-3.4); ABSOLUTE MONOCYTE COUNT 0.4 /CUMM (0.10-0.60); BASOPHIL % 0 % (0.0-2.0); EOSINOPHIL % 0.3 % (0-5); GRANULOCYTE % 90.1 % (42.2-75.2); HEMATOCRIT 28.9 % (42-52); MEAN CORPUSCULAR HGB 24.6 PG (27.0-31.0); MEAN CORPUSCULAR HGB CONC 31.4 G/DL (33.0-37.0); MEAN CORPUSCULAR VOLUME 78.3 FL (80.0-94.0); MEAN PLATELET VOLUME 8.5 FL (7.4-10.4); RBC DISTRIBUTION WIDTH 17.2 % (11.5-14.5); RED BLOOD CELL CT 3.69 /CUMM (4.70-6.10); WHITE BLOOD CELL COUNT 9.7 /CUMM (4.8-10.8)
[2017-07-19 15:01] LABS: PT 14.9 SEC (9.4-12.5); PTT 26 SEC (25-37)
[2017-07-19 15:02] LABS: PLATELET COUNT 302 /CUMM (130-400)
--- NOTE | 2017-07-19 15:04 | RADIOLOGY REPORT ---
EXAMINATION: XR PORTABLE CHEST CLINICAL INFORMATION: Weakness COMPARISON: CXR from 07/14/2017 and 07/15/2017 TECHNIQUE: Portable frontal view of the chest was obtained. FINDINGS: There is emphysematous lung disease. There is volume loss of the right hemithorax with elevation of the right diaphragm from right lower lobectomy. Chronic pleural thickening or small pleural effusion at the base of the right hemithorax. The recently identified asymmetric pulmonary opacity (most pronounced in right lower lung on 07/14/2017) has rapidly, significantly decreased. This suggests resolution of pulmonary edema. There are no new areas of pulmonary disease. Again noted is cardiomegaly and an atherosclerotic thoracic aorta. 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 IMPRESSION: 1. Pulmonary emphysema. 2. The pulmonary edema of 07/14/2017 appears resolved.
--- NOTE | 2017-07-19 17:14 | History & Physical ---
Olegario Vences 07/19/17 1713: General Information and HPI History of Present Illness: Mr. Daley is a 86-year-old gentleman with past history of allergies, COPD on 1.5L oxygen, multiple admissions for pneumonia in the past, diastolic congestive heart failure, atrial fibrillation on Eliquis, hypertension, Parkinson's disease , lung cancer status post right lower lobe lobectomy recently discharged from [facility] (07/14-07/17) who presents to the ED with lightheadedness and weakness for the last 2 days. Patient reports this morning he noticed semisolid dark stools. His visiting nurse told him his hemoglobin was 8. He normally requires oxygen at night but noticed for the last 2 days he has required it during the day. He reports intermittent right-sided chest pain with deep inspiration and cough. He called Dr. Anderson who instructed him to go to the ED if symptoms worsen. He then called the patient's advocate at [facility] and was advised to go to the ED for further evaluation. He receives iron infusions, 2 in the last 4 months. Patient reports compliance with his medications. He denies iron supplementation , fever, chills, palpitations, nausea, vomiting, recent falls, sick contacts. Allergies/Medications Allergies: Coded Allergies: pollen extracts (UNKNOWN 07/01/16) atorvastatin (Severe, MUSCLE WEAKNESS, CRAMPS 07/14/17) Uncoded Allergies: DUST (UNKNOWN 12/26/14) Past History Travel History Traveled to [place] past 21 day No Medical History Neurological: Parkinson's disease EENT: blindness, hearing loss, macular degeneration Cardiovascular: aortic aneurysm, AFIB, CHF, hypertension, hyperlipidemia Respiratory: bronchitis, COPD, emphysema, pneumonia, Lung ca s/p lobectomy Gastrointestinal: lower GI bleed, AVM Hepatic: NONE Renal: NONE Musculoskeletal: osteoarthritis Psychiatric: NONE Endocrine: diabetes Blood Disorders: anemia Cancer(s): lung cancer, 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 MOTHER Relation not specified for: FH: hypertension Psychosocial History Who Do You Live With? parent Services at Home: None Primary Language: Icelandic Functional Ability ADLs Independent: dressing, eating, toileting, bathing. Ambulation: independent IADLs Needs Assist: shopping, housework, finances, food prep, telephone, transportation, medication admin. Review of Systems Review of Systems Constitutional: Reports: see HPI. Exam & Diagnostic Data Last 24 Hrs of Vital Signs/I&O Vital Signs Date Time Temp Pulse Resp B/P B/P Pulse O2 O2 Flow FiO2 Mean Ox Delivery Rate 07/19 1635 97.2 74 18 146/73 98 Nasal 3.0L Cannula 07/19 1431 97.0 62 18 132/63 98 Nasal 3.0L Cannula 07/19 1430 99 Nasal 2.0L Cannula 07/19 1429 96.9 73 20 144/67 99 Nasal 2.0L Cannula Intake & Output 07/19 1600 07/19 0800 07/19 0000 Intake Total 0 Output Total Balance 0 Intake, Oral 0 Patient 154 lb Weight Weight Reported by Patient Measurement Method Physical Exam General Appearance Alert, Oriented X3, Cooperative, on 2LNC HEENT Atraumatic, PERRLA, EOMI, dry mucous membranes Neck Supple, No JVD, No thryomegaly Cardiovascular 2/6 systolic murmur, R-side chest tenderness on palpation Lungs Decreased breath sounds on right side Abdomen Normal Bowel Sounds, Soft, No Tenderness Extremities BLE 1+ pitting edema Last 24 Hrs of Labs/Les: Laboratory Tests 07/19/17 1438: Anion Gap 10, Estimated GFR > 60, BUN/Creatinine Ratio 38.6 H, Glucose 238 H, Calcium 8.7, Total Bilirubin 0.6, AST 32, ALT 51, Alkaline Phosphatase 48, Troponin I < 0.01, Total Protein 5.3 L, Albumin 3.1 L, Globulin 2.2, Albumin/ Globulin Ratio 1.4, PT 14.9 H, INR 1.36 H, APTT 26, CBC w Diff NO MAN DIFF REQ , RBC 3.69 L, MCV 78.3 L, MCH 24.6 L, MCHC 31.4 L, RDW 17.2 H, MPV 8.5, Gran % 90.1 H, Lymphocytes % 5.8 L, Monocytes % 3.8, Eosinophils % 0.3, Basophils % 0, Absolute Granulocytes 8.7 H, Absolute Lymphocytes 0.6 L, Absolute Monocytes 0.4, Absolute Eosinophils 0, Absolute Basophils 0, Urine Color STRAW, Urine Clarity CLEAR, Urine pH 5.0, Ur Specific [place] <= 1.005, Urine Protein NEG, Urine Ketones NEG, Urine Nitrite NEG, Urine Bilirubin NEG, Urine Urobilinogen 0.2, Ur Leukocyte Esterase NEG, Ur Microscopic EXAM NOT REQUIRED, Urine Hemoglobin NEG, Urine Glucose NEG Diagnostic Data CXR Results FINDINGS: There is emphysematous lung disease. There is volume loss of the right hemithorax with elevation of the right diaphragm from right lower lobectomy. Chronic pleural thickening or small pleural effusion at the base of the right hemithorax. The recently identified asymmetric pulmonary opacity (most pronounced in right lower lung on 07/14/2017) has rapidly, significantly decreased. This suggests resolution of pulmonary edema. There are no new areas of pulmonary disease. Again noted is cardiomegaly and an atherosclerotic thoracic aorta. 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 IMPRESSION: 1. Pulmonary emphysema. 2. The pulmonary edema of 07/14/2017 appears resolved. Assessment/Plan Assessment: Mr. Daley is a 86-year-old gentleman with past history of allergies, COPD on 1.5L oxygen, multiple admissions for pneumonia in the past, diastolic congestive heart failure, atrial fibrillation on Eliquis, hypertension, Parkinson's disease , lung cancer status post right lower lobe lobectomy recently discharged from [facility] (07/14-07/17) who presents to the ED with lightheadedness and weakness for the last 2 days. Problem list: Generalized weakness most likely 2/2 dehydration and anemia ? [place] Plan: Admit to general med CBC daily to monitor H&H TRC/nebs as needed Hold Eliquis until further notice Courtesy call to tankage grinder operatorSantana Consider GI consult if continuous drop in H&H PT evaluation DVT prophylazix: ALPS As Ranked By This Provider Problem List: 1. General weakness 2. Melena Core Measures/Misc (01/20) Acute Coronary Syndrome ACS Diagnosis: No Congestive Heart Failure Congestive Heart Failure Diagnosis No Cerebrovascular Accident CVA/TIA Diagnosis: No VTE (View Protocol) VTE Risk Factors Age>40 No Mechanical VTE Prophylaxis d/t N/A MechProphylax Ordered No VTE Pharm Prophylaxis d/t NA PharmProphylax ordered Sepsis (View protocol) Sepsis Present: No Lee Loving MD 07/19/17 1901: General Information and HPI Allergies/Medications Home Med list Albuterol Sulfate (Proair Hfa) 90 MCG HFA.AER.AD 2 PUF INH Q4H PRN COPD ( Reported) Apixaban (Eliquis) 2.5 MG TABLET 1 TAB PO BID AFIB (Reported) Please discuss with your tankage grinder operator before resuming the medication Ascorbic Acid 500 MG TABLET 1 TAB PO DAILY VITAMIN SUPPORT (Reported) Carbidopa/Levodopa (Sinemet 25-100 MG Tablet) 25 MG-100 MG TABLET 1 TAB PO TID PARKINSONS (Reported) Carboxymethylcellulose Sodium (Thera Tears) 0.25 % DROPS 1 DROP OU 5XDAILY PRN DRY EYES (Reported) Cetirizine HCl 10 MG TAB.CHEW 1 TAB PO QPM ALLERGIES (Reported) Dexlansoprazole (Dexilant) 60 MG CAP.DR.BP 1 CAP PO DAILY ACID REFLUX ( Reported) Digoxin (Lanoxin) 125 MCG TABLET 0.125 MG PO Q48 HEART HEALTH Please take every other day. Diltiazem HCl (Diltiazem ER) 240 MG CAP.ER.DEG 1 TAB PO DAILY HEART (Reported ) Docusate Sodium (Colace) 100 MG CAPSULE 1 CAP PO DAILY Constipation (Reported ) Ezetimibe/Simvastatin (Vytorin 10-10 MG Tablet) 10 MG-10 MG TABLET 1 TAB PO AT BEDTIME CHOLESTEROL (Reported) Ferrous Sulfate 325 MG (65 MG IRON) TABLET.DR 325 MG PO BID ANEMIA .. Finasteride 5 MG TABLET 1 TAB PO AT BEDTIME BPH (Reported) Fluticasone Propionate (Flonase Allergy Relief) 50 MCG/ACTUATION SPRAY.SUSP 2 SPRAY NASB DAILY ALLERGIES (Reported) Fluticasone/Salmeterol (Advair 250-50 Diskus) 250 MCG-50 MCG/DOSE BLST.W.DEV 1 PUF INH BID COPD (Reported) Furosemide (Lasix) 20 MG TABLET 1 TAB PO EOD DIURETIC (Reported) Guaifenesin (Mucinex) (Unknown Strength) TAB.ER.12H (Unknown Dose) PO QPM MUCUS (Reported) Ipratropium [place] 21 MCG (0.03 %) SPRAY 2 SPRAY NASB QHS ALLERGIES ( Reported) Levalbuterol HCl (Xopenex) 0.63 MG/3 ML VIAL.NEB 1 VIAL INH/ALISA Q6P PRN COPD (Reported) Levothyroxine Sodium (Synthroid) 50 MCG TABLET 1 TAB PO DAILY hypothyroidism (Reported) Meclizine HCl 25 MG TABLET 1 TAB PO TIDPRN dizziness/vertigo Melatonin 5 MG TABLET 2 TAB PO QPM SLEEP (Reported) Metformin HCl 500 MG TABLET 1 TAB PO BID DM (Reported) Montelukast Sodium 10 MG TABLET 1 TAB PO AT BEDTIME COPD (Reported) Polyethylene Glycol 3350 17 GRAM POWD.PACK 1 PAC PO PRN GI (Reported) Prednisone 10 MG TABLET 0 PO TAPER COPD EXACERBATION On Take 07/18 60 MG #6 07/19-07/20 40 MG #8 07/21-07/22 30 MG #6 07/23-07/24 20 MG #4 07/25-07/26 10 MG #2 Then Stop Sucralfate 1 GRAM TABLET 1 TAB PO TID GI (Reported) Tamsulosin HCl (Flomax) 0.4 MG CAP.ER.24H 1 CAP PO DAILY BPH (Reported) Terbinafine HCl (Terbinafine) 1 % CREAM..G. 1 RUCHI TOP QHS FEET/TOES/BUTTOCKS (Reported) Tiotropium [place] (Spiriva) 18 MCG CAP.W.DEV 1 CAP INH DAILY COPD (Reported) Vit C/E/Zn/Coppr/Lutein/Zeaxan (Preservision Areds 2 Softgel) 250-200-40 CAPSULE 1 CAP PO BID SUPPLEMENT (Reported) Attending MD Review Statement Attending Statement Attending MD Statement: examined this patient, discuss w/resident/PA/TIMEKEEPING SUPERVISOR, agreed w/resident/PA/TIMEKEEPING SUPERVISOR, reviewed EMR data (avail) Attending Assessment/Plan: 87M PMH COPD, multiple admissions for pneumonia in the past, diastolic congestive heart failure, atrial fibrillation on Eliquis, hypertension, Parkinson's disease, lung cancer status post right lower lobe lobectomy, recently discharged from after being treated for bronchitis, COPD, and CHF, sent in by home nurse for dark stools, lethargy, fatigue, and inability to ambulate. Chris reports he is too weak to walk around and care for himself. He reports black stools for the past day. He denies abdominal pain, chest pain, palpitations, lightheadedness, or any infectious symptoms. His breathing is at baseline. Hgb is stable from discharge. 1. Melena 2. Unable to ambulate 3. Generalized weakness Plan - Obsevation in general medicine - Trend CBC - GI consult if Hgb drop - Hold Eliquis overnight - PT evaluation - Continue home medications - ALPS for DVT PPx Bob RIVAS,[facility] 07/19/172025: Resident Review Statement Resident Statement: examined this patient, discussed with internet retailer, agreed with internet retailer, reviewed EMR data (avail) Other Findings: 86-year-old male with extensive past medical history including but not limited to CHF, A. fib on the eliquis, who presented complaining of fatigue, lightheadedness and large black stool yesterday. He denies abdominal pain, nausea, vomiting, diarrhea, or constipation. The patient denies bright red blood per rectum. He was [facility] from [facility] after he was treated for COPD exacerbation, he was discharged on steroid taper. Hemoglobin was found to be 8 by the home visiting nurse, he called Dr. Umanzor who instructed him to visit the ED if his symptom though worse. He also reported mild right chest pain which she believes it secondary to baseline chronic cough. He denies any other current active complaints. Physical Exam HEENT - [PERRLA, EOMI] CVS -3/6 systolic murmur RESP -decreased air entry over the right lung base, mild right side chest tenderness GI -soft, no tenderness, with normal bowel sounds. Problem list * Fatigue * Right chest pain most likely costochondritis secondary to chronic cough * [place] Plan * We will admit to general medicine floor * We repeat CBCs in the morning, currently H&H is stable * We will hold night dose of Eliquis * We will start PPI given that the patient is receiving steroid * We will ask for PT evaluation * We will continue the rest of home medication * DVT prophylaxis with Alps without pharmacological given possible bleeding * Nothing by mouth from midnight, until H&H confirmed to be stable * If H&H dropped we will consult GI, and cardiology( if holding eliquis is needed) * Full code
[2017-07-19] MEDS ORDERED: MUCINEX1200 M1 PO (17:31)
[2017-07-19 19:50] VITALS: BP 110/80
[2017-07-19 22:40] VITALS: BP 110/60
[2017-07-20 00:29] VITALS: BP 100/44
--- NOTE | 2017-07-20 05:55 | PN- Housestaff ---
Olegario Vences 07/20/17 0555: Subjective Follow-up For: Generalized weakness most likely 2/2 dehydration and anemia Melena Subjective: No complaints or acute events overnight Review of Systems Constitutional: Reports: see HPI. Objective Last 24 Hrs of Vital Signs/I&O Vital Signs Date Time Temp Pulse Resp B/P B/P Pulse O2 O2 Flow FiO2 Mean Ox Delivery Rate 07/20 0722 97.7 50 20 114/60 100 Nasal 2.0L Cannula 07/20 0029 100/44 07/20 0000 98 Nasal 2.0L Cannula 07/19 2240 97.9 60 20 110/60 98 Room Air 07/19 2219 74 120/60 07/19 1950 98.7 64 18 110/80 95 Nasal 2.0L Cannula 07/19 1945 Nasal 2.0L Cannula 07/19 1635 97.2 74 18 146/73 98 Nasal 3.0L Cannula 07/19 1431 97.0 62 18 132/63 98 Nasal 3.0L Cannula 07/19 1430 99 Nasal 2.0L Cannula 07/19 1429 96.9 73 20 144/67 99 Nasal 2.0L Cannula Intake & Output 07/20 1600 07/20 0800 07/20 0000 Intake Total 600 600 Output Total Balance 600 600 Intake, Oral 600 600 Patient 152 lb Weight Weight Reported by Patient Measurement Method Physical Exam General Appearance: Alert, Oriented X3, Cooperative, No Acute Distress Cardiovascular: 2/6 systolic murmur Lungs: Clear to Auscultation, Normal Air Movement Abdomen: Normal Bowel Sounds, Soft, No Tenderness Current Medications: Current Medications Sig/Chuck Start time Last Medication Dose Route Stop Time Status Admin Albuterol Sulfate 2 PUF Q4P PRN 07/19 1900 AC INH Apixaban 2.5 MG BID 07/20 1258 DC 07/21 PO 203 Budesonide/ 2 PUF BID 07/19 2200 AC 07/21 Formoterol Fumarate INH 2036 Carbidopa/Levodopa 1 TAB TID 07/19 2200 AC 07/21 PO 2035 Digoxin 0.125 MG 1700 07/19 2100 AC 07/21 PO 1702 Diltiazem HCl 240 MG DAILY 07/20 1000 AC 07/21 PO 1014 Finasteride 5 MG AT BEDTIME 07/19 2200 AC 07/21 PO 2035 Fluticasone 2 SPRAY DAILY 07/20 1000 AC 07/21 Propionate MAGDALENO 1013 Furosemide 20 MG DAILY 07/21 1000 AC 07/21 PO 1014 Guaifenesin 600 MG Q12 07/19 2200 AC 07/21 PO 2035 Insulin Aspart 0 TIDAC/HS 07/20 0800 AC 07/21 SC 2034 Levothyroxine Sodium 0.05 MG DAILY AC 07/20 0700 AC 07/22 PO 0508 Meclizine HCl 25 MG TID PRN 07/19 1915 AC PO Melatonin 10 MG QPM 07/19 2200 AC 07/21 PO 2217 Montelukast Sodium 10 MG AT BEDTIME 07/19 2200 AC 07/21 PO 203 Polyethylene Glycol 17 GM DAILY 07/21 1046 AC 07/21 PO 1135 Prednisone 10 MG DAILY 07/25 1000 AC PO 07/26 1001 Prednisone 20 MG DAILY 07/23 1000 AC PO 07/24 1001 Prednisone 30 MG DAILY 07/21 1000 AC 07/21 PO 07/22 1001 1013 Tamsulosin HCl 0.4 MG DAILY 07/20 1000 AC 07/21 PO 1014 Tiotropium [place] 1 PUF DAILY 07/20 1000 AC 07/21 INH 1014 Last 24 Hrs of Lab/Les Results Last 24 Hrs of Labs/Mics: Laboratory Tests 07/21/17 0740: Anion Gap 7, Estimated GFR > 60, BUN/Creatinine Ratio 37.1 H, CBC w Diff NO MAN DIFF REQ, RBC 3.62 L, MCV 78.2 L, MCH 25.4 L, MCHC 32.5 L, RDW 17.3 H, MPV 8.7, Gran % 86.1 H, Lymphocytes % 6.2 L, Monocytes % 7.4, Eosinophils % 0.2, Basophils % 0.1, Absolute Granulocytes 11.0 H, Absolute Lymphocytes 0.8 L, Absolute Monocytes 0.9 H, Absolute Eosinophils 0, Absolute Basophils 0, Digoxin < 0.4 L Assessment/Plan Assessment: Mr. Daley is a 86-year-old gentleman with past history of allergies, COPD on 1.5L oxygen, multiple admissions for pneumonia in the past, diastolic congestive heart failure, atrial fibrillation on Eliquis, hypertension, Parkinson's disease , lung cancer status post right lower lobe lobectomy recently discharged from [facility] (07/14-07/17) who presents to the ED with lightheadedness and weakness for the last 2 days. Problem list: Generalized weakness most likely 2/2 dehydration and anemia ? Melena Plan: Admit to general med CBC daily to monitor H&H TRC/nebs as needed Hold Eliquis until further notice Courtesy call to clinical resource managerSantana Consider GI consult if continuous drop in H&H PT evaluation DVT prophylazix: ALPS Problem List: 1. General weakness 2. Melena Pain Ratin Pain Location: NA Pain Goal: Remain pain free Pain Plan: NA Tomorrow's Labs & Rationales: none Luis RIVAS,Amir 07/20/17 1008: Attending MD Review Statement Attending Statement Attending MD Statement: examined this patient, discuss w/resident/PA/EARLY CHILDHOOD LEAD TEACHER, agreed w/resident/PA/EARLY CHILDHOOD LEAD TEACHER, reviewed EMR data (avail), discussed with nursing Attending Assessment/Plan: H&P reviewed. VSS, CBC stable. Follow up GI eval Rest of the plan as per resident's note
[2017-07-20 07:22] VITALS: BP 114/60
[2017-07-20 09:08] LABS: ABSOLUTE BASOPHIL COUNT 0 /CUMM (0.0-0.2); ABSOLUTE EOSINOPHIL COUNT 0 /CUMM (0.0-0.7); ABSOLUTE GRANULOCYTE CT 7.8 /CUMM (1.4-6.5); ABSOLUTE LYMPH COUNT 1.1 /CUMM (1.2-3.4); ABSOLUTE MONOCYTE COUNT 0.8 /CUMM (0.10-0.60); BASOPHIL % 0.2 % (0.0-2.0); EOSINOPHIL % 0.4 % (0-5); GRANULOCYTE % 79.4 % (42.2-75.2); HEMATOCRIT 27.6 % (42-52); MEAN CORPUSCULAR HGB 24.9 PG (27.0-31.0); MEAN CORPUSCULAR HGB CONC 32.2 G/DL (33.0-37.0); MEAN CORPUSCULAR VOLUME 77.3 FL (80.0-94.0); MEAN PLATELET VOLUME 8.8 FL (7.4-10.4); PLATELET COUNT 340 /CUMM (130-400); RBC DISTRIBUTION WIDTH 17.4 % (11.5-14.5); RED BLOOD CELL CT 3.57 /CUMM (4.70-6.10); WHITE BLOOD CELL COUNT 9.8 /CUMM (4.8-10.8)
[2017-07-20 14:48] VITALS: BP 110/75
[2017-07-20 22:18] VITALS: BP 122/60
[2017-07-21 06:35] VITALS: BP 142/66
--- NOTE | 2017-07-21 08:40 | PN- Housestaff ---
Zoran RIVAS,Brandon 07/21/17 0839: Subjective Follow-up For: Generalized weakness most likely 2/2 dehydration and anemia Melena with guaiac positive stools Subjective: Patient was seen and examined at bedside. He is resting comfortably. He had no acute events overnight. He still complaining of weakness, dizziness, and dark stools. Is also complaining of mild nausea. Patient's design checker is Dr. Murphy. He has no other complaints. Review of Systems Constitutional: Reports: no symptoms. EENTM: Reports: no symptoms. Cardiovascular: Denies: chest pain, palpitations. Respiratory: Reports: no symptoms. Gastrointestinal: Reports: see HPI, melena, nausea. Denies: abdominal pain, bloody stool, vomiting. Genitourinary: Reports: no symptoms. Musculoskeletal: Reports: no symptoms. Neurological/Psychological: Reports: weakness. Objective Last 24 Hrs of Vital Signs/I&O Vital Signs Date Time Temp Pulse Resp B/P B/P Pulse O2 O2 Flow FiO2 Mean Ox Delivery Rate 07/21 0635 98.2 64 20 142/66 100 07/21 0000 Nasal 2.0L Cannula 07/20 2218 97.8 78 20 122/60 95 07/20 1600 98 Nasal 1.5L Cannula 07/20 1448 98.6 63 18 110/75 98 07/20 1002 97.7 50 20 114/60 Intake & Output 07/21 1600 07/21 0800 07/21 0000 Intake Total 100 400 Output Total Balance 100 400 Intake, Oral 100 400 Physical Exam General Appearance: Alert, Oriented X3, Cooperative, No Acute Distress Skin Temp/Moisture Exam: Warm/Dry Cardiovascular: Regular Rate, Normal S1, Normal S2, systolic murmur Lungs: diminshed breath sounds on the L lower lung field Abdomen: Normal Bowel Sounds, Soft, No Tenderness Neurological: Normal Speech, Normal Tone, Sensation Intact Extremities: trace pitting edema on BLE Current Medications: Current Medications Sig/Chuck Start time Last Medication Dose Route Stop Time Status Admin Albuterol Sulfate 2 PUF Q4P PRN 07/19 1900 AC INH Apixaban 2.5 MG BID 07/20 1258 AC 07/20 PO 2030 Budesonide/ 2 PUF BID 07/190 AC 07/20 Formoterol Fumarate INH 2031 Carbidopa/Levodopa 1 TAB TID 07/19 2199 AC 07/20 PO 2030 Digoxin 0.125 MG 1700 07/19 2100 AC 07/19 PO 2219 Diltiazem HCl 240 MG DAILY 07/20 1000 AC 07/20 PO 1002 Finasteride 5 MG AT BEDTIME 07/19 2200 AC 07/20 PO 2031 Fluticasone 2 SPRAY DAILY 07/20 1000 AC 07/20 Propionate MAGDALENO 1003 Furosemide 20 MG DAILY 07/21 1000 AC PO Guaifenesin 600 MG Q12 07/19 2200 AC 07/20 PO 203 Insulin Aspart 0 TIDAC/HS 07/20 0800 AC 07/20 SC 203 Levothyroxine Sodium 0.05 MG DAILY AC 07/20 0700 AC 07/21 PO 0618 Meclizine HCl 25 MG TID PRN 07/19 1915 AC PO Melatonin 10 MG QPM 07/19 2200 AC 07/20 PO 2239 Montelukast Sodium 10 MG AT BEDTIME 07/19 2200 AC 07/20 PO 2032 Prednisone 10 MG DAILY 07/25 1000 AC PO 07/26 1001 Prednisone 20 MG DAILY 07/23 1000 AC PO 07/24 1001 Prednisone 30 MG TAPER 07/22 1000 CAN PO 07/28 0959 Prednisone 30 MG DAILY 07/21 1000 AC PO 07/22 1001 Prednisone 40 MG ONCE ONE 07/20 1300 DC 07/20 PO 07/20 1301 1436 Tamsulosin HCl 0.4 MG DAILY 07/20 1000 AC 07/20 PO 1002 Tiotropium [place] 1 PUF DAILY 07/20 1000 AC 07/20 INH 1003 Last 24 Hrs of Lab/Les Results Last 24 Hrs of Labs/Mics: Laboratory Tests 07/21/17 0740: Sodium Pending, Potassium Pending, Chloride Pending, Carbon Dioxide Pending, Anion Gap Pending, BUN Pending, Creatinine Pending, BUN/Creatinine Ratio Pending , CBC w Diff Pending, WBC Pending, RBC Pending, Hgb Pending, Hct Pending, MCV Pending, MCH Pending, MCHC Pending, RDW Pending, Plt Count Pending, MPV Pending, Digoxin Pending Assessment/Plan Assessment: Patient is an 86-year-old male with a PMH significant for COPD on 1.5 L O2 nasal cannula at baseline, multiple hospitalizations for pneumonia, diastolic CHF, A. fib on Eliquis, HTN, Parkinson's disease, lung cancer status post right lower lobectomy, who presented complaining of lightheadedness and weakness for the past 2 days. #GI bleed Patient has been having dark stools which are guaiac positive. H&H has remained stable overnight. Patient continues to have lightheadedness/dizziness and weakness. He follows with Dr. Murphy and has had episodes of GI bleed in the past. -Continue to monitor H/H and guaiac stools - GI consult was placed with the on-call design checker -Eliquis was initially held due to concerns of GI bleed however with stable H&H she was restarted yesterday. #Mild leukocytosis Patient has been afebrile with no source of infection; patient is on prednisone -Will trend CBC #Chronic medical problems -Continue with TRC/nebs -Continue home medications -Digoxin level was checked today and found to be low at 0.4, continue current dosage, however patient reports that he has been on every other day dose. Diet: Heart healthy DVT prophylaxis: ALPS CODE STATUS:Full code Problem List: 1. Melena 2. General weakness Pain Ratin Pain Location: none Pain Goal: Remain pain free Pain Plan: pain pathway Tomorrow's Labs & Rationales: cbc, bep Luis RIVAS,Amir 07/21/17 1047: Attending MD Review Statement Attending Statement Attending MD Statement: examined this patient, discuss w/resident/PA/ASSESSMENT ANALYST, agreed w/resident/PA/ASSESSMENT ANALYST, reviewed EMR data (avail), discussed with nursing Attending Assessment/Plan: Hb/HCT remained stable. However, concerned about dizziness, has noticed black stools in hospital and wants to see Dr. Castañeda while here --Need GI eval for ongoing GI bleed --Awaiting STR placement --Rest of the plan as per resident's note
[2017-07-21 09:24] LABS: ABSOLUTE BASOPHIL COUNT 0 /CUMM (0.0-0.2); ABSOLUTE EOSINOPHIL COUNT 0 /CUMM (0.0-0.7); ABSOLUTE LYMPH COUNT 0.8 /CUMM (1.2-3.4); ABSOLUTE MONOCYTE COUNT 0.9 /CUMM (0.10-0.60); BASOPHIL % 0.1 % (0.0-2.0); EOSINOPHIL % 0.2 % (0-5); GRANULOCYTE % 86.1 % (42.2-75.2); HEMATOCRIT 28.3 % (42-52); MEAN CORPUSCULAR HGB 25.4 PG (27.0-31.0); MEAN CORPUSCULAR HGB CONC 32.5 G/DL (33.0-37.0); MEAN CORPUSCULAR VOLUME 78.2 FL (80.0-94.0); MEAN PLATELET VOLUME 8.7 FL (7.4-10.4); PLATELET COUNT 383 /CUMM (130-400); RBC DISTRIBUTION WIDTH 17.3 % (11.5-14.5); RED BLOOD CELL CT 3.62 /CUMM (4.70-6.10); WHITE BLOOD CELL COUNT 12.7 /CUMM (4.8-10.8)
[2017-07-21 14:16] VITALS: BP 112/70
--- NOTE | 2017-07-21 17:59 | Cons- Gastroenterology ---
General Information and HPI Consulting Request Date of Consult: 07/21/17 Requested By: Lee Loving MD Reason for Consult: 1. Anemia 2. Melenic stools 3. Personal history of lung cancer resected in 2013 4. History of bronchitis Source of Information: patient, electronic medical record Exam Limitations: no limitations History of Present Illness: Mr. Hogan is an 87-year-old male with past medical history of lung cancer resected in 2013. He did not require any chemotherapy. He reports that he recently was diagnosed with bronchitis and is currently taking a prednisone taper as well as antibiotics. He reports that he feels much better with respect to cough and shortness of breath. He had previously been using oxygen only at night however since his diagnosis with bronchitis he is required daytime O2. He presents with a week of melenic stools. He has undergone both EGD and colonoscopy by my partner Dr. Rui Murphy for evaluation of anemia due to GI blood loss. In 2016 he was found to have diverticulosis as well as a small tubular adenoma. 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 In 2017 when last seen by Dr. Murphy at [facility] he had recommended video capsule endoscopy which has not been done. Of note he reports to me that also when he looks up ordered and tells his head back when standing in place he feels very dizzy. This has not been evaluated and he is interested in finding out why this is occurring. He has not had any episodes of syncope and has not fallen when he does this. Allergies/Medications Allergies: Coded Allergies: pollen extracts (UNKNOWN 07/01/16) atorvastatin (Severe, MUSCLE WEAKNESS, CRAMPS 07/14/17) Uncoded Allergies: DUST (UNKNOWN 12/26/14) Home Med List: Albuterol Sulfate (Proair Hfa) 90 MCG HFA.AER.AD 2 PUF INH Q4H PRN COPD ( Reported) Apixaban (Eliquis) 2.5 MG TABLET 1 TAB PO BID AFIB (Reported) Please discuss with your tariff clerk before resuming the medication Ascorbic Acid 500 MG TABLET 1 TAB PO DAILY VITAMIN SUPPORT (Reported) Carbidopa/Levodopa (Sinemet 25-100 MG Tablet) 25 MG-100 MG TABLET 1 TAB PO TID PARKINSONS (Reported) Carboxymethylcellulose Sodium (Thera Tears) 0.25 % DROPS 1 DROP OU 5XDAILY PRN DRY EYES (Reported) Cetirizine HCl 10 MG TAB.CHEW 1 TAB PO QPM ALLERGIES (Reported) Dexlansoprazole (Dexilant) 60 MG CAP.DR.BP 1 CAP PO DAILY ACID REFLUX ( Reported) Digoxin (Lanoxin) 125 MCG TABLET 0.125 MG PO Q48 HEART HEALTH Please take every other day. Diltiazem HCl (Diltiazem ER) 240 MG CAP.ER.DEG 1 TAB PO DAILY HEART (Reported ) Docusate Sodium (Colace) 100 MG CAPSULE 1 CAP PO DAILY Constipation (Reported ) Ezetimibe/Simvastatin (Vytorin 10-10 MG Tablet) 10 MG-10 MG TABLET 1 TAB PO AT BEDTIME CHOLESTEROL (Reported) Ferrous Sulfate 325 MG (65 MG IRON) TABLET.DR 325 MG PO BID ANEMIA .. Finasteride 5 MG TABLET 1 TAB PO AT BEDTIME BPH (Reported) Fluticasone Propionate (Flonase Allergy Relief) 50 MCG/ACTUATION SPRAY.SUSP 2 SPRAY NASB DAILY ALLERGIES (Reported) Fluticasone/Salmeterol (Advair 250-50 Diskus) 250 MCG-50 MCG/DOSE BLST.W.DEV 1 PUF INH BID COPD (Reported) Furosemide (Lasix) 20 MG TABLET 1 TAB PO EOD DIURETIC (Reported) Guaifenesin (Mucinex) (Unknown Strength) TAB.ER.12H (Unknown Dose) PO QPM MUCUS (Reported) Ipratropium [place] 21 MCG (0.03 %) SPRAY 2 SPRAY NASB QHS ALLERGIES ( Reported) Levalbuterol HCl (Xopenex) 0.63 MG/3 ML VIAL.NEB 1 VIAL INH/ALISA Q6P PRN COPD (Reported) Levothyroxine Sodium (Synthroid) 50 MCG TABLET 1 TAB PO DAILY hypothyroidism (Reported) Meclizine HCl 25 MG TABLET 1 TAB PO TIDPRN dizziness/vertigo Melatonin 5 MG TABLET 2 TAB PO QPM SLEEP (Reported) Metformin HCl 500 MG TABLET 1 TAB PO BID DM (Reported) Montelukast Sodium 10 MG TABLET 1 TAB PO AT BEDTIME COPD (Reported) Polyethylene Glycol 3350 17 GRAM POWD.PACK 1 PAC PO PRN GI (Reported) Prednisone 10 MG TABLET 0 PO TAPER COPD EXACERBATION On Take 07/18 60 MG #6 07/19-07/20 40 MG #8 07/21-07/22 30 MG #6 07/23-07/24 20 MG #4 07/25-07/26 10 MG #2 Then Stop Sucralfate 1 GRAM TABLET 1 TAB PO TID GI (Reported) Tamsulosin HCl (Flomax) 0.4 MG CAP.ER.24H 1 CAP PO DAILY BPH (Reported) Terbinafine HCl (Terbinafine) 1 % CREAM..G. 1 RUCHI TOP QHS FEET/TOES/BUTTOCKS (Reported) Tiotropium [place] (Spiriva) 18 MCG CAP.W.DEV 1 CAP INH DAILY COPD (Reported) Vit C/E/Zn/Coppr/Lutein/Zeaxan (Preservision Areds 2 Softgel) 250-200-40 CAPSULE 1 CAP PO BID SUPPLEMENT (Reported) Past History Travel History Traveled to [place] past 21 day No Medical History Blood Transfusion Hx: No Neurological: Parkinson's disease EENT: blindness, hearing loss, macular degeneration Cardiovascular: aortic aneurysm, AFIB, CHF, hypertension, hyperlipidemia Respiratory: bronchitis, COPD, emphysema, pneumonia, Lung ca s/p lobectomy Gastrointestinal: lower GI bleed, AVM Hepatic: NONE Renal: NONE Musculoskeletal: osteoarthritis Psychiatric: NONE Endocrine: diabetes, (PREDNISONE) Blood Disorders: anemia 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 MOTHER Relation not specified for: FH: hypertension Psychosocial History Where Do You Live? Home Who Do You Live With? parent Services at Home: Nursing Primary Language: Belarusian Smoking Status: Former Smoker Functional Ability ADLs Independent: dressing, eating, toileting, bathing. Ambulation: independent IADLs Needs Assist: shopping, housework, finances, food prep, telephone, transportation, medication admin. Review of Systems Review of Systems Constitutional: Denies: no symptoms. EENTM: Reports: no symptoms. Cardiovascular: Reports: no symptoms. Respiratory: Reports: see HPI. GI: Reports: see HPI. Genitourinary: Reports: no symptoms. Musculoskeletal: Reports: no symptoms. Skin: Reports: no symptoms. Neurological/Psychological: Denies: no symptoms. Exam & Diagnostic Data Vital Signs and I&O Vital Signs Date Time Temp Pulse Resp B/P B/P Pulse O2 O2 Flow FiO2 Mean Ox Delivery Rate 07/21 1702 80 118/70 07/21 1600 95 Nasal 1.5L Cannula 07/21 1416 96.6 58 20 112/70 99 Nasal 1.0L Cannula 07/21 1014 98.2 64 20 142/66 07/21 0800 99 Nasal 1.5L Cannula 07/21 0635 98.2 64 20 142/66 100 03 0000 Nasal 2.0L Cannula 07/20 2218 97.8 78 20 122/60 95 Intake & Output 07/21 1600 07/21 0400 07/20 1600 07/20 0400 07/19 1600 07/19 0400 Intake Total 100 400 600 600 0 Output Total Balance 100 400 600 600 0 Intake, Oral 100 400 600 600 0 Patient 152 lb 154 lb Weight Weight Reported by Patient Reported by Patient Measurement Method Physical Exam General Appearance: no apparent distress, alert, awake Head: atraumatic, normal appearance Ears, Nose, Throat: hard of hearing Neck: normal inspection, supple, full range of motion Respiratory: normal breath sounds, lungs clear Cardiovascular: regular rate/rhythm, normal S1 and S2 without rub murmur or gallop Gastrointestinal: normal bowel sounds, soft, non-tender, no organomegaly Extremities: no edema Neurologic/Psych: alert, normal gait Cranial Nerves: normal speech Skin: intact, normal color Results Pertinent Lab Results: Laboratory Tests 07/21 07/20 0740 0741 Chemistry Sodium (137 - 145 mmol/L) 136 L 141 Potassium (3.5 - 5.1 mmol/L) 4.5 4.0 Chloride (98 - 107 mmol/L) 99 100 Carbon Dioxide (22 - 30 mmol/L) 31 H 33 H Anion Gap (5 - 16) 7 8 BUN (9 - 20 mg/dL) 26 H 28 H Creatinine (0.7 - 1.2 mg/dL) 0.7 0.7 Estimated GFR (>60 ml/min) > 60 > 60 BUN/Creatinine Ratio (7 - 25 %) 37.1 H 40.0 H Hematology CBC w Diff NO MAN DIFF REQ NO MAN DIFF REQ WBC (4.8 - 10.8 /CUMM) 12.7 H 9.8 RBC (4.70 - 6.10 /CUMM) 3.62 L 3.57 L Hgb (14.0 - 18.0 G/DL) 9.2 L 8.9 L Hct (42 - 52 %) 28.3 L 27.6 L MCV (80.0 - 94.0 FL) 78.2 L 77.3 L MCH (27.0 - 31.0 PG) 25.4 L 24.9 L MCHC (33.0 - 37.0 G/DL) 32.5 L 32.2 L RDW (11.5 - 14.5 %) 17.3 H 17.4 H Plt Count (130 - 400 /CUMM) 383 340 MPV (7.4 - 10.4 FL) 8.7 8.8 Gran % (42.2 - 75.2 %) 86.1 H 79.4 H Lymphocytes % (20.5 - 51.1 %) 6.2 L 11.5 L Monocytes % (1.7 - 9.3 %) 7.4 8.5 Eosinophils % (0 - 5 %) 0.2 0.4 Basophils % (0.0 - 2.0 %) 0.1 0.2 Absolute Granulocytes (1.4 - 6.5 /CUMM) 11.0 H 7.8 H Absolute Lymphocytes (1.2 - 3.4 /CUMM) 0.8 L 1.1 L Absolute Monocytes (0.10 - 0.60 /CUMM) 0.9 H 0.8 H Absolute Eosinophils (0.0 - 0.7 /CUMM) 0 0 Absolute Basophils (0.0 - 0.2 /CUMM) 0 0 Toxicology Digoxin (0.8 - 2.0 ng/mL) < 0.4 L /16 1438 Chemistry Sodium (137 - 145 mmol/L) 139 Potassium (3.5 - 5.1 mmol/L) 3.9 Chloride (98 - 107 mmol/L) 99 Carbon Dioxide (22 - 30 mmol/L) 30 Anion Gap (5 - 16) 10 BUN (9 - 20 mg/dL) 27 H Creatinine (0.7 - 1.2 mg/dL) 0.7 Estimated GFR (>60 ml/min) > 60 BUN/Creatinine Ratio (7 - 25 %) 38.6 H Glucose (65 - 99 mg/dL) 238 H Calcium (8.4 - 10.2 mg/dL) 8.7 Total Bilirubin (0.2 - 1.3 mg/dL) 0.6 AST (17 - 59 U/L) 32 ALT (21 - 72 U/L) 51 Alkaline Phosphatase (< 127 U/L) 48 Troponin I (<0.11 ng/ml) < 0.01 Total Protein (6.3 - 8.2 g/dL) 5.3 L Albumin (3.5 - 5.0 g/dL) 3.1 L Globulin (1.9 - 4.2 gm/dL) 2.2 Albumin/Globulin Ratio (1.1 - 2.2 %) 1.4 Coagulation PT (9.4 - 12.5 SEC) 14.9 H INR (0.90 - 1.17) 1.36 H APTT (25 - 37 SEC) 26 Hematology CBC w Diff NO MAN DIFF REQ WBC (4.8 - 10.8 /CUMM) 9.7 RBC (4.70 - 6.10 /CUMM) 3.69 L Hgb (14.0 - 18.0 G/DL) 9.1 L Hct (42 - 52 %) 28.9 L MCV (80.0 - 94.0 FL) 78.3 L MCH (27.0 - 31.0 PG) 24.6 L MCHC (33.0 - 37.0 G/DL) 31.4 L RDW (11.5 - 14.5 %) 17.2 H Plt Count (130 - 400 /CUMM) 302 MPV (7.4 - 10.4 FL) 8.5 Gran % (42.2 - 75.2 %) 90.1 H Lymphocytes % (20.5 - 51.1 %) 5.8 L Monocytes % (1.7 - 9.3 %) 3.8 Eosinophils % (0 - 5 %) 0.3 Basophils % (0.0 - 2.0 %) 0 Absolute Granulocytes (1.4 - 6.5 /CUMM) 8.7 H Absolute Lymphocytes (1.2 - 3.4 /CUMM) 0.6 L Absolute Monocytes (0.10 - 0.60 /CUMM) 0.4 Absolute Eosinophils (0.0 - 0.7 /CUMM) 0 Absolute Basophils (0.0 - 0.2 /CUMM) 0 Urines Urine Color (YEL,AMB,STR) STRAW Urine Clarity (CLEAR) CLEAR Urine pH (5.0 - 8.0) 5.0 Ur Specific [place] (1.001 - 1.035) <= 1.005 Urine Protein (NEG,<30 MG/DL) NEG Urine Ketones (NEG) NEG Urine Nitrite (NEG) NEG Urine Bilirubin (NEG) NEG Urine Urobilinogen (0.1 - 1.0 EU/dl) 0.2 Ur Leukocyte Esterase (NEG) NEG Ur Microscopic EXAM NOT REQUIRED Urine Hemoglobin (NEG) NEG Urine Glucose (N MG/DL) NEG Assessment/Plan Assessment/Recommendations: ASSESSMENT: 1. Melena 2. Chronic Use of Antithrombotic Agents 3. Chronic Anemia 4. Personal History of Lung Cancer 5. Recent History of Bronchitis on Steroid Taper Risks and benefits of the procedure have been discussed with Mr. Hogan and all questions have been answered. RECOMMENDATIONS: 1. Hold a.m. dose of Eliquis 2. Nothing by mouth after midnight 3. EGD in a.m. Consult Acknowledgment - Thank you for your consult request.
[2017-07-21 22:06] VITALS: BP 102/60
[2017-07-21 22:11] VITALS: BP 102/60
[2017-07-22 06:49] VITALS: BP 106/62
--- NOTE | 2017-07-22 07:19 | PN- Housestaff ---
Olegario Vences 07/22/17 0719: Subjective Follow-up For: Generalized weakness most likely 2/2 dehydration and anemia Melena with guaiac positive stools Dizziness Subjective: Patient reports lightheadedness when he tilts his head up upon standing. No acute events overnight. Review of Systems Constitutional: Reports: see HPI. Objective Last 24 Hrs of Vital Signs/I&O Vital Signs Date Time Temp Pulse Resp B/P B/P Pulse O2 O2 Flow FiO2 Mean Ox Delivery Rate 07/22 0649 98.8 51 20 106/62 100 Nasal 1.0L Cannula 07/22 0000 96 Nasal 1.5L Cannula 07/21 2211 98.0 60 20 102/60 96 07/21 2206 98.0 60 20 102/60 96 07/21 1702 80 118/70 07/21 1600 95 Nasal 1.5L Cannula 07/21 1416 96.6 58 20 112/70 99 Nasal 1.0L Cannula 07/21 1014 98.2 64 20 142/66 Intake & Output 07/22 1600 07/22 0800 07/22 0000 Intake Total 70 400 Output Total 200 Balance 70 200 Intake, IV 10 Intake, Oral 60 400 Output, Urine 200 Physical Exam General Appearance: Alert, Oriented X3, Cooperative Cardiovascular: 2/6 systolic murmur Lungs: Clear to Auscultation, Normal Air Movement Abdomen: Normal Bowel Sounds, Soft, No Tenderness Current Medications: Current Medications Sig/Chuck Start time Last Medication Dose Route Stop Time Status Admin Albuterol Sulfate 2 PUF Q4P PRN 07/19 1900 AC INH Apixaban 2.5 MG BID 07/20 1258 DC 07/21 PO 203 Budesonide/ 2 PUF BID 07/19 220 AC 07/21 Formoterol Fumarate INH 203 Carbidopa/Levodopa 1 TAB TID 07/19 220 AC 07/21 PO 2035 Digoxin 0.125 MG 1700 07/19 2100 AC 07/21 PO 1702 Diltiazem HCl 240 MG DAILY 07/20 1000 AC 07/21 PO 1014 Finasteride 5 MG AT BEDTIME 07/19 2199 AC 07/21 PO 2035 Fluticasone 2 SPRAY DAILY 07/20 1000 AC 07/21 Propionate MAGDALENO 1013 Furosemide 20 MG DAILY 07/21 1000 AC 07/21 PO 1014 Guaifenesin 600 MG Q12 07/19 2199 AC 07/21 PO 2035 Insulin Aspart 0 TIDAC/HS 07/20 0800 AC 07/21 SC 203 Levothyroxine Sodium 0.05 MG DAILY AC 07/20 0700 AC 07/22 PO 0508 Meclizine HCl 25 MG TID PRN 07/19 1915 AC PO Melatonin 10 MG QPM 07/19 2200 AC 07/21 PO 2217 Montelukast Sodium 10 MG AT BEDTIME 07/19 2200 AC 07/21 PO 203 Polyethylene Glycol 17 GM DAILY 07/21 1046 AC 07/21 PO 1135 Prednisone 10 MG DAILY 07/25 1000 AC PO 07/26 1001 Prednisone 20 MG DAILY 07/23 1000 AC PO 07/24 1001 Prednisone 30 MG DAILY 07/21 1000 AC 07/21 PO 07/22 1001 1013 Tamsulosin HCl 0.4 MG DAILY 07/20 1000 AC 07/21 PO 1014 Tiotropium [place] 1 PUF DAILY 07/20 1000 AC 07/21 INH 1014 Last 24 Hrs of Lab/Les Results Last 24 Hrs of Labs/Mics: Laboratory Tests 07/22/17 0735: Sodium Pending, Potassium Pending, Chloride Pending, Carbon Dioxide Pending, Anion Gap Pending, BUN Pending, Creatinine Pending, BUN/Creatinine Ratio Pending , CBC w Diff Pending, WBC Pending, RBC Pending, Hgb Pending, Hct Pending, MCV Pending, MCH Pending, MCHC Pending, RDW Pending, Plt Count Pending, MPV Pending Assessment/Plan Assessment: Mr. Daley is a 86-year-old gentleman with past history of allergies, COPD on 1.5L oxygen, multiple admissions for pneumonia in the past, diastolic congestive heart failure, atrial fibrillation on Eliquis, hypertension, Parkinson's disease , lung cancer status post right lower lobe lobectomy (Dr. Anderson), followed by Dr. Murphy for anemia and heme positive stool (colonoscopy 2015), recently discharged from [facility] (07/14-07/17) for acute hypoxemic respiratory failure who presents to the ED with lightheadedness and weakness for the last 2 days. Problem list: Generalized weakness most likely 2/2 dehydration and anemia Melena with guaiac positive stools Dizziness Leukocytosis most likely 2/2 steroids use Plan: Monitor H&H and white count daily TRC/nebs as needed Hold Eliquis for endoscopy GI recommendations appreciated NPO for endoscopy this afternoon DVT prophylazix: ALPS Problem List: 1. General weakness 2. Melena Pain Ratin Pain Location: NA Pain Goal: Remain pain free Pain Plan: NA Tomorrow's Labs & Rationales: CBC for anemia and white ct Lee Loving MD 07/22/17 1405: Attending MD Review Statement Attending Statement Attending MD Statement: examined this patient, discuss w/resident/PA/BROADCAST PROGRAM DIRECTOR, agreed w/resident/PA/BROADCAST PROGRAM DIRECTOR, reviewed EMR data (avail) Attending Assessment/Plan: Follow up EGD and GI recommendations, PT eval, discharge planning
[2017-07-22 08:29] LABS: ABSOLUTE BASOPHIL COUNT 0 /CUMM (0.0-0.2); ABSOLUTE EOSINOPHIL COUNT 0.1 /CUMM (0.0-0.7); ABSOLUTE GRANULOCYTE CT 10.4 /CUMM (1.4-6.5); ABSOLUTE LYMPH COUNT 1.4 /CUMM (1.2-3.4); ABSOLUTE MONOCYTE COUNT 1.2 /CUMM (0.10-0.60); BASOPHIL % 0.2 % (0.0-2.0); EOSINOPHIL % 0.7 % (0-5); GRANULOCYTE % 79.1 % (42.2-75.2); HEMATOCRIT 26.8 % (42-52); MEAN CORPUSCULAR HGB CONC 31.9 G/DL (33.0-37.0); MEAN CORPUSCULAR VOLUME 78.4 FL (80.0-94.0); MEAN PLATELET VOLUME 8.4 FL (7.4-10.4); PLATELET COUNT 396 /CUMM (130-400); RBC DISTRIBUTION WIDTH 17.5 % (11.5-14.5); RED BLOOD CELL CT 3.41 /CUMM (4.70-6.10); WHITE BLOOD CELL COUNT 13.2 /CUMM (4.8-10.8)
--- NOTE | 2017-07-22 13:33 | Proc Note Endoscopy ---
Endoscopy Procedure Medical History: unchanged Mental Status: alert/oriented Heart/Lung Eval Prior to Sedation: within normal limits Candidate for Sedation? Yes Procedure Date: 07/22/17 Procedure Type: EGD w/biopsy Television Mechanic: MD Elias Deborah E. ASA Classification: III Indications: 1. Acute blood loss anemia 2. Melena Instrument: diagnostic gastroscope Meds Received: MAC Patient's Tolerance: good Complications: none Extent Reached: second part of duodenum Procedure: Note: Informed consent was obtained prior to procedure. Risks and benefits of procedure were discussed with patient. Potential complications discussed included perforation, bleeding, abdominal pain, and adverse reaction to medications. It was explained that iany or all of these complications could result in the need for extended hospitalization, emergency surgery, transfusion of packed red blood cells (with the risk of HIV or hepatitis virus), intubation with mechanical ventilation, and possible need for antibiotics. It was further explained that an existing tumor polyp or mucosal abnormality might not be identified at the time of the procedure thus resulting in a missed opportunity for early diagnosis and treatment of a gastrointestinal malignancy or disease with possible interval development of a gastrointestinal cancer or other disease with possible worsening of clinical condition in the interval between endoscopies. It was also discussed that complications are not limited to those listed above. Possible alternatives to endoscopic treatment or evaluation were discussed. All questions were answered. Continuous EKG and blood pressure monitors were attached. Supplemental oxygen was provided with O2 Sat monitoring. Patient was placed in the left lateral decubitus position. A surgical timeout was performed. All persons in the room were identified. All concerns were expressed and answered. A bite block was placed in the mouth and sedation was administered by anesthesia and titrated to comfort prior to starting the procedure. The Olympus upper endoscope was advanced under direct vision to the level of the third portion of the duodenum. Esophagus: The esophagus had a normal mucosal vascular pattern throughout its entirety. The GE junction was identified and was normal. The Z line was located at 40 cm from the incisors and was nondisplaced. There is a small hiatal hernia. There were no Chris's erosions. Within the midesophagus there was a 4 mm squamous papilloma with a small telangiectasia. It was biopsied. Stomach: There was linear erythema in a wagon-wheel pattern extending proximal from the pylorus into the antrum. There were no ulcers or erosions noted. Retroflexed view of the cardiofundic region revealed mild nodularity without ulceration or mass. There were no telangiectasia noted.. There were normal rugae and normal distensibility. The pylorus was patent and easily intubated. Duodenum: The duodenum was fully examined from bulb down to the third portion. There was a normal mucosal vascular pattern throughout. However there was an erythematous submucosal nodule in the posterior duodenal bulb. It was biopsied for routine histopathology. With the endoscope in the forward-viewing position, it was slowly withdrawn and all areas were re-inspected and findings are as described previously. Patient tolerated the procedure well. EBL: Minimal Specimens Removed: 1. Submucosal nodule posterior duodenal bulb 2. Mid esophageal squamous papilloma Findings: 1. Submucosal nodule posterior duodenal bulb 2. Mid esophageal squamous papilloma Impression: 1. Submucosal nodule posterior duodenal bulb 2. Mid esophageal squamous papilloma None the above findings explain patient's GI blood loss. 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 However patient is no longer having melena and H&H has remained stable. Recommendations: 1. Await pathology 2. Patient may resume regular diet 3. Would continue PPI 4. Would transfuse as needed 5. In all likelihood patient has small bowel telangiectasia which are responsible for GI blood loss. Would consider capsule endoscopy if further bleeding. Given patient's age and multiple medical comorbidities would consider following H&H as well as clinical signs and symptoms related to intermittent active GI blood loss and transfuse as needed rather than pursue repeated endoscopic procedures. Will discuss with patient and attending. Do not believe patient would tolerate double balloon enteroscopy, further there has been no dramatic change in his baseline H/H (which has waxed and waned over the past several years) to suggest clinically or hemodynamically significant GI blood loss. CC: Monica RIVAS,Curt Espinoza; Estrella RIVAS,Pawel
[2017-07-22 15:03] VITALS: BP 120/64
[2017-07-22 21:43] VITALS: BP 100/50
[2017-07-23 07:07] VITALS: BP 120/66
--- NOTE | 2017-07-23 07:39 | PN- Housestaff ---
Olegario Vences 07/23/17 0738: Subjective Follow-up For: Generalized weakness most likely 2/2 dehydration and anemia Melena with guaiac positive stools s/p EGD Dizziness Subjective: No acute events overnight. Patient reports feel much better today. He denies dizziness, SOB, palpitations, CP Review of Systems Constitutional: Reports: see HPI. Objective Last 24 Hrs of Vital Signs/I&O Vital Signs Date Time Temp Pulse Resp B/P B/P Pulse O2 O2 Flow FiO2 Mean Ox Delivery Rate 07/23 1025 67 120/66 07/23 0707 99.1 67 18 120/66 98 Nasal 2.0L Cannula 07/23 0000 97 Nasal 1.0L Cannula 07/22 2143 98.3 67 18 100/50 97 07/22 1843 18 92 Nasal 1.0L Cannula 07/22 1830 18 88 Room Air 07/22 1600 Nasal 1.0L Cannula 07/22 1503 97.0 80 18 120/64 100 Nasal 1.0L Cannula Intake & Output 07/23 1600 07/23 0800 07/23 0000 Intake Total 250 250 Output Total Balance 250 250 Intake, IV 10 10 Intake, Oral 240 240 Physical Exam General Appearance: Alert, Oriented X3, Cooperative, No Acute Distress, on 1LNC Cardiovascular: 2/6 systolic murmur Lungs: Clear to Auscultation, Normal Air Movement Extremities: No Edema Current Medications: Current Medications Sig/Chuck Start time Last Medication Dose Route Stop Time Status Admin Acetaminophen 650 MG Q4P PRN 07/22 1500 AC 07/22 PO 2106 Albuterol Sulfate 2 PUF Q4P PRN 07/19 1900 AC INH Apixaban 2.5 MG BID 07/22 2200 AC 07/23 PO 1025 Budesonide/ 2 PUF BID 07/19 2200 AC 07/23 Formoterol Fumarate INH 1024 Carbidopa/Levodopa 1 TAB TID 07/19 2200 AC 07/23 PO 1024 Chlorhexidine 1 GM .STK-MED ONE 07/22 1330 DC Gluconate TOP 07/22 1331 Digoxin 0.125 MG Q48H 07/23 1700 AC PO Digoxin 0.125 MG 1700 07/19 2100 DC 07/21 PO 1702 Diltiazem HCl 240 MG DAILY 07/20 1000 AC 07/23 PO 1025 Finasteride 5 MG AT BEDTIME 07/19 2200 AC 07/22 PO 2215 Fluticasone 2 SPRAY DAILY 07/20 1000 AC 07/23 Propionate MAGDALENO 1023 Furosemide 20 MG DAILY 07/21 1000 AC 07/23 PO 1025 Guaifenesin 600 MG Q12 07/19 2200 AC 07/23 PO 1025 Insulin Aspart 0 TIDAC/HS 07/20 0800 AC 07/22 SC 2218 Levothyroxine Sodium 0.05 MG DAILY AC 07/20 0700 AC 07/23 PO 0554 Meclizine HCl 25 MG TID PRN 07/19 1915 AC PO Melatonin 10 MG QPM 07/19 2200 AC 07/22 PO 2215 Montelukast Sodium 10 MG AT BEDTIME 07/19 2200 AC 07/22 PO 2215 Ondansetron HCl 4 MG Q6P PRN 07/22 1630 AC 07/22 IV 1628 Polyethylene Glycol 17 GM DAILY 07/21 1046 AC 07/22 PO 1938 Prednisone 10 MG DAILY 07/25 1000 AC PO 07/26 1001 Prednisone 20 MG DAILY 07/23 1000 AC 07/23 PO 07/24 1001 1025 Simethicone 80 MG ONCE ONE 07/22 1530 DC 07/22 PO 07/22 1531 1529 Tamsulosin HCl 0.4 MG DAILY 07/20 1000 AC 07/23 PO 1025 Tiotropium [place] 1 PUF DAILY 07/20 1000 AC 07/23 INH 1024 Last 24 Hrs of Lab/Les Results Last 24 Hrs of Labs/Mics: Laboratory Tests 07/23/17 0727: Anion Gap 10, Estimated GFR > 60, BUN/Creatinine Ratio 27.5 H, CBC w Diff NO MAN DIFF REQ, RBC 3.67 L, MCV 77.2 L, MCH 24.4 L, MCHC 31.6 L, RDW 17.6 H, MPV 8.4, Gran % 79.8 H, Lymphocytes % 9.2 L, Monocytes % 10.0 H, Eosinophils % 0.9, Basophils % 0.1, Absolute Granulocytes 11.6 H, Absolute Lymphocytes 1.3, Absolute Monocytes 1.5 H, Absolute Eosinophils 0.1, Absolute Basophils 0 Assessment/Plan Assessment: Mr. Daley is a 86-year-old gentleman with past history of allergies, COPD on 1.5L oxygen, multiple admissions for pneumonia in the past, diastolic congestive heart failure, atrial fibrillation on Eliquis, hypertension, Parkinson's disease , lung cancer status post right lower lobe lobectomy (Dr. Anderson), followed by Dr. Murphy for anemia and heme positive stool (colonoscopy 2015), recently discharged from [facility] (07/14-07/17) for acute hypoxemic respiratory failure who presents to the ED with lightheadedness and weakness for the last 2 days. Problem list: Generalized weakness most likely 2/2 dehydration and anemia Melena with guaiac positive stools s/p EGD Dizziness Leukocytosis most likely 2/2 steroids use Plan: TRC/nebs as needed Continue Eliquis GI recommendations appreciated Endoscopy done yesterday without active bleeding visualized. Biopsy taken from duodenal bulb and papilloma DVT prophylazix: ALPS Problem List: 1. General weakness 2. Melena Pain Ratin Pain Location: NA Pain Goal: Remain pain free Pain Plan: NA Tomorrow's Labs & Rationales: none Lee Loving MD 07/23/17 1033: Attending MD Review Statement Attending Statement Attending MD Statement: examined this patient, discuss w/resident/PA/COMMUNICATIONS STRATEGIST, agreed w/resident/PA/COMMUNICATIONS STRATEGIST, reviewed EMR data (avail) Attending Assessment/Plan: 87M PMH COPD, multiple admissions for pneumonia in the past, diastolic congestive heart failure, atrial fibrillation on Eliquis, hypertension, Parkinson's disease, lung cancer status post right lower lobe lobectomy, recently discharged from after being treated for bronchitis, COPD, and CHF, sent in by home nurse for dark stools, lethargy, fatigue, and inability to ambulate. Chris reports he is too weak to walk around and care for himself. He reports black stools for the past day. He denies abdominal pain, chest pain, palpitations, lightheadedness, or any infectious symptoms. His breathing is at baseline. Unremarkable EGD done 07/22, Hgb has been stable, weakness has improved. 1. Melena 2. Unable to ambulate 3. Generalized weakness Plan - Stable for discharge - Outpatient follow up with GI - Continue Eliquis - Continue home medications
--- NOTE | 2017-07-23 07:43 | Patient Discharge Instructions ---
Discharge Instructions General Discharge Information You were seen/treated for: Blood in stools You had these procedures: Endoscopy Special Instructions: Follow up with your PCP within 1 week after discharge to review your medications Follow up with the [facility] for biopsy results within 1 week after discharge Follow up with Dr. Anderson upon discharge Diet Continue normal diet: Yes Activity Other activity limits: As tolerated Acute Coronary Syndrome Inclusion Criteria At DC or during hospital stay patient has or had the following: ACS DIAGNOSIS No Discharge Core Measures Meds if any: Prescribed or Continued at Discharge Meds if any: NOT Prescribed or Continued at Discharge Congestive Heart Failure Inclusion Criteria At DC or during hospital stay patient has or had the following: CHF DIAGNOSIS No Discharge Core Measures Meds if any: Prescribed or Continued at Discharge Meds if any: NOT Prescribed or Continued at Discharge Cerebrovascular accident Inclusion Criteria At DC or during hospital stay patient has or had the following: CVA/TIA Diagnosis No Discharge Core Measures Meds if any: Prescribed or Continued at Discharge Meds if any: NOT Prescribed or Continued at Discharge Venous thromboembolism Inclusion Criteria VTE Diagnosis No VTE Type NONE VTE Confirmed by (Test) NONE Discharge Core Measures - Per Current guidelines, there needs to be overlap - treatment for the first 5 days of Warfarin therapy. - If discharged on Warfarin prior to 5 days of - overlap therapy, the patient will need to be - assessed for post discharge needs including - *Post discharge parental anticoagulation - *Warfarin and/or parental anticoagulation education - *Follow up date to check INR post discharge At least 5 days overlap therapy as Inpatient No Meds if any: Prescribed or Continued at Discharge Note: Overlap Therapy is Warfarin and Anticoagulant Meds if any: NOT Prescribed or Continued at Discharge
[2017-07-23 09:34] LABS: ABSOLUTE BASOPHIL COUNT 0 /CUMM (0.0-0.2); ABSOLUTE EOSINOPHIL COUNT 0.1 /CUMM (0.0-0.7); ABSOLUTE GRANULOCYTE CT 11.6 /CUMM (1.4-6.5); ABSOLUTE LYMPH COUNT 1.3 /CUMM (1.2-3.4); ABSOLUTE MONOCYTE COUNT 1.5 /CUMM (0.10-0.60); BASOPHIL % 0.1 % (0.0-2.0); EOSINOPHIL % 0.9 % (0-5); GRANULOCYTE % 79.8 % (42.2-75.2); HEMATOCRIT 28.3 % (42-52); MEAN CORPUSCULAR HGB 24.4 PG (27.0-31.0); MEAN CORPUSCULAR HGB CONC 31.6 G/DL (33.0-37.0); MEAN CORPUSCULAR VOLUME 77.2 FL (80.0-94.0); MEAN PLATELET VOLUME 8.4 FL (7.4-10.4); PLATELET COUNT 449 /CUMM (130-400); RBC DISTRIBUTION WIDTH 17.6 % (11.5-14.5); RED BLOOD CELL CT 3.67 /CUMM (4.70-6.10); WHITE BLOOD CELL COUNT 14.6 /CUMM (4.8-10.8)
[2017-07-23 10:25] VITALS: BP 120/66
--- NOTE | 2017-07-23 16:12 | Discharge Summary ---
Visit Information Visit Dates Admission Date: 07/19/17 Discharge Date: 07/23/17 Hospital Course Course Attending Physician: Lee Loving MD Primary Care Physician: Estrella RIVAS,[facility] Course: Mr. Daley is a 86-year-old gentleman with past history of COPD on 1.5L oxygen, multiple admissions for pneumonia, diastolic congestive heart failure, atrial fibrillation on Eliquis, hypertension, Parkinson's disease, lung cancer status post right lower lobe lobectomy, anemia and heme positive stool (colonoscopy 2015), recently discharged from [facility] (07/14/17-07/17/17) for acute hypoxemic respiratory failure who presents to the ED with lightheadedness and weakness for the last 2 days. Melena Patient has a history of dark stools which are guaiac positive, his recent colonoscopy was negative for active bleeding. His H&H remained stable and he did not require any transfusions. GI consult was consulted. An endoscopy was performed without active bleeding visualized. Biopsy was taken from a submucosal nodule posterior duodenal bulb and a esophageal squamous papilloma. His Eliquis was initially held due to concerns of GI bleed however with stable H&H it eventually was resumed. Mild leukocytosis Patient remained afebrile with no source of infection. It was thought it was due to his recent prednisone use. Generalized weakness He complained of lightheaded and his home medication Meclizine was resumed. He ambulated without assistance and his lightheadedness resolved. Allergies: Coded Allergies: pollen extracts (UNKNOWN 07/01/16) atorvastatin (Severe, MUSCLE WEAKNESS, CRAMPS 07/14/17) Uncoded Allergies: DUST (UNKNOWN 12/26/14) Significant Procedures: Procedure Date: 07/22/17 Procedure Type: EGD w/biopsy Specimens Removed: 1. Submucosal nodule posterior duodenal bulb 2. Mid esophageal squamous papilloma Findings: 1. Submucosal nodule posterior duodenal bulb 2. Mid esophageal squamous papilloma Impression: 1. Submucosal nodule posterior duodenal bulb 2. Mid esophageal squamous papilloma None the above findings explain patient's GI blood loss. 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 However patient is no longer having melena and H&H has remained stable. Pertinent Lab Results: 07/19/17-1409 XRY-PORTABLE CHEST XRAY FINDINGS: There is emphysematous lung disease. There is volume loss of the right hemithorax with elevation of the right diaphragm from right lower lobectomy. Chronic pleural thickening or small pleural effusion at the base of the right hemithorax. The recently identified asymmetric pulmonary opacity (most pronounced in right lower lung on 07/14/2017) has rapidly, significantly decreased. This suggests resolution of pulmonary edema. There are no new areas of pulmonary disease. Again noted is cardiomegaly and an atherosclerotic thoracic aorta. 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 IMPRESSION: 1. Pulmonary emphysema. 2. The pulmonary edema of 07/14/2017 appears resolved. Disposition Summary Disposition Principal Diagnosis: Melena Additional Diagnosis: Generalized weakness Discharge Disposition: home or self care Discharge Instructions General Discharge Information Code Status: Full Code Patient's Diet: Heart healthy Patient's Activity: As tolerated Follow-Up Instructions/Appts: Follow up with your PCP within 1 week after discharge to review your medications Follow up with the Animal Biologist for biopsy results within 1 week after discharge Follow up with Dr. Anderson upon discharge Medications at Discharge Discharge Medications: Continue taking these medications: Levothyroxine Sodium (Synthroid) 50 MCG TABLET 1 Tablet ORAL DAILY Qty = 30 Comments: Last Taken: 07/23/17 Time: 6 AM Docusate Sodium (Colace) 100 MG CAPSULE 1 Capsule ORAL DAILY Comments: NOT GIVEN Dexlansoprazole (Dexilant) 60 MG CAP.DR.BP 1 Capsule ORAL DAILY Comments: NOT GIVEN IN HOSPITAL Tamsulosin HCl (Flomax) 0.4 MG CAP.ER.24H 1 Capsule ORAL DAILY Comments: Last Taken: 07/23/17 Time: 1030 AM Metformin HCl (Metformin HCl) 500 MG TABLET 1 Tablet ORAL TWICE DAILY Qty = 180 Comments: NOT GIVEN IN HOSPITAL Carbidopa/Levodopa (Sinemet 25-100 MG Tablet) 25 MG-100 MG TABLET 1 Tablet ORAL THREE TIMES DAILY Comments: Last Taken: 07/23/17 Time: 1025 AM Diltiazem HCl (Diltiazem ER) 240 MG CAP.ER.DEG 1 Tablet ORAL DAILY Comments: Last Taken: 07/23/17 Time: 1025 AM Finasteride (Finasteride) 5 MG TABLET 1 Tablet ORAL AT BEDTIME Comments: Last Taken: 07/22/17 Time: 1015 PM Montelukast Sodium (Montelukast Sodium) 10 MG TABLET 1 Tablet ORAL AT BEDTIME Comments: Last Taken: 07/22/17 Time: 10 PM Apixaban (Eliquis) 2.5 MG TABLET 1 Tablet ORAL TWICE DAILY Instructions: Please discuss with your marketing analytics manager before resuming the medication Comments: Last Taken:07/23/17 Time:1000 AM Albuterol Sulfate (Proair Hfa) 90 MCG HFA.AER.AD 2 Puff Inhale through mouth Q4H as needed for COPD Comments: NOT GIVEN Ezetimibe/Simvastatin (Vytorin 10-10 MG Tablet) 10 MG-10 MG TABLET 1 Tablet ORAL AT BEDTIME Comments: NOT GIVEN Cetirizine HCl (Cetirizine HCl) 10 MG TAB.CHEW 1 Tablet ORAL Every night Comments: NOT GIVEN IN HOSPITAL Ipratropium Prospect (Ipratropium Prospect) 21 MCG (0.03 %) SPRAY 2 [place] Both sides of nose TAKE AT BEDTIME Comments: NOT GIVEN Ascorbic Acid (Ascorbic Acid) 500 MG TABLET 1 Tablet ORAL DAILY Comments: NOT GIVEN Furosemide (Lasix) 20 MG TABLET 1 Tablet ORAL Every other day Comments: Last Taken: 07/23/17 Time: 1025 AM Fluticasone Propionate (Flonase Allergy Relief) 50 MCG/ACTUATION SPRAY.SUSP 2 [place] Both sides of nose DAILY Comments: Last Taken: 07/23/17 Time: 1025 AM Levalbuterol HCl (Xopenex) 0.63 MG/3 ML VIAL.NEB 1 VIAL Inhale Solution EVERY SIX HOURS NEEDED as needed for COPD Comments: NOT GIVEN Vit C/E/Zn/Coppr/Lutein/Zeaxan (Preservision Areds 2 Softgel) 250-200-40 CAPSULE 1 Capsule ORAL TWICE DAILY Comments: NOT GIVEN Carboxymethylcellulose Sodium (Thera Tears) 0.25 % DROPS 1 DROP Both Eyes 5XDAILY as needed for DRY EYES Comments: NOT GIVEN IN HOSPITAL Terbinafine HCl (Terbinafine) 1 % CREAM..G. 1 Application On the skin TAKE AT BEDTIME Comments: NOT GIVEN Ferrous Sulfate (Ferrous Sulfate) 325 MG (65 MG IRON) TABLET.DR 325 Milligram ORAL TWICE DAILY Qty = 60 Instructions: .. Comments: NOT GIVEN Digoxin (Lanoxin) 125 MCG TABLET 0.125 Milligram ORAL EVERY 48 HOURS (Every 2 days) Qty = 15 Instructions: Please take every other day. Comments: Last Taken: 07/21/17 Time: 5 PM Fluticasone/Salmeterol (Advair 250-50 Diskus) 250 MCG-50 MCG/DOSE BLST.W.DEV 1 Puff Inhale through mouth TWICE DAILY Qty = 180 Comments: Last Taken: 07/23/17 Time: 1025 AM Sucralfate (Sucralfate) 1 GRAM TABLET 1 Tablet ORAL THREE TIMES DAILY Qty = 270 Comments: NOT GIVEN Melatonin (Melatonin) 5 MG TABLET 2 Tablet ORAL Every night Comments: Last Taken:07/22/17 Time: 10 PM Tiotropium [place] (Spiriva) 18 MCG CAP.W.DEV 1 Capsule Inhale through mouth DAILY Qty = 90 Comments: Last Taken: 07/23/17 Time: 1025 AM Polyethylene Glycol 3350 (Polyethylene Glycol 3350) 17 GRAM POWD.PACK 1 Packet ORAL as needed for GI Qty = 90 Comments: Last Taken:07/22/17 Time: 730 PM Prednisone (Prednisone) 10 MG TABLET 0 ORAL TAPER Qty = 26 Instructions: On Take 07/18 60 MG #6 07/19-07/20 40 MG #8 07/21-07/22 30 MG #6 07/23-07/24 20 MG #4 07/25-07/26 10 MG #2 Then Stop Comments: Last Taken:07/23/17 Time: 1030 AM Meclizine HCl (Meclizine HCl) 25 MG TABLET 1 Tablet ORAL THREE TIMES A DAY NEEDED Qty = 30 Comments: NOT GIVEN Guaifenesin (Mucinex) (Unknown Strength) TAB.ER.12H 600 ORAL Every night Comments: Last Taken: 07/23/17 Time: 1025 AM Copies To: Curt RIVAS,Tosha; Estrella RIVAS,Pawel
== END 2017-07-23 13:10 | disposition home health service (06) | DRG 327 ==
LOC: ERH 13:48 → 2NA 17:16 → ERHI 17:16 → ENRESERV 18:31 → CANRESERV 18:31 → ENRESERV 18:39 → 2NA 19:24 → ENTRNSPT 19:27 → EDTRNSPTSTS 19:33 → EDTRNSPT 19:33 → 2NA 19:45 → CMPTRNSPT 19:56 → ENPENDDIS 07-23 10:11 → 2NA 07-23 13:10 → ENTRNSPT 07-23 13:12 → EDTRNSPTSTS 07-23 13:14 → CMPTRNSPT 07-23 13:33
PROVIDERS: Dermatology; Physician Assistant Medical; Student in an Organized Health Care Education/Training Program
PROC: 0DB98ZX Excision of Duodenum, Via Natural or Artificial Opening Endoscopic, Diagnostic (ICD-10-PCS; principal; 2017-07-22)
PROC: 0DB50ZX Excision of Esophagus, Open Approach, Diagnostic (ICD-10-PCS; principal; 2017-07-22)
DX: K92.1 Melena (principal); D62 Acute posthemorrhagic anemia; G20 Parkinson's disease; I48.2 Chronic atrial fibrillation; E86.0 Dehydration; I50.32 Chronic diastolic (congestive) heart failure; I11.0 Hypertensive heart disease with heart failure; Z99.81 Dependence on supplemental oxygen; Q27.30 Arteriovenous malformation, site unspecified; K92.2 Gastrointestinal hemorrhage, unspecified; E78.5 Hyperlipidemia, unspecified; H54.7 Unspecified visual loss; J44.9 Chronic obstructive pulmonary disease, unspecified; Z79.01 Long term (current) use of anticoagulants; M94.0 Chondrocostal junction syndrome [Tietze]; Z87.01 Personal history of pneumonia (recurrent); Z85.118 Personal history of other malignant neoplasm of bronchus and lung; Z90.2 Acquired absence of lung [part of]; Z91.048 Other nonmedicinal substance allergy status; H91.90 Unspecified hearing loss, unspecified ear; I71.9 Aortic aneurysm of unspecified site, without rupture; Z98.1 Arthrodesis status; Z79.84 Long term (current) use of oral hypoglycemic drugs; Z79.51 Long term (current) use of inhaled steroids; D72.829 Elevated white blood cell count, unspecified; I78.1 Nevus, non-neoplastic
CPT/HCPCS: 2NAP; 36592; 71045; 81003; 82436; 93005; 93010; 96376; J0456; J1815; J1940; J2920; J3490; J7512